=== PATIENT | female | born 1960 | race Caucasian/White ===

== ENCOUNTER → 2021-01-04 09:53 | Outpatient (CLI) | payer BC, SELFPAY ==
--- NOTE | ~2021-01-04 | MM_ITS ---
EXAMINATION: MM scrn mabel implant BI w jacquelyn HISTORY: Screening mammogram TECHNIQUE: Craniocaudal and mediolateral oblique 3-D tomosynthesis images with implant displacement a nd synthetic 2-D images were generated. Craniocaudal and mediolateral oblique views of the breasts wi thout implant displacement were obtained using full field digital mammography. CAD analysis was submi tted and interpreted. COMPARISON: Comparison to multiple prior studies sequentially, with oldest reviewed study dated 02/22. BREAST PARENCHYMAL COMPOSITION: The breasts are extremely dense, which lowers the sensitivity of mamm ography FINDINGS: There is no evidence of suspicious mass, calcification, or architectural distortion to sugg est malignancy in either breast. There has been no suspicious interval change. IMPRESSION: 1. No mammographic evidence of malignancy. 2. Recommend routine screening mammography in one year. BI-RADS Category 1: Negative Reviewed, dictated and finalized at location A.
== END ==
PROVIDERS: Visit Provider Obstetrics & Gynecology
DX: Z12.31 Encounter for screening mammogram for malignant neoplasm of breast (principal)
CPT/HCPCS: 77063; 77067

== ENCOUNTER 2021-02-04 08:17 | Outpatient (CLI) | payer BC, SELFPAY ==
--- NOTE | ~2021-02-04 | DEXA_ITS ---
Bone Density Report Name: Kristina Baker Age: 60 Sex: Female Ethnicity: White Date of : 1960 Indication: postmenopausal; height loss; hysterectomy; Referring Provider: JO HAGEN Study: Bone densitometry was performed. Exam Date: February 04, 2021 Accession number: [id number] Bone Density: Region BMD T-score Z-score Classification AP Spine (L1-L4) 0.720 -3.0 -1.6 Osteoporosis Femoral Neck (Left) 0.650 -1.8 -0.6 Osteopenia Total Hip (Left) 0.840 -0.8 0.0 Normal Total Hip Bilateral Avg 0.863 -0.7 0.2 Normal Femoral Neck (Right) 0.676 -1.6 -0.3 Osteopenia Total Hip (Right) 0.886 -0.5 0.4 Normal World Health Organization criteria for BMD impression classify patients as: Normal (T-score at or above -1.0), Osteopenia (T-score between -1.0 and -2.5), or Osteoporosis (T-score at or below -2.5). 10-year Fracture Risk: FRAX not reported because: Some T-score for Spine Total or Hip Total or Femoral Neck at or below -2.5 Clinical Information Provided by Patient: Has used the following medications: Vitamin D, Calcium Has the following medical conditions: Hysterectomy Patient maximum height was 67 Menopause Age: 50 No regular weight bearing exercise Does not regularly consume dairy products Onset of menses at age 15 Number of children 1 Impression: The patient has osteoporosis, based on the Total Spine T-score. Discussion: INCREASED RISK OF FRACTURE. BONE DENSITY IS UNDESIRABLY LOW AT ONE OR MORE SKELETAL SITES, CONSISTENT WITH POSTMENOPAUSAL OSTEOPOROSIS. This patient's lowest T-score meets the World Health Organization's (WHO) criteria for osteoporosis at one or more sites (T-score -2.5 or below). In untreated patients, the risk of osteoporotic fracture increases approximately two-fold for each 1.0 SD decrease in T-score. Low bone density is not the only risk factor for fracture; also consider factors such as patient's age, frailty or poor health, risk of falling, risk of injury, previous osteoporotic fracture, family history of osteoporosis, cigarette smoking, low body weight, etc. Not everyone with low bone mineral density has osteoporosis; osteomalacia and other metabolic bone disorders should also be considered. Patients who have osteoporosis should be evaluated for specific diseases and conditions (secondary causes) that may cause or contribute to bone loss. The [employer] Clinical Endocrinologists (AACE) and National Osteoporosis Foundation (NOF) recommend pharmacologic intervention for all postmenopausal women whose T-score is in this range. The patient should follow a healthful lifestyle (good nutrition with adequate calcium and vitamin D, and appropriate weight-bearing exercise). Follow-Up: Consider a repeat BMD and Vertebral Fracture Assessment (VFA) exam in 2 years or sooner if medicall
== END 2021-02-04 08:18 | disposition home or self-care (01) ==
LOC: ANHIMG 08:19
PROVIDERS: Visit Provider Obstetrics & Gynecology
DX: Z78.0 Asymptomatic menopausal state (principal); M81.0 Age-related osteoporosis without current pathological fracture; M85.852 Other specified disorders of bone density and structure, left thigh; M85.851 Other specified disorders of bone density and structure, right thigh
CPT/HCPCS: 77080

== ENCOUNTER → 2021-04-24 00:20 | Outpatient (CLI) | payer BC, SELFPAY ==
[2021-04-24 19:57] LABS: SARS-CoV-2 RNA PCR Negative
== END ==
PROVIDERS: PCP Family Medicine; Visit Provider Physician Assistant
DX: R68.83 Chills (without fever) (principal); R53.83 Other fatigue; Z20.822 Contact with and (suspected) exposure to COVID-19
CPT/HCPCS: C9803; U0003; U0005

== ENCOUNTER 2021-04-28 15:17 | Inpatient (IN) | payer BC, MEDICAID, SELFPAY ==
[2021-04-28] VITALS (15 sets, daily range): BP systolic 70–90; BP diastolic 34–66; PULSE 97–125; RESP 17–26; TEMP 36.8–38.4; O2SAT 92–100; BMI 20.9
--- NOTE | ~2021-04-28 | CT_ITS ---
EXAMINATION: CTA chest PE abdomen pel DATE: 04/28/2021 17:29 INDICATION: Chest pain. TECHNIQUE: Computed tomography angiography (CTA) of the chest was performed with 100 mL Omnipaque-350 intravenous contrast timed to evaluate the pulmonary arteries. Coronal maximum intensity projection 3D-reconstructions were created by the technologist. Computed tomography (CT) of the abdomen and pelv is was performed with intravenous contrast. Automated exposure control and iterative reconstruction t echnique were employed. The dose-length product was 379.74 mGy-cm. COMPARISON: Chest single view 04/28/2021 FINDINGS: CTA chest: There are small pleural effusions. There is mild dependent atelectasis bilaterally. There is a diffuse interstitial pattern in the lungs. There are groundglass opacities in the perihilar mick ons bilaterally. The heart size is normal. No pericardial effusion. There is no pulmonary embolus. Th ere are bilateral breast implants. There is mild thoracic spondylosis. CT abdomen and pelvis: There is a 5 mm cyst in the liver. The spleen, pancreas, adrenal glands, and r ight kidney are normal. There is a 5 mm cyst in left kidney. There is diverticulosis of the colon wit hout evidence of diverticulitis. The appendix is normal. There are no pathologically enlarged lymph n odes. There is no free intraperitoneal fluid. There is mild lumbar spondylosis. IMPRESSION: 1. No pulmonary embolus. 2. Diffuse lung disease, likely moderate pulmonary edema. 3. Small pleural effusions. Reviewed, dictated and finalized at location A. SPORTATION ANALYST
--- NOTE | ~2021-04-28 | XR_ITS ---
EXAMINATION: XR chest 1V portable DATE: 04/28/2021 16:16 INDICATION: Fever. Weakness. TECHNIQUE: A single frontal view of the chest was obtained. COMPARISON: None. FINDINGS: The lungs are hyperexpanded, consistent with emphysema. There are mild airspace opacities i n left midlung zone. No pleural effusion or pneumothorax. The heart size is normal. IMPRESSION: 1. Mild airspace opacities in left midlung zone, consistent with pneumonia versus atelectasis/scarrin g. 2. Emphysema. Reviewed, dictated and finalized at location A. AND SKIN FLESHING MACHINE OPERATOR IMPRESSION: 1. Mild airspace opacities in left midlung zone, consistent with pneumonia vers us atelectasis/scarring. 2. Emphysema.
--- NOTE | ~2021-04-28 | XR_ITS ---
EXAMINATION: XR hip LT 1V DATE: 04/30/2021 09:36 INDICATION: Left hip pain TECHNIQUE: Anteroposterior view of the left hip was obtained. COMPARISON: None. FINDINGS: Alignment is normal. No fracture or suspected avascular necrosis. Left hip joint space is normal. Mil d bilateral sacroiliac osteoarthritis. Do catheter tip in the bladder. Soft tissues are unremarkab le. IMPRESSION: 1. Normal left hip joint with no acute osseous abnormality. Reviewed, dictated and finalized at location A. RMATICS SPEC
--- NOTE | ~2021-04-28 | CT_ITS ---
EXAMINATION: CT brain wo con DATE: 04/28/2021 20:30 INDICATION: Confusion. Altered mental status. TECHNIQUE: Computed tomography (CT) of the head was performed without intravenous contrast. The mA wa s adjusted according to patient size. Iterative reconstruction technique was employed. The dose-lengt h product was 605.33 mGy-cm. COMPARISON: None FINDINGS: There is no intracranial hemorrhage, acute infarction, or abnormal intracranial mass lesion . There is low attenuation in the left frontal lobe white matter, which is within normal limits for t he patient's age. The ventricles are normal in size. There is mild mucosal thickening in the paranasa l sinuses. The mastoid air cells are normal. The orbits are normal. IMPRESSION: 1. Normal aging brain. Reviewed, dictated and finalized at location A. N BLOCKER IMPRESSION: 1. Normal aging brain.
--- NOTE | ~2021-04-28 | XR_ITS ---
EXAMINATION: XR chest port-a-cath/central DATE: 04/28/2021 19:47 INDICATION: Central line placement. TECHNIQUE: A single frontal view of the chest was obtained on 2 radiographs. COMPARISON: Chest single view at 4:04 PM, chest CT 04/28/21 FINDINGS: There is a diffuse interstitial pattern in the lungs. There are airspace opacities in the p erihilar regions. No pleural effusion or pneumothorax. The heart size is normal. A right internal jug ular central venous catheter is seen with tip in the superior vena cava. Breast implants are noted. IMPRESSION: 1. Worsened diffuse lung disease, likely moderate pulmonary edema. Reviewed, dictated and finalized at location A. CONTROL SPECIALIST
--- NOTE | ~2021-04-28 | XR_ITS ---
XR chest 1V portable 04/30/2021 09:35 Indication: Shortness of breath Procedure: AP portable chest Comparison: 04/29/2021 Findings: Cardiomegaly. Diffuse bilateral airspace disease, right greater than left. Right IJ central line tip in the SVC. No pneumothorax. Small pleural effusions. Impression: 1: Progression of extensive bilateral airspace disease, compatible with pneumonia. 2: Small pleural effusions. Reviewed, dictated and finalized at location A. AL ADVERTISER Impression: 1: Progression of extensive bilateral airspace disease, compatible with pneumon ia. 2: Small pleural effusions.
--- NOTE | ~2021-04-28 | US_ITS ---
EXAMINATION: US venous doppler [facility] DATE: 05/04/2021 12:35 INDICATION: Lower limb swelling TECHNIQUE: Grayscale ultrasound images without and with compression and Doppler ultrasound images of the bilateral lower extremity veins were obtained. COMPARISON: None. FINDINGS: The visualized portions of right common femoral vein, profunda (deep) femoral vein, femoral vein, pop liteal vein, posterior tibial veins, peroneal veins, gastrocnemius vein and greater saphenous vein ou tflow are patent. The visualized portions of left common femoral vein, profunda femoral vein, femoral vein, popliteal v ein, posterior tibial veins, peroneal veins, gastrocnemius vein and greater saphenous vein outflow ar e patent. IMPRESSION: 1. No deep venous thrombosis in either lower limb. Reviewed, dictated and finalized at location B. OLEER STRAIGHTENER STAMPER
--- NOTE | ~2021-04-28 | XR_ITS ---
EXAMINATION: XR chest 1V portable DATE: 04/29/2021 05:55 INDICATION: Pneumonia and increased oxygen demand. TECHNIQUE: frontal view of the chest was obtained. COMPARISON: Chest radiograph dated 04/28/2021 FINDINGS: Right internal jugular central venous catheter with distal tip at the caudal superior vena cava. Rosalinda hilar predominant airspace opacities and diffuse increased interstitial pattern with numerous periphe ral Heidi B-lines. No pneumothorax or definitive pleural effusion. Cardiomegaly. Bilateral breast im plants. IMPRESSION: 1. Diffuse interstitial pattern and perihilar predominant opacities most likely congestive heart fail ure related moderate pulmonary edema although differential includes pneumonia. 2. Cardiac Megaly. Reviewed, dictated and finalized at location [facility]. [facility] IMPRESSION: 1. Diffuse interstitial pattern and perihilar predominant opacities most likely congestive heart failure related moderate pulmonary edema although differentia l includes pneumonia. 2. Cardiac Megaly.
--- NOTE | 2021-04-28 15:54 | ECG_ITS ---
Measurements Intervals [place] Rate: 110 P: 57 VA: 136 QRS: 4 QRSD: 109 T: 43 QT: 348 QTc: 472 Interpretive Statements SINUS TACHYCARDIA BASELINE ARTIFACT- II, III, AVR, AVF, V2-V6 ABNORMAL ECG Electronically Signed On 04-28-2021 20:11:08 CEMENT FINISHING SUPERVISOR by Dk Meadows D.O.
--- NOTE | 2021-04-28 16:11 | ED.GENADULT ---
HPI - General Adult General Chief complaint: Unspecified Stated complaint: Fever,chills Time Seen by Provider: 04/28/21 15:33 Source: patient Mode of arrival: ambulatory History of Present Illness HPI narrative: This is a 61 year old female who presents for evaluation of weakness and fever. Patient has been ill since the day after thanksgiving. She states started having fever as high as 104 at that time. Her fever today was 101. She reports mild cough and congestion but she denies chest pain or shortness of breath. She has nausea but denies vomiting. She has been having diarrhea intermittently since Monday. She reports she only has diarrhea after drinking ensure. Otherwise she has no appetite and eating and drinking very little. She reports feeling forgetful since she has been ill. Related Data Home Medications Medication Instructions Recorded Confirmed calcium 166.75 mg-vit D3 166.75 1 tablet PO DAILY 11/12/19 03/31/21 unit-vit C-vit K2-minerals capsule multivitamin,[id number] 1 tablet PO DAILY 11/12/19 03/31/21 turmeric root extract 500 mg 500 mg PO DAILY 11/12/19 03/31/21 capsule lysine 500 mg tablet 500 mg PO DAILY 12/17/20 03/31/21 Allergies Allergy/AdvReac Type Severity Reaction Status Date / Time No Known Allergies Allergy Verified 03/31/21 10:18 Review of Systems Review of Systems: All systems reviewed & are unremarkable except as noted in HPI and below Constitutional: Constitutional: Reports chills, Reports fever(s) and Reports malaise ENT: Denies neck pain and Denies sore throat Respiratory: Respiratory: Reports cough and Denies pain on inspiration Gastrointestinal: Gastrointestinal: Reports abdominal pain, Reports diarrhea and Reports nausea Endocrine: Endocrine: Denies polyuria PMFSH Past Medical History Medical History History of vaginal delivery x1 HSV (herpes simplex virus) infection Surgical History Surgical History H/O tubal ligation H/O: hysterectomy History of bilateral tubal ligation History of breast augmentation 1990 History of endometrial ablation History of hysteroscopy Family History Family History Grandparent Family history of glaucoma Family history of cardiovascular disease Carcinoma of colon Mother Family history of cardiovascular disease Acute myocardial infarction Family history of chronic obstructive pulmonary disease Family history of congestive heart failure Sibling Carcinoma of colon Father Family history of Alzheimer's disease Social History Social History (Reviewed 03/31/21 @ 10:26 by Marilou Ahmadi [facility]) Smoking end date: 05/29/91 Alcohol intake: never Substance use: unknown Exam Const: General: cooperative, alert, awake, ill appearing and well groomed Limitations: no limitations HENMT: Head: normocephalic and atraumatic Ears: TM's normal bilaterally Face and sinus: face symmetric Mouth: Yes Normal oral and palatal mucosa present, Yes tongue normal, Yes Normal salivary glands and ducts present, Yes moist mucous membranes and Yes other (dry lips) Throat: tonsils normal and uvula midline Eyes: Pupils: Equal, round and reactive pupils present EOM: EOMs intact bilaterally Resp: Effort & Inspection: normal respiratory effort, able to speak in complete sentences, Actively coughing, no respiratory distress and no stridor Auscultation: clear to auscultation bilaterally Cardio: Jugular venous distension: no JVD Rate: tachycardic Rhythm: regular rhythm Heart sounds: S1 normal heart sound present GI: GI Palp: Yes Soft to palpation, Yes Tenderness to palpation present (GI) (Diffuse) and No Guarding due to palpation present (GI) Back/Spine/Pelvis: Back: no CVA tenderness Skin: General skin exam: normal color and no rashes or lesions no
[2021-04-28 16:17] LABS: Hematocrit 29.4 % (37.0-47.0); Immature Platelet Fraction Pct 12.6 % (0.9-11.2); Mean Corpuscular HGB Conc 37.4 g/dl (32-36); Mean Corpuscular Hemoglobin 32.1 pg (26-34); Mean Corpuscular Volume 85.7 fl (80-100); Mean Platelet Volume 12.4 fl (7.4-10.4); Platelet Count Result 46 k/mm3 (150-375); Red Blood Count 3.43 M/mm3 (4.2-5.4); Red Cell Distribution Width 13.5 % (11.5-14.5); White Blood Count 15.6 K/mm3 (4.5-10.0)
[2021-04-28] MEDS: SODIUM CHLORIDE 0.9% IV 1,600 ML/1,000 ML BAG 999 ML IV CONT ×2 (16:24→21:47)
[2021-04-28 16:26] LABS: Partial Thromboplastin Time 26.4 SECONDS (22.3-36.8); Prothrombin Time 13.4 Seconds (11.1-14.7)
[2021-04-28 16:28] LABS: Lactic Acid Reflex 1.5 mmol/L (0.7-2.1)
[2021-04-28 16:36] LABS: Alanine Aminotransferase 29 U/L (4-35); Albumin Level 3.3 g/dL (3.5-5.1); Alkaline Phosphatase 123 U/L (38-126); Anion Gap 10 mmol/L (8-16); Aspartate Amino Transferase 36 U/L (14-36); Bilirubin,Total 1.5 mg/dL (0.2-1.3); Blood Urea Nitrogen 40 mg/dL (7-17); Calcium 8.4 mg/dL (8.4-10.2); Carbon Dioxide 21 mmol/L (22-30); Chloride 89 mmol/L (98-107); Estimated CRCL calculation 41 ml/min; Estimated Glomerular Filt Rate 51; Glucose 124 mg/dL (65-110); Lipase 50 U/L (23-300); Potassium 3.3 mmol/L (3.4-5.0); Sodium 120 mmol/L (137-145)
[2021-04-28 16:38] LABS: Band Neutrophils Percent 12 % (0-6); Lymphocytes Absolute Manual 0.46 K/mm3 (1.1-4.5); Lymphocytes Percent Manual 3 % (18-44); Metamyelocytes Percent 1 %; Monocytes Absolute Manual 1.24 K/mm3 (0.1-0.90); Monocytes Percent Manual 8 % (3-9); Neutrophils Absolute Manual 13.72 K/mm3 (1.7-7.2); Neutrophils Percent Manual 76 % (46-73); Ovalocytes 1+ (NORMAL); Platelet Estimate Decreased (Adequate); Total Cells Counted 100
[2021-04-28 16:43] LABS: CRP > 27.0 mg/dL (<1.0); Troponin I 0.225 ng/mL (0.000-0.034)
[2021-04-28 18:09] LABS: Add Urine Microscopic? YES; Amorphous Sediment Urine Few; Appearance Urine Cloudy (Clear); Bilirubin Urine Negative (Negative); Blood Urine 1+ (Negative); Color Urine Amber (Yellow); Glucose Urine UA Negative (Negative); Ketones Urine Negative (Negative); Leukocyte Esterase Ur Negative LEU/UL (Negative); Mucus Urine Rare /lpf; Nitrate Urine Negative (Negative); Protein Urine 2+ mg/dL (Negative); RBC Urine 21-50 /hpf (0-2); Specific Grav Ur 1.025 (1.001-1.035); Squamous Epithelial Cell Urine Few /hpf (Few); Urobilinogen Urine Negative mg/dL (<2.0)
[2021-04-28 18:30] LABS: NT Pro B Type Natriuretic Pept 16600 pg/mL (5-100)
--- NOTE | 2021-04-28 18:55 | PC.NURSE ---
This RN attempted to obtain consent for central line, at this time patient is requesting to speak to ER , Dr. Marshall aware.
--- NOTE | 2021-04-28 19:35 | PC.NURSE ---
XY called at this time.
--- NOTE | 2021-04-28 19:40 | PC.NURSE ---
Right IJ triple lumen placed by AVELINO Marshall at bedside.
--- NOTE | 2021-04-28 20:19 | PC.NURSE ---
Pt to CT scan at this time.
--- NOTE | 2021-04-28 20:20 | PC.NURSE ---
Called pharmacy in regards to issues scanning levophed, pharmacy verifies dose is correct and Rx number is different due to changes on their end (due to ICU admission). Must override to administer med per pharmacy, med is appropriate to administer.
--- NOTE | 2021-04-28 20:26 | PC.NURSE ---
Verified with lab that COVID swab is not pending, not available to run in lab. Will swab pt for COVID.
[2021-04-28] MEDS: NOREPINEPHRINE 8 MG/D5W 250 ML 8 MG/250 ML BAG 9.38 MG IV CONT (20:35)
--- NOTE | 2021-04-28 20:38 | PC.NURSE ---
Levophed verified with BUSHRA Morin.
[2021-04-28] MEDS: CENTRAL LINE FLUSH 10 ML IV PUSH (21:49)
--- NOTE | 2021-04-28 22:06 | PM.CNNEP ---
Assessment and Plan Assessment and plan (1) Hyponatremia: Code(s): E87.1 - Hypo-osmolality and hyponatremia Status: Acute Assessment and Plan: Patient has hyponatremia. The sodium level is 120. In September she had a sodium of 140. She has never been told she had low sodium in the past or has been told that she should restrict her fluid. So I think this is new. I suspect that her sodium has been gradually falling over the last 5 days because she has not been eating and she has been drinking. She might also be dehydrated leading to a decrease in ability to excrete free water. There other causes of hyponatremia which include: Hormonal issues: Her TSH is normal. We will check cortisol levels. Adrenal insufficiency could give her hypotension plus hyponatremia. Will check a cortisol level tonight and give her a single dose of Solu-Cortef to see if that improves her blood pressure dramatically. Medications: The patient is not on any medications that would do this. Cancer: No history of cancer. However the patient is quite thin. Pulmonary issues: There is no history of this, and her chest x-ray does not show any processes that would suggest a cause of hyponatremia. MONONITROTOLUENE OPERATOR issue: There is no history of this Pre renal issues: This could be dehydration or could be cardiorenal syndrome. Multiple myeloma can cause pseudo hyponatremia and cardiac disease. This patient's volume status is a bit confusing. She has a history suggesting that she should be dehydrated. However she has pulmonary edema on chest x-ray and CT scan. And another issue was that her heart size is normal. Perhaps she has valvular issues or perhaps the pulmonary infiltrates are infectious. At this point she is in shock so she is getting meds for this. Will get a cortisol level and give her a single dose of hydrocortisone to see if the blood pressure gets much better. I want to give her chronic hydrocortisone because of her fevers unless the blood pressure gets markedly better with this. Will get an echocardiogram. Will get urine sodium, serum and urine osmolality, and cortisol level and SPEP. Is not clear how the pain in her superior buttock muscle fits in. Perhaps this is some muscle strain. The patient's mental status looks okay so I do not think we need 3% saline at this point. Will repeat a sodium level now. (2) Shock: Code(s): R57.9 - Shock, unspecified Status: Acute Assessment and Plan: The patient is on Levophed. Cultures have been done and she is getting antibiotics. (3) Benign essential hypertension: Code(s): I10 - Essential (primary) hypertension Status: Acute (4) Osteoporosis: Code(s): M81.0 - Age-related osteoporosis without current pathological fracture Status: Acute Assessment and Plan: She is on Boniva (5) High serum low density lipoprotein (LDL) cholesterol: Code(s): R79.89 - Other specified abnormal findings of blood chemistry Status: Acute Assessment and Plan: She is on atorvastatin will check a CK (6) Pulmonary edema: Code(s): J81.1 - Chronic pulmonary edema Status: Acute Assessment and Plan: The patient has pulmonary edema. Her heart size is normal on chest x-ray. Will get an echocardiogram. History of Present Illness Reason for Consult Consult date: 04/28/21 Chief Complaint Chief complaint: Shock,Leukocytosis,PUI COVID,Lung Disease History of Present Illness Narrative: Kristina is a very pleasant 61-year-old lady who has osteoporosis, herpes simplex, hyperlipidemia, and hypertension. The patient says that she was well until last Monday when she developed fevers chills and weakness. This gradually worsened over the last few days. Her fevers were as high as 104 over the last 5 days. She had mild cough and congestion but not very much. She denies shortness of breath. She has no pain with urination bloody foamy cloudy or sme
--- NOTE | 2021-04-28 22:10 | ADMGEN ---
This patient, Kristina Baker, was admitted to Intensive Care Unit-6. Patient/family oriented to hospital policies and general routines including ID bracelet, bed and alarms, visiting hours, pain management, procedures, bathroom and other care routines, personal items, smoking policy, room service/diet, and visiting hours. Information on how to activate the Rapid Response Team has been discussed. Patient/Family are encouraged to report perceived risks to care and to ask questions if they do not understand what they are told or what they should do.
[2021-04-28 22:21] LABS: Troponin I 0.211 ng/mL (0.000-0.034)
[2021-04-28 22:35] LABS: Creatine Kinase 31 U/L (30-135)
[2021-04-28 22:37] LABS: Anion Gap 10 mmol/L (8-16); Blood Urea Nitrogen 39 mg/dL (7-17); Calcium 7.7 mg/dL (8.4-10.2); Carbon Dioxide 18 mmol/L (22-30); Chloride 94 mmol/L (98-107); Estimated CRCL calculation 44 ml/min; Estimated Glomerular Filt Rate 51; Glucose 129 mg/dL (65-110); Potassium 3.4 mmol/L (3.4-5.0); Sodium 122 mmol/L (137-145)
--- NOTE | 2021-04-28 22:55 | PM.IMHP ---
H&P: HPI History of Present Illness Date/Time: 04/28/21 22:55 Chief Complaint: Septic shock Narrative: This is a 61 year old female who presents to the ED with fever and generalized weakness. She states that she has been feeling ill since day after Thanksgiving. She started having fever as high as 104? at the time. She denies any other symptoms and states the fever continued to decline over the next few days however she continued to feel weak and awful. She denies any nausea vomiting or abdominal pain. She denies any shortness of breath or chest pain and even cough. She had of episode of diarrhea 1 day when she drank some Ensure that her sister gave. She otherwise have no appetite and has been having poor p.o. intake. She was noted to be hypotensive upon arrival to the ER along with fever diagnosed with septic shock. Chest x-ray showed pulmonary edema CT abdomen chest and pelvis showed diffuse lung disease likely moderate pulmonary edema along with small pleural effusions. Due to hypotension and pulmonary edema she has been started on vasopressor and is admitted to the ICU for further management. She reports he has been having this left-sided low back pain that has been ongoing for past few days and rates it as severe pain does not radiate down her legs worsens with movement. She denies any trauma to the area. In the labs she was also noted to have hyponatremia at 1:20 a.m. along with hypokalemia 3.3. CT head showed no acute findings. She has been started on ceftriaxone and azithromycin. She also has leukocytosis with 50,000 mild anemia at 11 thrombocytopenia 46 with bandemia lactic acid is normal CK is normal and troponin is elevated had 0.2-5. BNP is elevated at 16,600. UA is noted to have 10-15 WBC along with 21-50 RBC Review of Systems Review of Systems: - CONSTITUTIONAL: Denies weight loss, reports fever and chills. - HEENT: Denies changes in vision and hearing - RESPIRATORY: Denies SOB and cough. - CV: Denies palpitations and CP. - GI: Denies abdominal pain, nausea, vomiting and diarrhea. - : Denies dysuria and urinary frequency. - MSK: Denies myalgia and joint pain. Reports pain in the left low back - SKIN: Denies rash and pruritus. - NEUROLOGICAL: Denies headache and syncope. - PSYCHIATRIC: Denies recent changes in mood. Denies anxiety and depression. All systems reviewed & are unremarkable except as noted in HPI and below Constitutional: Constitutional: Reports fatigue and Reports weakness Neurologic: Reports weakness Endocrine: Endocrine: Reports fatigue [facility] Past Medical History Medical History (Updated 04/28/21 @ 23:09 by Parish Bar MD) History of vaginal delivery x1 HSV (herpes simplex virus) infection Hyponatremia Pulmonary edema Surgical History Surgical History H/O tubal ligation H/O: hysterectomy History of bilateral tubal ligation History of breast augmentation 1990 History of endometrial ablation History of hysteroscopy Family History Family History Grandparent Family history of glaucoma Family history of cardiovascular disease Carcinoma of colon Mother Family history of cardiovascular disease Acute myocardial infarction Family history of chronic obstructive pulmonary disease Family history of congestive heart failure Sibling Carcinoma of colon Father Family history of Alzheimer's disease Social History Social History Smoking status: Never smoker Smoking end date: 05/29/91 Alcohol intake: current Drinks per week: 1 Substance use: never Spiritual care concerns: No Meds Home Medications and Allergies Home Medications Medication Instructions Recorded Confirmed Type calcium 166.75 mg-vit D3 166.75 1 tablet PO DAILY 11/12/19 04/28/21 History unit-vit C-vi
[2021-04-28] MEDS: SODIUM CHLORIDE 0.9% IV 500 ML IV CONT (23:30)
[2021-04-28] MEDS: HYDROCORTISONE SODIUM SUCCINATE 100 MG/2 ML VIAL IV PUSH (23:40)
[2021-04-29] VITALS (25 sets, daily range): BP systolic 83–117; BP diastolic 61–96; PULSE 93–117; RESP 21–32; TEMP 36.9–37.7; O2SAT 89–96
--- NOTE | 2021-04-29 | ECHO_ITS ---
Patient Info Name: Kristina Baker Age: 61 years : 1960 Gender: Female Ht: 65 in Wt: 125 lbs BSA: 1.61 m2 HR: 88 bpm BP: 102 / 81 mmHg Heart Rhythm: Sinus Rhythm Technical Quality: Fair Exam Date: 04/29/2021 12:13 PM Exam Location: [facility] Patient Status: Inpatient Admit Date: 04/28/2021 Staff Ordering Physician: Cristopher Rondon MD Crm Developer: Milli Lyons CT Attending Provider: Antonia Falcon MD Exam Type: CA echo doppler color flow Study Info Indications I50.20 - Unspecified systolic (congestive) heart failure Complete two-dimensional, color flow and Doppler transthoracic echocardiogram is performed. Summary 1. Complete two-dimensional, color flow and Doppler transthoracic echocardiogram is performed. 2. Left ventricular systolic function is normal, estimated at 60-65%. 3. The left ventricular diastolic function is normal. 4. Left atrial chamber dimension is mildly enlarged. 5. There is mild aortic valve sclerosis. 6. There is mild prolapse of the anterior mitral leaflet. Thickening of the base of the posterior leaflet. There is mild to moderate mitral valve regurgitation. 7. Mobile structure attached to the mitral valve concerning for vegetation. 8. There is mild tricuspid valve regurgitation. 9. No pulmonary hypertension, estimated pulmonary arterial systolic pressure is 33 mmHg. 10. Right ventricular chamber dimension is mildly enlarged. 11. Right ventricular systolic function is normal. Left Ventricle Left ventricular chamber dimension is normal. Left ventricular systolic function is normal, estimated at 60-65%. There is no increased left ventricular wall thickness. Left ventricular septal wall motion is normal. The left ventricular diastolic function is normal. Right Ventricle Right ventricular chamber dimension is mildly enlarged. Right ventricular systolic function is normal. Left Atria Left atrial chamber dimension is mildly enlarged. Right Atria Right atrial chamber dimension is normal. Atrial Septum Intact interatrial septum visualized by color flow imaging. Aortic Valve The aortic valve is trileaflet. There is mild aortic valve sclerosis. There is no aortic valve stenosis. There is no aortic valve regurgitation. Pulmonic Valve The pulmonic valve is normal. There is no pulmonic valve stenosis. There is no pulmonic regurgitation. Mitral Valve The mitral valve has normal leaflets. There is no mitral valve stenosis. There is mild prolapse of the anterior mitral leaflet. Thickening of the base of the posterior leaflet. There is mild to moderate mitral valve regurgitation. Mobile structure attached to the mitral valve concerning for vegetation. Tricuspid Valve The tricuspid valve leaflets are normal. There is no significant tricuspid valve stenosis. There is mild tricuspid valve regurgitation. No pulmonary hypertension, estimated pulmonary arterial systolic pressure is 33 mmHg. Pericardium/Pleural The pericardium appears normal. There is trivial pericardial effusion. Inferior Vena Cava Dilated inferior vena cava with <50% collapse upon inspiration consistent with normal right atrial pressure, 15 mmHg. Aorta The aortic root size at the sinus of Valsalva is normal. The prox ascending aorta size is normal. Left Ventricular Outflow Tract Name Value Normal
[2021-04-29 00:46] LABS: Creatinine Urine 193.5 mg/dL; Total Protein Urine Random 74 mg/dL; Ur Ttl Prot Creatinine Ratio 0.38 mg/mg (0-0.20)
[2021-04-29 00:57] LABS: Sodium Urine Random < 5 meq/L
[2021-04-29] MEDS: CENTRAL LINE FLUSH 10 ML IV PUSH ×4 (04:40→21:15)
[2021-04-29] MEDS: NOREPINEPHRINE 8 MG/D5W 250 ML 8 MG/250 ML BAG 37.5 MG IV CONT ×2 (04:40→11:11)
[2021-04-29 06:21] LABS: Hemoglobin 10.5 g/dL (12.0-15.0); Mean Corpuscular HGB Conc 36.2 g/dl (32-36); Mean Corpuscular Hemoglobin 31.1 pg (26-34); Mean Corpuscular Volume 85.8 fl (80-100); Mean Platelet Volume 13.6 fl (7.4-10.4); Platelet Count Result 60 k/mm3 (150-375); Red Blood Count 3.38 M/mm3 (4.2-5.4); Red Cell Distribution Width 14.1 % (11.5-14.5); White Blood Count 34.6 K/mm3 (4.5-10.0)
[2021-04-29 06:41] LABS: Alanine Aminotransferase 28 U/L (4-35); Albumin Level 3.1 g/dL (3.5-5.1); Alkaline Phosphatase 110 U/L (38-126); Anion Gap 13 mmol/L (8-16); Aspartate Amino Transferase 36 U/L (14-36); Bilirubin,Total 1.2 mg/dL (0.2-1.3); Blood Urea Nitrogen 28 mg/dL (7-17); Calcium 7.6 mg/dL (8.4-10.2); Carbon Dioxide 17 mmol/L (22-30); Chloride 95 mmol/L (98-107); Estimated CRCL calculation 53 ml/min; Estimated Glomerular Filt Rate > 60; Glucose 214 mg/dL (65-110); Potassium 3.4 mmol/L (3.4-5.0); Sodium 125 mmol/L (137-145)
[2021-04-29 07:29] LABS: Band Neutrophils Percent 13 % (0-6); Monocytes Absolute Manual 1.38 K/mm3 (0.1-0.90); Monocytes Percent Manual 4 % (3-9); Neutrophils Absolute Manual 33.21 K/mm3 (1.7-7.2); Neutrophils Percent Manual 83 % (46-73); Platelet Estimate Decreased (Adequate); Total Cells Counted 100
[2021-04-29] MEDS: CALCIUM/VITAMIN D 250 MG TABLET 1 TABLET PO (10:23)
[2021-04-29] MEDS: ATORVASTATIN 20 MG TABLET PO (10:23)
[2021-04-29] MEDS: CALCIUM GLUC 2,000 MG/NS 100ML 2,000 MG/100 ML BAG 100 MG IVPB (10:23)
[2021-04-29] MEDS: POTASSIUM CHLORIDE 20 MEQ TABLET 40 MEQ PO (11:16)
[2021-04-29] MEDS: SODIUM BICARBONATE TAB 650 MG TABLET PO ×2 (11:16→17:58)
--- NOTE | 2021-04-29 11:34 | PM.CNCAR ---
Assessment and Plan Additional Plan -Septic shock -elevated brain atretic peptide. This is 61-year-old patient presents the hospital with fever, chills and was found to be hypotensive and febrile. Imaging of the thorax suggestive of diffuse pulmonary infiltrate that could represent pulmonary edema or maybe pneumonia. She is being ruled out for COVID. Brain atretic peptide is elevated. Normal creatinine. Currently receiving Levophed 17 mics requiring 10 L oxygen. -recommend echocardiogram to assess mitral valve given history of mitral valve prolapse and rule out severe mitral regurgitation and cardiomyopathy. -continue broad-spectrum antibiotics. -await results of COVID. -gentle hydration. Sodium improving with gentle hydration. This could be related to dehydration. However will be giving gentle hydration until we make sure that the LV function looks okay. -continue hemodynamic support using Levophed. History of Present Illness History of Present Illness Consult date/time: Date of service 04/29/21 11:34 Requesting physician: Sue Marshall MD Consult reason: Other (Elevated troponin) Reason For Visit: Shock,Leukocytosis,PUI COVID,Lung Disease Narrative: This is 61-year-old female with past medical history of hyperlipidemia, hypertension who presents the hospital with fever, chills, 1 episode of diarrhea that started around . Reported some back pain as well. Denied chest pain. She stated that she was drinking lots of water. Denied lower limb edema. She felt very weak. Her blood pressures on presentation with systolic 70s to 80s, she had a temperature 38.5? centigrade. Elevated heart rate in the low 100 sinus tachycardia. She is currently on 17 of Levophed and 10 L nasal cannula. Brain atretic peptide 16 K White cell count 15 kg and today 35 K, platelet count 60 K, Serum sodium 122 on admission and today 125, serum creatinine 1.1 on admission and today 0.9 Troponin 0.22, 0.21 Chest x-ray reviewed and as myself shows diffuse infiltrates more on the right side. CT scan of the thorax she will doubt pulmonary embolism and consistent with possible pulmonary edema, small pleural effusions. EKG review and asthma so shows sinus tachycardia no ischemia. Review of Systems Constitutional: Constitutional: Reports chills, Reports fatigue, Reports lethargy and Reports weakness Comments: Fever Eyes: Eyes: Denies blurry vision ENT: Denies nasal discharge Cardiovascular: Cardiovascular: Denies chest pain and Reports lightheadedness Respiratory: Respiratory: Reports dyspnea Gastrointestinal: Gastrointestinal: Denies nausea and Denies vomiting Genitourinary: Genitourinary: Denies dysuria and Denies flank pain Musculoskeletal: Musculoskeletal: Denies joint swelling Integumentary/Breasts: Skin/Breast: Denies rash Neurologic: Denies headache(s) and Denies numbness Psychiatric: Psychiatric: Denies anxiety Endocrine: Endocrine: Denies excessive sweating and Reports fatigue Hematologic/Lymphatic: Hematologic/Lymphatic: Denies easy bruising PMFSH Past Medical History Medical History (Updated 04/28/21 @ 23:09 by Parish Bar MD) History of vaginal delivery x1 HSV (herpes simplex virus) infection Hyponatremia Pulmonary edema Surgical History Surgical History H/O tubal ligation H/O: hysterectomy History of bilateral tubal ligation History of breast augmentation 1990 History of endometrial ablation History of hysteroscopy Family History Family History Grandparent Family history of glaucoma Family history of cardiovascular disease Carcinoma of colon Mother Family history of cardiovascular disease Acute myocardial infarction Family history of chronic obstructive pulmonary disease Family history of congestive heart failure Sibling Carcinoma of colon Father Family histor
--- NOTE | 2021-04-29 11:45 | WPDCNINT ---
Assessment and Plan Assessment and plan (1) Septic shock: Code(s): A41.9 - Sepsis, unspecified organism; R65.21 - Severe sepsis with septic shock Status: Acute Assessment and Plan: Likely patient has pneumonia, UA was negative, COVID PCR is pending Cautious IV fluids due to elevated BNP and findings suggestive of pulmonary edema on CT although patient's history is not consistent with pulmonary edema has no lower extremity swelling Echo is pending Continue Levophed and vasopressin Her cortisol level was high (2) Pneumonia: Code(s): J18.9 - Pneumonia, unspecified organism Status: Acute Assessment and Plan: Blood and sputum culture Urine Legionella and pneumococcal antigen Continue empiric cefepime and azithromycin (3) Pulmonary edema: Code(s): J81.1 - Chronic pulmonary edema Status: Acute Assessment and Plan: Patient presented with a picture consistent with septic shock and appear dry although her CT showed pulmonary edema and BNP was elevated Patient has no history suggestive of congestive heart failure or pulmonary edema and no lower extremity edema Could have pulmonary edema secondary to mitral valve prolapse into MR and echo is pending Will cautiously hydrate patient as patient is still on high dose of Levophed (4) Hyponatremia: Code(s): E87.1 - Hypo-osmolality and hyponatremia Status: Acute Assessment and Plan: Likely secondary to dehydration and hypovolemia Patient seen by Nephrology Continue IV fluid Sodium is improved Monitor (5) MVP (mitral valve prolapse): Code(s): I34.1 - Nonrheumatic mitral (valve) prolapse Status: Acute Assessment and Plan: Echocardiogram is ordered and pending (6) Suspected COVID-19 virus infection: Code(s): Z20.822 - Contact with and (suspected) exposure to COVID-19 Status: Acute Assessment and Plan: COVID-19 suspected. Patient is not vaccinated against COVID SARS-CoV-2 PCR sent and results pending Patient is in Airborne, Droplet and Contact Isolation Additional Plan DVT prophylaxis -start Lovenox Nutrition -regular diet Code Status - Full Code Total Critical Care Time - 36 minutes Due to a high probability of clinically significant, life threatening deterioration, the patient required my highest level of preparedness to intervene emergently and I personally spent this critical care time directly and personally managing the patient. This critical care time included obtaining a history; examining the patient; pulse oximetry; ordering and review of studies; arranging urgent treatment with development of a management plan; evaluation of patient's response to treatment; frequent reassessment; and discussions with other providers. It was exclusive of separately billable procedures and treating other patients and teaching time. Please see Assessment and Plan section and the rest of the note for further information on patient assessment and treatment Real Estate Salesperson Consult Note Consult date: 04/29/21 HPI: Kristina Baker is a 61 year old female with past medical history of mitral valve prolapse who presented to ER yesterday with chief complaint of chills rigors, fever and generalized weakness. She states that she has been feeling ill since day after Thanksgiving. She went to a friend's house for Thanksgiving dinner. She is not vaccinated against COVID. She states the next day she started feeling chills and weak. She checked her fever which was high as 104? at the time. She states she was unable to keep anything down and her appetite was poor. She did try to drink as much water as possible. She is not vaccinated against COVID. She denied any nausea vomiting cough shortness of breath sore throat dysuria hematuria abdominal pain. She states she drank 1 can of Ensure and had 1 loose bowel movement after that. No blood in her stool In ED she was diagnosed with sepsis and was found to be hy
[2021-04-29] MEDS: SODIUM CHLORIDE 0.9% IV 1,000 ML 100 ML IV CONT ×2 (11:54→23:44)
--- NOTE | 2021-04-29 12:49 | PM.PNNEP ---
Progress Note: A&P Assessment and Plan (1) Hyponatremia: Code(s): E87.1 - Hypo-osmolality and hyponatremia Status: Acute Assessment and Plan: Patient has hyponatremia. Urine electrolytes pre renal. Urine specific gravity is 1.025. TSH was okay. Cortisol was 37 before the hydrocortisone was given. S PE is pending Chest x-ray and CT shows CHF Head CT is normal no history of cancer etiology of the hyponatremia is most likely extra water drinking the presence of pre renal azotemia. Why the patient is pre renal is unclear because she has congestive heart failure with a very high BNP. An echocardiogram has been ordered. on IV fluids will repeat sodium soon (2) Shock: Code(s): R57.9 - Shock, unspecified Status: Acute Assessment and Plan: The patient is on Levophed. Cultures have been done and she is getting antibiotics. so far cultures are negative (3) Benign essential hypertension: Code(s): I10 - Essential (primary) hypertension Status: Acute Assessment and Plan: meds on hold. (4) Osteoporosis: Code(s): M81.0 - Age-related osteoporosis without current pathological fracture Status: Acute Assessment and Plan: She is on Boniva (5) High serum low density lipoprotein (LDL) cholesterol: Code(s): R79.89 - Other specified abnormal findings of blood chemistry Status: Acute Assessment and Plan: She is on atorvastatin CK is normal (6) Pulmonary edema: Code(s): J81.1 - Chronic pulmonary edema Status: Acute Assessment and Plan: The patient has pulmonary edema. Her heart size is normal on chest x-ray. Will get an echocardiogram. Subjective Date/time seen: 04/29/21 12:49 Interval history: Kristina is looking a little better today. She is alert and oriented. No more fevers overnight. Minimal cough. Still very tired / fatigued. Review of Systems Cardiovascular: Cardiovascular: Reports no additional cardiovascular complaints Respiratory: Respiratory: Reports no additional respiratory complaints Gastrointestinal: Gastrointestinal: Reports no additional gastrointestinal complaints Genitourinary: Genitourinary: Reports no additional female genitourinary complaints Exam Narrative: WDWN in NAD skin no rash head ncat lungs clear cor reg no rub abd BS+ nontender and soft ext no edema. Objective Data Vital Signs Vital Signs: Vital Signs - 24 hr 04/28/21 15:20 04/28/21 15:28 04/28/21 15:43 Temperature 38.4 C H 37.8 C H 38.4 C H Pulse Rate 97 117 H 110 H Respiratory Rate 17 21 H 20 Blood Pressure 79/58 L 82/40 L 79/58 L Pulse Oximetry 94 98 95 04/28/21 16:10 04/28/21 16:20 04/28/21 17:00 Temperature 37.3 C Pulse Rate 113 H 110 H 102 H Respiratory Rate 20 20 Blood Pressure 72/50 L 70/47 L Pulse Oximetry 95 96 04/28/21 18:00 04/28/21 18:30 04/28/21 19:00 Temperature 36.8 C Pulse Rate 101 H 98 100 Respiratory Rate 22 H 18 23 H Blood Pressure 78/54 L 70/52 L 73/54 L Pulse Oximetry 94 97 93 04/28/21 19:30 04/28/21 20:35 04/28/21 20:48 Temperature Pulse Rate 98 98 101 H Respiratory Rate 26 H 22 H Blood Pressure 74/54 L 78/34 L 83/65 L Pulse Oximetry 100 98 04/28/21 21:30 04/28/21 22:00 04/28/21 23:00 Temperature 37.7 C H Pulse Rate 116 H 121 H 125 H Respiratory Rate 24 H 26 H 26 H Blood Pressure 89/66 L 84/61 L 82/60 L Pulse Oximetry 92 94 94 04/29/21 00:00 04/29/21 00:45 04/29/21 02:00 Temperature Pulse Rate 115 H 115 H 106 H Respiratory Rate 27 H 27 H 22 H Blood Pressure 88/61 L 92/65 L 94/69 L Pulse Oximetry 90 94 93 04/29/21 04:00 04/29/21 04:40 04/29/21 06:00 Temperature 37.2 C 37.1 C Pulse Rate 102 H 103 H 99 Respiratory Rate 21 H 22 H Blood Pressure 111/86 111/85 111/83 Pulse Oximetry 92 94 04/29/21 08:00 04/29/21 10:00 04/29/21 11:11 Temperature 36.9 C 37.1 C
[2021-04-29] MEDS: CALCIUM CARBONATE (TUMS) 500 MG (200 MG ELEMENTAL) PO (13:18)
[2021-04-29] MEDS: MORPHINE SULFATE (*CRX) 2 MG/ML INJ IV PUSH (16:24)
[2021-04-29 16:40] LABS: Sodium 127 mmol/L (137-145)
--- NOTE | 2021-04-29 17:27 | PM.IMPN ---
Progress Note: A&P Assessment and Plan (1) Septic shock: Code(s): A41.9 - Sepsis, unspecified organism; R65.21 - Severe sepsis with septic shock Status: Acute Assessment and Plan: Patient presents emergency room and found to be hypotensive with blood pressure of 70/47. She was treated with IV fluids and central line was placed. She was started on pressors. Blood pressure more stable. She remains on IV fluids. Able to wean Levophed. Suspect etiology is related to pneumonia. Consider COVID pneumonia and PCR is pending. Echo showing possible vegetation. Appreciate network contract manager input. (2) Pneumonia: Code(s): J18.9 - Pneumonia, unspecified organism Status: Acute Assessment and Plan: CTA of the chest showed diffuse interstitial pattern of the lung with ground-glass opacities. No pulmonary emboli. Given the clinical picture, it is unlikely this is pulmonary edema. More likely this is COVID or atypical pneumonia. Blood cultures collected on no growth to date. Sputum culture pending. Urine Legionella and pneumococcal antigen ordered. Per Pertussis seems less likely. Continue empiric vancomycin, cefepime and azithromycin. Follow up on culture results. (3) Pulmonary edema: Code(s): J81.1 - Chronic pulmonary edema Status: Acute Assessment and Plan: Patient presented with a picture consistent with septic shock and appears dehydrated. CT scan of the chest showing possible pulmonary edema with suspect this is related to infectious etiology and not pulmonary edema. As above. (4) Hyponatremia: Code(s): E87.1 - Hypo-osmolality and hyponatremia Status: Acute Assessment and Plan: Sodium 120 on admission. Cassius low at <5. With IV fluids, Na improving. Likely secondary to dehydration and hypovolemia. Patient seen by Nephrology and appreciate their input. Continue IV fluids. Continue to monitor (5) Suspected COVID-19 virus infection: Code(s): Z20.822 - Contact with and (suspected) exposure to COVID-19 Status: Acute Assessment and Plan: COVID-19 suspected. Patient is not vaccinated against COVID. SARS-CoV-2 PCR sent and results pending. 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 She has a mobile structure attached to the mitral valve concerning for vegetation. Blood cultures NGTD. She is on broad-spectrum IV antibiotics. Consider HECTOR if this would change duration of antibiotic course. (7) Thrombocytopenia: Code(s): D69.6 - Thrombocytopenia, unspecified Status: Acute Assessment and Plan: Patient has a normal baseline platelet count. Platelet count was low at 46K on admission. Most likely consumptive from septic shock. Repeat platelet count has improved. Continue to monitor. (8) Anemia: Code(s): D64.9 - Anemia, unspecified Status: Acute Assessment and Plan: Patient with normal baseline hemoglobin. Hemoglobin low on admission 11 trended downward most likely related IV fluids. Continue monitor. Check iron and B12 levels (9) Hyperglycemia: Code(s): R73.9 - Hyperglycemia, unspecified Status: Acute Assessment and Plan: Glucose to 214 now. Possibly stress response. Will check A1c. Place on sliding-scale protocol (10) Elevated troponin: Code(s): R77.8 - Other specified abnormalities of plasma proteins Status: Acute Assessment and Plan: Troponin elevated admission to 0.225 but trending down since. EKG showing no overt ST-T changes. Echo showing no wall motion abnormalities. Repeat EKG in the morning. probably related to the sepsis. (11) Metabolic acidosis: Code(s): E87.2 - Acid
[2021-04-29 17:37] LABS: SARS-CoV-2 RNA PCR Negative
[2021-04-29 19:01] LABS: Lactic Acid Reflex 1.6 mmol/L (0.7-2.1)
[2021-04-29 19:31] LABS: Hemoglobin A1C 5.3 % (<5.7)
[2021-04-29] MEDS: NOREPINEPHRINE 8 MG/D5W 250 ML 8 MG/250 ML BAG 26.25 MG IV CONT (21:13)
[2021-04-29 21:55] LABS: Glucose Point of Care 159 mg/dl (65-105)
[2021-04-30] VITALS (23 sets, daily range): BP systolic 90–121; BP diastolic 51–96; PULSE 94–109; RESP 23–39; TEMP 36.5–37.7; O2SAT 90–97
[2021-04-30 06:54] LABS: Hematocrit 27.6 % (37.0-47.0); Hemoglobin 10.1 g/dL (12.0-15.0); Mean Corpuscular HGB Conc 36.6 g/dl (32-36); Mean Corpuscular Volume 84.7 fl (80-100); Mean Platelet Volume 12.6 fl (7.4-10.4); Platelet Count Result 94 k/mm3 (150-375); Red Blood Count 3.26 M/mm3 (4.2-5.4); Red Cell Distribution Width 14.2 % (11.5-14.5); White Blood Count 21.2 K/mm3 (4.5-10.0)
[2021-04-30] MEDS: CENTRAL LINE FLUSH 10 ML IV PUSH ×4 (07:00→23:50)
--- NOTE | 2021-04-30 07:00 | ECG_ITS ---
Measurements Intervals [place] Rate: 100 P: 50 SC: 162 QRS: 77 QRSD: 106 T: 32 QT: 373 QTc: 483 Interpretive Statements SINUS TACHYCARDIA INCOMPLETE RIGHT BUNDLE BRANCH BLOCK BASELINE ARTIFACT- AVL, V4 BORDERLINE ECG Electronically Signed On 04-30-2021 9:16:55 BEAM DOFFER by Dk Meadows D.O.
[2021-04-30 08:16] LABS: Alanine Aminotransferase 35 U/L (4-35); Albumin Level 2.7 g/dL (3.5-5.1); Alkaline Phosphatase 78 U/L (38-126); Anion Gap 9 mmol/L (8-16); Aspartate Amino Transferase 45 U/L (14-36); Bilirubin,Total 1.1 mg/dL (0.2-1.3); Blood Urea Nitrogen 18 mg/dL (7-17); CRP 17.3 mg/dL (<1.0); Calcium 7.4 mg/dL (8.4-10.2); Carbon Dioxide 20 mmol/L (22-30); Chloride 97 mmol/L (98-107); Estimated CRCL calculation 77 ml/min; Estimated Glomerular Filt Rate > 60; Folic Acid 16.8 ng/mL (2.76->20); Glucose 136 mg/dL (65-110); Lactate Dehydrogenase 565 U/L (313-618); Magnesium 2.2 mg/dL (1.6-2.3); Phosphorus 2.4 mg/dL (2.5-4.5); Potassium 3.2 mmol/L (3.4-5.0); Sodium 126 mmol/L (137-145); Vitamin B12 > 1000.0 pg/mL (239-931)
[2021-04-30 08:40] LABS: Iron 38 ug/dL (37-170)
[2021-04-30 08:49] LABS: Percent Iron Saturation 19 % (20-50)
[2021-04-30] MEDS: FUROSEMIDE INJ 40 MG/4 ML VIAL IV PUSH (09:49)
[2021-04-30] MEDS: NOREPINEPHRINE 8 MG/D5W 250 ML 8 MG/250 ML BAG 13.13 MG IV CONT (09:49)
[2021-04-30] MEDS: SODIUM BICARBONATE TAB 650 MG TABLET PO ×3 (09:56→17:27)
[2021-04-30] MEDS: ATORVASTATIN 20 MG TABLET PO (09:56)
[2021-04-30] MEDS: CALCIUM/VITAMIN D 250 MG TABLET 1 TABLET PO (09:56)
[2021-04-30] MEDS: POTASSIUM PHOS,M-BASIC-D-BASIC 20 MMOL in SODIUM CHLORIDE 0.9% IV 250 ML 64.17 MMOL IVPB (09:57)
[2021-04-30] MEDS: CALCIUM GLUC 2,000 MG/NS 100ML 2,000 MG/100 ML BAG 100 MG IVPB (10:06)
[2021-04-30 10:18] LABS: Glucose Point of Care 136 mg/dl (65-105)
[2021-04-30 11:14] LABS: Free T4 Free Thyroxine Reflex 1.43 ng/dL (0.78-2.19)
--- NOTE | 2021-04-30 12:05 | PM.PNCARD ---
Progress Note: A&P Additional Plan Continue antibiotics and supportive care as well as diuresis today. The patient clearly needs to undergo transesophageal echocardiogram to clarify the anatomy and to guide treatment decisions. She certainly could have SBE of the mitral valve which has chronic prolapse chronic MR although negative blood cultures do argue against this. Tommy Knight MD [facility] Subjective Date/time seen: 04/30/21 12:05 Interval history: Follow-up visit in this 61-year-old lady with: Admission with fever picture septic shock so far blood cultures are negative. Patient has background of chronic mitral valve prolapse of both anterior and posterior leaflets with moderate MR. Echocardiogram done yesterday appears to show concerns regarding a potential mitral valve vegetation. My personal review of the study would lead me also to be concerned about the possibility of flail chordal elements. Mitral valve regurgitation however is only moderate and has been moderate in the past. Patient appears to be more comfortable with some diuresis today. Still has some conversational dyspnea. Discussion with the patient about the concerns regarding her mitral valve and the need for further evaluation with transesophageal echo at some point to clarify this pathology. With antibiotics and hemodynamic support she is improved from yesterday. Exam Const: General: no acute distress HENMT: General nose exam: no epistaxis Eyes: Sclera: abnormal sclerae Neck: Neck: supple Resp: Other: Symmetric lung expansion Cardio: Rate: regular rate and tachycardic GI: Inspection: non-distended : Speculum Exam - Cervix: nontender Bimanual exam- vagina & uterus: No Cervical tenderness present Skin: General skin exam: no rashes or lesions noted Neuro: Speech: normal speech Other: Moving all extremities Psych: Affect: normal affect Objective Data Vital Signs Vital Signs: Vital Signs - 24 hr 04/29/21 13:08 04/29/21 14:00 04/29/21 14:36 Temperature 37.3 C Pulse Rate 102 H 99 99 Respiratory Rate 25 H Blood Pressure 102/81 104/77 104/77 Pulse Oximetry 95 04/29/21 15:18 04/29/21 16:00 04/29/21 18:00 Temperature 37.4 C 37.7 C H Pulse Rate 102 H 98 99 Respiratory Rate 22 H 21 H 21 H Blood Pressure 96/69 L 83/73 L Pulse Oximetry 95 95 96 04/29/21 18:21 04/29/21 20:00 04/29/21 21:13 Temperature 37.7 C H Pulse Rate 99 103 H Respiratory Rate 32 H Blood Pressure 96/76 L 91/78 L 88/69 L Pulse Oximetry 95 04/29/21 22:00 04/30/21 00:00 04/30/21 02:00 Temperature 37.5 C 37.1 C 37.1 C Pulse Rate 93 97 96 Respiratory Rate 24 H 25 H 27 H Blood Pressure 94/76 L 95/72 L 100/51 L Pulse Oximetry 94 95 93 04/30/21 04:00 04/30/21 06:00 04/30/21 08:00 Temperature 37.1 C 36.9 C 36.5 C Pulse Rate 94 103 H 103 H Respiratory Rate 23 H 26 H 28 H Blood Pressure 103/85 112/76 104/87 Pulse Oximetry 93 93 91 04/30/21 08:11 04/30/21 09:49 04/30/21 10:00 Temperature 36.6 C Pulse Rate 107 H 107 H 109 H Respiratory Rate 26 H Blood Pressure 120/91 H 120/91 H 121/86 Pulse Oximetry 90 04/30/21 10:11 04/30/21 11:10 Temperature Pulse Rate 102 H 105 H Respiratory Rate Blood Pressure 121/86 108/82 Pulse Oximetry Intake/Output Intake/Output: Intake & Output 04/27/21 04/28/21 04/29/21 04/30/21 23:59 23:59 23:59 23:59 Intake Total 1999 3890 1989 Output Total 0 1250 Balance 1999 1840 740 Meds/Results Medications: Active Medications Generic Name Dose Route Start Last Admin Trade Name Angel PRN Reason Stop Dose Admin Atorvastatin Calcium 20 mg 04/29/21 09:00 04/30/21 09:56 Atorvastatin 20 Mg Tablet PO 20 mg DAILY KENDY Administration Calcium Carbonate 1 tablet 04/29/21 09:00 04/30/21 09:56 Calcium/Vitamin D 250 Mg Tablet [facility] Administration Calcium Carbonate 200 mg 04/29/21 12:59 04/29/21 13:18 Calcium Carbonate (Tums) 500 Mg (200
--- NOTE | 2021-04-30 12:19 | PM.PNNEP ---
Progress Note: A&P Assessment and Plan (1) Hyponatremia: Code(s): E87.1 - Hypo-osmolality and hyponatremia Status: Acute Assessment and Plan: Patient has hyponatremia. Urine electrolytes pre renal. Urine specific gravity is 1.025. TSH was okay. Cortisol was 37 before the hydrocortisone was given. SPE is pending Chest x-ray and CT shows CHF Head CT is normal no history of cancer etiology of the hyponatremia is most likely extra water drinking the presence of pre renal azotemia. echocardiogram shows mitral regurg plus a possible vegetation on the valve. HECTOR is planned to better evaluate this. Mitral regurg explains the volume overload plus the pre renal azotemia. The pre renal azotemia is causing the hyponatremia. Because she is more short of breath I will add Lasix 3 times a day. This will help diurese her but also will help bring the sodium level up by reducing urine osmolality. I am not sure where her left buttock pain fits into this hole clinical scenario. It seems more like muscular pain when palpated. (2) Shock: Code(s): R57.9 - Shock, unspecified Status: Acute Assessment and Plan: The patient is on Levophed. Cultures have been done and she is getting antibiotics. so far cultures are negative (3) Benign essential hypertension: Code(s): I10 - Essential (primary) hypertension Status: Acute Assessment and Plan: meds on hold. (4) Osteoporosis: Code(s): M81.0 - Age-related osteoporosis without current pathological fracture Status: Acute Assessment and Plan: She is on Boniva (5) High serum low density lipoprotein (LDL) cholesterol: Code(s): R79.89 - Other specified abnormal findings of blood chemistry Status: Acute Assessment and Plan: She is on atorvastatin CK is normal (6) Pulmonary edema: Code(s): J81.1 - Chronic pulmonary edema Status: Acute Assessment and Plan: The patient has pulmonary edema. Her heart size is normal on chest x-ray. Will get an echocardiogram. Subjective Date/time seen: 04/30/21 12:19 Interval history: The patient's son is in the room. Kristina is looking a little short of breath today She is alert and oriented. No more fevers overnight. Minimal cough. Still very tired / fatigued. still has pain in the left buttock Exam Narrative: WDWN in NAD skin no rash head ncat lungs few crackles. cor reg no rub 2/6 holosystolic murmur abd BS+ nontender and soft ext no edema. Objective Data Vital Signs Vital Signs: Vital Signs - 24 hr 04/29/21 13:08 04/29/21 14:00 04/29/21 14:36 Temperature 37.3 C Pulse Rate 102 H 99 99 Respiratory Rate 25 H Blood Pressure 102/81 104/77 104/77 Pulse Oximetry 95 04/29/21 15:18 04/29/21 16:00 04/29/21 18:00 Temperature 37.4 C 37.7 C H Pulse Rate 102 H 98 99 Respiratory Rate 22 H 21 H 21 H Blood Pressure 96/69 L 83/73 L Pulse Oximetry 95 95 96 04/29/21 18:21 04/29/21 20:00 04/29/21 21:13 Temperature 37.7 C H Pulse Rate 99 103 H Respiratory Rate 32 H Blood Pressure 96/76 L 91/78 L 88/69 L Pulse Oximetry 95 04/29/21 22:00 04/30/21 00:00 04/30/21 02:00 Temperature 37.5 C 37.1 C 37.1 C Pulse Rate 93 97 96 Respiratory Rate 24 H 25 H 27 H Blood Pressure 94/76 L 95/72 L 100/51 L Pulse Oximetry 94 95 93 04/30/21 04:00 04/30/21 06:00 04/30/21 08:00 Temperature 37.1 C 36.9 C 36.5 C Pulse Rate 94 103 H 103 H Respiratory Rate 23 H 26 H 28 H Blood Pressure 103/85 112/76 104/87 Pulse Oximetry 93 93 91 04/30/21 08:11 04/30/21 09:49 04/30/21 10:00 Temperature 36.6 C Pulse Rate 107 H 107 H 109 H Respiratory Rate 26 H Blood Pressure 120/91 H 120/91 H 121/86 Pulse Oximetry 90 04/30/21 10:11 04/30/21 11:10 Temperature Pulse Rate 102 H 105 H Respiratory Rate Blood Pressure 121/86 108/82 Pulse Oximetry I
[2021-04-30 13:20] LABS: Total Triiodothyronine (T3) 0.56 NG/ML (0.97-1.69)
[2021-04-30 13:28] LABS: Glucose Point of Care 121 mg/dl (65-105)
--- NOTE | 2021-04-30 13:49 | WPDINTPN ---
Progress Note: A&P Assessment and Plan (1) Septic shock: Code(s): A41.9 - Sepsis, unspecified organism; R65.21 - Severe sepsis with septic shock Status: Acute Assessment and Plan: Likely patient has pneumonia, UA was negative, COVID PCR i was negative Patient was getting Cautious IV fluids due to elevated BNP and findings suggestive of pulmonary edema on CT her breathing appears to be worse hence will hold further IV fluids Lasix given Echo reviewed Continue Levophed off vasopressin Her cortisol level was high (2) Pneumonia: Code(s): J18.9 - Pneumonia, unspecified organism Status: Acute Assessment and Plan: Blood and sputum culture Urine Legionella and pneumococcal antigen Continue empiric cefepime and azithromycin (3) Pulmonary edema: Code(s): J81.1 - Chronic pulmonary edema Status: Acute Assessment and Plan: Patient presented with a picture consistent with septic shock and appear dry although her CT showed pulmonary edema and BNP was elevated Patient Had no lower extremity edema and appeared dry overall but she has pulmonary edema secondary to mitral valve prolapse and MR She appeared more hypoxic this more chest x-ray confirmed increased pulmonary edema IV fluids were discontinued Patient was given Lasix IV I will give another dose later today (4) Hyponatremia: Code(s): E87.1 - Hypo-osmolality and hyponatremia Status: Acute Assessment and Plan: Likely secondary to dehydration and hypovolemia Patient seen by Nephrology Sodium is improved Monitor (5) MVP (mitral valve prolapse): Code(s): I34.1 - Nonrheumatic mitral (valve) prolapse Status: Acute Assessment and Plan: Echocardiogram done and shows Summary 1. Complete two-dimensional, color flow and Doppler transthoracic echocardiogram is performed. 2. Left ventricular systolic function is normal, estimated at 60-65%. 3. The left ventricular diastolic function is normal. 4. Left atrial chamber dimension is mildly enlarged. 5. There is mild aortic valve sclerosis. 6. There is mild prolapse of the anterior mitral leaflet. Thickening of the base of the posterior leaflet. There is mild to moderate mitral valve regurgitation. 7. Mobile structure attached to the mitral valve concerning for vegetation. 8. There is mild tricuspid valve regurgitation. 9. No pulmonary hypertension, estimated pulmonary arterial systolic pressure is 33 mmHg. 10. Right ventricular chamber dimension is mildly enlarged. 11. Right ventricular systolic function is normal. Case discussed with Dr. Knight from cardiology. He plans to eventually do HECTOR patient's hypoxia still improved to further evaluate her mitral valve. Depending on the HECTOR patient may need to be referred for mitral valve surgery (6) Suspected COVID-19 virus infection: Code(s): Z20.822 - Contact with and (suspected) exposure to COVID-19 Status: Acute Assessment and Plan: SARS-CoV-2 PCR negative and isolation discontinued (7) Endocarditis: Code(s): I38 - Endocarditis, valve unspecified Status: Acute Assessment and Plan: Echo suggest vegetation on mitral valve which could be a degenerated mitral valve as patient has mitral valve prolapse and MR She denies any IV drug use Discuss with Cardiology regarding getting HECTOR. Flooring Sales Manager wants to wait for patient's hypoxia improved until attempting HECTOR Her blood cultures are negative as of now I have added vancomycin empirically do we have further details Additional Plan DVT prophylaxis -start Lovenox Nutrition -regular diet Code Status - Full Code Case discussed with Cardiology and Nephrology Total Critical Care Time - 32 minutes Due to a high probability of clinically significant, life threatening deterioration, the patient required my highest level of preparedness to intervene emergently and I personally spent this critical care time directly
[2021-04-30] MEDS: FUROSEMIDE 20 MG TABLET PO ×2 (13:51→23:50)
[2021-04-30] MEDS: KCL 40 MEQ/WATER 100 ML 100 ML 25 ML IVPB (14:00)
--- NOTE | 2021-04-30 15:40 | PM.IMPN ---
Progress Note: A&P Assessment and Plan (1) Septic shock: Code(s): A41.9 - Sepsis, unspecified organism; R65.21 - Severe sepsis with septic shock Status: Acute Assessment and Plan: Patient presents emergency room and found to be hypotensive with blood pressure of 70/47. She was treated with IV fluids and central line was placed. She was started on pressors. Blood pressure more stable. She remains on IV fluids. Able to wean Levophed. Suspect etiology is related to pneumonia. COVID PCR is negative. BCx NGTD. WBC trending down; CRP better. Echo showing possible vegetation. Continue IV abx. Wean pressors as toelrated. Appreciate gamma facilities operator input. (2) Pneumonia: Code(s): J18.9 - Pneumonia, unspecified organism Status: Acute Assessment and Plan: CTA of the chest showed diffuse interstitial pattern of the lung with ground-glass opacities. Patient having fevers. No pulmonary emboli. COVID negative. Blood cultures NGTD. Sputum culture ordered. Urine Legionella and pneumococcal antigen ordered. Continue empiric vancomycin, cefepime and azithromycin. Follow up on culture results. (3) Pulmonary edema: Code(s): J81.1 - Chronic pulmonary edema Status: Acute Assessment and Plan: Patient presented with a picture consistent with septic shock and appears dehydrated. CT scan of the chest showing possible pulmonary edema. BNP 95198. Echo with EF 60-65% with normal diastolic dysfunction. Lasix orally started but feel CXR findings more consistent with PNA and not pulmonary edema. As above. (4) Hyponatremia: Code(s): E87.1 - Hypo-osmolality and hyponatremia Status: Acute Assessment and Plan: Sodium 120 on admission. Cassius low at <5. With IV fluids, Na improved. Likely secondary to dehydration and hypovolemia. Patient seen by Nephrology. IV fluids stopped and Lasix started. Continue NaCl tablets. 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 She has a mobile structure attached to the mitral valve concerning for vegetation but consider chordea. Blood cultures NGTD. Continue broad-spectrum IV antibiotics. Consider HECTOR to further define this finding once more stable (6) Thrombocytopenia: Code(s): D69.6 - Thrombocytopenia, unspecified Status: Acute Assessment and Plan: Patient has a normal baseline platelet count. Platelet count was low at 46K on admission. Most likely consumptive from septic shock. Repeat platelet count has improved. Continue to monitor. (7) Anemia: Code(s): D64.9 - Anemia, unspecified Status: Acute Assessment and Plan: Patient with normal baseline hemoglobin. Hemoglobin low on admission at 11 and trended downward most likely related IV fluids. Continue monitor. (8) Hyperglycemia: Code(s): R73.9 - Hyperglycemia, unspecified Status: Acute Assessment and Plan: Glucose elevated felt related to stress response. A1c 5.5. Continue sliding-scale protocol (9) Elevated troponin: Code(s): R77.8 - Other specified abnormalities of plasma proteins Status: Acute Assessment and Plan: Troponin elevated admission to 0.225 but trending down since. EKG showing no overt ST-T changes. Echo showing no wall motion abnormalities. Repeat EKG showing no change. Suspect nonischemic myocardial injury from the septic shock (10) Metabolic acidosis: Code(s): E87.2 - Acidosis Status: Acute Assessment and Plan: Serum bicarb dropped to 17 related to above. Urine ketones are negative. Lactic acid normal. Oral Bicarb was started. Serum bicarb better. Continue to follow (11) DVT prophylaxis: Code(s): Z29.9 - Encounter for prophylactic measures
[2021-04-30 16:50] LABS: Sodium 127 mmol/L (137-145)
[2021-04-30 17:02] LABS: Anion Gap 9 mmol/L (8-16); Blood Urea Nitrogen 16 mg/dL (7-17); Calcium 7.6 mg/dL (8.4-10.2); Carbon Dioxide 23 mmol/L (22-30); Chloride 95 mmol/L (98-107); Estimated CRCL calculation 67 ml/min; Estimated Glomerular Filt Rate > 60; Glucose 114 mg/dL (65-110); Sodium 127 mmol/L (137-145)
[2021-04-30] MEDS: SODIUM CHLORIDE 1 GM TABLET PO (17:27)
[2021-04-30] MEDS: ALTEPLASE 2 MG VIAL (CATHFLO) IV PUSH (17:32)
[2021-04-30 20:33] LABS: Glucose Point of Care 152 mg/dl (65-105)
[2021-05-01] VITALS (14 sets, daily range): BP systolic 85–112; BP diastolic 59–77; PULSE 98–123; RESP 18–34; TEMP 36.3–37.4; O2SAT 90–97
[2021-05-01] MEDS: CENTRAL LINE FLUSH 10 ML IV PUSH ×4 (05:45→20:42)
[2021-05-01] MEDS: FUROSEMIDE 20 MG TABLET PO ×3 (05:45→20:42)
--- NOTE | 2021-05-01 08:05 | PM.IMPN ---
Progress Note: A&P Additional Plan (1) Septic shock: Code(s): A41.9 - Sepsis, unspecified organism; R65.21 - Severe sepsis with septic shock Status: Acute Assessment and Plan: Currently being treated for pneumonia. Lasix given yesterday and is being continued. Echo reviewed. Her cortisol level was high (2) Pneumonia: Code(s): J18.9 - Pneumonia, unspecified organism Status: Acute Assessment and Plan: Blood and sputum culture Urine Legionella and pneumococcal antigen are pending Continue empiric cefepime and azithromycin (3) Pulmonary edema: Code(s): J81.1 - Chronic pulmonary edema Status: Acute Assessment and Plan: Patient presented with a picture consistent with septic shock and appear dry although her CT showed pulmonary edema and BNP was elevated Patient Had no lower extremity edema and appeared dry overall but she has pulmonary edema secondary to mitral valve prolapse and MR 112/2 She appeared more hypoxic this more chest x-ray confirmed increased pulmonary edema. IV fluids were discontinued. Patient was given Lasix IV Today her breathing is better with decrease in oxygen requirement to 3 years Continue low-dose Lasix managed Nephrology (4) Hyponatremia: Code(s): E87.1 - Hypo-osmolality and hyponatremia Status: Acute Assessment and Plan: Likely secondary to dehydration and hypovolemia Patient seen by Nephrology Sodium improved but again dropped to 121 this morning Will defer management to Nephrology (5) MVP (mitral valve prolapse): Code(s): I34.1 - Nonrheumatic mitral (valve) prolapse Status: Acute Assessment and Plan: Echocardiogram done and shows Summary 1. Complete two-dimensional, color flow and Doppler transthoracic echocardiogram is performed. 2. Left ventricular systolic function is normal, estimated at 60-65%. 3. The left ventricular diastolic function is normal. 4. Left atrial chamber dimension is mildly enlarged. 5. There is mild aortic valve sclerosis. 6. There is mild prolapse of the anterior mitral leaflet. Thickening of the base of the posterior leaflet. There is mild to moderate mitral valve regurgitation. 7. Mobile structure attached to the mitral valve concerning for vegetation. 8. There is mild tricuspid valve regurgitation. 9. No pulmonary hypertension, estimated pulmonary arterial systolic pressure is 33 mmHg. 10. Right ventricular chamber dimension is mildly enlarged. 11. Right ventricular systolic function is normal. Case discussed with Dr. Knight from cardiology. Plan to eventually do HECTOR patient's hypoxia still improved to further evaluate her mitral valve. Depending on the HECTOR patient may need to be referred for mitral valve surgery (6) Suspected COVID-19 virus infection: Code(s): Z20.822 - Contact with and (suspected) exposure to COVID-19 Status: Acute Assessment and Plan: SARS-CoV-2 PCR negative and isolation discontinued (7) Endocarditis: Code(s): I38 - Endocarditis, valve unspecified Status: Acute Assessment and Plan: Echo suggest vegetation on mitral valve which could be a degenerated mitral valve as patient has mitral valve prolapse and MR She denies any IV drug use Discuss with Cardiology regarding getting HECTOR. Habitat Conservation Planner wants to wait for patient's hypoxia improved until attempting HECTOR Her blood cultures are negative as of now Continue vancomycin and cefepime (8) Hip pain: Code(s): M25.559 - Pain in unspecified hip Status: Acute Assessment and Plan: Her CT of pelvis was negative on presentation, hip x-ray done yesterday was negative, no tenderness or abnormality seen on brief exam. Detailed exam not possible due to hypoxia Likely secondary to arthritis Additional Plan DVT prophylaxis - Lovenox Nutrition -regular diet Code Status - Full Code PT OT, up in chair, DC Do incentive spirometry Subjective Date/time seen:
[2021-05-01] MEDS: SODIUM CHLORIDE 1 GM TABLET PO ×2 (08:42→18:19)
[2021-05-01] MEDS: ATORVASTATIN 20 MG TABLET PO (08:42)
[2021-05-01] MEDS: CALCIUM/VITAMIN D 250 MG TABLET 1 TABLET PO (08:42)
[2021-05-01 08:46] LABS: Hemoglobin 10.5 g/dL (12.0-15.0); Immature Platelet Fraction Pct 9.4 % (0.9-11.2); Mean Corpuscular HGB Conc 36.2 g/dl (32-36); Mean Corpuscular Hemoglobin 31.4 pg (26-34); Mean Corpuscular Volume 86.8 fl (80-100); Mean Platelet Volume 11.5 fl (7.4-10.4); Platelet Count Result 113 k/mm3 (150-375); Red Blood Count 3.34 M/mm3 (4.2-5.4); Red Cell Distribution Width 13.9 % (11.5-14.5); White Blood Count 20.3 K/mm3 (4.5-10.0)
[2021-05-01 08:56] LABS: Alanine Aminotransferase 41 U/L (4-35); Albumin Level 2.7 g/dL (3.5-5.1); Alkaline Phosphatase 78 U/L (38-126); Anion Gap 6 mmol/L (8-16); Aspartate Amino Transferase 50 U/L (14-36); Bilirubin,Total 1.6 mg/dL (0.2-1.3); Blood Urea Nitrogen 13 mg/dL (7-17); Calcium 7.3 mg/dL (8.4-10.2); Carbon Dioxide 27 mmol/L (22-30); Chloride 88 mmol/L (98-107); Estimated CRCL calculation 77 ml/min; Estimated Glomerular Filt Rate > 60; Glucose 114 mg/dL (65-110); Magnesium 1.9 mg/dL (1.6-2.3); Potassium 3.3 mmol/L (3.4-5.0); Sodium 121 mmol/L (137-145)
--- NOTE | 2021-05-01 08:59 | PM.PNCARD ---
Progress Note: A&P Assessment and Plan (1) Mitral valve vegetation: Code(s): I33.0 - Acute and subacute infective endocarditis Status: Acute Assessment and Plan: Siva advised for more detailed evaluation. Explained procedure, risks and benefits to the patient. All questions answered to her satisfaction. Patient states she has a very severe gag reflex. Plan for SIVA with Anesthesiology Monday morning. NPO after midnight Monday evening. Patient agrees. Continue to follow cultures. Continue IV antibiotics. Cultures negative to date. Further recommendations to follow. (2) MVP (mitral valve prolapse): Code(s): I34.1 - Nonrheumatic mitral (valve) prolapse Status: Acute Assessment and Plan: Prolapse of the anterior leaflet with thickening of the base of the posterior leaflet [id number] mitral regurgitation and mobile structure attached to the mitral valve concerning for vegetation. As above. (3) Septic shock: Code(s): A41.9 - Sepsis, unspecified organism; R65.21 - Severe sepsis with septic shock Status: Acute Assessment and Plan: Resolved, pressors at this time. Continue IV antibiotics. Plan for transesophageal echocardiogram for further evaluation and integration into duration of IV antibiotics and plan of care. Explained that this must be performed prior to discharge and not as a return as an outpatient as this will significantly impact management strategy. Patient understands. White blood cell count improving. Repeat cultures if febrile. (4) Pulmonary edema: Code(s): J81.1 - Chronic pulmonary edema Status: Acute Assessment and Plan: Clinically improving with IV Lasix. Monitor volume status, BP closely. Monitor renal function electrolytes. She remains significantly hyponatremic. Continue to monitor closely. (5) Pneumonia: Code(s): J18.9 - Pneumonia, unspecified organism Status: Acute Assessment and Plan: Per primary service. Remains on IV antibiotics. Clinically improving overall. Subjective Date/time seen: Date of Service: 05/01/21 08:59 Interval history: Follow-up visit in this 61-year-old lady with: Admission with fever picture septic shock so far blood cultures are negative. Patient has background of chronic mitral valve prolapse of both anterior and posterior leaflets with moderate MR. Echocardiogram done yesterday appears to show concerns regarding a potential mitral valve vegetation. My personal review of the study would lead me also to be concerned about the possibility of flail chordal elements. Mitral valve regurgitation however is only moderate and has been moderate in the past. Patient appears to be more comfortable with some diuresis today. Still has some conversational dyspnea. Discussion with the patient about the concerns regarding her mitral valve and the need for further evaluation with transesophageal echo at some point to clarify this pathology. With antibiotics and hemodynamic support she is improved from yesterday. 05/01/21 patient feeling better overall. Denies shortness of breath or chest pain at this time. No new issues overnight. Off Levophed since yesterday afternoon. Maintaining sinus rhythm/sinus tachycardia on telemetry. Respiratory status improving with IV Lasix with very good urine output. Review of Systems Constitutional: Constitutional: Reports chills, Denies excessive sweating, Reports fatigue, Denies headache(s), Reports lethargy and Reports weakness Eyes: Eyes: Denies blurry vision ENT: Denies headache(s) and Denies nasal discharge Cardiovascular: Cardiovascular: Denies chest pain, Reports lightheadedness and Reports dyspnea Respiratory: Respiratory: Reports dyspnea Gastrointestinal: Gastrointestinal: Denies nausea and Denies vomiting Genitourinary: Genitourinary: Denies dysuria and Denies flank pain Musculoskeletal: Musculoskeletal: Denies joint swelling and Denies num
--- NOTE | 2021-05-01 09:50 | WPDINTPN ---
Progress Note: A&P Assessment and Plan (1) Septic shock: Code(s): A41.9 - Sepsis, unspecified organism; R65.21 - Severe sepsis with septic shock Status: Acute Assessment and Plan: Likely patient has pneumonia, UA was negative, COVID PCR i was negative Patient was getting Cautious IV fluids due to elevated BNP and findings suggestive of pulmonary edema on CT her breathing appears to be worse hence will hold further IV fluids Lasix given yesterday and is being continued Echo reviewed Off of vasopressors now Her cortisol level was high (2) Pneumonia: Code(s): J18.9 - Pneumonia, unspecified organism Status: Acute Assessment and Plan: Blood and sputum culture Urine Legionella and pneumococcal antigen are pending Continue empiric cefepime and azithromycin (3) Pulmonary edema: Code(s): J81.1 - Chronic pulmonary edema Status: Acute Assessment and Plan: Patient presented with a picture consistent with septic shock and appear dry although her CT showed pulmonary edema and BNP was elevated Patient Had no lower extremity edema and appeared dry overall but she has pulmonary edema secondary to mitral valve prolapse and MR 112/2 She appeared more hypoxic this more chest x-ray confirmed increased pulmonary edema. IV fluids were discontinued. Patient was given Lasix IV Today her breathing is better with decrease in oxygen requirement to 3 years Continue low-dose Lasix ordered by Nephrology (4) Hyponatremia: Code(s): E87.1 - Hypo-osmolality and hyponatremia Status: Acute Assessment and Plan: Likely secondary to dehydration and hypovolemia Patient seen by Nephrology Sodium improved but again dropped to 121 this morning Will defer management to Nephrology (5) MVP (mitral valve prolapse): Code(s): I34.1 - Nonrheumatic mitral (valve) prolapse Status: Acute Assessment and Plan: Echocardiogram done and shows Summary 1. Complete two-dimensional, color flow and Doppler transthoracic echocardiogram is performed. 2. Left ventricular systolic function is normal, estimated at 60-65%. 3. The left ventricular diastolic function is normal. 4. Left atrial chamber dimension is mildly enlarged. 5. There is mild aortic valve sclerosis. 6. There is mild prolapse of the anterior mitral leaflet. Thickening of the base of the posterior leaflet. There is mild to moderate mitral valve regurgitation. 7. Mobile structure attached to the mitral valve concerning for vegetation. 8. There is mild tricuspid valve regurgitation. 9. No pulmonary hypertension, estimated pulmonary arterial systolic pressure is 33 mmHg. 10. Right ventricular chamber dimension is mildly enlarged. 11. Right ventricular systolic function is normal. Case discussed with Dr. Knight from cardiology. Plan to eventually do HECTOR patient's hypoxia still improved to further evaluate her mitral valve. Depending on the HECTOR patient may need to be referred for mitral valve surgery (6) Suspected COVID-19 virus infection: Code(s): Z20.822 - Contact with and (suspected) exposure to COVID-19 Status: Acute Assessment and Plan: SARS-CoV-2 PCR negative and isolation discontinued (7) Endocarditis: Code(s): I38 - Endocarditis, valve unspecified Status: Acute Assessment and Plan: Echo suggest vegetation on mitral valve which could be a degenerated mitral valve as patient has mitral valve prolapse and MR She denies any IV drug use Discuss with Cardiology regarding getting HECTOR. Mill Attendant wants to wait for patient's hypoxia improved until attempting HECTOR Her blood cultures are negative as of now Continue vancomycin and cefepime (8) Hip pain: Code(s): M25.559 - Pain in unspecified hip Status: Acute Assessment and Plan: Her CT of pelvis was negative on presentation, hip x-ray done yesterday was negative, no tenderness or abnormality seen on brief exam.
[2021-05-01 10:30] LABS: Glucose Point of Care 124 mg/dl (65-105)
--- NOTE | 2021-05-01 11:28 | PC.NURSE ---
This patient, Kristina Baker, was transferred to [ [id number]] on 05/01/21 at 1125. Personal belongings sent with patient. Report given to [ Sheryl]. Appropriate documentation sent with patient.
--- NOTE | 2021-05-01 11:35 | PC.NURSE ---
Pt transferred from ICU to [address] [place] [address] via wheelchair
[2021-05-01 12:03] LABS: Glucose Point of Care 113 mg/dl (65-105)
--- NOTE | 2021-05-01 12:11 | P.PNNP_ITS ---
Progress Note: A&P Assessment and Plan (1) Hyponatremia: Code(s): E87.1 - Hypo-osmolality and hyponatremia Status: Acute Assessment and Plan: * had been stable/improving until AM labs noted * evaluation to date: * urine electrolytes pre renal * urine specific gravity is 1.025 * TSH was okay; cortisol was 37 before the hydrocortisone was given * SPEP/UPEP pending * recent CXR and CT with evidence of CHF/fluid * head CT negative * no history of malignancy * suspect due to increased free water intake in the context of prerenal azotemia * her mitral regurgitation likely is responsible for volume overload + prerenal azotemia * good response to IV lasix with regard to UOP * given drop in sodium this AM, will add fluid restriction * follow trend of repeat sodiums (2) Shock: Code(s): R57.9 - Shock, unspecified Status: Acute Assessment and Plan: * resolved * off Levophed at this time * cultures negative * presumably due to pneumonia (3) Pulmonary edema: Code(s): J81.1 - Chronic pulmonary edema Status: Acute Assessment and Plan: * improving with IV diureics * Echo results noted * follow respiratory status (4) Mitral valve vegetation: Code(s): I33.0 - Acute and subacute infective endocarditis Status: Acute Assessment and Plan: * as noted by Echo * Cardiology following * planning HECTOR next week for further evaluation * blood culture negative at this time (5) Pneumonia: Code(s): J18.9 - Pneumonia, unspecified organism Status: Acute Assessment and Plan: * on antibiotics * follow respiratory status * so far cultures negative (6) Benign essential hypertension: Code(s): I10 - Essential (primary) hypertension Status: Acute Assessment and Plan: * better hemodyanmics at this time * follow trend for now Will continue to follow. Subjective Date/time seen: 05/01/21 12:11 Chart reviewed; just transferred out of ICU earlier today; off levophed and remains hemodynamically stable; reasonably urine output with IV lasix but noted sodium dropped by AM labs (reason?); breathing/respiratory status stable if not better at this time; no issues/events overnight or earlier this AM. Exam Narrative: General: WD/WN female in NAD Heart: normal S1 and S2; no rub but systolic murmur present Lungs: bibasilar crackles noted Abdomen: soft, nontender, nondistended, positive bowel sounds Extremities: no cyanosis or clubbing; no edema Skin: warm and dry Objective Data Vital Signs Vital Signs: Vital Signs Temp Pulse Resp BP Pulse Ox 05/01/21 10:00 106 H 05/01/21 09:53 96 05/01/21 08:00 36.8 C 112 H 32 H 110/77 96 05/01/21 06:00 37.2 C 102 H 26 H 108/72 97 05/01/21 04:00 37.4 C 98 34 H 96/74 L 93 05/01/21 03:51 96 05/01/21 02:00 105 H 27 H 112/72 94 05/01/21 00:00 104 H 04/30/21 23:58 96 04/30/21 23:49 37.7 C H 105 H 23 H 105/74 96 04/30/21 22:00 101 H 34 H 104/70 96 04/30/21 20:00 37.7 C H 104 H 39 H 98/70 L 94 04/30/21 18:00 37.3 C 104 H 33 H 90/65 L 97 04/30/21 17:36 98 97/62 L 04/30/21 16:00 37.5 C 100 24 H 92/66 L 95 04/30/21 14:52 96 99/68 L 04/30/21 14:08 103
--- NOTE | 2021-05-01 12:11 | PM.PNNEP ---
Progress Note: A&P Assessment and Plan (1) Hyponatremia: Code(s): E87.1 - Hypo-osmolality and hyponatremia Status: Acute Assessment and Plan: had been stable/improving until AM labs noted evaluation to date: urine electrolytes pre renal urine specific gravity is 1.025 TSH was okay; cortisol was 37 before the hydrocortisone was given SPEP/UPEP pending recent CXR and CT with evidence of CHF/fluid head CT negative no history of malignancy suspect due to increased free water intake in the context of prerenal azotemia her mitral regurgitation likely is responsible for volume overload + prerenal azotemia good response to IV lasix with regard to UOP given drop in sodium this AM, will add fluid restriction follow trend of repeat sodiums (2) Shock: Code(s): R57.9 - Shock, unspecified Status: Acute Assessment and Plan: resolved off Levophed at this time cultures negative presumably due to pneumonia (3) Pulmonary edema: Code(s): J81.1 - Chronic pulmonary edema Status: Acute Assessment and Plan: improving with IV diureics Echo results noted follow respiratory status (4) Mitral valve vegetation: Code(s): I33.0 - Acute and subacute infective endocarditis Status: Acute Assessment and Plan: as noted by Echo Cardiology following planning HECTOR next week for further evaluation blood culture negative at this time (5) Pneumonia: Code(s): J18.9 - Pneumonia, unspecified organism Status: Acute Assessment and Plan: on antibiotics follow respiratory status so far cultures negative (6) Benign essential hypertension: Code(s): I10 - Essential (primary) hypertension Status: Acute Assessment and Plan: better hemodyanmics at this time follow trend for now Will continue to follow. Subjective Date/time seen: 05/01/21 12:11 Chart reviewed; just transferred out of ICU earlier today; off levophed and remains hemodynamically stable; reasonably urine output with IV lasix but noted sodium dropped by AM labs (reason?); breathing/respiratory status stable if not better at this time; no issues/events overnight or earlier this AM. Exam Narrative: General: WD/WN female in NAD Heart: normal S1 and S2; no rub but systolic murmur present Lungs: bibasilar crackles noted Abdomen: soft, nontender, nondistended, positive bowel sounds Extremities: no cyanosis or clubbing; no edema Skin: warm and dry Objective Data Vital Signs Vital Signs: Vital Signs Temp Pulse Resp BP Pulse Ox 05/01/21 10:00 106 H 05/01/21 09:53 96 05/01/21 08:00 36.8 C 112 H 32 H 110/77 96 05/01/21 06:00 37.2 C 102 H 26 H 108/72 97 05/01/21 04:00 37.4 C 98 34 H 96/74 L 93 05/01/21 03:51 96 05/01/21 02:00 105 H 27 H 112/72 94 05/01/21 00:00 104 H 04/30/21 23:58 96 04/30/21 23:49 37.7 C H 105 H 23 H 105/74 96 04/30/21 22:00 101 H 34 H 104/70 96 04/30/21 20:00 37.7 C H 104 H 39 H 98/70 L 94 04/30/21 18:00 37.3 C 104 H 33 H 90/65 L 97 04/30/21 17:36 98 97/62 L 04/30/21 16:00 37.5 C 100 24 H 92/66 L 95 04/30/21 14:52 96 99/68 L 04/30/21 14:08 103 H 107/96 H 04/30/21 14:00 37.3 C 103 H 25 H 107/96 H 96 04/30/21 13:50 101 H 111/84 04/30/21 13:15 103 H 110/81 Intake/Output Intake/Output: Intake & Output 04/28/21 04/29/21 04/30/21 05/01/21 23:59 23:59 23:59 23:59 Intake Total 1999 3890 2980 50 Output Total 2049 4750 625 Balance 1999 4824 -1194 -063 Meds/Results Medications: Active Medications Generic Name Dose Route Start Last Admin Trade Name Freq PRN Reason Stop Dose Admin Hydrocodone Bitart/Acetaminophen 1 tab 05/01/21 08:55 Hydrocodone/Acetaminophen (*Crx) 5-325 Mg Tablet PO Q4H PRN Pain Rated 4-6 Alteplase, Recombinant 2 mg 04/30/21 14:45 04/30/21 17:32
[2021-05-01 12:21] LABS: Sodium 125 mmol/L (137-145)
[2021-05-01] MEDS: SODIUM BICARBONATE TAB 650 MG TABLET PO (12:48)
[2021-05-01 17:36] LABS: Glucose Point of Care 123 mg/dl (65-105)
[2021-05-01 18:27] LABS: Sodium 124 mmol/L (137-145)
[2021-05-02] VITALS (8 sets, daily range): BP systolic 96–106; BP diastolic 59–71; PULSE 102–118; RESP 14–20; TEMP 36.6–36.8; O2SAT 90–92
[2021-05-02 05:47] LABS: Glucose Point of Care 154 mg/dl (65-105)
[2021-05-02 06:04] LABS: Hematocrit 26.1 % (37.0-47.0); Hemoglobin 9.8 g/dL (12.0-15.0); Immature Platelet Fraction Pct 9.8 % (0.9-11.2); Mean Corpuscular HGB Conc 37.5 g/dl (32-36); Mean Corpuscular Hemoglobin 32.1 pg (26-34); Mean Corpuscular Volume 85.6 fl (80-100); Mean Platelet Volume 11.6 fl (7.4-10.4); Platelet Count Result 108 k/mm3 (150-375); Red Blood Count 3.05 M/mm3 (4.2-5.4); Red Cell Distribution Width 13.4 % (11.5-14.5); White Blood Count 20.7 K/mm3 (4.5-10.0)
[2021-05-02 06:07] LABS: Alanine Aminotransferase 42 U/L (4-35); Albumin Level 2.6 g/dL (3.5-5.1); Alkaline Phosphatase 77 U/L (38-126); Anion Gap 9 mmol/L (8-16); Aspartate Amino Transferase 57 U/L (14-36); Bilirubin,Total 2.1 mg/dL (0.2-1.3); Blood Urea Nitrogen 12 mg/dL (7-17); Calcium 7.2 mg/dL (8.4-10.2); Carbon Dioxide 28 mmol/L (22-30); Chloride 85 mmol/L (98-107); Estimated CRCL calculation 77 ml/min; Estimated Glomerular Filt Rate > 60; Glucose 119 mg/dL (65-110); Potassium 2.8 mmol/L (3.4-5.0); Sodium 122 mmol/L (137-145)
[2021-05-02] MEDS: FUROSEMIDE 20 MG TABLET PO ×2 (06:41→14:03)
[2021-05-02] MEDS: CENTRAL LINE FLUSH 10 ML IV PUSH ×4 (06:42→23:17)
[2021-05-02] MEDS: POTASSIUM CHLORIDE 20 MEQ TABLET 40 MEQ PO (07:02)
[2021-05-02 08:31] LABS: Glucose Point of Care 114 mg/dl (65-105)
[2021-05-02] MEDS: SODIUM CHLORIDE 1 GM TABLET PO ×2 (08:37→17:29)
[2021-05-02] MEDS: ATORVASTATIN 20 MG TABLET PO (08:38)
[2021-05-02] MEDS: CALCIUM/VITAMIN D 250 MG TABLET 1 TABLET PO (08:38)
--- NOTE | 2021-05-02 10:11 | PC.NURSE ---
Patient's son stated that he does not want HECTOR to be performed until discussing with Cardiology. [employer] cutter cardiology exchange made aware and exchange noted will inform Dr Evans.
[2021-05-02 11:16] LABS: Anion Gap 6 mmol/L (8-16); Blood Urea Nitrogen 12 mg/dL (7-17); Calcium 7.2 mg/dL (8.4-10.2); Carbon Dioxide 29 mmol/L (22-30); Chloride 85 mmol/L (98-107); Estimated CRCL calculation 91 ml/min; Estimated Glomerular Filt Rate > 60; Glucose 148 mg/dL (65-110); Potassium 3.1 mmol/L (3.4-5.0); Sodium 120 mmol/L (137-145)
--- NOTE | 2021-05-02 12:08 | P.PNNP_ITS ---
Progress Note: A&P Assessment and Plan (1) Hyponatremia: Code(s): E87.1 - Hypo-osmolality and hyponatremia Status: Acute Assessment and Plan: * had been stable/improving up until the last 24 hours * evaluation to date: * urine electrolytes pre renal * urine specific gravity is 1.025 * TSH was okay; cortisol was 37 before the hydrocortisone was given * SPEP/UPEP pending * recent CXR and CT with evidence of CHF/fluid * head CT negative * no history of malignancy * suspect due to increased free water intake in the context of prerenal azotemia * her mitral regurgitation likely is responsible for volume overload + prerenal azotemia * good response to IV lasix with regard to UOP * given drop in sodium, added fluid restriction yesterday -- will increase this today * repeat sodium later today and if low again, will proceed with 3% saline * will ask pharmacy to change all IV meds/IVPB/IV antibiotics to normal saline carrier fluid * follow trend of repeat sodiums (2) Shock: Code(s): R57.9 - Shock, unspecified Status: Acute Assessment and Plan: * resolved * off Levophed at this time * cultures negative * presumably due to pneumonia (3) Pulmonary edema: Code(s): J81.1 - Chronic pulmonary edema Status: Acute Assessment and Plan: * improving with IV diureics * Echo results noted * follow respiratory status (4) Mitral valve vegetation: Code(s): I33.0 - Acute and subacute infective endocarditis Status: Acute Assessment and Plan: * as noted by Echo * Cardiology following * planning HECTOR next week for further evaluation * blood culture negative at this time (5) Pneumonia: Code(s): J18.9 - Pneumonia, unspecified organism Status: Acute Assessment and Plan: * on antibiotics * follow respiratory status * so far cultures negative (6) Benign essential hypertension: Code(s): I10 - Essential (primary) hypertension Status: Acute Assessment and Plan: * better hemodyanmics at this time * follow trend for now Will continue to follow. Subjective Date/time seen: 05/02/21 12:08 Despite previous improvement in sodium levels, sodium starting to decline again; major complaint is that of weakness; remains hemodynamically stable although BP running on the soft side; no other acute issues/events overnight or earlier this morning. Exam Narrative: General: WD/WN female in NAD Heart: normal S1 and S2; no rub but systolic murmur present Lungs: bibasilar crackles noted Abdomen: soft, nontender, nondistended, positive bowel sounds Extremities: no cyanosis or clubbing; no edema Skin: warm and intact Objective Data Vital Signs Vital Signs: Vital Signs Temp Pulse Resp BP Pulse Ox 05/02/21 12:00 118 H 05/02/21 08:00 110 H 05/02/21 05:48 36.6 C 110 H 18 96/59 L 91 05/02/21 04:00 102 H 05/01/21 22:29 123 H 05/01/21 22:00 36.9 C 114 H 18 85/68 L 90 05/01/21 17:08 36.3 C L 112 H 18 94/60 L 94 05/01/21 16:00 107 H Intake/Output Intake/Output: Intake & Output 04/29/21 04/30/21 05/01/21 05/02/21 23:59 23:59 23:59 23:59 Intake Total 3890 2980 1000 640 Output Total 2050 1460 925 Balance 1840 -
--- NOTE | 2021-05-02 12:08 | PM.PNNEP ---
Progress Note: A&P Assessment and Plan (1) Hyponatremia: Code(s): E87.1 - Hypo-osmolality and hyponatremia Status: Acute Assessment and Plan: had been stable/improving up until the last 24 hours evaluation to date: urine electrolytes pre renal urine specific gravity is 1.025 TSH was okay; cortisol was 37 before the hydrocortisone was given SPEP/UPEP pending recent CXR and CT with evidence of CHF/fluid head CT negative no history of malignancy suspect due to increased free water intake in the context of prerenal azotemia her mitral regurgitation likely is responsible for volume overload + prerenal azotemia good response to IV lasix with regard to UOP given drop in sodium, added fluid restriction yesterday -- will increase this today repeat sodium later today and if low again, will proceed with 3% saline will ask pharmacy to change all IV meds/IVPB/IV antibiotics to normal saline carrier fluid follow trend of repeat sodiums (2) Shock: Code(s): R57.9 - Shock, unspecified Status: Acute Assessment and Plan: resolved off Levophed at this time cultures negative presumably due to pneumonia (3) Pulmonary edema: Code(s): J81.1 - Chronic pulmonary edema Status: Acute Assessment and Plan: improving with IV diureics Echo results noted follow respiratory status (4) Mitral valve vegetation: Code(s): I33.0 - Acute and subacute infective endocarditis Status: Acute Assessment and Plan: as noted by Echo Cardiology following planning HECTOR next week for further evaluation blood culture negative at this time (5) Pneumonia: Code(s): J18.9 - Pneumonia, unspecified organism Status: Acute Assessment and Plan: on antibiotics follow respiratory status so far cultures negative (6) Benign essential hypertension: Code(s): I10 - Essential (primary) hypertension Status: Acute Assessment and Plan: better hemodyanmics at this time follow trend for now Will continue to follow. Subjective Date/time seen: 05/02/21 12:08 Despite previous improvement in sodium levels, sodium starting to decline again; major complaint is that of weakness; remains hemodynamically stable although BP running on the soft side; no other acute issues/events overnight or earlier this morning. Exam Narrative: General: WD/WN female in NAD Heart: normal S1 and S2; no rub but systolic murmur present Lungs: bibasilar crackles noted Abdomen: soft, nontender, nondistended, positive bowel sounds Extremities: no cyanosis or clubbing; no edema Skin: warm and intact Objective Data Vital Signs Vital Signs: Vital Signs Temp Pulse Resp BP Pulse Ox 05/02/21 12:00 118 H 05/02/21 08:00 110 H 05/02/21 05:48 36.6 C 110 H 18 96/59 L 91 05/02/21 04:00 102 H 05/01/21 22:29 123 H 05/01/21 22:00 36.9 C 114 H 18 85/68 L 90 05/01/21 17:08 36.3 C L 112 H 18 94/60 L 94 05/01/21 16:00 107 H Intake/Output Intake/Output: Intake & Output 04/29/21 04/30/21 05/01/21 05/02/21 23:59 23:59 23:59 23:59 Intake Total 3890 2980 1000 640 Output Total 2050 4750 925 Balance 1840 -1770 75 640 Meds/Results Medications: Active Medications Generic Name Dose Route Start Last Admin Trade Name Freq PRN Reason Stop Dose Admin Hydrocodone Bitart/Acetaminophen 1 tab 05/01/21 08:55 Hydrocodone/Acetaminophen (*Crx) 5-325 Mg Tablet PO Q4H PRN Pain Rated 4-6 Alteplase, Recombinant 2 mg 04/30/21 14:45 04/30/21 17:32 Alteplase 2 Mg Vial (Cathflo) IV PUSH 2 mg ONCE PRN Administration Line Occlusion Atorvastatin Calcium 20 mg 04/29/21 09:00 05/02/21 08:38 Atorvastatin 20 Mg Tablet PO 20 mg DAILY KENDY Administration Calcium Carbonate 1 tablet 04/29/21 09:00 05/02/21 08:38 Calcium/Vitamin D 250 Mg Tablet PO 1 tablet [facility] Administ
[2021-05-02 12:17] LABS: Glucose Point of Care 119 mg/dl (65-105)
--- NOTE | 2021-05-02 12:20 | P.PNIM_ITS ---
Progress Note: A&P Assessment and Plan (1) Septic shock: Code(s): A41.9 - Sepsis, unspecified organism; R65.21 - Severe sepsis with septic shock Status: Acute Assessment and Plan: Currently being treated for pneumonia. Lasix given yesterday and is being continued. Echo reviewed. Her cortisol level was high (2) Pneumonia: Code(s): J18.9 - Pneumonia, unspecified organism Status: Acute Assessment and Plan: Blood and sputum culture Urine Legionella and pneumococcal antigen are pending Continue empiric cefepime and azithromycin (3) Pulmonary edema: Code(s): J81.1 - Chronic pulmonary edema Status: Acute Assessment and Plan: Patient presented with a picture consistent with septic shock and appear dry alt jagdeep her CT showed pulmonary edema and BNP was elevated Patient Had no lower extremity edema and appeared dry overall but she has pulmonary edema secondary to mitral valve prolapse and MR 112/2 She appeared more hypoxic this more chest x-ray confirmed increased pulmonary edema. IV fluids were discontinued. Patient was given Lasix IV Today her breathing is better with decrease in oxygen requirement to 3 years Continue low-dose Lasix managed Nephrology (4) Hyponatremia: Code(s): E87.1 - Hypo-osmolality and hyponatremia Status: Acute Assessment and Plan: Likely secondary to dehydration and hypovolemia Patient seen by Nephrology Sodium improved but again dropped to 121 this morning Will defer management to Nephrology (5) MVP (mitral valve prolapse): Code(s): I34.1 - Nonrheumatic mitral (valve) prolapse Status: Acute Assessment and Plan: Echocardiogram done and shows Summary 1. Complete two-dimensional, color flow and Doppler transthoracic echocardiogram is performed. 2. Left ventricular systolic function is normal, estimated at 60-65%. 3. The left ventricular diastolic function is normal. 4. Left atrial chamber dimension is mildly enlarged. 5. There is mild aortic valve sclerosis. 6. There is mild prolapse of the anterior mitral leaflet. Thickening of the base of the posterior leaflet. There is mild to moderate mitral valve regurgitation. 7. Mobile structure attached to the mitral valve concerning for vegetation. 8. There is mild tricuspid valve regurgitation. 9. No pulmonary hypertension, estimated pulmonary arterial systolic pressure is 33 mmHg. 10. Right ventricular chamber dimension is mildly enlarged. 11. Right ventricular systolic function is normal. Case discussed with Dr. Knight from cardiology. Plan to eventually do HECTOR patient's hypoxia still improved to further evaluate her mitral valve. Depending on the HECTOR patient may need to be referred for mitral valve surgery (6) Suspected COVID-19 virus infection: Code(s): Z20.822 - Contact with and (suspected) exposure to COVID-19 Status: Acute Assessment and Plan: SARS-CoV-2 PCR negative and isolation discontinued (7) Endocarditis: Code(s): I38 - Endocarditis, valve unspecified Status: Acute Assessment and Plan: Echo suggest vegetation on mitral valve which could be a degenerated mitral valve as patient has mitral valve prolapse and MR She denies any IV drug use Discuss with Cardiology regarding getting HECTOR. [employer] wants to wait for patient's hypoxia improved until attempting HECTOR Her blood cultures are negative as of now Continue vancomycin and cefepime (8) Hip pain: Code(s): M25.559 - Pain in unspecified hip Status: Acute Assessment and Plan: Her CT of
[2021-05-02] MEDS: POTASSIUM CHLORIDE 20 MEQ TABLET PO (12:56)
[2021-05-02 15:01] LABS: Sodium 119 mmol/L (137-145)
--- NOTE | 2021-05-02 15:11 | PM.PNCARD ---
Progress Note: A&P Assessment and Plan (1) Mitral valve vegetation: Code(s): I33.0 - Acute and subacute infective endocarditis Status: Acute Assessment and Plan: HECTOR advised for more detailed evaluation of MV which will help to dictate therapy, ABx duration and follow up. Explained procedure, risks and benefits to the patient. All questions answered to her satisfaction. Patient states she has a very severe gag reflex. Plan for HECTOR with Anesthesiology on Monday if patient clinically stable. See below. Will keep NPO after midnight Monday evening just in case, however, given electrolyte abnormalities, relative hypotension suspect we may need to postpone. Depending on plans further clarification with patient and family in a.m... Patient agrees. Continue to follow cultures. Continue IV antibiotics. Cultures negative to date. Further recommendations to follow. (2) Hypokalemia: Code(s): E87.6 - Hypokalemia Status: Acute Assessment and Plan: Remains persistently low despite supplementation. Continue to replete goal around 4.0. Given hypotension I would back off on Lasix at this time. (3) Hyponatremia: Code(s): E87.1 - Hypo-osmolality and hyponatremia Status: Acute Assessment and Plan: More significant drop this morning down to 119. Recheck in a.m., however, suspect willing to postpone HECTOR given this in light of hypotension and hypokalemia. Electrolyte abnormalities and blood pressure likely to complicate plans for HECTOR. (4) MVP (mitral valve prolapse): Code(s): I34.1 - Nonrheumatic mitral (valve) prolapse Status: Acute Assessment and Plan: Prolapse of the anterior leaflet with thickening of the base of the posterior leaflet [id number] mitral regurgitation and mobile structure attached to the mitral valve concerning for vegetation. As above. (5) Septic shock: Code(s): A41.9 - Sepsis, unspecified organism; R65.21 - Severe sepsis with septic shock Status: Acute Assessment and Plan: Resolved, of pressors at this time although patient remains relatively hypotensive. Hold Lasix this evening. Continue IV antibiotics. Plan for transesophageal echocardiogram for further evaluation and integration into duration of IV antibiotics and plan of care. Explained that this must be performed prior to discharge and not as a return as an outpatient as this will significantly impact management strategy. Patient understands. White blood cell count steady but remains significantly elevated. Repeat cultures if febrile. (6) Pulmonary edema: Code(s): J81.1 - Chronic pulmonary edema Status: Acute Assessment and Plan: Clinically improving with Lasix. Hypotensive, hyponatremic and hypokalemic. Continue to monitor closely. (7) Pneumonia: Code(s): J18.9 - Pneumonia, unspecified organism Status: Acute Assessment and Plan: Per primary service. Remains on IV antibiotics. Clinically improving overall. Subjective Date/time seen: Date of service: 05/02/21 15:11 Interval history: Follow-up visit in this 61-year-old lady with: Admission with fever picture septic shock so far blood cultures are negative. Patient has background of chronic mitral valve prolapse of both anterior and posterior leaflets with moderate MR. Echocardiogram done yesterday appears to show concerns regarding a potential mitral valve vegetation. My personal review of the study would lead me also to be concerned about the possibility of flail chordal elements. Mitral valve regurgitation however is only moderate and has been moderate in the past. Patient appears to be more comfortable with some diuresis today. Still has some conversational dyspnea. Discussion with the patient about the concerns regarding her mitral valve and the need for further evaluation with transesophageal echo at some point to clarify this pathology. With antibiotics and hemodynamic
[2021-05-02] MEDS: SODIUM CHLORIDE 3% 500 ML 50 ML IV CONT (16:10)
[2021-05-02 17:09] LABS: Albumin 2.4 g/dL (3.8-4.8); Alpha 1 Globulin 0.7 g/dL (0.2-0.3); Beta 1 Globulin 0.3 g/dL (0.4-0.6); Gamma Globulin 0.6 g/dL (0.8-1.7); Protein, Total 5.4 g/dL (6.1-8.1)
[2021-05-02 17:10] LABS: Glucose Point of Care 111 mg/dl (65-105)
[2021-05-02] MEDS: AZITHROMYCIN IV 500 MG in SODIUM CHLORIDE 0.9% IV 250 ML 250 MG IVPB (18:17)
--- NOTE | 2021-05-02 18:25 | PC.NURSE ---
This nurse was told by a doctor of pharmacy that azithromycin was not compatible with sodium chloride. I hung a bag of azithromycin in D5.The D5 was the original medication that I was supposed to hang. Pharmacy call at [phone] and told this nurse that the azithromycin was in fact compatible with the normal saline and sent me up a bag. I already hung the bag of d5. Put the extra dose in the refrigerator to have for tomorrow.
[2021-05-02 21:53] LABS: Sodium 121 mmol/L (137-145)
[2021-05-02 22:44] LABS: Glucose Point of Care 121 mg/dl (65-105)
[2021-05-03] VITALS (9 sets, daily range): BP systolic 92–106; BP diastolic 64–68; PULSE 95–112; RESP 18; TEMP 36.2–36.6; O2SAT 90–98
[2021-05-03] MEDS: CEFEPIME 2 GM in SODIUM CHLORIDE 0.9% IV 50 ML IVPB (00:16)
[2021-05-03 01:27] LABS: Vancomycin Trough 7.6 ug/mL (10.0-20.0)
[2021-05-03 06:17] LABS: Hematocrit 25.5 % (37.0-47.0); Hemoglobin 9.3 g/dL (12.0-15.0); Immature Platelet Fraction Pct 5.4 % (0.9-11.2); Mean Corpuscular HGB Conc 36.5 g/dl (32-36); Mean Corpuscular Hemoglobin 31.1 pg (26-34); Mean Corpuscular Volume 85.3 fl (80-100); Mean Platelet Volume 10.7 fl (7.4-10.4); Platelet Count Result 131 k/mm3 (150-375); Red Blood Count 2.99 M/mm3 (4.2-5.4); Red Cell Distribution Width 13.6 % (11.5-14.5); White Blood Count 16.9 K/mm3 (4.5-10.0)
[2021-05-03] MEDS: CENTRAL LINE FLUSH 10 ML IV PUSH ×4 (06:24→23:27)
[2021-05-03 06:28] LABS: Alanine Aminotransferase 43 U/L (4-35); Albumin Level 2.7 g/dL (3.5-5.1); Alkaline Phosphatase 64 U/L (38-126); Anion Gap 4 mmol/L (8-16); Aspartate Amino Transferase 54 U/L (14-36); Bilirubin,Total 1.6 mg/dL (0.2-1.3); Blood Urea Nitrogen 8 mg/dL (7-17); Calcium 7.3 mg/dL (8.4-10.2); Carbon Dioxide 29 mmol/L (22-30); Chloride 92 mmol/L (98-107); Estimated CRCL calculation 77 ml/min; Estimated Glomerular Filt Rate > 60; Glucose 109 mg/dL (65-110); Magnesium 2.2 mg/dL (1.6-2.3); Potassium 3.2 mmol/L (3.4-5.0); Sodium 125 mmol/L (137-145)
[2021-05-03 07:58] LABS: Glucose Point of Care 110 mg/dl (65-105)
[2021-05-03] MEDS: POTASSIUM CHLORIDE 20 MEQ TABLET 40 MEQ PO (09:23)
--- NOTE | 2021-05-03 09:37 | PM.IMPN ---
Progress Note: A&P Assessment and Plan (1) Septic shock: Code(s): A41.9 - Sepsis, unspecified organism; R65.21 - Severe sepsis with septic shock Status: Acute Assessment and Plan: Patient presents emergency room and found to be hypotensive with blood pressure of 70/47. She was treated with IV fluids and central line was placed. She was started on pressors. Blood pressure more stable and able to wean of pressors. Suspect etiology is related to pneumonia and possibly bacteremia. COVID PCR is negative. BCx as mentioned below. WBC trending down. Echo showing possible vegetation. Continue IV abx. (2) Pneumonia: Code(s): J18.9 - Pneumonia, unspecified organism Status: Acute Assessment and Plan: CTA of the chest showed diffuse interstitial pattern of the lung with ground-glass opacities. Patient having fevers. No pulmonary emboli. COVID negative. Sputum culture ordered. Urine Legionella and pneumococcal antigen ordered. BCx growing gram variable bacilli and gram positive bacilli. Possible Corynebacterium; consider Listeria. Continue empiric vancomycin, cefepime and azithromycin. Follow up on culture results. (3) Pulmonary edema: Code(s): J81.1 - Chronic pulmonary edema Status: Acute Assessment and Plan: Patient presented with a picture consistent with septic shock and appears dehydrated. CT scan of the chest showing possible pulmonary edema. BNP 88359. Echo with EF 60-65% with normal diastolic dysfunction. Lasix orally started but currently on hold. As above. (4) Hyponatremia: Code(s): E87.1 - Hypo-osmolality and hyponatremia Status: Acute Assessment and Plan: Sodium 120 on admission. Cassius low at <5. With IV fluids, Likely secondary to dehydration and hypovolemia. Patient seen by Nephrology. Na improved but then worsened yesterday to 119. Na better at 125 (which is only 3mmol/L higher over 24hrs). Currently on NaCl tablets but oral Lasix on hold. Continue to monitor. 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 She has a mobile structure attached to the mitral valve concerning for vegetation but consider chordea. Blood cultures as above. Continue broad-spectrum IV antibiotics. Plan for HECTOR today? (6) Thrombocytopenia: Code(s): D69.6 - Thrombocytopenia, unspecified Status: Acute Assessment and Plan: Patient has a normal baseline platelet count. Platelet count was low at 46K on admission. Most likely consumptive from septic shock. Repeat platelet count has improved to 131K today. Continue to monitor. (7) Anemia: Code(s): D64.9 - Anemia, unspecified Status: Acute Assessment and Plan: Patient with normal baseline hemoglobin. Hemoglobin low on admission at 11 and trended downward to 9.3 today. No evidence of acute blood loss. Iron normal but TIBC very low at 197 possibly related to the sepsis. UA showing 2+ proteinuria felt related to the sepsis but could be chronic. Continue to monitor. (8) Hyperglycemia: Code(s): R73.9 - Hyperglycemia, unspecified Status: Acute Assessment and Plan: Glucose elevated felt related to stress response. A1c 5.5. Okay to stop sliding-scale protocol (9) Elevated troponin: Code(s): R77.8 - Other specified abnormalities of plasma proteins Status: Acute Assessment and Plan: Troponin elevated on admission to 0.225 but trending down since. EKG showing no overt ST-T changes. Echo showing no wall motion abnormalities. Repeat EKG showing no change. Suspect nonischemic myocardial injury from the septic shock (10) Metabolic acidosis: Code(s): E87.2 - Acidosis Status: Acute Assessment and Plan: Serum bicar
--- NOTE | 2021-05-03 10:17 | P.PNNP_ITS ---
Progress Note: A&P Assessment and Plan (1) Hyponatremia: Code(s): E87.1 - Hypo-osmolality and hyponatremia Status: Acute Assessment and Plan: * hyponatremia due to low blood pressure and pre renal azotemia. * evaluation to date: * urine electrolytes pre renal * urine specific gravity is 1.025 * TSH was okay; cortisol was 37 before the hydrocortisone was given * SPEP/UPEP pending * recent CXR and CT with evidence of CHF/fluid * head CT negative * no history of malignancy * suspect due to increased free water intake in the context of prerenal azotemia * her mitral regurgitation likely is responsible for volume overload + prerenal azotemia * Her blood pressure dropped yesterday so the diuretics were held. * Currently on fluid restriction of a 1000cc per day and salt tablets 1 g twice a day. Will restart furosemide once blood pressure seems to be relatively stable. (2) Shock: Code(s): R57.9 - Shock, unspecified Status: Acute Assessment and Plan: * resolved (3) Pulmonary edema: Code(s): J81.1 - Chronic pulmonary edema Status: Acute Assessment and Plan: * improving with IV diureics * Echo results noted * follow respiratory status (4) Mitral valve vegetation: Code(s): I33.0 - Acute and subacute infective endocarditis Status: Acute Assessment and Plan: * as noted by Echo * Cardiology following * planning HECTOR next week for further evaluation * blood culture negative at this time (5) Pneumonia: Code(s): J18.9 - Pneumonia, unspecified organism Status: Acute Assessment and Plan: * on antibiotics * follow respiratory status * so far cultures negative (6) Benign essential hypertension: Code(s): I10 - Essential (primary) hypertension Status: Acute Assessment and Plan: * better hemodyanmics at this time * follow trend for now * On no antihypertensive Subjective Date/time seen: 05/03/21 10:17 Interval history: Kristina is feeling better. No longer short of breath some back pain from lying in bed so long. Exam Narrative: General: WD/WN female in NAD Heart: normal S1 and S2; no rub but systolic murmur present Lungs: bibasilar crackles noted Abdomen: soft, nontender, nondistended, positive bowel sounds Extremities: no cyanosis or clubbing; no edema Skin: No rash Objective Data Vital Signs Vital Signs: Vital Signs - 24 hr 05/02/21 12:00 05/02/21 14:00 05/02/21 16:00 Temperature 36.6 C 36.8 C Pulse Rate 118 H 110 H 108 H Respiratory Rate 16 20 Blood Pressure 99/67 L 106/64 Pulse Oximetry 92 90 05/02/21 20:00 05/02/21 22:00 05/03/21 00:00 Temperature 36.7 C Pulse Rate 111 H 107 H 112 H Respiratory Rate 14 Blood Pressure 103/71 Pulse Oximetry 92 05/03/21 04:00 05/03/21 06:00 05/03/21 08:00 Temperature 36.2 C L 36.3 C L Pulse Rate 103 H 110 H 106 H Respiratory Rate 18 18 Blood Pressure 106/68 92/68 L Pulse Oximetry 90 92 Intake/Output Intake/Output: Intake & Output 04/30/21 05/01/21 05/02/21 05/03/21 23:59 23:59 23:59 23:59 Intake Total 2980 1000 1295 140 Output Total 7900 925 1
--- NOTE | 2021-05-03 10:17 | PM.PNNEP ---
Progress Note: A&P Assessment and Plan (1) Hyponatremia: Code(s): E87.1 - Hypo-osmolality and hyponatremia Status: Acute Assessment and Plan: hyponatremia due to low blood pressure and pre renal azotemia. evaluation to date: urine electrolytes pre renal urine specific gravity is 1.025 TSH was okay; cortisol was 37 before the hydrocortisone was given SPEP/UPEP pending recent CXR and CT with evidence of CHF/fluid head CT negative no history of malignancy suspect due to increased free water intake in the context of prerenal azotemia her mitral regurgitation likely is responsible for volume overload + prerenal azotemia Her blood pressure dropped yesterday so the diuretics were held. Currently on fluid restriction of a 1000cc per day and salt tablets 1 g twice a day. Will restart furosemide once blood pressure seems to be relatively stable. (2) Shock: Code(s): R57.9 - Shock, unspecified Status: Acute Assessment and Plan: resolved (3) Pulmonary edema: Code(s): J81.1 - Chronic pulmonary edema Status: Acute Assessment and Plan: improving with IV diureics Echo results noted follow respiratory status (4) Mitral valve vegetation: Code(s): I33.0 - Acute and subacute infective endocarditis Status: Acute Assessment and Plan: as noted by Echo Cardiology following planning HECTOR next week for further evaluation blood culture negative at this time (5) Pneumonia: Code(s): J18.9 - Pneumonia, unspecified organism Status: Acute Assessment and Plan: on antibiotics follow respiratory status so far cultures negative (6) Benign essential hypertension: Code(s): I10 - Essential (primary) hypertension Status: Acute Assessment and Plan: better hemodyanmics at this time follow trend for now On no antihypertensive Subjective Date/time seen: 05/03/21 10:17 Interval history: Kristina is feeling better. No longer short of breath some back pain from lying in bed so long. Exam Narrative: General: WD/WN female in NAD Heart: normal S1 and S2; no rub but systolic murmur present Lungs: bibasilar crackles noted Abdomen: soft, nontender, nondistended, positive bowel sounds Extremities: no cyanosis or clubbing; no edema Skin: No rash Objective Data Vital Signs Vital Signs: Vital Signs - 24 hr 05/02/21 12:00 05/02/21 14:00 05/02/21 16:00 Temperature 36.6 C 36.8 C Pulse Rate 118 H 110 H 108 H Respiratory Rate 16 20 Blood Pressure 99/67 L 106/64 Pulse Oximetry 92 90 05/02/21 20:00 05/02/21 22:00 05/03/21 00:00 Temperature 36.7 C Pulse Rate 111 H 107 H 112 H Respiratory Rate 14 Blood Pressure 103/71 Pulse Oximetry 92 05/03/21 04:00 05/03/21 06:00 05/03/21 08:00 Temperature 36.2 C L 36.3 C L Pulse Rate 103 H 110 H 106 H Respiratory Rate 18 18 Blood Pressure 106/68 92/68 L Pulse Oximetry 90 92 Intake/Output Intake/Output: Intake & Output 04/30/21 05/01/21 05/02/21 05/03/21 23:59 23:59 23:59 23:59 Intake Total 2980 1000 1295 140 Output Total 4750 925 1300 Balance -1770 75 1295 -1160 Meds/Results Medications: Active Medications Generic Name Dose Route Start Last Admin Trade Name Freq PRN Reason Stop Dose Admin Hydrocodone Bitart/Acetaminophen 1 tab 05/01/21 08:55 Hydrocodone/Acetaminophen (*Crx) 5-325 Mg Tablet PO Q4H PRN Pain Rated 4-6 Alteplase, Recombinant 2 mg 04/30/21 14:45 04/30/21 17:32 Alteplase 2 Mg Vial (Cathflo) IV PUSH 2 mg ONCE PRN Administration Line Occlusion Atorvastatin Calcium 20 mg 04/29/21 09:00 05/03/21 07:45 Atorvastatin 20 Mg Tablet PO Not Given DAILY KENDY Calcium Carbonate 1 tablet 04/29/21 09:00 05/03/21 07:45 Calcium/Vitamin D 250 Mg Tablet PO Not Given QAM KENDY Calcium Carbonate 200 mg 04/29/21 12:59 04/29/21 13:18 Calcium Carbo
[2021-05-03 11:55] LABS: Sodium 127 mmol/L (137-145)
[2021-05-03] MEDS: AZITHROMYCIN IV 500 MG in SODIUM CHLORIDE 0.9% IV 250 ML 250 MG IVPB (16:59)
[2021-05-03] MEDS: SODIUM CHLORIDE 1 GM TABLET PO (16:59)
[2021-05-03 17:41] LABS: Sodium 131 mmol/L (137-145)
[2021-05-03 18:09] LABS: Pneumococcal Antigen Urine Not Detected (Not Detected)
[2021-05-03 19:54] LABS: Legionella pneumophila Ag Ur Not Detected (Not Detected)
[2021-05-04] VITALS (11 sets, daily range): BP systolic 87–105; BP diastolic 62–74; PULSE 102–117; RESP 18; TEMP 36.6–37.4; O2SAT 90–98
[2021-05-04] MEDS: CENTRAL LINE FLUSH 10 ML IV PUSH (06:07)
[2021-05-04 07:42] LABS: Hematocrit 25.7 % (37.0-47.0); Hemoglobin 8.7 g/dL (12.0-15.0); Mean Corpuscular HGB Conc 33.9 g/dl (32-36); Mean Corpuscular Hemoglobin 31.1 pg (26-34); Mean Corpuscular Volume 91.8 fl (80-100); Mean Platelet Volume 10.8 fl (7.4-10.4); Platelet Count Result 161 k/mm3 (150-375); Red Cell Distribution Width 14.8 % (11.5-14.5); White Blood Count 14.5 K/mm3 (4.5-10.0)
[2021-05-04 08:00] LABS: Alanine Aminotransferase 40 U/L (4-35); Albumin Level 2.6 g/dL (3.5-5.1); Alkaline Phosphatase 65 U/L (38-126); Anion Gap 5 mmol/L (8-16); Aspartate Amino Transferase 49 U/L (14-36); Bilirubin,Total 1.2 mg/dL (0.2-1.3); Blood Urea Nitrogen 8 mg/dL (7-17); Calcium 7.5 mg/dL (8.4-10.2); Carbon Dioxide 28 mmol/L (22-30); Chloride 98 mmol/L (98-107); Estimated CRCL calculation 91 ml/min; Estimated Glomerular Filt Rate > 60; Glucose 104 mg/dL (65-110); Magnesium 2.2 mg/dL (1.6-2.3); Phosphorus 2.7 mg/dL (2.5-4.5); Potassium 3.4 mmol/L (3.4-5.0); Sodium 131 mmol/L (137-145)
--- NOTE | 2021-05-04 08:35 | PM.PNCARD ---
Progress Note: A&P Assessment and Plan (1) Mitral valve vegetation: Code(s): I33.0 - Acute and subacute infective endocarditis Status: Acute Assessment and Plan: HECTOR advised for more detailed evaluation of MV which will help to dictate therapy, ABx duration and follow up. However, HECTOR to be postponed due to hypotension, hyponatremia. Discussed plan with patient that HECTOR to be postponed and rationale. Will need HECTOR at some point to better evaluate mitral valve pathology, need for surgical intervention. etc. Continue to follow cultures. Unlikely to be SBE with negative blood cultures, cultures are negative to date. Continue IV antibiotics. (2) Hypokalemia: Code(s): E87.6 - Hypokalemia Status: Acute Assessment and Plan: Remains persistently low despite supplementation. Continue to replete goal around 4.0. Given hypotension I would back off on Lasix at this time. (3) Hyponatremia: Code(s): E87.1 - Hypo-osmolality and hyponatremia Status: Acute Assessment and Plan: Improving. 127 today. (4) MVP (mitral valve prolapse): Code(s): I34.1 - Nonrheumatic mitral (valve) prolapse Status: Acute Assessment and Plan: Prolapse of the anterior leaflet with thickening of the base of the posterior leaflet [id number] mitral regurgitation and mobile structure attached to the mitral valve concerning for vegetation. As above. (5) Septic shock: Code(s): A41.9 - Sepsis, unspecified organism; R65.21 - Severe sepsis with septic shock Status: Acute Assessment and Plan: Resolved, of pressors at this time although patient remains relatively hypotensive. She remains afebrile. WBC count remains elevated but downtrending. Continue IV antibiotics. (6) Pulmonary edema: Code(s): J81.1 - Chronic pulmonary edema Status: Acute Assessment and Plan: Clinically improving with Lasix. Electrolyte abnormalities improving. Continue to monitor closely. (7) Pneumonia: Code(s): J18.9 - Pneumonia, unspecified organism Status: Acute Assessment and Plan: Per primary service. Remains on IV antibiotics. Clinically improving overall. Subjective Date/time seen: 05/03/21 16:45 Review of Systems Constitutional: Constitutional: Reports chills, Denies excessive sweating, Reports fatigue, Denies headache(s), Reports lethargy and Reports weakness Eyes: Eyes: Denies blurry vision ENT: Denies headache(s) and Denies nasal discharge Cardiovascular: Cardiovascular: Denies chest pain, Reports lightheadedness and Reports dyspnea Respiratory: Respiratory: Reports dyspnea Gastrointestinal: Gastrointestinal: Denies nausea and Denies vomiting Genitourinary: Genitourinary: Denies dysuria and Denies flank pain Musculoskeletal: Musculoskeletal: Denies joint swelling and Denies numbness Integumentary/Breasts: Skin/Breast: Denies rash Neurologic: Denies headache(s), Denies numbness and Reports weakness Psychiatric: Psychiatric: Denies anxiety Endocrine: Endocrine: Denies excessive sweating and Reports fatigue Hematologic/Lymphatic: Hematologic/Lymphatic: Denies easy bruising Exam Const: General: no acute distress Other: Alert and oriented, sitting up in the chair. Pleasant and cooperative HENMT: Head: normocephalic and atraumatic General nose exam: Normal external nose present (Nasal cannula noted) and no epistaxis Eyes: Sclera: abnormal sclerae Neck: Neck: supple Resp: Other: Symmetric lung expansion, faint basilar rales, respirations unlabored Cardio: Rate: regular rate and tachycardic Heart sounds: Murmur heart sound present systolic holo, IV/, at the apex and at the left sternal border GI: Inspection: non-distended : Speculum Exam - Cervix: nontender Bimanual exam- vagina & uterus: No Cervical tenderness present Skin: General skin exam: no rashes or lesions noted Neuro: Speech: normal speech Other:
[2021-05-04] MEDS: ATORVASTATIN 20 MG TABLET PO (09:11)
[2021-05-04] MEDS: SODIUM CHLORIDE 1 GM TABLET PO ×2 (09:11→17:07)
[2021-05-04] MEDS: CALCIUM/VITAMIN D 250 MG TABLET 1 TABLET PO (09:11)
--- NOTE | 2021-05-04 10:16 | P.PNNP_ITS ---
Progress Note: A&P Assessment and Plan (1) Hyponatremia: Code(s): E87.1 - Hypo-osmolality and hyponatremia Status: Acute Assessment and Plan: * hyponatremia due to low blood pressure and pre renal azotemia. * evaluation to date: * urine electrolytes pre renal * urine specific gravity is 1.025 * TSH was okay; cortisol was 37 before the hydrocortisone was given * SPEP/UPEP pending * recent CXR and CT with evidence of CHF/fluid * head CT negative * no history of malignancy * suspect due to increased free water intake in the context of prerenal azotemia * her mitral regurgitation likely is responsible for volume overload + prerenal azotemia * Sodium level looks stable. It is running in the low 130s. Continue current medication for this (2) Shock: Code(s): R57.9 - Shock, unspecified Status: Acute Assessment and Plan: * resolved (3) Pulmonary edema: Code(s): J81.1 - Chronic pulmonary edema Status: Acute Assessment and Plan: * improving with IV diureics * Echo results noted * follow respiratory status (4) Mitral valve vegetation: Code(s): I33.0 - Acute and subacute infective endocarditis Status: Acute Assessment and Plan: * as noted by Echo * Cardiology following * planning HECTOR next week for further evaluation * blood culture negative at this time (5) Pneumonia: Code(s): J18.9 - Pneumonia, unspecified organism Status: Acute Assessment and Plan: * on antibiotics * follow respiratory status * so far cultures negative (6) Benign essential hypertension: Code(s): I10 - Essential (primary) hypertension Status: Acute Assessment and Plan: * better hemodyanmics at this time * follow trend for now * On no antihypertensive Subjective Date/time seen: 05/04/21 10:16 Interval history: Kristina is feeling better. Sitting up in a chair and feels good doing this. Some cough. No swelling or shortness of breath Exam Narrative: General: WD/WN female in NAD Heart: normal S1 and S2; no rub but systolic murmur present Lungs: Fairly clear Abdomen: soft, nontender, nondistended, positive bowel sounds Extremities: no cyanosis or clubbing; no edema Skin: No rash or subQ nodules Objective Data Vital Signs Vital Signs: Vital Signs - 24 hr 05/03/21 12:00 05/03/21 15:55 05/03/21 16:00 Temperature 36.3 C L 36.3 C L Pulse Rate 108 H 103 H 107 H Respiratory Rate 18 18 Blood Pressure 96/66 L 100/66 Pulse Oximetry 93 98 05/03/21 20:00 05/03/21 23:52 05/04/21 00:00 Temperature 36.6 C 36.5 C Pulse Rate 108 H 107 H 108 H Respiratory Rate 18 18 Blood Pressure 98/64 L 98/67 L Pulse Oximetry 92 94 05/04/21 04:00 05/04/21 08:00 Temperature 36.7 C 36.6 C Pulse Rate 110 H 108 H Respiratory Rate 18 18 Blood Pressure 105/66 104/62 Pulse Oximetry 90 91 Intake/Output Intake/Output: Intake & Output 05/01/21 05/02/21 05/03/21 05/04/21 23:59 23:59 23:59 23:59 Intake Total 1000 1545 1550 920 Output Total 925 1300 900 Balance 75 1545 250 20 Meds/Results Medications: Active M
--- NOTE | 2021-05-04 10:16 | PM.PNNEP ---
Progress Note: A&P Assessment and Plan (1) Hyponatremia: Code(s): E87.1 - Hypo-osmolality and hyponatremia Status: Acute Assessment and Plan: hyponatremia due to low blood pressure and pre renal azotemia. evaluation to date: urine electrolytes pre renal urine specific gravity is 1.025 TSH was okay; cortisol was 37 before the hydrocortisone was given SPEP/UPEP pending recent CXR and CT with evidence of CHF/fluid head CT negative no history of malignancy suspect due to increased free water intake in the context of prerenal azotemia her mitral regurgitation likely is responsible for volume overload + prerenal azotemia Sodium level looks stable. It is running in the low 130s. Continue current medication for this (2) Shock: Code(s): R57.9 - Shock, unspecified Status: Acute Assessment and Plan: resolved (3) Pulmonary edema: Code(s): J81.1 - Chronic pulmonary edema Status: Acute Assessment and Plan: improving with IV diureics Echo results noted follow respiratory status (4) Mitral valve vegetation: Code(s): I33.0 - Acute and subacute infective endocarditis Status: Acute Assessment and Plan: as noted by Echo Cardiology following planning HECTRO next week for further evaluation blood culture negative at this time (5) Pneumonia: Code(s): J18.9 - Pneumonia, unspecified organism Status: Acute Assessment and Plan: on antibiotics follow respiratory status so far cultures negative (6) Benign essential hypertension: Code(s): I10 - Essential (primary) hypertension Status: Acute Assessment and Plan: better hemodyanmics at this time follow trend for now On no antihypertensive Subjective Date/time seen: 05/04/21 10:16 Interval history: Kristina is feeling better. Sitting up in a chair and feels good doing this. Some cough. No swelling or shortness of breath Exam Narrative: General: WD/WN female in NAD Heart: normal S1 and S2; no rub but systolic murmur present Lungs: Fairly clear Abdomen: soft, nontender, nondistended, positive bowel sounds Extremities: no cyanosis or clubbing; no edema Skin: No rash or subQ nodules Objective Data Vital Signs Vital Signs: Vital Signs - 24 hr 05/03/21 12:00 05/03/21 15:55 05/03/21 16:00 Temperature 36.3 C L 36.3 C L Pulse Rate 108 H 103 H 107 H Respiratory Rate 18 18 Blood Pressure 96/66 L 100/66 Pulse Oximetry 93 98 05/03/21 20:00 05/03/21 23:52 05/04/21 00:00 Temperature 36.6 C 36.5 C Pulse Rate 108 H 107 H 108 H Respiratory Rate 18 18 Blood Pressure 98/64 L 98/67 L Pulse Oximetry 92 94 05/04/21 04:00 05/04/21 08:00 Temperature 36.7 C 36.6 C Pulse Rate 110 H 108 H Respiratory Rate 18 18 Blood Pressure 105/66 104/62 Pulse Oximetry 90 91 Intake/Output Intake/Output: Intake & Output 05/01/21 05/02/21 05/03/21 05/04/21 23:59 23:59 23:59 23:59 Intake Total 1000 1545 1550 920 Output Total 925 1300 900 Balance 75 1545 250 20 Meds/Results Medications: Active Medications Generic Name Dose Route Start Last Admin Trade Name Freq PRN Reason Stop Dose Admin Hydrocodone Bitart/Acetaminophen 1 tab 05/01/21 08:55 Hydrocodone/Acetaminophen (*Crx) 5-325 Mg Tablet PO Q4H PRN Pain Rated 4-6 Alteplase, Recombinant 2 mg 04/30/21 14:45 04/30/21 17:32 Alteplase 2 Mg Vial (Cathflo) IV PUSH 2 mg ONCE PRN Administration Line Occlusion Atorvastatin Calcium 20 mg 04/29/21 09:00 05/04/21 09:11 Atorvastatin 20 Mg Tablet PO 20 mg DAILY KENDY Administration Calcium Carbonate 1 tablet 04/29/21 09:00 05/04/21 09:11 Calcium/Vitamin D 250 Mg Tablet PO 1 tablet QAM KENDY Administration Calcium Carbonate 200 mg 04/29/21 12:59 04/29/21 13:18 Calcium Carbonate (Tums) 500 Mg (200 Mg Elemental) PO 200 mg Q6H PRN Administration Indigestio
--- NOTE | 2021-05-04 10:43 | PM.IMPN ---
Progress Note: A&P Assessment and Plan (1) Septic shock: Code(s): A41.9 - Sepsis, unspecified organism; R65.21 - Severe sepsis with septic shock Status: Acute Assessment and Plan: Patient presents emergency room and found to be hypotensive with blood pressure of 70/47. She was treated with IV fluids and central line was placed. She was started on pressors. Blood pressure more stable and able to wean of pressors. COVID PCR is negative. Suspect etiology is related to pneumonia and bacteremia. BCx as mentioned below. WBC trending down. Echo showing possible vegetation. Continue IV abx. (2) Pneumonia: Code(s): J18.9 - Pneumonia, unspecified organism Status: Acute Assessment and Plan: CTA of the chest showed diffuse interstitial pattern of the lung with ground-glass opacities. Patient having fevers. No pulmonary emboli. COVID negative. Urine Legionella and pneumococcal antigen negative. BCx growing H.parainfluenza. Consider endocarditis. Currenlty on vancomycin (04/29), cefepime (04/29) and azithromycin (04/28). Will consult ID. Repeat BCx. Discussed with ID. Plan to start Rocephin 2gm Q24 monotherapy. (3) Pulmonary edema: Code(s): J81.1 - Chronic pulmonary edema Status: Acute Assessment and Plan: Patient presented with a picture consistent with septic shock and appears dehydrated. CT scan of the chest showing possible pulmonary edema. BNP 56186. Echo with EF 60-65% with normal diastolic dysfunction. Now with LE edema. Will check dopplers to exclude DVT. Resume Lasix LE Doppler negative for DVT (4) Hyponatremia: Code(s): E87.1 - Hypo-osmolality and hyponatremia Status: Acute Assessment and Plan: Sodium 120 on admission. Cassius low at <5. Likely secondary to dehydration and hypovolemia. Patient seen by Nephrology. Na improved but then worsened to 119 on 05/02. Na better at 131. Currently on NaCl tablets. Continue to monitor. Appreciate Nephrology input. 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 She has a mobile structure attached to the mitral valve concerning for vegetation but consider chordea. Blood cultures As above. Continue broad-spectrum IV antibiotics. Consider HECTOR. (6) Thrombocytopenia: Code(s): D69.6 - Thrombocytopenia, unspecified Status: Acute Assessment and Plan: Patient has a normal baseline platelet count. Platelet count was low at 46K on admission. Most likely consumptive from septic shock. Repeat platelet count has normalized. Continue to monitor. (7) Anemia: Code(s): D64.9 - Anemia, unspecified Status: Acute Assessment and Plan: Patient with normal baseline hemoglobin. Hemoglobin low on admission at 11 and trended downward to 8.7 today. No evidence of acute blood loss. Iron normal but TIBC very low at 197 possibly related to the sepsis. UA showing 2+ proteinuria felt related to the sepsis but could be chronic. Continue to monitor. (8) Hyperglycemia: Code(s): R73.9 - Hyperglycemia, unspecified Status: Acute Assessment and Plan: Glucose elevated felt related to stress response. A1c 5.5. Was monitored on sliding-scale protocol but since has stopped (9) Elevated troponin: Code(s): R77.8 - Other specified abnormalities of plasma proteins Status: Acute Assessment and Plan: Troponin elevated on admission to 0.225 but trending down since. EKG showing no overt ST-T changes. Echo showing no wall motion abnormalities. Repeat EKG showing no change. Suspect nonischemic myocardial injury from the septic shock (10) Metabolic acidosis: Code(s): E87.2 - Acidosis Status: Acute Assessment and Plan: Serum bicarb dropped to 17 rel
--- NOTE | 2021-05-04 13:03 | PC.NURSE ---
On 05/04/21, the student, [ Aaron Viera], provided care and completed [facility] documentation on this patient. I have reviewed the student's documentation and agree with the findings.
[2021-05-04] MEDS: cefTRIAXone 2 GM in SODIUM CHLORIDE 0.9% IV 100 ML 200 ML IVPB (13:06)
[2021-05-04] MEDS: ENOXAPARIN 40 MG/0.4 ML SYRINGE SUB-Q (13:06)
[2021-05-04] MEDS: POTASSIUM CHLORIDE 20 MEQ TABLET 40 MEQ PO (13:13)
[2021-05-04] MEDS: NEOMYCIN/POLYMYXIN/BACITRACIN OINTMENT PACKET 1 PACKET (13:17)
[2021-05-04] MEDS: FUROSEMIDE 20 MG TABLET PO ×2 (14:41→21:01)
--- NOTE | 2021-05-04 15:10 | PM.PNCARD ---
Progress Note: A&P Assessment and Plan (1) Mitral valve vegetation: Code(s): I33.0 - Acute and subacute infective endocarditis Status: Acute Assessment and Plan: Since cultures are positive, will perform a HECTOR tomorrow. I talked about the risks, benefits and alternatives. She is willing to proceed. Risks discussed included esophageal rupture perforation, . Agree with ID consultation (2) Hypokalemia: Code(s): E87.6 - Hypokalemia Status: Acute Assessment and Plan: KCL 40 mg p.o. x1 (3) Hyponatremia: Code(s): E87.1 - Hypo-osmolality and hyponatremia Status: Acute Assessment and Plan: Continues to improve (4) MVP (mitral valve prolapse): Code(s): I34.1 - Nonrheumatic mitral (valve) prolapse Status: Acute Assessment and Plan: Prolapse of the anterior leaflet with thickening of the base of the posterior leaflet [id number] mitral regurgitation and mobile structure attached to the mitral valve concerning for vegetation. As above. (5) Septic shock: Code(s): A41.9 - Sepsis, unspecified organism; R65.21 - Severe sepsis with septic shock Status: Acute Assessment and Plan: Resolved, of pressors at this time although patient remains relatively hypotensive. She remains afebrile. WBC count remains elevated but downtrending. Continue IV antibiotics. (6) Pulmonary edema: Code(s): J81.1 - Chronic pulmonary edema Status: Acute Assessment and Plan: Clinically improving with Lasix. Electrolyte abnormalities improving. Continue to monitor closely. (7) Pneumonia: Code(s): J18.9 - Pneumonia, unspecified organism Status: Acute Assessment and Plan: Per primary service. Remains on IV antibiotics. Clinically improving overall. Subjective Date/time seen: 05/04/21 15:10 Interval history: Follow-up visit in this 61-year-old lady with: Admission with fever picture septic shock so far blood cultures are negative. Patient has background of chronic mitral valve prolapse of both anterior and posterior leaflets with moderate MR. Echocardiogram done yesterday appears to show concerns regarding a potential mitral valve vegetation. My personal review of the study would lead me also to be concerned about the possibility of flail chordal elements. Mitral valve regurgitation however is only moderate and has been moderate in the past. Patient appears to be more comfortable with some diuresis today. Still has some conversational dyspnea. Discussion with the patient about the concerns regarding her mitral valve and the need for further evaluation with transesophageal echo at some point to clarify this pathology. With antibiotics and hemodynamic support she is improved from yesterday. 05/01/21 patient feeling better overall. Denies shortness of breath or chest pain at this time. No new issues overnight. Off Levophed since yesterday afternoon. Maintaining sinus rhythm/sinus tachycardia on telemetry. Respiratory status improving with IV Lasix with very good urine output. Date of service 05/02/2021: Patient feeling weak at times states her voice is weaker if she speaks. Occasional cough. Blood pressure marginal throughout the day generally in the 90s lowest mid 80s systolic overnight. Sodium level dropped more significantly this morning 119. Potassium low once again this morning 3.1, supplemented. No chest pain. Denies significant shortness of breath. No palpitations. Date of service 05/04/2021: Feels okay. No chest pain. Overall feels much better. Cultures did grow out Haemophilus parainfluenza Review of Systems Constitutional: Constitutional: Reports chills, Denies excessive sweating, Reports fatigue, Denies headache(s), Reports lethargy and Reports weakness Eyes: Eyes: Denies blurry vision ENT: Denies headache(s) and Denies nasal discharge Cardiovascular: Cardiovascular: Denies chest pain, Report
[2021-05-05] VITALS (13 sets, daily range): BP systolic 87–100; BP diastolic 58–72; PULSE 99–115; RESP 14–18; TEMP 36.3–36.9; O2SAT 91–100
[2021-05-05] MEDS: FUROSEMIDE 20 MG TABLET PO ×2 (05:08→20:54)
[2021-05-05 06:56] LABS: Basophils Absolute Auto 0.1 K/mm3 (0.0-0.1); Basophils Percent Auto 0.4 % (0.2-1.2); Eosinophils Absolute Auto 0.1 K/mm3 (0-0.3); Eosinophils Percent Auto 0.6 % (0-4.4); Hematocrit 28.3 % (37.0-47.0); Hemoglobin 9.6 g/dL (12.0-15.0); Immature Granulocyte Absolute 0.21 K/mm3 (0.00-0.031); Immature Granulocyte Percent A 1.3 % (0-0.5); Lymphocytes Absolute Auto 0.85 K/mm3 (0.9-3.2); Lymphocytes Percent Auto 5.3 % (18.3-44.2); Mean Corpuscular HGB Conc 33.9 g/dl (32-36); Mean Corpuscular Hemoglobin 30.8 pg (26-34); Mean Corpuscular Volume 90.7 fl (80-100); Monocytes Absolute Auto 1.2 K/mm3 (0.1-0.6); Monocytes Percent Auto 7.6 % (2.6-8.5); Neutrophils Absolute Auto 13.5 K/mm3 (1.3-6.7); Neutrophils Percent Auto 84.8 % (45.5-73.1); Platelet Count Result 229 k/mm3 (150-375); Red Blood Count 3.12 M/mm3 (4.2-5.4); Red Cell Distribution Width 15.1 % (11.5-14.5); White Blood Count 15.9 K/mm3 (4.5-10.0)
[2021-05-05 07:07] LABS: Albumin Level 3.2 g/dL (3.5-5.1); Anion Gap 7 mmol/L (8-16); Blood Urea Nitrogen 8 mg/dL (7-17); Calcium 8.4 mg/dL (8.4-10.2); Carbon Dioxide 30 mmol/L (22-30); Chloride 94 mmol/L (98-107); Estimated CRCL calculation 77 ml/min; Estimated Glomerular Filt Rate > 60; Glucose 113 mg/dL (65-110); Phosphorus 3.4 mg/dL (2.5-4.5); Sodium 131 mmol/L (137-145)
--- NOTE | 2021-05-05 11:41 | P.PNNP_ITS ---
Progress Note: A&P Assessment and Plan (1) Hyponatremia: Code(s): E87.1 - Hypo-osmolality and hyponatremia Status: Acute Assessment and Plan: * hyponatremia due to low blood pressure and pre renal azotemia. * evaluation to date: * urine electrolytes pre renal * urine specific gravity is 1.025 * TSH was okay; cortisol was 37 before the hydrocortisone was given * SPEP/UPEP pending * recent CXR and CT with evidence of CHF/fluid * head CT negative * no history of malignancy * suspect due to increased free water intake in the context of prerenal azotemia * her mitral regurgitation likely is responsible for volume overload + prerenal azotemia * Sodium level looks stable. no new changes. (2) Shock: Code(s): R57.9 - Shock, unspecified Status: Acute Assessment and Plan: * resolved (3) Pulmonary edema: Code(s): J81.1 - Chronic pulmonary edema Status: Acute Assessment and Plan: * improving with IV diureics * Echo results noted * follow respiratory status (4) Mitral valve vegetation: Code(s): I33.0 - Acute and subacute infective endocarditis Status: Acute Assessment and Plan: * as noted by Echo * Cardiology following * planning HECTOR next week for further evaluation * blood culture negative at this time (5) Pneumonia: Code(s): J18.9 - Pneumonia, unspecified organism Status: Acute Assessment and Plan: * on antibiotics * follow respiratory status * so far cultures negative (6) Benign essential hypertension: Code(s): I10 - Essential (primary) hypertension Status: Acute Assessment and Plan: * better hemodyanmics at this time * follow trend for now * On no antihypertensive Subjective Date/time seen: 05/05/21 11:41 Interval history: Kristina is feeling better. Sitting up in a chair and feels good doing this. Some cough. No swelling or shortness of breath Exam Narrative: General: WD/WN female in NAD Heart: normal S1 and S2; no rub but systolic murmur present Lungs: clear Abdomen: soft, nontender, nondistended, positive bowel sounds Extremities: no cyanosis or clubbing; no edema Skin: No rash Objective Data Vital Signs Vital Signs: Vital Signs - 24 hr 05/04/21 11:56 05/04/21 13:00 05/04/21 15:36 Temperature 36.6 C Pulse Rate 105 H 113 H Respiratory Rate 18 Blood Pressure 87/64 L 101/74 Pulse Oximetry 95 05/04/21 16:00 05/04/21 17:00 05/04/21 20:00 Temperature 37.4 C 37.1 C Pulse Rate 106 H 104 H 106 H Respiratory Rate 18 18 Blood Pressure 102/69 103/67 Pulse Oximetry 98 97 05/04/21 23:47 05/05/21 04:00 05/05/21 08:00 Temperature 36.6 C 36.3 C L Pulse Rate 104 H 104 H Respiratory Rate 16 18 Blood Pressure 98/62 L 93/62 L Pulse Oximetry 96 91 97 05/05/21 09:40 Temperature Pulse Rate 100 Respiratory Rate Blood Pressure Pulse Oximetry Intake/Output Intake/Output: Intake & Output 05/02/21 05/03/21 05/04/21 05/05/21 23:59 23:59 23:59 23:59 Intake Total 1545 1550 1380 240 Output Total 1300 900 60
--- NOTE | 2021-05-05 11:41 | PM.PNNEP ---
Progress Note: A&P Assessment and Plan (1) Hyponatremia: Code(s): E87.1 - Hypo-osmolality and hyponatremia Status: Acute Assessment and Plan: hyponatremia due to low blood pressure and pre renal azotemia. evaluation to date: urine electrolytes pre renal urine specific gravity is 1.025 TSH was okay; cortisol was 37 before the hydrocortisone was given SPEP/UPEP pending recent CXR and CT with evidence of CHF/fluid head CT negative no history of malignancy suspect due to increased free water intake in the context of prerenal azotemia her mitral regurgitation likely is responsible for volume overload + prerenal azotemia Sodium level looks stable. no new changes. (2) Shock: Code(s): R57.9 - Shock, unspecified Status: Acute Assessment and Plan: resolved (3) Pulmonary edema: Code(s): J81.1 - Chronic pulmonary edema Status: Acute Assessment and Plan: improving with IV diureics Echo results noted follow respiratory status (4) Mitral valve vegetation: Code(s): I33.0 - Acute and subacute infective endocarditis Status: Acute Assessment and Plan: as noted by Echo Cardiology following planning HECTOR next week for further evaluation blood culture negative at this time (5) Pneumonia: Code(s): J18.9 - Pneumonia, unspecified organism Status: Acute Assessment and Plan: on antibiotics follow respiratory status so far cultures negative (6) Benign essential hypertension: Code(s): I10 - Essential (primary) hypertension Status: Acute Assessment and Plan: better hemodyanmics at this time follow trend for now On no antihypertensive Subjective Date/time seen: 05/05/21 11:41 Interval history: Kristina is feeling better. Sitting up in a chair and feels good doing this. Some cough. No swelling or shortness of breath Exam Narrative: General: WD/WN female in NAD Heart: normal S1 and S2; no rub but systolic murmur present Lungs: clear Abdomen: soft, nontender, nondistended, positive bowel sounds Extremities: no cyanosis or clubbing; no edema Skin: No rash Objective Data Vital Signs Vital Signs: Vital Signs - 24 hr 05/04/21 11:56 05/04/21 13:00 05/04/21 15:36 Temperature 36.6 C Pulse Rate 105 H 113 H Respiratory Rate 18 Blood Pressure 87/64 L 101/74 Pulse Oximetry 95 05/04/21 16:00 05/04/21 17:00 05/04/21 20:00 Temperature 37.4 C 37.1 C Pulse Rate 106 H 104 H 106 H Respiratory Rate 18 18 Blood Pressure 102/69 103/67 Pulse Oximetry 98 97 05/04/21 23:47 05/05/21 04:00 05/05/21 08:00 Temperature 36.6 C 36.3 C L Pulse Rate 104 H 104 H Respiratory Rate 16 18 Blood Pressure 98/62 L 93/62 L Pulse Oximetry 96 91 97 05/05/21 09:40 Temperature Pulse Rate 100 Respiratory Rate Blood Pressure Pulse Oximetry Intake/Output Intake/Output: Intake & Output 05/02/21 05/03/21 05/04/21 05/05/21 23:59 23:59 23:59 23:59 Intake Total 1545 1550 1380 240 Output Total 1300 900 600 Balance 1545 250 480 -360 Meds/Results Medications: Active Medications Generic Name Dose Route Start Last Admin Trade Name Freq PRN Reason Stop Dose Admin Hydrocodone Bitart/Acetaminophen 1 tab 05/01/21 08:55 Hydrocodone/Acetaminophen (*Crx) 5-325 Mg Tablet PO Q4H PRN Pain Rated 4-6 Alteplase, Recombinant 2 mg 04/30/21 14:45 04/30/21 17:32 Alteplase 2 Mg Vial (Cathflo) IV PUSH 2 mg ONCE PRN Administration Line Occlusion Atorvastatin Calcium 20 mg 04/29/21 09:00 05/04/21 09:11 Atorvastatin 20 Mg Tablet PO 20 mg DAILY KENDY Administration Calcium Carbonate 1 tablet 04/29/21 09:00 05/04/21 09:11 Calcium/Vitamin D 250 Mg Tablet PO 1 tablet QAM KENDY Administration Calcium Carbonate 200 mg 04/29/21 12:59 04/29/21 13:18 Calcium Carbonate (Tums) 500 Mg (200 Mg Elemental) PO 200 mg Q
--- NOTE | 2021-05-05 11:48 | WPDINFPN2 ---
Progress Note: A&P Assessment and Plan (1) Septic shock: Code(s): A41.9 - Sepsis, unspecified organism; R65.21 - Severe sepsis with septic shock Status: Acute Assessment and Plan: 1. H parainfluenzae bacteremia with infection, respiratory source primarily 2. MVP, with possible vegetation 3. Immunocompetent by clinical evaluation REC HECTOR set up. Ig's and lymphocyte panel. Ctx same, and if HECTOR also suggests vegetation, would give Ctx for 28 day course total. Subjective Date/time seen: 05/05/21 11:48 Objective Data Vital Signs Vital Signs: Vital Signs - 24 hr 05/04/21 11:56 05/04/21 13:00 05/04/21 15:36 Temperature 36.6 C Pulse Rate 105 H 113 H Respiratory Rate 18 Blood Pressure 87/64 L 101/74 Pulse Oximetry 95 05/04/21 16:00 05/04/21 17:00 05/04/21 20:00 Temperature 37.4 C 37.1 C Pulse Rate 106 H 104 H 106 H Respiratory Rate 18 18 Blood Pressure 102/69 103/67 Pulse Oximetry 98 97 05/04/21 23:47 05/05/21 04:00 05/05/21 08:00 Temperature 36.6 C 36.3 C L Pulse Rate 104 H 104 H Respiratory Rate 16 18 Blood Pressure 98/62 L 93/62 L Pulse Oximetry 96 91 97 05/05/21 09:40 Temperature Pulse Rate 100 Respiratory Rate Blood Pressure Pulse Oximetry Intake/Output Intake/Output: Intake & Output 05/02/21 05/03/21 05/04/21 05/05/21 23:59 23:59 23:59 23:59 Intake Total 1545 1550 1380 240 Output Total 1300 900 600 Balance 1545 250 480 -360 Meds/Results Medications: Active Medications Generic Name Dose Route Start Last Admin Trade Name Freq PRN Reason Stop Dose Admin Hydrocodone Bitart/Acetaminophen 1 tab 05/01/21 08:55 Hydrocodone/Acetaminophen (*Crx) 5-325 Mg Tablet PO Q4H PRN Pain Rated 4-6 Alteplase, Recombinant 2 mg 04/30/21 14:45 04/30/21 17:32 Alteplase 2 Mg Vial (Cathflo) IV PUSH 2 mg ONCE PRN Administration Line Occlusion Atorvastatin Calcium 20 mg 04/29/21 09:00 05/04/21 09:11 Atorvastatin 20 Mg Tablet PO 20 mg DAILY KENDY Administration Calcium Carbonate 1 tablet 04/29/21 09:00 05/04/21 09:11 Calcium/Vitamin D 250 Mg Tablet PO 1 tablet QAM KENDY Administration Calcium Carbonate 200 mg 04/29/21 12:59 04/29/21 13:18 Calcium Carbonate (Tums) 500 Mg (200 Mg Elemental) PO 200 mg Q6H PRN Administration Indigestion Dextrose 12.5 gm 04/29/21 18:07 Dextrose 50% 25 Gm/50 Ml Syringe IV PUSH PRN PRN Hypoglycemia Protocol Enoxaparin Sodium 40 mg 05/05/21 09:00 Enoxaparin 40 Mg/0.4 Ml Syringe SUB-Q DAILY KENDY Furosemide 20 mg 04/30/21 14:00 05/05/21 05:08 Furosemide 20 Mg Tablet PO 20 mg Q8HR KENDY Administration Glucagon 1 mg 04/29/21 18:07 Glucagon For Inj 1 Mg Vial IM PRN PRN Hypoglycemia Protocol Glucose 15 gm 04/29/21 18:07 Glucose Oral Gel 15 Gm Of Glucse In 37.5 Gm Tube PO PRN PRN Hypoglycemia Protocol Dextrose 1,000 mls @ 100 mls/hr 04/29/21 18:07 Dextrose 5% 1,000 Ml IVPB PRN PRN Hypoglycemia Protocol Acetaminophen 1,000 mg in 100 mls @ 400 mls/hr 04/29/21 19:19 05/01/21 02:40 Ofirmev 1,000 Mg Ivpb IVPB 400 mls/hr Q6H PRN Administration Pain Rated 4-6 Ceftriaxone Sodium 2 gm/ 100 mls @ 200 mls/hr 05/04/21 12:00 05/04/21 13:36 Sodium Chloride IVPB Infused NOON [facility] Infusion Lysine 500 Mg Tablet 1 each 04/29/21 09:00 XX 05/29/21 08:59 DAILY [facility] Turmeric Root 1 each 04/29/21 09:00 Extract 500 Mg XX 05/29/21 08:59 Capsule DAILY [facility] Sodium Chloride 1 gm 04/30/21 17:00 05/04/21 17:07 Sodium Chloride 1 Gm Tablet PO 1 gm BID KENDY Administration Radiology Results: ITS Impressions Chest/Abdomen/Pelvis CTA 04/28/21 17:35 IMPRESSION: 1. No pulmonary embolus. 2. Diffuse lung disease, likely moderate pulmonary edema. 3. Small pleural effusions. Head CT 04/28/21 20:34 IMPRESSION: 1. Normal aging brain.
[2021-05-05] MEDS: cefTRIAXone 2 GM in SODIUM CHLORIDE 0.9% IV 100 ML 200 ML IVPB (12:37)
--- NOTE | 2021-05-05 13:03 | PC.NURSE ---
To cardiac catheterization laboratory technician for HECTOR.
--- NOTE | 2021-05-05 13:21 | WPDMODSED ---
Moderate Sedation Note-Pt Data Patient Data Diagnosis: Endocarditis Present Complaint: bacteremia, endocarditis Procedure to be performed/Plan: multiplanar transesophageal echocardiographically with color-flow, pulse-wave Doppler Anesthesia assistance for moderate sedation Allergies Allergy/AdvReac Type Severity Reaction Status Date / Time No Known Allergies Allergy Verified 03/31/21 10:18 Home Medications Medication Instructions Recorded Confirmed Type calcium 166.75 mg-vit D3 166.75 1 tablet PO DAILY 11/12/19 05/01/21 History unit-vit C-vit K2-minerals capsule turmeric root extract 500 mg 500 mg PO DAILY 11/12/19 05/01/21 History capsule metoprolol tartrate 25 mg tablet 25 mg PO DAILY #90 tablet 06/24/20 05/01/21 Rx lysine 500 mg tablet 500 mg PO DAILY 12/17/20 05/01/21 History acyclovir 400 mg tablet 400 mg PO DAILY #30 tablet 03/31/21 05/01/21 Rx atorvastatin 20 mg tablet 20 mg PO DAILY #90 tablet 03/31/21 05/01/21 Rx Current Medications: Active Medications Hydrocodone Bitart/Acetaminophen (Hydrocodone/Acetaminophen (*Crx) 5-325 Mg Tablet) 1 tab PO Q4H PRN PRN Reason: Pain Rated 4-6 Alteplase, Recombinant (Alteplase 2 Mg Vial (Cathflo)) 2 mg IV PUSH ONCE PRN PRN Reason: Line Occlusion Last Admin: 04/30/21 17:32 Dose: 2 mg Documented by: Atorvastatin Calcium (Atorvastatin 20 Mg Tablet) 20 mg PO DAILY [facility] Last Admin: 05/04/21 09:11 Dose: 20 mg Documented by: Calcium Carbonate (Calcium/Vitamin D 250 Mg Tablet) 1 tablet PO QAM [facility] Last Admin: 05/04/21 09:11 Dose: 1 tablet Documented by: Calcium Carbonate (Calcium Carbonate (Tums) 500 Mg (200 Mg Elemental)) 200 mg PO Q6H PRN PRN Reason: Indigestion Last Admin: 04/29/21 13:18 Dose: 200 mg Documented by: Dextrose (Dextrose 50% 25 Gm/50 Ml Syringe) 12.5 gm IV PUSH PRN PRN; Protocol PRN Reason: Hypoglycemia Enoxaparin Sodium (Enoxaparin 40 Mg/0.4 Ml Syringe) 40 mg SUB-Q DAILY [facility] Furosemide (Furosemide 20 Mg Tablet) 20 mg PO Q8HR [facility] Last Admin: 05/05/21 05:08 Dose: 20 mg Documented by: Glucagon (Glucagon For Inj 1 Mg Vial) 1 mg IM PRN PRN; Protocol PRN Reason: Hypoglycemia Glucose (Glucose Oral Gel 15 Gm Of Glucse In 37.5 Gm Tube) 15 gm PO PRN PRN; Protocol PRN Reason: Hypoglycemia Dextrose (Dextrose 5% 1,000 Ml) 1,000 mls @ 100 mls/hr IVPB PRN PRN; Protocol PRN Reason: Hypoglycemia Acetaminophen (Ofirmev 1,000 Mg Ivpb) 1,000 mg in 100 mls @ 400 mls/hr IVPB Q6H PRN PRN Reason: Pain Rated 4-6 Last Admin: 05/01/21 02:40 Dose: 400 mls/hr Documented by: Ceftriaxone Sodium 2 gm/ (Sodium Chloride) 100 mls @ 200 mls/hr IVPB NOON [facility] Last Admin: 05/05/21 12:37 Dose: 200 mls/hr Documented by: Lysine 500 Mg Tablet 1 each XX DAILY [facility] Stop: 05/29/21 08:59 Turmeric Root Extract 500 Mg Capsule 1 each XX DAILY [facility] Stop: 05/29/21 08:59 Sodium Chloride (Sodium Chloride 1 Gm Tablet) 1 gm PO BID [facility] Last Admin: 05/04/21 17:07 Dose: 1 gm Documented by: Sedation/Anesthesia: No previous sedation/anesthesia problems (including family history). [facility] [place] Past Medical History Medical History History of vaginal delivery x1 HSV (herpes simplex virus) infection Surgical History Surgical History H/O tubal ligation H/O: hysterectomy History of bilateral tubal ligation History of breast augmentation 1990 History of endometrial ablation History of hysteroscopy Family History Family History Grandparent Family history of glaucoma Family history of cardiovascular disease Carcinoma of colon Mother Family history of cardiovascular disease Acute myocardial infarction Family history of chronic obstructive pulmonary disease Family history of congestive heart failure Sibling Carcinoma of colon Father Family history of Alzheimer's disease Social H
--- NOTE | 2021-05-05 13:22 | WPDANESEPPF ---
Anes - Initial Pre Proc Eval Procedure: Operation Date: 05/05/21 13:00 Proposed Procedures p Trans Esophageal Echo - Luis Lorenzo MD Date/Time: 05/05/21 13:22 Surgeon: Antonia Falcon MD Pre Op Diagnosis: Shock,Leukocytosis,PUI COVID,Lung Disease Patient Data Age: 61 Gender: F Height: 1.65 m Weight: 62.4 kg Last Vital Signs Temp 36.3 C L 05/05/21 08:00 Pulse 103 H 05/05/21 13:15 Resp 18 05/05/21 13:15 BP 100/70 05/05/21 13:15 Pulse Ox 98 05/05/21 13:15 Allergies Allergy/AdvReac Type Severity Reaction Status Date / Time No Known Allergies Allergy Verified 03/31/21 10:18 Home Medications Medication Instructions Recorded Confirmed Type calcium 166.75 mg-vit D3 166.75 1 tablet PO DAILY 11/12/19 05/01/21 History unit-vit C-vit K2-minerals capsule turmeric root extract 500 mg 500 mg PO DAILY 11/12/19 05/01/21 History capsule metoprolol tartrate 25 mg tablet 25 mg PO DAILY #90 tablet 06/24/20 05/01/21 Rx lysine 500 mg tablet 500 mg PO DAILY 12/17/20 05/01/21 History acyclovir 400 mg tablet 400 mg PO DAILY #30 tablet 03/31/21 05/01/21 Rx atorvastatin 20 mg tablet 20 mg PO DAILY #90 tablet 03/31/21 05/01/21 Rx Laboratory Tests 05/05/21 05/05/21 06:27 06:27 WBC 15.9 K/mm3 H K/mm3 (4.5-10.0) RBC 3.12 M/mm3 L M/mm3 (4.2-5.4) Hgb 9.6 g/dL L g/dL (12.0-15.0) Hct 28.3 % L % (37.0-47.0) MCV 90.7 fl fl (80-100) MCH 30.8 pg pg (26-34) MCHC 33.9 g/dl g/dl (32-36) RDW 15.1 % H % (11.5-14.5) Plt Count 229 k/mm3 k/mm3 (150-375) MPV 10.0 fl fl (7.4-10.4) Immature Gran % (Auto) 1.3 % H % (0-0.5) Neut % (Auto) 84.8 % H % (45.5-73.1) Lymph % (Auto) 5.3 % L % (18.3-44.2) [place] % (Auto) 7.6 % % (2.6-8.5) Eos % (Auto) 0.6 % % (0-4.4) Baso % (Auto) 0.4 % % (0.2-1.2) Lymph # (Auto) 0.85 K/mm3 L K/mm3 (0.9-3.2) [place] # (Auto) 1.2 K/mm3 H K/mm3 (0.1-0.6) Eos # (Auto) 0.1 K/mm3 K/mm3 (0-0.3) Baso # (Auto) 0.1 K/mm3 K/mm3 (0.0-0.1) Abs Immat Gran (auto) 0.21 K/mm3 H K/mm3 (0.00-0.031) Absolute Neuts (auto) 13.5 K/mm3 H K/mm3 (1.3-6.7) Absolute Nucleated RBC 0.0 K/mm3 K/mm3 (0.0-0.012) Nucleated RBC % 0.0 % % (0.0-0.2) Sodium 131 mmol/L L mmol/L (137-145) Potassium 4.0 mmol/L mmol/L (3.4-5.0) Chloride 94 mmol/L L mmol/L (98-107) Carbon Dioxide 30 mmol/L mmol/L (22-30) Anion Gap 7 mmol/L L mmol/L (8-16) BUN 8 mg/dL mg/dL (7-17) Creatinine 0.60 mg/dL L mg/dL (0.7-1.0) Estim Creat Clear Calc 77 ml/min ml/min Estimated GFR > 60 (59 - ) Glucose 113 mg/dL H mg/dL (65-110) Calcium 8.4 mg/dL mg/dL (8.4-10.2) Phosphorus 3.4 mg/dL mg/dL (2.5-4.5) Albumin 3.2 g/dL L g/dL (3.5-5.1) Patient hx anesthesia problems: none Family hx anesthesia problems: none Results Review: All pre-operative results and documents have been reviewed as part of the pre-operative evaluation. [facility] Past Medical History Medical History History of vaginal delivery x1 HSV (herpes simplex virus) infection Surgical History Surgical History H/O tubal ligation H/O: hysterectomy History of bilateral tubal ligation History of breast augmentation 1990 History of endometrial ablation History of hysteroscopy Family History Family History Grandparent Family history of glaucoma Family history of cardiovascular disease Carcinoma of colon Mother Family history of cardiovascular disease Acute myocardial infarction Family history of chronic obstructive pulmonary disease Family history of congestive heart failure Sibling Carcinoma of
--- NOTE | 2021-05-05 13:43 | PCOTNOTE ---
Attempted OT treatment, patient is currently off the unit for a test. Will follow and attempt at later time.
--- NOTE | 2021-05-05 13:52 | P.PCNTEE_ITS ---
[facility] TransEsophageal Echocardiogram Date of procedure: 05/05/21 Procedure Type: 1. Multiplanar transesophageal echocardiography with color-flow pulse-wave Doppler 2. Agitated saline study 3. sedation performed via anesthesia in the GI lab. Please see separate report for details Diagnosis: Haemophilus septicemia, mitral regurgitation, mitral valve mass /endocarditis Indications: as above Image Quality: good Findings: after discussing risks, benefits alternatives of the procedure patient agreeable via verbal and written informed consent. Risks previously discussed included esophageal rupture perforation, adverse reaction to anesthesia, bleeding, pain, infection, and need for surgery, Sore throat,. After consent was signed and time-out taken, procedure was initiated. Again sedation performed using propofol by the skilled assistance of Anesthesia. Blood loss: None Complications: None Patient did have some mild hypotension periprocedurally 500 cc of normal saline was given Findings: Normal left ventricular size and function with ejection fraction of 55-60%. Normal right ventricular size and function. Normal right atrial size. mild left atrial enlargement. Left atrial appendage is normal pulse-wave velocities up to 100 centimeters/second. The aortic root is normal. Mild arthrosclerotic disease seen in the descending aorta. The atrial septum is intact without color flow or agitated saline evidence of shunting. No pericardial effusion. The aortic valve is trileaflet with no significant aortic insufficiency. The tricuspid valve is normal without significant tricuspid regurgitation. The pulmonic valve is also normal with mild pulmonic insuffic iency. The mitral valve is abnormal. There is severe highly eccentric mitral regurgitation with what appears to be a partially flail posterior leaflet with a torn cord as well as a small vegetation associated measures 0.5 x 0.4 cm. Conclusions: 1. EF 55-60% 2. Mild left atrial enlargement 3. Intact atrial septum with negative agitated saline study 4. Severe highly eccentric mitral regurgitation associated with posterior mitral leaflet prolapse, a partially flail posterior leaflet with a torn cord as well as a small vegetation measures 0.5 x 0.4 cm. Patient will need long-term IV antibiotics and mitral valve replacement. It would possibly be of benefit to perform a 3D HECTOR. Will discuss with patient about possible transfer as an inpatient due to a higher level facility
--- NOTE | 2021-05-05 15:05 | PM.IMPN ---
Progress Note: A&P Assessment and Plan (1) Septic shock: Code(s): A41.9 - Sepsis, unspecified organism; R65.21 - Severe sepsis with septic shock Status: Acute Assessment and Plan: Patient presents emergency room and found to be hypotensive with blood pressure of 70/47. She was treated with IV fluids and central line was placed. She was started on pressors. Blood pressure became more stable and able to wean off pressors. COVID PCR was negative. Suspect etiology is related to pneumonia, bacteremia and endocarditis. BCx as mentioned below. WBC higher today for unclear reasons. Continue IV abx. (2) Pneumonia: Code(s): J18.9 - Pneumonia, unspecified organism Status: Acute Assessment and Plan: CTA of the chest showed diffuse interstitial pattern of the lung with ground-glass opacities. Patient having fevers. No pulmonary emboli. COVID negative. Urine Legionella and pneumococcal antigen negative. BCx 04/28 growing H.parainfluenza. [place] to have endocarditis present on admission. Was on vancomycin (04/29), cefepime (04/29) and azithromycin (04/28). Changed to Rocephin 2gm IV Q24h on 05/04. BCx 05/04 NGTD. Appreciate ID input. (3) Pulmonary edema: Code(s): J81.1 - Chronic pulmonary edema Status: Acute Assessment and Plan: Patient presented with a picture consistent with septic shock and appears dehydrated. CT scan of the chest showing possible pulmonary edema. BNP 26566. Echo with EF 60-65% with normal diastolic dysfunction. She developed LE edema. LE Doppler negative for DVT. She was resumed on the Lasix with improvement. Follow (4) Endocarditis: Code(s): I38 - Endocarditis, valve unspecified Status: Acute Assessment and Plan: Echocardiogram shows mild prolapse of the anterior mitral leaflet with [id number] mitral regurgitation. She has a mobile structure attached to the mitral valve concerning for vegetation but consider chordea. Blood cultures As above. HECTOR performed today showing severe highly eccentric mitral regurgitation with what appears to be a partially flail posterior leaflet with a torn cord as well as a small vegetation associated measures 0.5 x 0.4 cm. Transfer to a tertiary facility is being considered. (5) Mitral valve vegetation: Code(s): I33.0 - Acute and subacute infective endocarditis Status: Acute Assessment and Plan: As above (6) Hyponatremia: Code(s): E87.1 - Hypo-osmolality and hyponatremia Status: Acute Assessment and Plan: Sodium 120 on admission. Cassius low at <5. Likely secondary to dehydration and hypovolemia. Patient seen by Nephrology. Na improved but then worsened to 119 on 05/02. Na better at 131. Currently on NaCl tablets. Continue to monitor. Appreciate Nephrology input. (7) Anemia: Code(s): D64.9 - Anemia, unspecified Status: Acute Assessment and Plan: Patient with normal baseline hemoglobin. Hemoglobin low on admission at 11 and trended downward to 8.7 possibly related to fluid overload. No evidence of acute blood loss. Iron normal but TIBC very low at 197 possibly related to the sepsis. UA showing 2+ proteinuria felt related to the sepsis but could be chronic. With Lasix, edema is better and Hgb 9.6 today. Continue to monitor. (8) Elevated troponin: Code(s): R77.8 - Other specified abnormalities of plasma proteins Status: Acute Assessment and Plan: Troponin elevated on admission to 0.225 but trending down since. EKG showing no overt ST-T changes. Echo showing no wall motion abnormalities. Repeat EKG showing no change. Suspect nonischemic myocardial injury from the septic shock. (9) Metabolic acidosis: Code(s): E87.2 - Acidosis Status: Acute Assessment and Plan: Serum bicarb dropped to 17 related to above. Urine ketones were negative. Lactic acid was normal. Oral Bicarb was started with improvement. Acidosis improved a
[2021-05-05] MEDS: ENOXAPARIN 40 MG/0.4 ML SYRINGE SUB-Q (15:28)
[2021-05-05] MEDS: SODIUM CHLORIDE 1 GM TABLET PO (17:00)
[2021-05-06] VITALS (10 sets, daily range): BP systolic 86–100; BP diastolic 46–63; PULSE 99–114; RESP 16–20; TEMP 36.2–37.4; O2SAT 93–98
[2021-05-06] MEDS: FUROSEMIDE 20 MG TABLET PO ×2 (05:06→17:32)
[2021-05-06 07:01] LABS: Basophils Absolute Auto 0.1 K/mm3 (0.0-0.1); Basophils Percent Auto 0.5 % (0.2-1.2); Eosinophils Absolute Auto 0.1 K/mm3 (0-0.3); Eosinophils Percent Auto 0.4 % (0-4.4); Hematocrit 27.5 % (37.0-47.0); Hemoglobin 9.3 g/dL (12.0-15.0); Immature Granulocyte Percent A 0.7 % (0-0.5); Lymphocytes Absolute Auto 0.88 K/mm3 (0.9-3.2); Lymphocytes Percent Auto 5.9 % (18.3-44.2); Mean Corpuscular HGB Conc 33.8 g/dl (32-36); Mean Corpuscular Volume 91.7 fl (80-100); Mean Platelet Volume 10.3 fl (7.4-10.4); Monocytes Percent Auto 6.8 % (2.6-8.5); Neutrophils Absolute Auto 12.8 K/mm3 (1.3-6.7); Neutrophils Percent Auto 85.7 % (45.5-73.1); Platelet Count Result 235 k/mm3 (150-375); Red Cell Distribution Width 14.6 % (11.5-14.5)
[2021-05-06 07:19] LABS: Anion Gap 9 mmol/L (8-16); Blood Urea Nitrogen 9 mg/dL (7-17); Calcium 8.2 mg/dL (8.4-10.2); Carbon Dioxide 26 mmol/L (22-30); Chloride 93 mmol/L (98-107); Estimated CRCL calculation 67 ml/min; Estimated Glomerular Filt Rate > 60; Glucose 108 mg/dL (65-110); Potassium 3.8 mmol/L (3.4-5.0); Sodium 128 mmol/L (137-145)
--- NOTE | 2021-05-06 07:31 | P.PNNP_ITS ---
Progress Note: A&P Assessment and Plan (1) Hyponatremia: Code(s): E87.1 - Hypo-osmolality and hyponatremia Status: Acute Assessment and Plan: * hyponatremia due to low blood pressure and pre renal azotemia. * evaluation to date: * urine electrolytes pre renal * urine specific gravity is 1.025 * TSH was okay; cortisol was 37 before the hydrocortisone was given * SPEP/UPEP pending * recent CXR and CT with evidence of CHF/fluid * head CT negative * no history of malignancy * suspect due to increased free water intake in the context of prerenal azotemia * her mitral regurgitation likely is responsible for volume overload + prerenal azotemia * Sodium level still 131. * Will leave things the same for now. (2) Shock: Code(s): R57.9 - Shock, unspecified Status: Acute Assessment and Plan: * resolved (3) Pulmonary edema: Code(s): J81.1 - Chronic pulmonary edema Status: Acute Assessment and Plan: * improving with IV diureics * Echo results noted * follow respiratory status (4) Mitral valve vegetation: Code(s): I33.0 - Acute and subacute infective endocarditis Status: Acute Assessment and Plan: * as noted by Echo * Cardiology following * Siva shows the vegetation. Cardiology considering transfer (5) Pneumonia: Code(s): J18.9 - Pneumonia, unspecified organism Status: Acute Assessment and Plan: * on antibiotics * follow respiratory status * so far cultures negative (6) Benign essential hypertension: Code(s): I10 - Essential (primary) hypertension Status: Acute Assessment and Plan: * better hemodyanmics at this time * follow trend for now * On no antihypertensive Subjective Date/time seen: 05/06/21 07:31 Interval history: Kristina is feeling better. Feels better was then sitting up. When lying flat, she is a little more short of breath but not bad and does not need oxygen. Occasional cough. Exam Narrative: General: WD/WN female in NAD Heart: normal S1 and S2; no rub but systolic murmur present Lungs: clear to auscultation Abdomen: soft, nontender, nondistended, positive bowel sounds Extremities: no cyanosis or clubbing; no edema Skin: No rash or subQ nodules Objective Data Vital Signs Vital Signs: Vital Signs - 24 hr 05/05/21 08:00 05/05/21 09:40 05/05/21 12:00 Temperature 36.3 C L 36.5 C Pulse Rate 104 H 100 110 H Respiratory Rate 18 18 Blood Pressure 93/62 L 92/65 L Pulse Oximetry 97 96 05/05/21 13:00 05/05/21 13:15 05/05/21 14:02 Temperature Pulse Rate 99 103 H 99 Respiratory Rate 18 14 Blood Pressure 100/70 87/58 L Pulse Oximetry 98 100 05/05/21 14:15 05/05/21 14:30 05/05/21 16:00 Temperature 36.8 C Pulse Rate 101 H 103 H 108 H Respiratory Rate 14 14 18 Blood Pressure 95/68 L 98/67 L 100/72 Pulse Oximetry 96 96 98 05/05/21 17:00 05/05/21 19:52 05/05/21 21:00 Temperature 36.9 C Pulse Rate 113 H 109 H 115 H Respiratory Rate 18 Blood Pressure 98/62 L Pulse Oximetry 93 05/06/21 00:13 05/06/21 01:00 05/06/21 04:45 Temperature 36.
--- NOTE | 2021-05-06 07:31 | PM.PNNEP ---
Progress Note: A&P Assessment and Plan (1) Hyponatremia: Code(s): E87.1 - Hypo-osmolality and hyponatremia Status: Acute Assessment and Plan: hyponatremia due to low blood pressure and pre renal azotemia. evaluation to date: urine electrolytes pre renal urine specific gravity is 1.025 TSH was okay; cortisol was 37 before the hydrocortisone was given SPEP/UPEP pending recent CXR and CT with evidence of CHF/fluid head CT negative no history of malignancy suspect due to increased free water intake in the context of prerenal azotemia her mitral regurgitation likely is responsible for volume overload + prerenal azotemia Sodium level still 131. Will leave things the same for now. (2) Shock: Code(s): R57.9 - Shock, unspecified Status: Acute Assessment and Plan: resolved (3) Pulmonary edema: Code(s): J81.1 - Chronic pulmonary edema Status: Acute Assessment and Plan: improving with IV diureics Echo results noted follow respiratory status (4) Mitral valve vegetation: Code(s): I33.0 - Acute and subacute infective endocarditis Status: Acute Assessment and Plan: as noted by Echo Cardiology following Siva shows the vegetation. Cardiology considering transfer (5) Pneumonia: Code(s): J18.9 - Pneumonia, unspecified organism Status: Acute Assessment and Plan: on antibiotics follow respiratory status so far cultures negative (6) Benign essential hypertension: Code(s): I10 - Essential (primary) hypertension Status: Acute Assessment and Plan: better hemodyanmics at this time follow trend for now On no antihypertensive Subjective Date/time seen: 05/06/21 07:31 Interval history: Kristina is feeling better. Feels better was then sitting up. When lying flat, she is a little more short of breath but not bad and does not need oxygen. Occasional cough. Exam Narrative: General: WD/WN female in NAD Heart: normal S1 and S2; no rub but systolic murmur present Lungs: clear to auscultation Abdomen: soft, nontender, nondistended, positive bowel sounds Extremities: no cyanosis or clubbing; no edema Skin: No rash or subQ nodules Objective Data Vital Signs Vital Signs: Vital Signs - 24 hr 05/05/21 08:00 05/05/21 09:40 05/05/21 12:00 Temperature 36.3 C L 36.5 C Pulse Rate 104 H 100 110 H Respiratory Rate 18 18 Blood Pressure 93/62 L 92/65 L Pulse Oximetry 97 96 05/05/21 13:00 05/05/21 13:15 05/05/21 14:02 Temperature Pulse Rate 99 103 H 99 Respiratory Rate 18 14 Blood Pressure 100/70 87/58 L Pulse Oximetry 98 100 05/05/21 14:15 05/05/21 14:30 05/05/21 16:00 Temperature 36.8 C Pulse Rate 101 H 103 H 108 H Respiratory Rate 14 14 18 Blood Pressure 95/68 L 98/67 L 100/72 Pulse Oximetry 96 96 98 05/05/21 17:00 05/05/21 19:52 05/05/21 21:00 Temperature 36.9 C Pulse Rate 113 H 109 H 115 H Respiratory Rate 18 Blood Pressure 98/62 L Pulse Oximetry 93 05/06/21 00:13 05/06/21 01:00 05/06/21 04:45 Temperature 36.6 C 36.5 C Pulse Rate 99 103 H 100 Respiratory Rate 16 18 Blood Pressure 92/46 L 100/62 Pulse Oximetry 95 94 05/06/21 05:00 Temperature Pulse Rate 100 Respiratory Rate Blood Pressure Pulse Oximetry Intake/Output Intake/Output: Intake & Output 05/03/21 05/04/21 05/05/21 05/06/21 23:59 23:59 23:59 23:59 Intake Total 1550 1380 640 290 Output Total 5422 763 3097 700 Balance 250 480 660 -410 Meds/Results Medications: Active Medications Generic Name Dose Route Start Last Admin Trade Name Freq PRN Reason Stop Dose Admin Hydrocodone Bitart/Acetaminophen 1 tab 05/01/21 08:55 Hydrocodone/Acetaminophen (*Crx) 5-325 Mg Tablet PO Q4H PRN Pain Rated 4-6 Alteplase, Recombinant 2 mg 04/30/21 14:45 04/30/21 17:32 Alteplase 2 Mg Vial (Cathflo) IV PUSH 2 mg ONCE PRN
[2021-05-06] MEDS: ENOXAPARIN 40 MG/0.4 ML SYRINGE SUB-Q (09:06)
[2021-05-06] MEDS: SODIUM CHLORIDE 1 GM TABLET PO ×2 (09:07→17:31)
[2021-05-06] MEDS: ATORVASTATIN 20 MG TABLET PO (09:07)
[2021-05-06] MEDS: CALCIUM/VITAMIN D 250 MG TABLET 1 TABLET PO (09:07)
--- NOTE | 2021-05-06 10:30 | PM.IMPN ---
Progress Note: A&P Assessment and Plan (1) Endocarditis: Code(s): I38 - Endocarditis, valve unspecified Status: Acute Assessment and Plan: Echocardiogram shows mild prolapse of the anterior mitral leaflet with [id number] mitral regurgitation. She has a mobile structure attached to the mitral valve concerning for vegetation but consider ruptured chordea. Blood cultures as above. HECTOR performed 05/05 showing severe highly eccentric mitral regurgitation with what appears to be a partially flail posterior leaflet with a torn cord as well as a small associated vegetation measuring 0.5 x 0.4 cm. Discuss with Cardiology. Plan to transfer to a tertiary facility. (2) Septic shock: Code(s): A41.9 - Sepsis, unspecified organism; R65.21 - Severe sepsis with septic shock Status: Acute Assessment and Plan: Patient presents emergency room and found to be hypotensive with blood pressure of 70/47. She was treated with IV fluids and central line was placed. She was started on pressors. Blood pressure became more stable and able to wean off pressors. COVID PCR was negative. Suspect etiology is related to pneumonia, bacteremia and endocarditis. BCx as mentioned below. WBC stable related to the bacteremia. Continue IV abx. (3) Pneumonia: Code(s): J18.9 - Pneumonia, unspecified organism Status: Acute Assessment and Plan: CTA of the chest showed diffuse interstitial pattern of the lung with ground-glass opacities. Patient having fevers. No pulmonary emboli. COVID negative. Urine Legionella and pneumococcal antigen negative. BCx 04/28 growing H.parainfluenza. [place] to have endocarditis present on admission. Was on vancomycin (04/29), cefepime (04/29) and azithromycin (04/28). Changed to Rocephin 2gm IV Q24h on 05/04. BCx 05/04 NGTD. Appreciate ID input. (4) Pulmonary edema: Code(s): J81.1 - Chronic pulmonary edema Status: Acute Assessment and Plan: Patient presented with a picture consistent with septic shock and appears dehydrated. CT chest 04/28 showing possible pulmonary edema. BNP 33516. Echo with EF 60-65% with normal diastolic dysfunction. She developed LE edema. LE Doppler negative for DVT 05/04. She was resumed on the Lasix with improvement. Follow (5) Mitral valve vegetation: Code(s): I33.0 - Acute and subacute infective endocarditis Status: Acute Assessment and Plan: As above (6) Hyponatremia: Code(s): E87.1 - Hypo-osmolality and hyponatremia Status: Acute Assessment and Plan: Sodium 120 on admission. Cassius low at <5. Likely secondary to dehydration and hypovolemia. Patient seen by Nephrology. Na improved initially but then worsened to 119 and treatment adjusted. Na better at 128-131. Currently on NaCl tablets. Continue to monitor. Appreciate Nephrology input. (7) Anemia: Code(s): D64.9 - Anemia, unspecified Status: Acute Assessment and Plan: Patient with normal baseline hemoglobin. Hemoglobin low on admission at 11 and trended downward to 8.7 possibly related to fluid overload. No evidence of acute blood loss. Iron normal but TIBC very low at 197 possibly related to the sepsis. UA showing 2+ proteinuria felt related to the sepsis but could be chronic. With Lasix, edema is better and Hgb climbed to the 9 range. Continue to monitor. (8) Elevated troponin: Code(s): R77.8 - Other specified abnormalities of plasma proteins Status: Acute Assessment and Plan: Troponin elevated on admission to 0.225 but trending down since. EKG showing no overt ST-T changes. Echo showing no wall motion abnormalities. Repeat EKG showing no change. Suspect nonischemic myocardial injury from the septic shock and endocarditis. (9) Metabolic acidosis: Code(s): E87.2 - Acidosis Status: Acute Assessment and Plan: Serum bicarb dropped to 17 related to above. Urine ketones were negative. Lactic
--- NOTE | 2021-05-06 11:13 | PM.PNCARD ---
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 Siva noted partially flail posterior leaflet. Evidence of endocarditis also seen. Severe mitral regurgitation. Will transfer to [facility] for further workup and evaluation including Cardiothoracic surgery, cardiac catheterization. (2) Hypokalemia: Code(s): E87.6 - Hypokalemia Status: Acute Assessment and Plan: Will give an additional 40 mEq of p.o. potassium chloride x1. Continue diuretics. (3) Hyponatremia: Code(s): E87.1 - Hypo-osmolality and hyponatremia Status: Acute Assessment and Plan: Continues to improve (4) MVP (mitral valve prolapse): Code(s): I34.1 - Nonrheumatic mitral (valve) prolapse Status: Acute Assessment and Plan: Prolapse of the anterior leaflet with thickening of the base of the posterior leaflet [id number] mitral regurgitation and mobile structure attached to the mitral valve concerning for vegetation. As above. (5) Septic shock: Code(s): A41.9 - Sepsis, unspecified organism; R65.21 - Severe sepsis with septic shock Status: Acute Assessment and Plan: Resolved, of pressors at this time although patient remains relatively hypotensive. She remains afebrile. WBC count remains elevated but downtrending. Continue IV antibiotics. (6) Pulmonary edema: Code(s): J81.1 - Chronic pulmonary edema Status: Acute Assessment and Plan: Clinically improving with Lasix. Electrolyte abnormalities improving. Continue to monitor closely. (7) Pneumonia: Code(s): J18.9 - Pneumonia, unspecified organism Status: Acute Assessment and Plan: Per primary service. Remains on IV antibiotics. Clinically improving overall. Subjective Date/time seen: 05/06/21 11:13 Interval history: Follow-up visit in this 61-year-old lady with: Admission with fever picture septic shock so far blood cultures are negative. Patient has background of chronic mitral valve prolapse of both anterior and posterior leaflets with moderate MR. Echocardiogram done yesterday appears to show concerns regarding a potential mitral valve vegetation. My personal review of the study would lead me also to be concerned about the possibility of flail chordal elements. Mitral valve regurgitation however is only moderate and has been moderate in the past. Patient appears to be more comfortable with some diuresis today. Still has some conversational dyspnea. Discussion with the patient about the concerns regarding her mitral valve and the need for further evaluation with transesophageal echo at some point to clarify this pathology. With antibiotics and hemodynamic support she is improved from yesterday. 05/01/21 patient feeling better overall. Denies shortness of breath or chest pain at this time. No new issues overnight. Off Levophed since yesterday afternoon. Maintaining sinus rhythm/sinus tachycardia on telemetry. Respiratory status improving with IV Lasix with very good urine output. Date of service 05/02/2021: Patient feeling weak at times states her voice is weaker if she speaks. Occasional cough. Blood pressure marginal throughout the day generally in the 90s lowest mid 80s systolic overnight. Sodium level dropped more significantly this morning 119. Potassium low once again this morning 3.1, supplemented. No chest pain. Denies significant shortness of breath. No palpitations. Date of service 05/04/2021: Feels okay. No chest pain. Overall feels much better. Cultures did grow out Haemophilus parainfluenza Date of service 05/06/2021: She was to shower but otherwise denies any chest pain, shortness of breath at rest. Results of SIVA should be reviewed. I personally performed yesterday. Con
[2021-05-06] MEDS: POTASSIUM CHLORIDE 20 MEQ TABLET 40 MEQ PO (11:52)
[2021-05-06] MEDS: cefTRIAXone 2 GM in SODIUM CHLORIDE 0.9% IV 100 ML 200 ML IVPB (11:52)
[2021-05-07] VITALS: BP 92/64; PULSE 110; RESP 16; TEMP 37.2; O2SAT 94
[2021-05-07 04:00] VITALS: BP 93/63; PULSE 114; RESP 18; TEMP 37.7; O2SAT 99
[2021-05-07 06:39] VITALS: TEMP 37.7
[2021-05-07] MEDS: ACETAMINOPHEN 500 MG TABLET 1000 MG PO (06:39)
[2021-05-07 07:26] LABS: Basophils Absolute Auto 0.1 K/mm3 (0.0-0.1); Basophils Percent Auto 0.4 % (0.2-1.2); Eosinophils Percent Auto 0.3 % (0-4.4); Hematocrit 25.9 % (37.0-47.0); Hemoglobin 8.8 g/dL (12.0-15.0); Immature Granulocyte Percent A 0.7 % (0-0.5); Lymphocytes Absolute Auto 0.76 K/mm3 (0.9-3.2); Lymphocytes Percent Auto 5.7 % (18.3-44.2); Mean Corpuscular Hemoglobin 31.2 pg (26-34); Mean Corpuscular Volume 91.8 fl (80-100); Mean Platelet Volume 9.9 fl (7.4-10.4); Monocytes Absolute Auto 1.2 K/mm3 (0.1-0.6); Monocytes Percent Auto 8.6 % (2.6-8.5); Neutrophils Absolute Auto 11.3 K/mm3 (1.3-6.7); Neutrophils Percent Auto 84.3 % (45.5-73.1); Platelet Count Result 256 k/mm3 (150-375); Red Blood Count 2.82 M/mm3 (4.2-5.4); Red Cell Distribution Width 14.3 % (11.5-14.5); White Blood Count 13.4 K/mm3 (4.5-10.0)
[2021-05-07 07:43] LABS: Anion Gap 7 mmol/L (8-16); Blood Urea Nitrogen 9 mg/dL (7-17); Calcium 8.4 mg/dL (8.4-10.2); Carbon Dioxide 27 mmol/L (22-30); Chloride 93 mmol/L (98-107); Estimated CRCL calculation 77 ml/min; Estimated Glomerular Filt Rate > 60; Glucose 108 mg/dL (65-110); Magnesium 2.2 mg/dL (1.6-2.3); Phosphorus 3.7 mg/dL (2.5-4.5); Potassium 4.1 mmol/L (3.4-5.0); Sodium 127 mmol/L (137-145)
[2021-05-07 08:00] VITALS: BP 97/67; PULSE 110; RESP 16; TEMP 36.8; O2SAT 97
[2021-05-07] MEDS: SODIUM CHLORIDE 1 GM TABLET PO ×2 (08:13→17:29)
[2021-05-07] MEDS: CALCIUM/VITAMIN D 250 MG TABLET 1 TABLET PO (08:13)
[2021-05-07] MEDS: FUROSEMIDE 20 MG TABLET PO (08:13)
[2021-05-07] MEDS: ENOXAPARIN 40 MG/0.4 ML SYRINGE SUB-Q (08:13)
[2021-05-07] MEDS: ATORVASTATIN 20 MG TABLET PO (08:13)
--- NOTE | 2021-05-07 09:43 | PM.PNCARD ---
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 Siva noted partially flail posterior leaflet. Evidence of endocarditis also seen. Severe mitral regurgitation. Will transfer to [facility] for further workup and evaluation including Cardiothoracic surgery, cardiac catheterization. (2) Hypokalemia: Code(s): E87.6 - Hypokalemia Status: Acute Assessment and Plan: Potassium 4.1 today. (3) Hyponatremia: Code(s): E87.1 - Hypo-osmolality and hyponatremia Status: Acute Assessment and Plan: Stable, 127 today. (4) MVP (mitral valve prolapse): Code(s): I34.1 - Nonrheumatic mitral (valve) prolapse Status: Acute Assessment and Plan: Prolapse of the anterior leaflet with thickening of the base of the posterior leaflet [id number] mitral regurgitation and mobile structure attached to the mitral valve concerning for vegetation. As above. (5) Septic shock: Code(s): A41.9 - Sepsis, unspecified organism; R65.21 - Severe sepsis with septic shock Status: Acute Assessment and Plan: Resolved, off pressors at this time although patient remains relatively hypotensive. She developed a low grade fever this morning. WBC count remains elevated but downtrending. Continue IV antibiotics. (6) Pulmonary edema: Code(s): J81.1 - Chronic pulmonary edema Status: Acute Assessment and Plan: Clinically improving with Lasix. Electrolyte abnormalities improving. Continue to monitor closely. (7) Pneumonia: Code(s): J18.9 - Pneumonia, unspecified organism Status: Acute Assessment and Plan: Per primary service. Remains on IV antibiotics. Clinically improving overall. Subjective Date/time seen: 05/07/21 09:43 Interval history: Follow-up visit in this 61-year-old lady with: Admission with fever picture septic shock so far blood cultures are negative. Patient has background of chronic mitral valve prolapse of both anterior and posterior leaflets with moderate MR. Echocardiogram done yesterday appears to show concerns regarding a potential mitral valve vegetation. My personal review of the study would lead me also to be concerned about the possibility of flail chordal elements. Mitral valve regurgitation however is only moderate and has been moderate in the past. Patient appears to be more comfortable with some diuresis today. Still has some conversational dyspnea. Discussion with the patient about the concerns regarding her mitral valve and the need for further evaluation with transesophageal echo at some point to clarify this pathology. With antibiotics and hemodynamic support she is improved from yesterday. 05/01/21 patient feeling better overall. Denies shortness of breath or chest pain at this time. No new issues overnight. Off Levophed since yesterday afternoon. Maintaining sinus rhythm/sinus tachycardia on telemetry. Respiratory status improving with IV Lasix with very good urine output. Date of service 05/02/2021: Patient feeling weak at times states her voice is weaker if she speaks. Occasional cough. Blood pressure marginal throughout the day generally in the 90s lowest mid 80s systolic overnight. Sodium level dropped more significantly this morning 119. Potassium low once again this morning 3.1, supplemented. No chest pain. Denies significant shortness of breath. No palpitations. Date of service 05/04/2021: Feels okay. No chest pain. Overall feels much better. Cultures did grow out Haemophilus parainfluenza Date of service 05/06/2021: She was to shower but otherwise denies any chest pain, shortness of breath at rest. Results of SIVA should be reviewed. I personally performed yesterday. Concern for endocarditis of the mitral valv
--- NOTE | 2021-05-07 10:09 | PM.IMPN ---
Progress Note: A&P Assessment and Plan (1) Septic shock: Code(s): A41.9 - Sepsis, unspecified organism; R65.21 - Severe sepsis with septic shock Status: Acute Assessment and Plan: Patient presents emergency room and found to be hypotensive with blood pressure of 70/47. She was treated with IV fluids and central line was placed. She was started on pressors. Blood pressure became more stable and able to wean off pressors. COVID PCR was negative. Suspect etiology is related to pneumonia, bacteremia and endocarditis. BCx as mentioned below. WBC better today. Continue IV abx. (2) Pneumonia: Code(s): J18.9 - Pneumonia, unspecified organism Status: Acute Assessment and Plan: CTA of the chest showed diffuse interstitial pattern of the lung with ground-glass opacities. Patient having fevers. No pulmonary emboli. COVID negative. Urine Legionella and pneumococcal antigen negative. BCx 04/28 growing H.parainfluenza. [place] to have endocarditis present on admission. Was on vancomycin (04/29), cefepime (04/29) and azithromycin (04/28). Changed to Rocephin 2gm IV Q24h on 05/04. BCx 05/04 NGTD. Appreciate ID input. (3) Pulmonary edema: Code(s): J81.1 - Chronic pulmonary edema Status: Acute Assessment and Plan: Patient presented with a picture consistent with septic shock and appears dehydrated. CT scan of the chest showing possible pulmonary edema. BNP 78290. Echo with EF 60-65% with normal diastolic dysfunction and mild-mod MR with possible vegetation. She developed LE edema. LE Doppler negative for DVT. She was resumed on the Lasix with improvement. Edema better and BP soft so will hold Lasix. Follow (4) Endocarditis: Code(s): I38 - Endocarditis, valve unspecified Status: Acute Assessment and Plan: Echocardiogram shows mild prolapse of the anterior mitral leaflet with [id number] mitral regurgitation. She has a mobile structure attached to the mitral valve concerning for vegetation but consider chordea. Blood cultures as above. HECTOR performed 05/05 showing severe highly eccentric mitral regurgitation with what appears to be a partially flail posterior leaflet with a torn cord as well as a small vegetation associated measures 0.5 x 0.4 cm. Transfer to a tertiary facility is being arranged (5) Mitral valve vegetation: Code(s): I33.0 - Acute and subacute infective endocarditis Status: Acute Assessment and Plan: As above (6) Hyponatremia: Code(s): E87.1 - Hypo-osmolality and hyponatremia Status: Acute Assessment and Plan: Sodium 120 on admission. Cassius low at <5. Likely secondary to dehydration and hypovolemia. Patient seen by Nephrology. Na improved initially but then worsened to 119 and treatment adjusted. Na better at 127-131. Currently on NaCl tablets. Hold Lasix. Continue to monitor. Appreciate Nephrology input. (7) Anemia: Code(s): D64.9 - Anemia, unspecified Status: Acute Assessment and Plan: Patient with normal baseline hemoglobin. Hemoglobin low on admission at 11 and trended downward to 8.7 possibly related to fluid overload. No evidence of acute blood loss. Iron normal but TIBC very low at 197. UA showing 2+ proteinuria felt related to the sepsis but could be chronic. With Lasix, edema is better and Hgb stable in the 8-9 range. Continue to monitor. (8) Elevated troponin: Code(s): R77.8 - Other specified abnormalities of plasma proteins Status: Acute Assessment and Plan: Troponin elevated on admission to 0.225 but trending down since. EKG showing no overt ST-T changes. Echo showing no wall motion abnormalities. Repeat EKG showing no change. Suspect nonischemic myocardial injury from the septic shock and endocarditis. (9) Metabolic acidosis: Code(s): E87.2 - Acidosis Status: Acute Assessment and Plan: Serum bicarb dropped to 17 related to above. Urine ketones
[2021-05-07 11:32] VITALS: BMI 22.7
[2021-05-07] MEDS: cefTRIAXone 2 GM in SODIUM CHLORIDE 0.9% IV 100 ML 200 ML IVPB (11:41)
--- NOTE | 2021-05-07 12:32 | P.PNNP_ITS ---
Progress Note: A&P Assessment and Plan (1) Hyponatremia: Code(s): E87.1 - Hypo-osmolality and hyponatremia Status: Acute Assessment and Plan: * hyponatremia due to low blood pressure and pre renal azotemia. * evaluation to date: * urine electrolytes pre renal * urine specific gravity is 1.025 * TSH was okay; cortisol was 37 before the hydrocortisone was given * SPEP/UPEP pending * recent CXR and CT with evidence of CHF/fluid * head CT negative * no history of malignancy * suspect due to increased free water intake in the context of prerenal azotemia * her mitral regurgitation likely is responsible for volume overload + prerenal azotemia * Sodium level is 127.. Her glucose is okay. * she is on fluid restriction, salt tablets, and furosemide 20 b.i.d.. Will increase the salt tablets * Will leave things the same for now. (2) Shock: Code(s): R57.9 - Shock, unspecified Status: Acute Assessment and Plan: * resolved (3) Pulmonary edema: Code(s): J81.1 - Chronic pulmonary edema Status: Acute Assessment and Plan: * improved with IV diureics * Echo results noted * follow respiratory status (4) Mitral valve vegetation: Code(s): I33.0 - Acute and subacute infective endocarditis Status: Acute Assessment and Plan: * as noted by Echo * Cardiology following * Siva shows the vegetation. on antibiotic * Cardiology considering transfer (5) Pneumonia: Code(s): J18.9 - Pneumonia, unspecified organism Status: Acute Assessment and Plan: * on antibiotics * follow respiratory status * so far cultures negative (6) Benign essential hypertension: Code(s): I10 - Essential (primary) hypertension Status: Acute Assessment and Plan: * better hemodyanmics at this time * follow trend for now * On no antihypertensive Subjective Date/time seen: 05/07/21 12:32 Interval history: Kristina is feeling better. she says that she coughs when she talks a lot. Exam Narrative: General: WD/WN female in NAD Heart: normal S1 and S2; no rub but systolic murmur present Lungs: clear Abdomen: soft, nontender, nondistended, positive bowel sounds Extremities: no cyanosis or clubbing; no edema Skin: No rash Objective Data Vital Signs Vital Signs: Vital Signs - 24 hr 05/06/21 14:20 05/06/21 16:00 05/06/21 17:33 Temperature 36.8 C Pulse Rate 110 H Respiratory Rate 20 Blood Pressure 86/55 L 92/62 L 92/63 L Pulse Oximetry 97 05/06/21 20:00 05/07/21 00:00 05/07/21 04:00 Temperature 37.4 C 37.2 C 37.7 C H Pulse Rate 114 H 110 H 114 H Respiratory Rate 16 16 18 Blood Pressure 86/58 L 92/64 L 93/63 L Pulse Oximetry 93 94 99 05/07/21 06:39 Temperature 37.7 C H Pulse Rate Respiratory Rate Blood Pressure Pulse Oximetry Intake/Output Intake/Output: Intake & Output 05/04/21 05/05/21 05/06/21 05/07/21 23:59 23:59 23:59 23:59 Intake Total 1106 703 4118 120 Output Total 900 1300 1800 1620 Balance 480 -660 -[phone] -1500 Meds/Results Medications: Active Medications
--- NOTE | 2021-05-07 12:32 | PM.PNNEP ---
Progress Note: A&P Assessment and Plan (1) Hyponatremia: Code(s): E87.1 - Hypo-osmolality and hyponatremia Status: Acute Assessment and Plan: hyponatremia due to low blood pressure and pre renal azotemia. evaluation to date: urine electrolytes pre renal urine specific gravity is 1.025 TSH was okay; cortisol was 37 before the hydrocortisone was given SPEP/UPEP pending recent CXR and CT with evidence of CHF/fluid head CT negative no history of malignancy suspect due to increased free water intake in the context of prerenal azotemia her mitral regurgitation likely is responsible for volume overload + prerenal azotemia Sodium level is 127.. Her glucose is okay. she is on fluid restriction, salt tablets, and furosemide 20 b.i.d.. Will increase the salt tablets Will leave things the same for now. (2) Shock: Code(s): R57.9 - Shock, unspecified Status: Acute Assessment and Plan: resolved (3) Pulmonary edema: Code(s): J81.1 - Chronic pulmonary edema Status: Acute Assessment and Plan: improved with IV diureics Echo results noted follow respiratory status (4) Mitral valve vegetation: Code(s): I33.0 - Acute and subacute infective endocarditis Status: Acute Assessment and Plan: as noted by Echo Cardiology following Siva shows the vegetation. on antibiotic Cardiology considering transfer (5) Pneumonia: Code(s): J18.9 - Pneumonia, unspecified organism Status: Acute Assessment and Plan: on antibiotics follow respiratory status so far cultures negative (6) Benign essential hypertension: Code(s): I10 - Essential (primary) hypertension Status: Acute Assessment and Plan: better hemodyanmics at this time follow trend for now On no antihypertensive Subjective Date/time seen: 05/07/21 12:32 Interval history: Kristina is feeling better. she says that she coughs when she talks a lot. Exam Narrative: General: WD/WN female in NAD Heart: normal S1 and S2; no rub but systolic murmur present Lungs: clear Abdomen: soft, nontender, nondistended, positive bowel sounds Extremities: no cyanosis or clubbing; no edema Skin: No rash Objective Data Vital Signs Vital Signs: Vital Signs - 24 hr 05/06/21 14:20 05/06/21 16:00 05/06/21 17:33 Temperature 36.8 C Pulse Rate 110 H Respiratory Rate 20 Blood Pressure 86/55 L 92/62 L 92/63 L Pulse Oximetry 97 05/06/21 20:00 05/07/21 00:00 05/07/21 04:00 Temperature 37.4 C 37.2 C 37.7 C H Pulse Rate 114 H 110 H 114 H Respiratory Rate 16 16 18 Blood Pressure 86/58 L 92/64 L 93/63 L Pulse Oximetry 93 94 99 05/07/21 06:39 Temperature 37.7 C H Pulse Rate Respiratory Rate Blood Pressure Pulse Oximetry Intake/Output Intake/Output: Intake & Output 05/04/21 05/05/21 05/06/21 05/07/21 23:59 23:59 23:59 23:59 Intake Total 8996 326 2306 120 Output Total 900 1300 1800 1620 Balance 515 -[phone] -[phone] Meds/Results Medications: Active Medications Generic Name Dose Route Start Last Admin Trade Name Freq PRN Reason Stop Dose Admin Hydrocodone Bitart/Acetaminophen 1 tab 05/01/21 08:55 Hydrocodone/Acetaminophen (*Crx) 5-325 Mg Tablet PO Q4H PRN Pain Rated 4-6 Alteplase, Recombinant 2 mg 04/30/21 14:45 04/30/21 17:32 Alteplase 2 Mg Vial (Cathflo) IV PUSH 2 mg ONCE PRN Administration Line Occlusion Atorvastatin Calcium 20 mg 04/29/21 09:00 05/07/21 08:13 Atorvastatin 20 Mg Tablet PO 20 mg DAILY KENDY Administration Calcium Carbonate 1 tablet 04/29/21 09:00 05/07/21 08:13 Calcium/Vitamin D 250 Mg Tablet PO 1 tablet QAM KENDY Administration Calcium Carbonate 200 mg 04/29/21 12:59 04/29/21 13:18 Calcium Carbonate (Tums) 500 Mg (200 Mg Elemental) PO 200 mg Q6H PRN Administration Indigestion Dextrose 12.5 gm 04/29/21
[2021-05-07 22:00] VITALS: BP 95/57; PULSE 120; RESP 18; TEMP 37.8; O2SAT 98
[2021-05-08 05:31] VITALS: BP 100/61; PULSE 107; RESP 18; TEMP 37.8; O2SAT 97
[2021-05-08 05:40] VITALS: TEMP 37.8
[2021-05-08 06:10] VITALS: TEMP 37.1
[2021-05-08 06:56] LABS: Hematocrit 24.3 % (37.0-47.0); Hemoglobin 8.3 g/dL (12.0-15.0); Mean Corpuscular HGB Conc 34.2 g/dl (32-36); Mean Corpuscular Hemoglobin 31.6 pg (26-34); Mean Corpuscular Volume 92.4 fl (80-100); Mean Platelet Volume 10.1 fl (7.4-10.4); Platelet Count Result 258 k/mm3 (150-375); Red Blood Count 2.63 M/mm3 (4.2-5.4); Red Cell Distribution Width 14.1 % (11.5-14.5); White Blood Count 13.4 K/mm3 (4.5-10.0)
[2021-05-08 07:10] LABS: Anion Gap 6 mmol/L (8-16); Blood Urea Nitrogen 12 mg/dL (7-17); Calcium 8.1 mg/dL (8.4-10.2); Carbon Dioxide 27 mmol/L (22-30); Chloride 93 mmol/L (98-107); Estimated CRCL calculation 75 ml/min; Estimated Glomerular Filt Rate > 60; Glucose 102 mg/dL (65-110); Potassium 4.1 mmol/L (3.4-5.0); Sodium 126 mmol/L (137-145)
[2021-05-08] MEDS: SODIUM CHLORIDE 1 GM TABLET PO (08:23)
[2021-05-08] MEDS: CALCIUM/VITAMIN D 250 MG TABLET 1 TABLET PO (08:23)
[2021-05-08] MEDS: ENOXAPARIN 40 MG/0.4 ML SYRINGE SUB-Q (08:23)
[2021-05-08] MEDS: ATORVASTATIN 20 MG TABLET PO (08:23)
[2021-05-08 09:55] LABS: Creatinine Urine 90.4 mg/dL; Urea Random Urine 488 MG/DL
--- NOTE | 2021-05-08 11:38 | P.PNNP_ITS ---
Progress Note: A&P Assessment and Plan (1) Hyponatremia: Code(s): E87.1 - Hypo-osmolality and hyponatremia Status: Acute Assessment and Plan: * hyponatremia due to low blood pressure and pre renal azotemia. * evaluation to date: * urine electrolytes pre renal * urine specific gravity is 1.025 * TSH was okay; cortisol was 37 before the hydrocortisone was given * SPEP/UPEP pending * recent CXR and CT with evidence of CHF/fluid * head CT negative * no history of malignancy * suspect due to increased free water intake in the context of prerenal azotemia * her mitral regurgitation likely is responsible for volume overload + prerenal azotemia * Sodium level is 126 * she is on fluid restriction, salt tablets, and furosemide 20 b.i.d.. Will increase the salt tablets to 2g b.i.d. I asked the nurse to give her another g this morning (2) Shock: Code(s): R57.9 - Shock, unspecified Status: Acute Assessment and Plan: * resolved (3) Pulmonary edema: Code(s): J81.1 - Chronic pulmonary edema Status: Acute Assessment and Plan: * improved with IV diureics * Echo results noted * follow respiratory status (4) Mitral valve vegetation: Code(s): I33.0 - Acute and subacute infective endocarditis Status: Acute Assessment and Plan: * as noted by Echo * Cardiology following * Siva shows the vegetation. on antibiotics * Cardiology to transfer to [facility] for definitive procedure (5) Pneumonia: Code(s): J18.9 - Pneumonia, unspecified organism Status: Acute Assessment and Plan: * on antibiotics * follow respiratory status * so far cultures negative (6) Benign essential hypertension: Code(s): I10 - Essential (primary) hypertension Status: Acute Assessment and Plan: * better hemodyanmics at this time * follow trend for now * On no antihypertensive Subjective Date/time seen: 05/08/21 11:38 Interval history: Kristina is feeling better. Breathing okay. On no oxygen. Exam Narrative: General: WD/WN female in NAD Heart: normal S1 and S2; no rub but systolic murmur present Lungs: clear to auscultation Abdomen: soft, nontender, nondistended, positive bowel sounds Extremities: no cyanosis or clubbing; no edema Skin: No rash or subcu nodules Objective Data Vital Signs Vital Signs: Vital Signs - 24 hr 05/07/21 22:00 05/08/21 05:31 05/08/21 05:40 Temperature 37.8 C H 37.8 C H 37.8 C H Pulse Rate 120 H 107 H Respiratory Rate 18 18 Blood Pressure 95/57 L 100/61 Pulse Oximetry 98 97 05/08/21 06:10 Temperature 37.1 C Pulse Rate Respiratory Rate Blood Pressure Pulse Oximetry Intake/Output Intake/Output: Intake & Output 05/05/21 05/06/21 05/07/21 05/08/21 23:59 23:59 23:59 23:59 Intake Total 640 1262 700 480 Output Total 1300 1800 2120 [facility] [phone] Meds/Results Medications: Active Medications Generic Name Dose Route Start Last Admin Trade Name Freq PRN Reason Stop Dose Admin Hydrocodone Bitart/Acetaminophen 1 tab 05/01/21 08:55 Hydrocodone/Acetaminophen (*Crx) 5-325 Mg Ta
--- NOTE | 2021-05-08 11:38 | PM.PNNEP ---
Progress Note: A&P Assessment and Plan (1) Hyponatremia: Code(s): E87.1 - Hypo-osmolality and hyponatremia Status: Acute Assessment and Plan: hyponatremia due to low blood pressure and pre renal azotemia. evaluation to date: urine electrolytes pre renal urine specific gravity is 1.025 TSH was okay; cortisol was 37 before the hydrocortisone was given SPEP/UPEP pending recent CXR and CT with evidence of CHF/fluid head CT negative no history of malignancy suspect due to increased free water intake in the context of prerenal azotemia her mitral regurgitation likely is responsible for volume overload + prerenal azotemia Sodium level is 126 she is on fluid restriction, salt tablets, and furosemide 20 b.i.d.. Will increase the salt tablets to 2g b.i.d. I asked the nurse to give her another g this morning (2) Shock: Code(s): R57.9 - Shock, unspecified Status: Acute Assessment and Plan: resolved (3) Pulmonary edema: Code(s): J81.1 - Chronic pulmonary edema Status: Acute Assessment and Plan: improved with IV diureics Echo results noted follow respiratory status (4) Mitral valve vegetation: Code(s): I33.0 - Acute and subacute infective endocarditis Status: Acute Assessment and Plan: as noted by Echo Cardiology following Siva shows the vegetation. on antibiotics Cardiology to transfer to [facility] for definitive procedure (5) Pneumonia: Code(s): J18.9 - Pneumonia, unspecified organism Status: Acute Assessment and Plan: on antibiotics follow respiratory status so far cultures negative (6) Benign essential hypertension: Code(s): I10 - Essential (primary) hypertension Status: Acute Assessment and Plan: better hemodyanmics at this time follow trend for now On no antihypertensive Subjective Date/time seen: 05/08/21 11:38 Interval history: Kristina is feeling better. Breathing okay. On no oxygen. Exam Narrative: General: WD/WN female in NAD Heart: normal S1 and S2; no rub but systolic murmur present Lungs: clear to auscultation Abdomen: soft, nontender, nondistended, positive bowel sounds Extremities: no cyanosis or clubbing; no edema Skin: No rash or subcu nodules Objective Data Vital Signs Vital Signs: Vital Signs - 24 hr 05/07/21 22:00 05/08/21 05:31 05/08/21 05:40 Temperature 37.8 C H 37.8 C H 37.8 C H Pulse Rate 120 H 107 H Respiratory Rate 18 18 Blood Pressure 95/57 L 100/61 Pulse Oximetry 98 97 05/08/21 06:10 Temperature 37.1 C Pulse Rate Respiratory Rate Blood Pressure Pulse Oximetry Intake/Output Intake/Output: Intake & Output 05/05/21 05/06/21 05/07/21 05/08/21 23:59 23:59 23:59 23:59 Intake Total 640 1262 700 480 Output Total 1300 1800 2120 [facility] [phone] Meds/Results Medications: Active Medications Generic Name Dose Route Start Last Admin Trade Name Freq PRN Reason Stop Dose Admin Hydrocodone Bitart/Acetaminophen 1 tab 05/01/21 08:55 Hydrocodone/Acetaminophen (*Crx) 5-325 Mg Tablet PO Q4H PRN Pain Rated 4-6 Alteplase, Recombinant 2 mg 04/30/21 14:45 04/30/21 17:32 Alteplase 2 Mg Vial (Cathflo) IV PUSH 2 mg ONCE PRN Administration Line Occlusion Atorvastatin Calcium 20 mg 04/29/21 09:00 05/08/21 08:23 Atorvastatin 20 Mg Tablet PO 20 mg DAILY KENDY Administration Calcium Carbonate 1 tablet 04/29/21 09:00 05/08/21 08:23 Calcium/Vitamin D 250 Mg Tablet PO 1 tablet QAM KENDY Administration Calcium Carbonate 200 mg 04/29/21 12:59 04/29/21 13:18 Calcium Carbonate (Tums) 500 Mg (200 Mg Elemental) PO 200 mg Q6H PRN Administration Indigestion Dextrose 12.5 gm 04/29/21 18:07 Dextrose 50% 25 Gm/50 Ml Syringe IV PUSH PRN PRN Hypoglycemia Protocol Enoxaparin Sodium 40 mg 05/05
[2021-05-08] MEDS: cefTRIAXone 2 GM in SODIUM CHLORIDE 0.9% IV 100 ML 200 ML IVPB (12:19)
[2021-05-08] MEDS: SODIUM CHLORIDE 1 GM TABLET 2 GM PO (13:39)
[2021-05-08 15:16] VITALS: BP 92/56; PULSE 109; RESP 16; TEMP 38.1; O2SAT 99
--- NOTE | 2021-05-08 15:52 | PM.PNCARD ---
Progress Note: A&P Additional Plan 61-year-old lady with: Significant mitral valve regurgitation resulting from partially flail posterior leaflet. Patient has ruptured chordae noted on echocardiography. Also questionable evidence of infective vegetation as well. She is receiving antibiotics is clinically stable and still awaiting for at [facility] where she can be transferred for cardiothoracic surgery consultation. Tommy Knight MD [facility] Subjective Date/time seen: Date of service: 05/08/21 15:52 Interval history: Follow-up visit in this 61-year-old lady with: Admission with fever picture septic shock so far blood cultures are negative. Patient has background of chronic mitral valve prolapse of both anterior and posterior leaflets with moderate MR. Echocardiogram done yesterday appears to show concerns regarding a potential mitral valve vegetation. My personal review of the study would lead me also to be concerned about the possibility of flail chordal elements. Mitral valve regurgitation however is only moderate and has been moderate in the past. Patient appears to be more comfortable with some diuresis today. Still has some conversational dyspnea. Discussion with the patient about the concerns regarding her mitral valve and the need for further evaluation with transesophageal echo at some point to clarify this pathology. With antibiotics and hemodynamic support she is improved from yesterday. 05/01/21 patient feeling better overall. Denies shortness of breath or chest pain at this time. No new issues overnight. Off Levophed since yesterday afternoon. Maintaining sinus rhythm/sinus tachycardia on telemetry. Respiratory status improving with IV Lasix with very good urine output. Date of service 05/02/2021: Patient feeling weak at times states her voice is weaker if she speaks. Occasional cough. Blood pressure marginal throughout the day generally in the 90s lowest mid 80s systolic overnight. Sodium level dropped more significantly this morning 119. Potassium low once again this morning 3.1, supplemented. No chest pain. Denies significant shortness of breath. No palpitations. Date of service 05/04/2021: Feels okay. No chest pain. Overall feels much better. Cultures did grow out Haemophilus parainfluenza Date of service 05/06/2021: She was to shower but otherwise denies any chest pain, shortness of breath at rest. Results of HECTOR should be reviewed. I personally performed yesterday. Concern for endocarditis of the mitral valve as well as partially flail posterior leaflet. Severe mitral regurgitation which is highly eccentric. Date of service 05/07/2021: She is feeling okay today. Does not have any complaints. She has been up out of bed several times today and has not had any lightheadedness, dizziness. She denies any chest pain, difficulty breathing, she does feel an occasional palpitation. Date of service 05/08/2021: Patient stable feels well resting comfortably with visiting with her does not offer any cardiovascular complaints at this time. Still waiting for bed at [facility] Exam Const: General: comfortable and no acute distress Other: Pleasant white female relaxing watching a television program with her no distress HENMT: Mouth: Yes moist mucous membranes Eyes: Sclera: sclerae normal Pupils: Equal, round and reactive pupils present Neck: Neck: supple and no JVD Resp: Effort & Inspection: normal respiratory effort Auscultation: clear to auscultation bilaterally Cardio: Rate: regular rate and tachycardic Rhythm: regular rhythm Other: Grade 2 holosystolic MR murmur audible best at the left lateral chest wall GI: GI Palp: Yes Soft to palpation Auscultation: normal bowel sounds Skin: General skin exam: normal color Neuro: Cognition (Neuro): normal cognition Extrem: General: normal to inspection Objective Data Vital Signs Vital Signs: Vital Signs - 24 hr
--- NOTE | 2021-05-08 16:38 | PM.IMPN ---
Progress Note: A&P Assessment and Plan (1) Septic shock: Code(s): A41.9 - Sepsis, unspecified organism; R65.21 - Severe sepsis with septic shock Status: Acute Assessment and Plan: Patient presents emergency room and found to be hypotensive with blood pressure of 70/47. She was treated with IV fluids and central line was placed. She was started on pressors. Blood pressure became more stable and able to wean off pressors. COVID PCR was negative. Suspect etiology is related to pneumonia, bacteremia and endocarditis. BCx as mentioned below. WBC better today. Continue IV ceftriaxone. (2) Pneumonia: Code(s): J18.9 - Pneumonia, unspecified organism Status: Acute Assessment and Plan: CTA of the chest showed diffuse interstitial pattern of the lung with ground-glass opacities. Patient having fevers. No pulmonary emboli. COVID negative. Urine Legionella and pneumococcal antigen negative. BCx 04/28 growing H.parainfluenza. [place] to have endocarditis present on admission. Was on vancomycin (04/29), cefepime (04/29) and azithromycin (04/28). Changed to Rocephin 2gm IV Q24h on 05/04. BCx 05/04 NGTD. (3) Pulmonary edema: Code(s): J81.1 - Chronic pulmonary edema Status: Acute Assessment and Plan: Patient presented with a picture consistent with septic shock and appears dehydrated. CT scan of the chest showing possible pulmonary edema. BNP 72607. Echo with EF 60-65% with normal diastolic dysfunction and mild-mod MR with possible vegetation. She developed LE edema. LE Doppler negative for DVT. She was resumed on the Lasix with improvement. Edema better and BP soft so will hold Lasix. Follow (4) Endocarditis: Code(s): I38 - Endocarditis, valve unspecified Status: Acute Assessment and Plan: Echocardiogram shows mild prolapse of the anterior mitral leaflet with [id number] mitral regurgitation. She has a mobile structure attached to the mitral valve concerning for vegetation but consider chordea. Blood cultures as above. HECTOR performed 05/05 showing severe highly eccentric mitral regurgitation with what appears to be a partially flail posterior leaflet with a torn cord as well as a small vegetation associated measures 0.5 x 0.4 cm. Transfer to a tertiary facility is being arranged (5) Mitral valve vegetation: Code(s): I33.0 - Acute and subacute infective endocarditis Status: Acute Assessment and Plan: As above (6) Hyponatremia: Code(s): E87.1 - Hypo-osmolality and hyponatremia Status: Acute Assessment and Plan: Sodium 120 on admission. Cassius low at <5. Likely secondary to dehydration and hypovolemia. Patient seen by Nephrology. Na improved initially but then worsened to 119 and treatment adjusted. 05/08 Na 126, FEU 9.6%, c/w prerenal, furosemide on hold, f/u lab (7) Anemia: Code(s): D64.9 - Anemia, unspecified Status: Acute Assessment and Plan: Patient with normal baseline hemoglobin. Hemoglobin low on admission at 11 and trended downward to 8.7 possibly related to fluid overload. No evidence of acute blood loss. Iron normal but TIBC very low at 197. UA showing 2+ proteinuria felt related to the sepsis but could be chronic. With Lasix, edema is better and Hgb stable in the 8-9 range. Continue to monitor. (8) Elevated troponin: Code(s): R77.8 - Other specified abnormalities of plasma proteins Status: Acute Assessment and Plan: Troponin elevated on admission to 0.225 but trending down since. EKG showing no overt ST-T changes. Echo showing no wall motion abnormalities. Repeat EKG showing no change. Suspect nonischemic myocardial injury from the septic shock and endocarditis. (9) Metabolic acidosis: Code(s): E87.2 - Acidosis Status: Acute Assessment and Plan: Serum bicarb dropped to 17 related to above. Urine ketones were negative. Lactic acid was normal. Oral Bicarb was start
[2021-05-08 21:40] LABS: Immunoglobulin A 193 mg/dL (47-310); Immunoglobulin G 1155 mg/dL (600-1640); Immunoglobulin M 164 mg/dL (50-300)
[2021-05-08 21:57] VITALS: BP 93/56; PULSE 115; RESP 18; TEMP 38.3; O2SAT 95
[2021-05-09 01:08] VITALS: TEMP 38.1
[2021-05-09 05:35] VITALS: BP 96/59; PULSE 89; RESP 18; TEMP 36.7; O2SAT 99
[2021-05-09 06:16] LABS: Hematocrit 25.6 % (37.0-47.0); Hemoglobin 8.4 g/dL (12.0-15.0); Mean Corpuscular HGB Conc 32.8 g/dl (32-36); Mean Corpuscular Hemoglobin 30.7 pg (26-34); Mean Corpuscular Volume 93.4 fl (80-100); Mean Platelet Volume 9.7 fl (7.4-10.4); Platelet Count Result 278 k/mm3 (150-375); Red Blood Count 2.74 M/mm3 (4.2-5.4); Red Cell Distribution Width 14.2 % (11.5-14.5); White Blood Count 11.6 K/mm3 (4.5-10.0)
[2021-05-09 06:26] LABS: Albumin Level 2.9 g/dL (3.5-5.1); Anion Gap 8 mmol/L (8-16); Blood Urea Nitrogen 13 mg/dL (7-17); Calcium 8.1 mg/dL (8.4-10.2); Carbon Dioxide 29 mmol/L (22-30); Chloride 98 mmol/L (98-107); Estimated CRCL calculation 65 ml/min; Estimated Glomerular Filt Rate > 60; Glucose 111 mg/dL (65-110); Potassium 3.7 mmol/L (3.4-5.0); Sodium 135 mmol/L (137-145)
[2021-05-09 07:08] LABS: Creatinine, Random Urine 33 mg/dL (20-275); Total Protein/Creatinine Ratio 758 mg/g creat (21-161)
[2021-05-09] MEDS: ENOXAPARIN 40 MG/0.4 ML SYRINGE SUB-Q (08:51)
[2021-05-09] MEDS: ATORVASTATIN 20 MG TABLET PO (09:10)
[2021-05-09] MEDS: CALCIUM/VITAMIN D 250 MG TABLET 1 TABLET PO (09:10)
--- NOTE | 2021-05-09 09:37 | P.PNNP_ITS ---
Progress Note: A&P Assessment and Plan (1) Hyponatremia: Code(s): E87.1 - Hypo-osmolality and hyponatremia Status: Acute Assessment and Plan: * hyponatremia due to low blood pressure and pre renal azotemia. * evaluation to date: * urine electrolytes pre renal * urine specific gravity is 1.025 * TSH was okay; cortisol was 37 before the hydrocortisone was given * SPEP/UPEP pending * recent CXR and CT with evidence of CHF/fluid * head CT negative * no history of malignancy * suspect due to increased free water intake in the context of prerenal azotemia * her mitral regurgitation likely is responsible for volume overload + prerenal azotemia * Sodium level jumped 135, so presently. Will repeat this to be sure really jump that much. * she is on fluid restriction, salt tablets, and furosemide 20 b.i.d.. 2 days ago the sodium was 127. So the dropped from 127-126 and then the 135 would all be within 48 hours so on a think we need to be aggressive about bring her sodium level back down. I am going to repeat her sodium see where we are now. we can adjust the approach depending on what the repeat sodium is. (2) Shock: Code(s): R57.9 - Shock, unspecified Status: Acute Assessment and Plan: * resolved (3) Pulmonary edema: Code(s): J81.1 - Chronic pulmonary edema Status: Acute Assessment and Plan: * improved with IV diureics * Echo results noted * follow respiratory status (4) Mitral valve vegetation: Code(s): I33.0 - Acute and subacute infective endocarditis Status: Acute Assessment and Plan: * as noted by Echo * Cardiology following * Siva shows the vegetation. on antibiotics * Cardiology to transfer to [facility] for definitive procedure (5) Pneumonia: Code(s): J18.9 - Pneumonia, unspecified organism Status: Acute Assessment and Plan: * on antibiotics * follow respiratory status * so far cultures negative (6) Benign essential hypertension: Code(s): I10 - Essential (primary) hypertension Status: Acute Assessment and Plan: * better hemodyanmics at this time * follow trend for now * On no antihypertensive medications Subjective Date/time seen: 05/09/21 09:37 Interval history: Kristina is feeling better. still coughs occasionally. Breathing okay. On no oxygen. Exam Narrative: General: WD/WN female in NAD Heart: normal S1 and S2; no rub or gallop but systolic murmur present Lungs: clear to auscultation Abdomen: soft, nontender, nondistended, positive bowel sounds Extremities: no cyanosis or clubbing; no edema Skin: No rash Objective Data Vital Signs Vital Signs: Vital Signs - 24 hr 05/08/21 15:16 05/08/21 21:57 05/09/21 01:08 Temperature 38.1 C H 38.3 C H 38.1 C H Pulse Rate 109 H 115 H Respiratory Rate 16 18 Blood Pressure 92/56 L 93/56 L Pulse Oximetry 99 95 05/09/21 05:35 Temperature 36.7 C Pulse Rate 89 Respiratory Rate 18 Blood Pressure 96/59 L Pulse Oximetry 99 Intake/Output Intake/Output: Intake & Output 05/06/21 05/07/21 05/08/21 05/09/21 23:59 23:59 23:59 23:59 Intake Total 6773 235 0877 Output Total 1800 2120 300 200 Balance -538 -
--- NOTE | 2021-05-09 09:37 | PM.PNNEP ---
Progress Note: A&P Assessment and Plan (1) Hyponatremia: Code(s): E87.1 - Hypo-osmolality and hyponatremia Status: Acute Assessment and Plan: hyponatremia due to low blood pressure and pre renal azotemia. evaluation to date: urine electrolytes pre renal urine specific gravity is 1.025 TSH was okay; cortisol was 37 before the hydrocortisone was given SPEP/UPEP pending recent CXR and CT with evidence of CHF/fluid head CT negative no history of malignancy suspect due to increased free water intake in the context of prerenal azotemia her mitral regurgitation likely is responsible for volume overload + prerenal azotemia Sodium level jumped 135, so presently. Will repeat this to be sure really jump that much. she is on fluid restriction, salt tablets, and furosemide 20 b.i.d.. 2 days ago the sodium was 127. So the dropped from 127-126 and then the 135 would all be within 48 hours so on a think we need to be aggressive about bring her sodium level back down. I am going to repeat her sodium see where we are now. we can adjust the approach depending on what the repeat sodium is. (2) Shock: Code(s): R57.9 - Shock, unspecified Status: Acute Assessment and Plan: resolved (3) Pulmonary edema: Code(s): J81.1 - Chronic pulmonary edema Status: Acute Assessment and Plan: improved with IV diureics Echo results noted follow respiratory status (4) Mitral valve vegetation: Code(s): I33.0 - Acute and subacute infective endocarditis Status: Acute Assessment and Plan: as noted by Echo Cardiology following Siva shows the vegetation. on antibiotics Cardiology to transfer to [facility] for definitive procedure (5) Pneumonia: Code(s): J18.9 - Pneumonia, unspecified organism Status: Acute Assessment and Plan: on antibiotics follow respiratory status so far cultures negative (6) Benign essential hypertension: Code(s): I10 - Essential (primary) hypertension Status: Acute Assessment and Plan: better hemodyanmics at this time follow trend for now On no antihypertensive medications Subjective Date/time seen: 05/09/21 09:37 Interval history: Kristina is feeling better. still coughs occasionally. Breathing okay. On no oxygen. Exam Narrative: General: WD/WN female in NAD Heart: normal S1 and S2; no rub or gallop but systolic murmur present Lungs: clear to auscultation Abdomen: soft, nontender, nondistended, positive bowel sounds Extremities: no cyanosis or clubbing; no edema Skin: No rash Objective Data Vital Signs Vital Signs: Vital Signs - 24 hr 05/08/21 15:16 05/08/21 21:57 05/09/21 01:08 Temperature 38.1 C H 38.3 C H 38.1 C H Pulse Rate 109 H 115 H Respiratory Rate 16 18 Blood Pressure 92/56 L 93/56 L Pulse Oximetry 99 95 05/09/21 05:35 Temperature 36.7 C Pulse Rate 89 Respiratory Rate 18 Blood Pressure 96/59 L Pulse Oximetry 99 Intake/Output Intake/Output: Intake & Output 05/06/21 05/07/21 05/08/21 05/09/21 23:59 23:59 23:59 23:59 Intake Total 8729 950 1720 Output Total 1800 2120 300 200 Balance -538 -1420 980 -200 Meds/Results Medications: Active Medications Generic Name Dose Route Start Last Admin Trade Name Freq PRN Reason Stop Dose Admin Hydrocodone Bitart/Acetaminophen 1 tab 05/01/21 08:55 Hydrocodone/Acetaminophen (*Crx) 5-325 Mg Tablet PO Q4H PRN Pain Rated 4-6 Alteplase, Recombinant 2 mg 04/30/21 14:45 04/30/21 17:32 Alteplase 2 Mg Vial (Cathflo) IV PUSH 2 mg ONCE PRN Administration Line Occlusion Atorvastatin Calcium 20 mg 04/29/21 09:00 05/08/21 08:23 Atorvastatin 20 Mg Tablet PO 20 mg DAILY KENDY Administration Calcium Carbonate 1 tablet 04/29/21 09:00 05/08/21 08:23 Calcium/Vitamin D 250 Mg Tablet PO 1 tablet QAM KENDY Administration Calcium
--- NOTE | 2021-05-09 10:04 | PM.TDS ---
Transfer Discharge Sum: Prov Provider Date of admission: 04/28/21 18:46 Primary care physician: Chris Hilliard MD Admitting clinician: Antonia Falcon MD Consults: 04/28/21 Consult to Physician Routine Comment: Consulting Provider: Kiran Parry Reason for consultation: hyponatremia Has provider been notified: Yes Consult to Physician Routine Comment: Consulting Provider: Cristopher Rondon Reason for consultation: septic shock Has provider been notified: Yes Consult to Physician Routine Comment: Consulting Provider: Alyssa Ellis Reason for consultation: elevated troponin Has provider been notified: Yes 04/30/21 Consult to Physician Routine (Cancelled) Comment: Consulting Provider: callisthenics instructor/MD group to consult: Cardiology Reason for consultation: MVP, MR, Vegetation on ECHO, CHF Has provider been notified: No 05/04/21 11:21 Consult to Physician Routine Comment: Consulting Provider: Sundeep Hui callisthenics instructor/MD group to consult: ID Reason for consultation: bacteremia Has provider been notified: Yes Receiving physician/facility: [facility] DS: Admitting Diagnosis Discharge Date May 09, 2021 Admitting Diagnosis Sepsis of undetermined etiology DS: Discharge Diagnosis Discharge Diagnosis (1) Septic shock: Code(s): A41.9 - Sepsis, unspecified organism; R65.21 - Severe sepsis with septic shock Status: Acute Assessment and Plan: Patient presents emergency room and found to be hypotensive with blood pressure of 70/47. She was treated with IV fluids and central line was placed. She was started on pressors. Blood pressure became more stable and able to wean off pressors. COVID PCR was negative. Suspect etiology is related to pneumonia, bacteremia and endocarditis. BCx as mentioned below. Continue IV ceftriaxone. (2) Pneumonia: Code(s): J18.9 - Pneumonia, unspecified organism Status: Acute Assessment and Plan: CTA of the chest showed diffuse interstitial pattern of the lung with ground-glass opacities. Patient having fevers. No pulmonary emboli. COVID negative. Urine Legionella and pneumococcal antigen negative. BCx 04/28 growing H.parainfluenza. [place] to have endocarditis present on admission. Was on vancomycin (04/29), cefepime (04/29) and azithromycin (04/28). Changed to Rocephin 2gm IV Q24h on 05/04. BCx 05/04 NGTD. (3) Pulmonary edema: Code(s): J81.1 - Chronic pulmonary edema Status: Acute Assessment and Plan: Patient presented with a picture consistent with septic shock and appears dehydrated. CT scan of the chest showing possible pulmonary edema. BNP 73585. Echo with EF 60-65% with normal diastolic dysfunction and mild-mod MR with possible vegetation. She developed LE edema. LE Doppler negative for DVT. She was resumed on the Lasix with improvement. Edema better and BP soft so will hold Lasix. Follow (4) Endocarditis: Code(s): I38 - Endocarditis, valve unspecified Status: Acute Assessment and Plan: Echocardiogram shows mild prolapse of the anterior mitral leaflet with [id number]-rlnoqotc mitral regurgitation. She has a mobile structure attached to the mitral valve concerning for vegetation but consider chordea. Blood cultures as above. HECTOR performed 05/05 showing severe highly eccentric mitral regurgitation with what appears to be a partially flail posterior leaflet with a torn cord as well as a small vegetation associated measures 0.5 x 0.4 cm. Transfer to a tertiary facility (5) Mitral valve vegetation: Code(s): I33.0 - Acute and subacute infective endocarditis Status: Acute Assessment and Plan: As above (6) Hyponatremia: Code(s): E87.1 - Hypo-osmolality and hyponatremia Status: Acute Assessment and Plan: Sodium 120 on admission. Cassius low at <5. Likely secondary to dehydration and hypovolemia. Patient seen by Nephrology. Na improved init
[2021-05-09 10:17] LABS: Sodium 132 mmol/L (137-145)
--- NOTE | 2021-05-10 06:27 | CONS_ITS ---
DATE OF CONSULTATION: 05/05/2021 REASON FOR CONSULTATION: Bacteremia. HISTORY OF PRESENT ILLNESS: A 61-year-old female who has no chronic conditions other than symptomatic mitral valve prolapse for which she was on a beta-john. Other than breast augmentation, she has no prosthetic implants of any kind. She was in her usual state of health until 5 days before admission when she developed a temperature up to 40.0. She knows of no other symptoms, but does have decreased short-term memory of the next several days. Her sister then encouraged emergency room visit on April 28 and the patient was admitted. She has been on ceftriaxone, now day #8. Consultation requested. While here, the patient has not required any surgical intervention. Her chills have resolved. There has been no nausea or vomiting. She does have a dry cough, which is unusual for her. No sputum production. No chest pain. No palpitations. The patient initially was admitted to the intensive care unit, but is now on the floor. She had a right IJ triple-lumen catheter which had been removed. The patient was hypotensive initially, now resolved. She denies previous bloodstream infection, recent antibiotic use or recent immunosuppressants of any kind. ALLERGIES: NONE KNOWN. PRESENT MEDICATIONS: List reviewed. No immunosuppressants. HABITS: No tobacco. Social drinker. FAMILY HISTORY: Cancer, Alzheimer's, cardiovascular disease, COPD, heart failure. No immunocompromising illnesses that she is aware of. PAST MEDICAL HISTORY: In addition to the above, hysterectomy for persistent bleeding, previous BTL, previous endometrial ablation, also HSV infection for which she is on acyclovir 400 mg once daily. SOCIAL HISTORY: She does not work outside the home currently. She has no exposure to respiratory irritants. She lives with her sister and [id number] locally. No family at the bedside currently. REVIEW OF SYSTEMS: Left hip pain, worse with lying on that side, not chronic. Decreased short-term memory of her illness. 14-point review otherwise negative. PHYSICAL EXAMINATION: GENERAL: This is a middle-aged female who appears younger than her actual age, in no acute distress. VITAL SIGNS: Her temperature on arrival was 38.4 and T-max in the last 72 hours is 36.3, 104, 18, 97% on room air, 93/62. SKIN: No rashes. Warm and dry. No suspicious skin lesions or ulcerations. NODES: She has no axillary or cervical adenopathy. EENT: The conjunctivae are normal. Pupils equal, round. The extraocular movements are normal. She has no conjunctival injection. No petechiae. Oropharynx, oral mucosa normal. Teeth in excellent repair. NECK: No masses, thyromegaly, or meningismus. LUNGS: Clear to auscultation and percussion other than diminished breath sounds in the right lung base. She has no egophony, no fremitus changes. CHEST: Equal expansion. Normal AP diameter. CARDIAC: Tachycardic, regular. No murmur, gallop, or rub. Pulses are 2+ and equal. ABDOMEN: Soft, nontender. No masses. No organomegaly. EXTREMITIES: 1+ pedal edema which is pitting. No splinter hemorrhages, clubbing, or cyanosis. NEUROLOGIC: Awake, alert, oriented, appropriate, and normal muscle tone, motor strength. LABORATORY DATA: Blood cultures 2/2 sets, Haemophilus parainfluenzae. Urine culture final no growth. Blood cultures repeated yesterday and no growth after short incubation. White blood cell count 15.9, was 15.6 on admission, brendan to a high of 34.6 following day. White blood cell count of 10/08/2020 was 6.1, hemoglobin 9.6, platelets are 229. Her differential shows a mild left shift. Chemistries with mild hyponatremia. BUN and creatinine normal. Glucose 113. Hemoglobin A1c 5.3%. Transaminases twice normal.
[2021-05-11 22:54] LABS: Absolute CD4 Count 599 cells/uL (490-1740); Lymphocytes, Absolute 815 cells/uL (850-3900); Percent CD4 Cells 74 % (30-61)
== END 2021-05-09 12:20 | disposition short-term general hospital (02) | DRG 871 ==
LOC: ANHED 15:55 → ANHICU 20:57 → ANH3MEDSUR 05-02 11:06 → ANHICU 05-10 14:58
PROVIDERS: Internal Medicine; Internal Medicine Cardiovascular Disease; Internal Medicine Infectious Disease; Internal Medicine Nephrology; Admitting Provider Internal Medicine; Emergency Provider General Practice; PCP Family Medicine; Visit Provider Internal Medicine
PROC: B24BZZ4 Ultrasonography of Heart with Aorta, Transesophageal (ICD-10-PCS; CPT 93312; principal; 2021-05-05 13:00)
DX: A41.3 Sepsis due to Hemophilus influenzae (principal); R65.21 Severe sepsis with septic shock; J18.9 Pneumonia, unspecified organism; I33.0 Acute and subacute infective endocarditis; J96.01 Acute respiratory failure with hypoxia; J81.0 Acute pulmonary edema; E87.1 Hypo-osmolality and hyponatremia; E87.2 Acidosis; I5A Non-ischemic myocardial injury (non-traumatic); Z20.822 Contact with and (suspected) exposure to COVID-19; I34.1 Nonrheumatic mitral (valve) prolapse; D69.59 Other secondary thrombocytopenia; R73.9 Hyperglycemia, unspecified; D64.9 Anemia, unspecified; I10 Essential (primary) hypertension; M81.0 Age-related osteoporosis without current pathological fracture; E78.5 Hyperlipidemia, unspecified; M16.12 Unilateral primary osteoarthritis, left hip; B00.9 Herpesviral infection, unspecified; E87.6 Hypokalemia; E86.0 Dehydration; Z90.710 Acquired absence of both cervix and uterus
CPT/HCPCS: 36415; 36556; 70450; 71045; 71275; 73501; 74177; 80048; 80053; 80069; 80202; 81001; 82533; 82550; 82570; 82607; 82728; 82746; 82784; 82948; 83036; 83540; 83550; 83605; 83615; 83690; 83735; 83880; 84100; 84155; 84156; 84165; 84166; 84295; 84300; 84439; 84443; 84480; 84484; 84540; 85025; 85027; 85055; 85610; 85730; 86140; 86361; 87040; 87077; 87086; 87449; 87804; 87899; 93005; 93306; 93312; 93320; 93325; 93970; 96365; 96366; 97110; 97116; 97161; 97165; 97530; 97535; 99285; A9270; C1751; C9803; J0131; J0456; J0610; J0692; J0696; J1650; J1720; J1940; J2270; J2370; J2704; J2997; J3370; J3480; J7030; J7040; J7050; J7131; Q9967; U0003; U0005

== ENCOUNTER 2021-09-08 07:18 | Outpatient (CLI) | payer BC, MEDICAID, SELFPAY ==
[2021-09-08 07:47] LABS: Alanine Aminotransferase 58 U/L (4-35); Albumin Level 4.5 g/dL (3.5-5.1); Alkaline Phosphatase 65 U/L (38-126); Anion Gap 5 mmol/L (8-16); Aspartate Amino Transferase 55 U/L (14-36); Bilirubin,Total 0.8 mg/dL (0.2-1.3); Blood Urea Nitrogen 13 mg/dL (7-17); Carbon Dioxide 32 mmol/L (22-30); Chloride 102 mmol/L (98-107); Estimated Glomerular Filt Rate > 60; Glucose 77 mg/dL (65-110); Potassium 3.8 mmol/L (3.4-5.0); Sodium 139 mmol/L (137-145)
[2021-09-08 08:26] LABS: Basophils Absolute Auto 0.1 K/mm3 (0.0-0.1); Basophils Percent Auto 1.6 % (0.2-1.2); Eosinophils Absolute Auto 0.2 K/mm3 (0-0.3); Eosinophils Percent Auto 3.3 % (0-4.4); Hematocrit 41.6 % (37.0-47.0); Hemoglobin 13.3 g/dL (12.0-15.0); Immature Granulocyte Absolute 0.02 K/mm3 (0.00-0.031); Immature Granulocyte Percent A 0.3 % (0-0.5); Lymphocytes Absolute Auto 1.49 K/mm3 (0.9-3.2); Lymphocytes Percent Auto 23.5 % (18.3-44.2); Mean Corpuscular Hemoglobin 28.7 pg (26-34); Mean Corpuscular Volume 89.7 fl (80-100); Mean Platelet Volume 9.6 fl (7.4-10.4); Monocytes Absolute Auto 0.8 K/mm3 (0.1-0.6); Monocytes Percent Auto 13.1 % (2.6-8.5); Neutrophils Absolute Auto 3.7 K/mm3 (1.3-6.7); Neutrophils Percent Auto 58.2 % (45.5-73.1); Platelet Count Result 339 k/mm3 (150-375); Red Blood Count 4.64 M/mm3 (4.2-5.4); Red Cell Distribution Width 14.2 % (11.5-14.5); White Blood Count 6.3 K/mm3 (4.5-10.0)
== END 2021-09-08 07:19 | disposition home or self-care (01) ==
PROVIDERS: PCP Family Medicine; Visit Provider Family Medicine
DX: D64.9 Anemia, unspecified (principal)
CPT/HCPCS: 36415; 80053; 85025; 85610

== ENCOUNTER 2021-09-10 09:25 | Outpatient (CLI) | payer BC, MEDICAID, SELFPAY ==
[2021-09-10 11:06] LABS: Hepatitis B Surface Antigen Negative (Negative)
[2021-09-10 11:11] LABS: HAV RESULT Negative (Negative)
[2021-09-10 11:24] LABS: Hepatitis C Virus Antibody Negative (Negative)
[2021-09-14 21:04] LABS: Hepatitis B Core Ab Total Nonreactive (Nonreactive)
[2021-09-15 12:24] LABS: Actin Antibody (IgG) <20 U (<20)
[2021-09-15 12:53] LABS: LKM 1 Antibody <=20.0 U (<=20.0)
== END 2021-09-10 09:26 | disposition home or self-care (01) ==
PROVIDERS: PCP Family Medicine; Visit Provider Family Medicine
DX: R74.01 Elevation of levels of liver transaminase levels (principal)
CPT/HCPCS: 36415; 83516; 86038; 86376; 86704; 86709; 86803; 87340

== ENCOUNTER → 2021-09-11 07:27 | Outpatient (CLI) | payer BC, MEDICAID, SELFPAY ==
--- NOTE | ~2021-09-11 | XR_ITS ---
EXAM: XR lumbar spine min 4V HISTORY: Chronic midlow back pain without sciatica COMPARISON: None available FINDINGS: Partially visualized cardiac valve replacement. 5 nonrib-bearing lumbar-type vertebral bod ies. Intact pedicles. No pars defect. No lytic or blastic lesions. SI joints are grossly normal. Decr eased mineralization. 3 mm anterolisthesis of L3 on L4. Mild disc space narrowing at L3-4 through L5- S1. Mild lumbar facet hypertrophy. IMPRESSION: Grade 1 anterolisthesis of L3 on L4. Mild degenerative disc disease and facet arthropathy in the lowe r lumbar spine. Osteopenia. Reviewed, dictated and finalized at location K. IMPRESSION: Grade 1 anterolisthesis of L3 on L4. Mild degenerative disc disease and facet a rthropathy in the lower lumbar spine. Osteopenia.
== END ==
PROVIDERS: PCP Family Medicine; Visit Provider Internal Medicine Cardiovascular Disease
DX: M51.36 Other intervertebral disc degeneration, lumbar region (principal); M85.88 Other specified disorders of bone density and structure, other site
CPT/HCPCS: 72110

== ENCOUNTER 2021-10-27 07:40 | Outpatient (RCR) | payer BC, MEDICAID, SELFPAY ==
[2021-08-05 08:14] LABS: INR 3.2; Prothrombin Time 31.6 Seconds (11.1-14.7)
[2021-08-12 09:25] LABS: INR 4.6; Prothrombin Time 42.2 Seconds (11.1-14.7)
[2021-08-18 08:36] LABS: INR 2.6; Prothrombin Time 26.8 Seconds (11.1-14.7)
[2021-08-25 08:51] LABS: INR 2.1; Prothrombin Time 22.9 Seconds (11.1-14.7)
[2021-09-08 08:10] LABS: INR 1.8; Prothrombin Time 20.1 Seconds (11.1-14.7)
[2021-09-16 08:45] LABS: INR 1.9; Prothrombin Time 21.4 Seconds (11.1-14.7)
[2021-09-29 08:23] LABS: Prothrombin Time 22.2 Seconds (11.1-14.7)
[2021-10-27 08:23] LABS: INR 1.9; Prothrombin Time 20.9 Seconds (11.1-14.7)
== END 2021-11-03 23:59 | disposition home or self-care (01) ==
LOC: ANHLAB 07:40
PROVIDERS: PCP Family Medicine; Visit Provider Internal Medicine Cardiovascular Disease
DX: Z51.81 Encounter for therapeutic drug level monitoring (principal); Z95.2 Presence of prosthetic heart valve; Z79.01 Long term (current) use of anticoagulants
CPT/HCPCS: 36415; 85610

== ENCOUNTER 2021-12-22 07:33 | Outpatient (CLI) | payer BC, MEDICAID, SELFPAY ==
[2021-12-22 08:05] LABS: Aspartate Amino Transferase 50 U/L (14-36); Cholesterol 156 mg/dL (0-200); HDL Direct 42 mg/dL; Triglycerides 91 mg/dL (<150)
[2021-12-22 08:16] LABS: LDL Cholesterol Direct 73 mg/dL
== END 2021-12-22 07:34 | disposition home or self-care (01) ==
LOC: ANHLAB 07:35
PROVIDERS: PCP Physician Assistant; Visit Provider Physician Assistant
DX: E78.5 Hyperlipidemia, unspecified (principal)
CPT/HCPCS: 36415; 80061; 84450

== ENCOUNTER → 2021-12-31 07:45 | Outpatient (CLI) | payer BC, MEDICAID, SELFPAY ==
--- NOTE | ~2021-12-31 | US_ITS ---
US abdomen complete EXAMINATION: US Abdomen Complete INDICATION: Abnormal liver enzymes PROCEDURE: Realtime High Resolution abdomen ultrasound. COMPARISON: No prior studies for comparison FINDINGS: Gallbladder within normal limits. No gallstones, pericholecystic fluid, gallbladder wall t hickening or biliary dilatation. Common bile duct measures 3 mm. Liver echotexture within normal limits without focal mass. Pancreas within normal limits. Pancreati c tail is obscured by bowel gas. Spleen is unremarkeable. Renal echotexture is within normal limits bilaterally without hydronephrosis, contour deforming mass or renal stone. Right kidney measures 10.5 cm. Left kidney measures 10.8 cm. Visualized aspects of the aorta and IVC are within normal limits. Portal vein is patent. No sonograph ic Viera's sign indicated by the technologist. IMPRESSION: 1: Normal abdominal ultrasound. Reviewed, dictated and finalized at location A.
== END ==
PROVIDERS: PCP Physician Assistant; Visit Provider Physician Assistant
DX: R74.8 Abnormal levels of other serum enzymes (principal)
CPT/HCPCS: 76700

== ENCOUNTER → 2022-01-07 01:35 | Outpatient (CLI) | payer BC, MEDICAID, SELFPAY ==
[2022-01-07 11:17] LABS: SARS-CoV-2 RNA PCR Positive
== END ==
PROVIDERS: PCP Physician Assistant; Visit Provider Physician Assistant
DX: U07.1 COVID-19 (principal); R50.9 Fever, unspecified
CPT/HCPCS: C9803; U0003; U0005

== ENCOUNTER 2022-02-08 07:45 | Outpatient (RCR) | payer BC, MEDICAID, SELFPAY ==
[2021-12-14 10:36] LABS: INR 3.8; Prothrombin Time 36.5 Seconds (11.1-14.7)
[2021-12-28 08:01] LABS: INR 3.2; Prothrombin Time 31.9 Seconds (11.1-14.7)
[2022-01-12 08:28] LABS: Prothrombin Time 47.8 Seconds (11.1-14.7)
[2022-01-12 09:24] LABS: INR 5.4
[2022-01-17 08:14] LABS: Prothrombin Time 57.5 Seconds (11.1-14.7)
[2022-01-17 08:23] LABS: INR 6.8
[2022-01-21 08:30] LABS: Prothrombin Time 45.5 Seconds (11.1-14.7)
[2022-01-21 08:42] LABS: INR 5.1
[2022-01-24 08:07] LABS: INR 2.6; Prothrombin Time 26.6 Seconds (11.1-14.7)
[2022-01-28 09:26] LABS: Prothrombin Time 30.5 Seconds (11.1-14.7)
[2022-02-01 08:36] LABS: INR 3.1; Prothrombin Time 30.6 Seconds (11.1-14.7)
[2022-02-08 08:10] LABS: INR 2.7; Prothrombin Time 27.7 Seconds (11.1-14.7)
== END 2022-02-22 23:59 | disposition home or self-care (01) ==
LOC: ANHLAB 07:45
PROVIDERS: PCP Family Medicine; Visit Provider Internal Medicine Cardiovascular Disease
DX: Z51.81 Encounter for therapeutic drug level monitoring (principal); Z95.2 Presence of prosthetic heart valve; Z79.01 Long term (current) use of anticoagulants
CPT/HCPCS: 36415; 85610

== ENCOUNTER → 2022-04-02 08:01 | Outpatient (CLI) | payer BC, MEDICAID, SELFPAY ==
--- NOTE | ~2022-04-02 | MM_ITS ---
EXAMINATION: MM scrn mabel implant BI w jacquelyn HISTORY: Screening mammogram TECHNIQUE: Craniocaudal and mediolateral oblique 3-D tomosynthesis images with implant displacement a nd synthetic 2-D images were generated. Craniocaudal and mediolateral oblique views of the breasts wi thout implant displacement were obtained using full field digital mammography. CAD analysis was submi tted and interpreted. COMPARISON: 01/04/2021, 10/10/2018, 08/16/2017 bilateral implant screening mammogram examinations BREAST PARENCHYMAL COMPOSITION: The breasts are heterogeneously dense, which may obscure small masses . FINDINGS: There is no evidence of suspicious mass, calcification, or architectural distortion to sugg est malignancy in either breast. There has been no suspicious interval change. IMPRESSION: 1. No mammographic evidence of malignancy. 2. Recommend routine screening mammography in one year. BI-RADS Category 1: Negative Reviewed, dictated and finalized at location A. ASSEMBLER FOR PULLER OVER
== END ==
PROVIDERS: PCP Obstetrics & Gynecology; Visit Provider Physician Assistant
DX: Z12.31 Encounter for screening mammogram for malignant neoplasm of breast (principal)
CPT/HCPCS: 77063; 77067

== ENCOUNTER 2022-05-04 07:33 | Outpatient (RCR) | payer BC, MEDICAID, SELFPAY ==
[2022-03-04 08:40] LABS: INR 2.2; Prothrombin Time 23.5 Seconds (11.1-14.7)
[2022-03-18 09:01] LABS: INR 1.8; Prothrombin Time 20.4 Seconds (11.1-14.7)
[2022-04-06 08:12] LABS: INR 1.9; Prothrombin Time 20.9 Seconds (11.1-14.7)
[2022-04-20 07:59] LABS: INR 1.9; Prothrombin Time 21.1 Seconds (11.1-14.7)
[2022-05-04 09:07] LABS: INR 2.1; Prothrombin Time 22.9 Seconds (11.1-14.7)
== END 2022-06-02 23:59 | disposition home or self-care (01) ==
LOC: ANHLAB 07:33
PROVIDERS: PCP Physician Assistant; Visit Provider Internal Medicine Cardiovascular Disease
DX: Z51.81 Encounter for therapeutic drug level monitoring (principal); Z95.2 Presence of prosthetic heart valve; Z79.01 Long term (current) use of anticoagulants
CPT/HCPCS: 36415; 85610

== ENCOUNTER 2022-09-01 07:44 | Outpatient (RCR) | payer MEDICAID, OTHER, SELFPAY ==
[2022-06-06 08:35] LABS: INR 2.3; Prothrombin Time 24.6 Seconds (11.1-14.7)
[2022-07-04 07:53] LABS: INR 2.6
[2022-08-02 07:59] LABS: Prothrombin Time 22.2 Seconds (11.1-14.7)
[2022-08-08 08:16] LABS: Prothrombin Time 29.9 Seconds (11.1-14.7)
[2022-09-01 08:32] LABS: INR 2.7; Prothrombin Time 28.2 Seconds (11.1-14.7)
== END 2022-09-04 23:59 | disposition home or self-care (01) ==
LOC: ANHLAB 07:44
PROVIDERS: PCP Family Medicine; Visit Provider Internal Medicine Cardiovascular Disease
DX: Z51.81 Encounter for therapeutic drug level monitoring (principal); Z95.2 Presence of prosthetic heart valve; Z79.01 Long term (current) use of anticoagulants
CPT/HCPCS: 36415; 85610

== ENCOUNTER 2022-12-27 07:52 | Outpatient (RCR) | payer OTHER, SELFPAY ==
[2022-09-28 09:07] LABS: INR 3.1; Prothrombin Time 34.6 Seconds (11.1-14.7)
[2022-10-26 09:07] LABS: INR 2.9; Prothrombin Time 32.6 Seconds (11.1-14.7)
[2022-11-23 09:53] LABS: INR 2.6; Prothrombin Time 29.6 Seconds (11.1-14.7)
[2022-12-21 08:28] LABS: INR 3.4; Prothrombin Time 37.7 Seconds (11.1-14.7)
[2022-12-27 09:06] LABS: Prothrombin Time 33.5 Seconds (11.1-14.7)
== END 2022-12-27 23:59 | disposition home or self-care (01) ==
LOC: ANHLAB 07:52
PROVIDERS: PCP Family Medicine; Visit Provider Internal Medicine Cardiovascular Disease
DX: I48.91 Unspecified atrial fibrillation (principal); Z95.2 Presence of prosthetic heart valve; Z79.01 Long term (current) use of anticoagulants
CPT/HCPCS: 36415; 85610

== ENCOUNTER 2023-04-12 08:19 | Outpatient (RCR) | payer OTHER, SELFPAY ==
[2023-01-18 09:02] LABS: INR 2.5; Prothrombin Time 29.4 Seconds (11.1-14.7)
[2023-02-16 09:17] LABS: INR 2.9; Prothrombin Time 32.4 Seconds (11.1-14.7)
[2023-03-15 08:49] LABS: INR 2.8; Prothrombin Time 32.3 Seconds (11.1-14.7)
[2023-04-12 09:06] LABS: Prothrombin Time 33.8 Seconds (11.1-14.7)
== END 2023-04-18 23:59 | disposition home or self-care (01) ==
LOC: ANHLAB 08:19
PROVIDERS: PCP Family Medicine; Visit Provider Internal Medicine Cardiovascular Disease
DX: Z51.81 Encounter for therapeutic drug level monitoring (principal); I48.91 Unspecified atrial fibrillation; Z95.2 Presence of prosthetic heart valve; Z79.01 Long term (current) use of anticoagulants
CPT/HCPCS: 36415; 85610

== ENCOUNTER 2023-07-31 07:42 | Outpatient (RCR) | payer OTHER, SELFPAY ==
[2023-05-10 08:31] LABS: INR 2.9; Prothrombin Time 32.7 Seconds (11.1-14.7)
[2023-06-09 08:38] LABS: INR 2.7; Prothrombin Time 31.1 Seconds (11.1-14.7)
[2023-06-21 08:23] LABS: INR 2.2; Prothrombin Time 26.3 Seconds (11.1-14.7)
[2023-07-07 08:00] LABS: INR 3.4; Prothrombin Time 37.6 Seconds (11.1-14.7)
[2023-07-17 08:42] LABS: INR 2.7; Prothrombin Time 30.4 Seconds (11.1-14.7)
[2023-07-31 08:21] LABS: INR 2.2; Prothrombin Time 26.2 Seconds (11.1-14.7)
== END 2023-08-08 23:59 | disposition home or self-care (01) ==
LOC: ANHLAB 07:42
PROVIDERS: PCP Family Medicine; Visit Provider Internal Medicine Cardiovascular Disease
DX: Z51.81 Encounter for therapeutic drug level monitoring (principal); I48.91 Unspecified atrial fibrillation; Z95.2 Presence of prosthetic heart valve; Z79.01 Long term (current) use of anticoagulants
CPT/HCPCS: 36415; 85610

== ENCOUNTER 2023-08-24 08:12 | Outpatient (RCR) | payer OTHER, SELFPAY ==
[2023-08-24 10:08] LABS: INR 3.9; Prothrombin Time 41.7 Seconds (11.1-14.7)
== END 2023-09-06 07:36 | disposition home or self-care (01) ==
LOC: ANHLAB 08:12
PROVIDERS: PCP Family Medicine; Visit Provider Internal Medicine Cardiovascular Disease
DX: Z51.81 Encounter for therapeutic drug level monitoring (principal); I48.91 Unspecified atrial fibrillation; Z95.2 Presence of prosthetic heart valve; Z79.01 Long term (current) use of anticoagulants
CPT/HCPCS: 36415; 85610

== ENCOUNTER 2023-09-22 07:56 | Outpatient (CLI) | payer OTHER, SELFPAY ==
--- NOTE | ~2023-09-22 | MM_ITS ---
EXAMINATION: MM scrn mabel implant BI w jacquelyn HISTORY: Screening mammogram TECHNIQUE: Craniocaudal and mediolateral oblique 3-D tomosynthesis images with implant displacement a nd synthetic 2-D images were generated. Craniocaudal and mediolateral oblique views of the breasts wi thout implant displacement were obtained using full field digital mammography. CAD analysis was submi tted and interpreted. COMPARISON: 04/02/2022, 01/04/2021 bilateral implants screening mammogram examinations BREAST PARENCHYMAL COMPOSITION: The breasts are heterogeneously dense, which may obscure small masses . FINDINGS: Status post bilateral augmentation mammoplasty. There is no evidence of suspicious mass, ca lcification, or architectural distortion to suggest malignancy in either breast. There has been no schultz spicious interval change. IMPRESSION: 1. No mammographic evidence of malignancy. 2. Recommend routine screening mammography in one year. BI-RADS Category 1: Negative Reviewed, dictated and finalized at location A.
== END 2023-09-22 07:57 | disposition home or self-care (01) ==
LOC: ANHIMG 07:59
PROVIDERS: PCP Family Medicine; Visit Provider Obstetrics & Gynecology
DX: Z12.31 Encounter for screening mammogram for malignant neoplasm of breast (principal)
CPT/HCPCS: 77063; 77067

== ENCOUNTER 2023-10-16 10:13 | Outpatient (CLI) | payer OTHER, SELFPAY ==
--- NOTE | ~2023-10-16 | DEXA_ITS ---
Bone Density Report Name: MARQUIS GARCIAS Age: 63 Sex: Female Ethnicity: White Date of : 1960 Indication: postmenopausal; screening for osteoporosis; hysterectomy; Referring Provider: PRAKASH GUTHRIE Study: Bone densitometry was performed. Exam Date: October 16, 2023 Accession number: [id number] Bone Density: Region BMD T-score Z-score Classification AP Spine(L1-L4) 0.736 -2.8 -1.3 Osteoporosis Femoral Neck (Left) 0.657 -1.7 -0.4 Osteopenia Total Hip (Left) 0.837 -0.9 0.2 Normal Femoral Neck (Right) 0.674 -1.6 -0.2 Osteopenia Total Hip (Right) 0.856 -0.7 0.3 Normal Total Hip Mean 0.847 -0.8 0.3 Normal World Health Organization criteria for BMD impression classify patients as: Normal (T-score at or above -1.0), Osteopenia (T-score between -1.0 and -2.5), or Osteoporosis (T-score at or below -2.5). 10-year Fracture Risk: FRAX not reported because: Some T-score for Spine Total or Hip Total or Femoral Neck at or below -2.5 Clinical Information Provided by Patient: Has the following medical conditions: Hysterectomy Patient maximum height was 65.5 Menopause Age: 50 Onset of menses at age 15 Number of children 1 Impression: The patient has osteoporosis, based on the Total Spine T-score. Discussion: INCREASED RISK OF FRACTURE. BONE DENSITY IS UNDESIRABLY LOW AT ONE OR MORE SKELETAL SITES, CONSISTENT WITH POSTMENOPAUSAL OSTEOPOROSIS. This patient's lowest T-score meets the World Health Organization's (WHO) criteria for osteoporosis at one or more sites (T-score -2.5 or below). In untreated patients, the risk of osteoporotic fracture increases approximately two-fold for each 1.0 SD decrease in T-score. Low bone density is not the only risk factor for fracture; also consider factors such as patient's age, frailty or poor health, risk of falling, risk of injury, previous osteoporotic fracture, family history of osteoporosis, cigarette smoking, low body weight, etc. Not everyone with low bone mineral density has osteoporosis; osteomalacia and other metabolic bone disorders should also be considered. Patients who have osteoporosis should be evaluated for specific diseases and conditions (secondary causes) that may cause or contribute to bone loss. The [place] Association of Clinical Endocrinologists (AACE) and National Osteoporosis Foundation (NOF) recommend pharmacologic intervention for all postmenopausal women whose T-score is in this range. The patient should follow a healthful lifestyle (good nutrition with adequate calcium and vitamin D, and appropriate weight-bearing exercise). Follow-Up: Consider a repeat BMD and Vertebral Fracture Assessment (VFA) exam in 2 years or sooner if medically necessary, to reassess this patient's status. Reported by: REGINA on 10/16/2023 10:39:00 AM.
== END 2023-10-16 10:14 | disposition home or self-care (01) ==
LOC: ANHIMG 10:14
PROVIDERS: PCP Family Medicine; Visit Provider Family Medicine
DX: M81.0 Age-related osteoporosis without current pathological fracture (principal); N95.1 Menopausal and female climacteric states; Z13.820 Encounter for screening for osteoporosis
CPT/HCPCS: 77080

== ENCOUNTER 2023-12-01 07:24 | Outpatient (RCR) | payer OTHER, SELFPAY ==
[2023-09-06 09:08] LABS: INR 2.1; Prothrombin Time 25.4 Seconds (11.1-14.7)
[2023-09-13 08:29] LABS: INR 3.5; Prothrombin Time 38.1 Seconds (11.1-14.7)
[2023-09-25 10:22] LABS: INR 3.2; Prothrombin Time 35.7 Seconds (11.1-14.7)
[2023-12-01 08:28] LABS: Prothrombin Time 23.3 Seconds (11.1-14.7)
== END 2023-12-05 23:59 | disposition home or self-care (01) ==
LOC: ANHLAB 07:24
PROVIDERS: PCP Family Medicine; Visit Provider Internal Medicine Cardiovascular Disease
DX: Z51.81 Encounter for therapeutic drug level monitoring (principal); Z95.2 Presence of prosthetic heart valve; Z79.01 Long term (current) use of anticoagulants
CPT/HCPCS: 36415; 85610

== ENCOUNTER 2024-01-01 08:05 | Outpatient (RCR) | payer OTHER, SELFPAY ==
[2024-01-01 08:57] LABS: INR 2.6; Prothrombin Time 28.2 Seconds (11.1-14.7)
== END 2024-03-31 23:59 | disposition home or self-care (01) ==
LOC: ANHLAB 08:05
PROVIDERS: PCP Family Medicine; Visit Provider Internal Medicine Cardiovascular Disease
DX: Z51.81 Encounter for therapeutic drug level monitoring (principal); Z95.2 Presence of prosthetic heart valve; Z79.01 Long term (current) use of anticoagulants
CPT/HCPCS: 36415; 85610

== ENCOUNTER 2024-03-19 08:50 | Outpatient (CLI) | payer OTHER, SELFPAY ==
--- NOTE | ~2024-03-19 | DEXA_ITS ---
Bone Density Report Name: MARQUIS GARCIAS Age: 64 Sex: Female Ethnicity: White Date of : 1960 Indication: postmenopausal; screening for osteoporosis; hysterectomy; Referring Provider: PRAKASH GUTHRIE Study: Bone densitometry was performed. Exam Date: March 19, 2024 Accession number: [id number] Bone Density: Region BMD T-score Z-score Classification AP Spine(L1-L4) 0.757 -2.6 -1.1 Osteoporosis Femoral Neck (Left) 0.689 -1.4 -0.1 Osteopenia Total Hip (Left) 1.023 0.7 1.7 Normal Femoral Neck (Right) 0.698 -1.4 0.0 Osteopenia Total Hip (Right) 1.005 0.5 1.6 Normal Total Hip Mean 1.014 0.6 1.7 Normal World Health Organization criteria for BMD impression classify patients as: Normal (T-score at or above -1.0), Osteopenia (T-score between -1.0 and -2.5), or Osteoporosis (T-score at or below -2.5). 10-year Fracture Risk: FRAX not reported because: Some T-score for Spine Total or Hip Total or Femoral Neck at or below -2.5 Clinical Information Provided by Patient: Has the following medical conditions: Hysterectomy Patient maximum height was 65.5 Menopause Age: 50 Onset of menses at age 15 Number of children 1 Impression: The patient has osteoporosis, based on the Total Spine T-score. Discussion: INCREASED RISK OF FRACTURE. BONE DENSITY IS UNDESIRABLY LOW AT ONE OR MORE SKELETAL SITES, CONSISTENT WITH POSTMENOPAUSAL OSTEOPOROSIS. This patient's lowest T-score meets the World Health Organization's (WHO) criteria for osteoporosis at one or more sites (T-score -2.5 or below). In untreated patients, the risk of osteoporotic fracture increases approximately two-fold for each 1.0 SD decrease in T-score. Low bone density is not the only risk factor for fracture; also consider factors such as patient's age, frailty or poor health, risk of falling, risk of injury, previous osteoporotic fracture, family history of osteoporosis, cigarette smoking, low body weight, etc. Not everyone with low bone mineral density has osteoporosis; osteomalacia and other metabolic bone disorders should also be considered. Patients who have osteoporosis should be evaluated for specific diseases and conditions (secondary causes) that may cause or contribute to bone loss. The [place] Association of Clinical Endocrinologists (AACE) and National Osteoporosis Foundation (NOF) recommend pharmacologic intervention for all postmenopausal women whose T-score is in this range. The patient should follow a healthful lifestyle (good nutrition with adequate calcium and vitamin D, and appropriate weight-bearing exercise). Follow-Up: Consider a repeat BMD and Vertebral Fracture Assessment (VFA) exam in 2 years or sooner if medically necessary, to reassess this patient's status. Reported by: REGINA on 03/19/2024 9:35:00 AM.
== END 2024-03-19 08:51 | disposition home or self-care (01) ==
PROVIDERS: PCP Family Medicine; Visit Provider Family Medicine
DX: Z13.820 Encounter for screening for osteoporosis (principal); N95.1 Menopausal and female climacteric states; M81.0 Age-related osteoporosis without current pathological fracture; M85.852 Other specified disorders of bone density and structure, left thigh; M85.851 Other specified disorders of bone density and structure, right thigh
CPT/HCPCS: 77080

== ENCOUNTER 2024-03-20 09:14 | Outpatient (CLI) | payer OTHER, SELFPAY ==
--- NOTE | ~2024-03-20 | XR_ITS ---
CHEST RADIOGRAPH, PA AND LATERAL CLINICAL HISTORY: R05.9 - Cough, unspecified . COMPARISON: 04/30/2021 TECHNIQUE: PA and lateral views of the chest. FINDINGS Sternal wires and mediastinal clips are identified, the wires are midline and intact. 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 Pacemaker wires (likely perioperative) are identified. The remainder of the cardiomediastinal silhouette is otherwise unremarkable. The lungs are clear. Bilateral breast implants are present, partially obscuring the underlying pulmonary parenchyma. Visualized osseous structures and remaining soft tissues are unremarkable. IMPRESSION: No focal infiltrate or effusion. Reviewed, dictated and finalized at location A.
== END 2024-03-20 09:15 | disposition home or self-care (01) ==
PROVIDERS: PCP Family Medicine; Visit Provider Nurse Practitioner Family
DX: R05.9 Cough, unspecified (principal)
CPT/HCPCS: 71046

== ENCOUNTER 2024-04-12 12:19 | Outpatient (CLI) | payer OTHER, SELFPAY ==
--- NOTE | ~2024-04-12 | US_ITS ---
Ultrasound the right axilla CLINICAL HISTORY: Palpable lump FINDINGS: In the right axilla, at the area of palpable concern, there is a 5.7 x 2.8 x 3.6 cm roughly ovoid heterogeneous mass with mixed solid and cystic components. Appearance suggests a pathologic, p ossibly partially necrotic lymph node versus other soft tissue mass. Neoplastic/metastatic lesions schultz spected until proven otherwise. IMPRESSION: 5.7 x 2.8 x 3.6 cm heterogeneous, roughly ovoid soft tissue mass in the right axilla, as above. This is suspicious for pathologic lymph node until proven otherwise. Tissue sampling recommended to establ lisa histologic diagnosis. Reviewed, dictated and finalized at location M. TRUCKER IMPRESSION: 5.7 x 2.8 x 3.6 cm heterogeneous, roughly ovoid soft tissue mass in the right a xilla, as above. This is suspicious for pathologic lymph node until proven othe rwise. Tissue sampling recommended to establish histologic diagnosis.
== END 2024-04-12 12:20 | disposition home or self-care (01) ==
PROVIDERS: PCP Family Medicine; Visit Provider Family Medicine
DX: R22.31 Localized swelling, mass and lump, right upper limb (principal)
CPT/HCPCS: 76882

== ENCOUNTER 2024-07-24 07:30 | Outpatient (CLI) | payer OTHER, SELFPAY ==
--- NOTE | ~2024-07-24 | US_ITS ---
EXAMINATION: US axilla RT DATE: 07/24/2024 08:26 INDICATION: Localized swelling, mass and lump, right axilla. TECHNIQUE: Multiple grayscale and Doppler ultrasound images of the right axilla were obtained. COMPARISON: Ultrasound 04/12/2024 FINDINGS: There is no abnormal mass or lymphadenopathy in the right axilla. IMPRESSION: 1. No abnormal mass or lymphadenopathy in the right axilla. The previously seen mass is no longer pre sent and may have been a hematoma. The biopsy was canceled. Reviewed, dictated and finalized at location [] UCT ARCHITECT IMPRESSION: 1. No abnormal mass or lymphadenopathy in the right axilla. The previously seen mass is no longer present and may have been a hematoma. The biopsy was cancele d.
--- OUTSIDE RECORDS SUMMARY | 2024-07-24 07:34 | XMS_ITS | Encounter Summary ---
Author Organization [facility] Address [address] [place] [address] Care Team Providers Care Sales Program Manager Name Role Phone Chris Hilliard MD Primary Care Provider [phone] Encounter Details Date Type Department Care Team (Late st Contact Info) Description 03/31/2021 Prep for Procedure [facility] Day [facility] [place], [place] [id number] Claudio Rocha MD [address] [id number] Social History Tobacco Use Types Packs/Day Years Used Date Smoking Tobacco: Never Assessed Comments Unknown Sex and Gender Information Value Date Recorded Sex Assigned at Not on file Legal Sex Female 11:02 AM CDT Gender Identity Not on file Sexual Orientation Not on file documented as of this encounter Plan of Treatment Not on file documented as of this encounter Results * CORONAVIRUS (COVID 19) (04/05/2021 9:21 AM CHEMICAL LAB SUPERVISOR) SPEC DESCRIPTION NASAL 04/05/20 9:21 AM CHEMICAL LAB SUPERVISOR [facility] CORONAVIRUS SARS COV 2 PCR (RESP) NEGATIVE NEGATIVE 04/05/2021 7:57 PM [facility] Comment: THE SARS-CoV-2 TEST HAS BEEN AUTHORIZED BY THE FDA UNDER AN EUA FOR USE BY AUTHORIZED LABORATORIES. PERFORMED BY NUCLEIC ACID AMPLIFICATION PCR FIRST TEST UNKNOWN 04/05/2021 9:21 AM [facility] EMPLOYED IN HEALTHCARE UNKNOWN 04/05/2021 9:21 AM CHEMICAL LAB SUPERVISOR [facility] SYMPTOMATIC DEFINED BY CDC UNKNOWN 04/05/2021 9:21 AM CHEMICAL LAB SUPERVISOR [facility] HOSPITALIZATION STATUS NO 04/05/2021 9:21 AM CHEMICAL LAB SUPERVISOR [facility] PATIENT IN ICU NO 04/05/2021 9:21 AM CHEMICAL LAB SUPERVISOR [facility] RESIDENT OF [facility] UNKNOWN 04/05/2021 9:21 AM CHEMICAL LAB SUPERVISOR [facility] NASAL STRUCTURE / Unknown 04/05/2021 9:21 AM CHEMICAL LAB SUPERVISOR Claudio Rocha MD MICROBIOLOGY - GENERAL ELSA MEDINA Final Result [facility] [address] [place] [address], [facility] [address] [place] [address], documented in this encounter Visit Diagnoses Diagnosis Family history of colon cancer- Primary Family history of malignant neoplasm of gastrointestinal tract documented in this encounter Additional Health Concerns Infection Onset Date Last Indicated Resolved Time COVID-19 Rule Out 04/05/2021 04/05/2021 04/05/2021 7:57 PM CHEMICAL LAB SUPERVISOR documented as of this encounter Care Teams Sales Program Manager Relationship Specialty Start Date End Date Chris Hilliard MD [address] [place] [address] PCP - General FAMILY PRACTICE 04/08/21 documented as of this encounter
--- OUTSIDE RECORDS SUMMARY | 2024-07-24 07:34 | XMS_ITS | Encounter Summary ---
Author Organization [facility] Healthcare Address [address] [place] [address] Care Team Providers Care Tube Trailer Filler Name Role Phone Caleb Craft MD Unavailable [phone] Luis Lorenzo MD Unavailable Apolinar Jason MD Unavailable [phone] Tommy Rebolledo MD Primary Care Provider [phone] Encounter Details Date Type Department Care Team (Late st Contact Info) Description 09/13/2023 Orders Only [facility] Health Information Management [address] [place] [id number] Scanning, Provider Social History Tobacco Use Types Packs/Day Years Used Date Smoking Tobacco: Never Smokeless Tobacco: Never Social Connection and Isolat ion Panel [NHANES] Answer Date Recorded In a typical week, how many times do you talk on the phone with family, friends, or neighbors? More than three times a week 05/13/2021 How often do you get togethe r with friends or relatives? More than three times a week 05/13/2021 How often do you attend chur ch or holiness services? Never 05/13/2021 Do you belong to any clubs o r organizations such as holiness groups, unions, fraternal or athletic groups, or school groups? No 05/13/2021 Attends Club or Organization Meetings Not on elvis e 05/13/2021 Are you , , di vorced, , never , or living with a partner? 05/13/2021 Overall Financial Resource Strain (CARDIA) Answe r Date Recorded How hard is it for you to pa y for the very basics like food, housing, medical care, and heating? Somewhat hard 05/13/2021 Hunger Vital Sign Answer Date Recorded Within the past 12 months, y ou worried that your food would run out before you got the money to buy more. Never true 08/14/19 24 Within the past 12 months, t he food you bought just didn't last and you didn't have money to get more. Never true 08/14/2023 PRAPARE - Transportation Answer Date Re corded In the past 12 months, has l ack of transportation kept you from medical appointments or from getting medications? No 04/28 In the past 12 months, has l ack of transportation kept you from meetings, work, or from getting things needed for daily living? No 05/13/2021 Housing Stability Vital Sign Answer Aramis e Recorded In the last 12 months, was t here a time when you were not able to pay the mortgage or rent on time? No 05/13/2021 In the last 12 months, how many places have you lived? 1 05/13/2021 In the last 12 months, was t here a time when you did not have a steady place to sleep or slept in a retirement (including now)? No 05/13/2021 Comments Unknown Sex and Gender Information Value Date Recorded Sex Assigned at Not on file Legal Sex Female 3:09 AM PROJECT SYSTEMS ENGINEER Gender Identity Not on file Sexual Orientation Not on file documented as of this encounter Plan of Treatment Not on file documented as of this encounter Procedures Procedure Name Priority Date/Time Associated Diagnosis Comments SCAN - LABS 09/13/2023 documented in this encounter Results * SCAN - LABS (09/13/2023) us Provider Scanning Final Result documented in this encounter Visit Diagnoses Not on filedocumented in this encounter Care Teams Tube Trailer Filler Relationship Specialty Start Date End Date Tommy Rebolledo MD [address] [place] [address] [address] [place] [address] PCP - General Family Medicine 12/28/22 [place] [address] [place] [address] Surgeon Cardiothoracic Surgery 05/20/21 Luis Lorenzo MD [address] [facility] [address] [place] [address] Consulting Physician Cardiology 05/20/21 [place] [address] [place], [place] [id number] Consulting Physician Internal Medicine 05/20/21 documented as of this encounter
--- OUTSIDE RECORDS SUMMARY | 2024-07-24 07:34 | XMS_ITS | Encounter Summary ---
Author Organization [facility] Healthcare Address [address] [place] [address] Care Team Providers Care Instruments Sales Representative Name Role Phone Caleb Craft MD Unavailable [phone] Luis Lorenzo MD Unavailable Apolinar Jason MD Unavailable [phone] Tommy Rebolledo MD Primary Care Provider [phone] Encounter Details Date Type Department Care Team (Late st Contact Info) Description 07/31/2023 Orders Only [facility] Health Information Management [address] [place] [address] Scanning, Provider Social History Tobacco Use [...] often do you attend chur ch or protestant services? Never 05/13/2021 Do you belong to any clubs o r organizations such as zoroastrian groups, unions, fraternal or athletic groups, or [...] the money to buy more. Never true 04/10/20 23 Within the past 12 months, t he food you bought just didn't last and you didn't have money to get more. Never true 04/10/2023 PRAPARE - Transportation Answer Date Re corded [...] place to sleep or slept in a correction (including now)? No 05/13/2021 Comments Unknown Sex and Gender Information Value Date Recorded Sex Assigned at Not on file Legal Sex Female 3:09 AM CARD SETTER Gender Identity Not on file Sexual Orientation Not on file documented as of this encounter Plan of Treatment Not on file documented as of this encounter Procedures Procedure Name Priority Date/Time Associated Diagnosis Comments SCAN - LABS 07/31/2023 documented in this encounter Results * SCAN - LABS (07/31/2023) us Provider Scanning Final Result documented in this encounter Visit Diagnoses Not on filedocumented in this encounter Care Teams Instruments Sales Representative Relationship Specialty Start Date End Date Tommy Rebolledo MD [address] [place] [address] [address] [place] [address] PCP - General Family Medicine 12/28/22 [place] [address] [address] [place] [address] Surgeon Cardiothoracic Surgery 05/20/21 Luis Lorenzo MD [address] [facility] [address] [place] [address] Consulting Physician Cardiology 05/20/21 [place] [address] [place], [place] [id number] Consulting Physician Internal Medicine 05/20/21 documented as of this encounter
--- OUTSIDE RECORDS SUMMARY | 2024-07-24 07:34 | XMS_ITS | Clinical Summary ---
Author Organization [facility] Address [address] [place] [address] Care Team Providers Care Juvenile Court Judge Name Role Phone Chris Hilliard MD Primary Care Provider [phone] Allergies No known active allergies Medications metoprolol succinate ER 100 MG 24 hr tablet Take 100 mg by mouth daily. Active Multiple Vitamin (MULTIVITAMIN ADULT OR) Active atorvastatin 20 MG tablet Take 20 mg by mouth daily. 03/31/2021 Active valACYclovir 1 g tablet Take 1,000 mg by mouth 2 (two) times daily. Active Social History Tobacco Use Types Packs/Day Years Used Date Smoking Tobacco: Former Cigarettes Q uit: 1977 Smokeless Tobacco: Never Comments No Sex and Gender Information Value Date Recorded Sex Assigned at Not on file Legal Sex Female 11:02 AM CDT Gender Identity Not on file Sexual Orientation Not on file Last Filed Vital Signs Vital Sign Reading Time Taken Comments Blood Pressure 111/88 04/08/2021 8:36 AM ORDNANCE EQUIPMENT WORKER Pulse 112 04/08/2021 8:36 AM ORDNANCE EQUIPMENT WORKER Temperature 36.8 C (98.2 F) 04/08/2021 8:36 AM ORDNANCE EQUIPMENT WORKER Respiratory Rate 12 04/08/2021 8:36 AM ORDNANCE EQUIPMENT WORKER Oxygen Saturation 97% 04/08/2021 8:36 AM ORDNANCE EQUIPMENT WORKER Inhaled Oxygen Concentration - - Weight 49.9 kg (110 lb) 04/02/2021 1:17 PM CDT Height 165.1 cm (5' 5 ) 04/02/2021 1:17 PM CDT Body Mass Index 18.3 04/02/2021 1:17 PM CDT Plan of Treatment Health Maintenance Due Date Last Done Comments Annual Physical 1965 Hepatitis C 1980 DTaP, Tdap and Td Vaccines ( 1 - Tdap) 1981 Mammogram Screening 2002 Zoster Vaccines (1 of 2) 2012 COVID-19 Vaccine (1 - 2023-2 5 season) 2024 Influenza Adult (#1) 2024 Colorectal Cancer Screening Colonoscopy (10 Years) 04/08/2031 04/08/2021 RSV Immunization or 60+ Years (1 - 1-dose 75+ series) 2037 Meningococcal B Vaccine Aged Out No l onger eligible based on patient's age to complete this topic Meningococcal Vaccine Aged Out No dean luz eligible based on patient's age to complete this topic Pneumococcal Vaccine: Pediat rics (0 to 5 Years) and At-Risk Patients (6 to 64 Years) Aged Out No longer eligi ble based on patient's age to complete this topic RSV Immunizations Under 20 Months Aged Out No longer eligible based on patient's age to complete this topic Procedures Procedure Name Priority Date/Time Associated Diagnosis Comments COLONOSCOPY Routine 04/08/2021 8:33 AM ORDNANCE EQUIPMENT WORKER from Last 3 Months or Most Recently Relevant to [place] [address] [facility] Care Teams Juvenile Court Judge Relationship Specialty Start Date End Date Chris Hilliard MD [address] [place] [address] PCP - General FAMILY PRACTICE 04/08/21
--- OUTSIDE RECORDS SUMMARY | 2024-07-24 07:34 | XMS_ITS | Encounter Summary ---
Author Organization [facility] Healthcare Address [address] [place] [address] Care Team Providers Care Firearms Specialist Name Role Phone Caleb Craft MD Unavailable [phone] Luis Lorenzo MD Unavailable [phone] Apolinar Jason MD Unavailable [phone] Tommy Rebolledo MD Primary Care Provider [phone] Encounter Details Date Type Department Care Team (Late st Contact Info) Description 09/25/2023 Orders Only [facility] Information Management [address] [place] [address] Scanning, Provider Social History Tobacco [...] often do you attend chur ch or muslim services? Never 05/13/2021 Do you belong to any clubs o r organizations such as hinduism groups, unions, fraternal or athletic groups, or [...] place to sleep or slept in a intermediate (including now)? No 05/13/2021 Comments Unknown Sex and Gender Information Value Date Recorded Sex Assigned at Not on file Legal Sex Female 3:09 AM SPANISH MOSS PICKER Gender Identity Not on file Sexual Orientation Not on file documented as of this encounter Plan of Treatment Not on file documented as of this encounter Procedures Procedure Name Priority Date/Time Associated Diagnosis Comments SCAN - LABS 09/25/2023 documented in this encounter Results * SCAN - LABS (09/25/2023) us Provider Scanning Final Result documented in this encounter Visit Diagnoses Not on filedocumented in this encounter Care Teams Firearms Specialist Relationship Specialty Start Date End Date Tommy Rebolledo MD [address] [place] [address] [address] [place] [address] PCP - General Family Medicine 12/28/22 [place] [address] [address] [place] [address] Surgeon Cardiothoracic Surgery 05/20/21 Luis Lorenzo MD [address] [facility] [address] [place] [address] Consulting Physician Cardiology 05/20/21 [place] [address] [place], [place] [id number] Consulting Physician Internal Medicine 05/20/21 documented as of this encounter
--- OUTSIDE RECORDS SUMMARY | 2024-07-24 07:34 | XMS_ITS | Clinical Summary ---
Author Organization [facility] [address] Address [address] [place] [address] Care Team Providers Care Contact Lens Flashing Puncher Name Role Phone Caleb Craft MD Unavailable [phone] Luis Lorenzo MD Unavailable Apolinar Jason MD Unavailable [phone] Tommy Rebolledo MD Primary Care Provider [phone] Allergies No known active allergies Medications acyclovir (ZOVIRAX) 400 mg tablet 07/05/2021 Active atorvastatin (LIPITOR) 20 mg tablet Take 1 tablet (20 mg total) by mouth daily 03/31/2021 Active aspirin 81 mg enteric coated tablet TAKE 1 TABLET BY MOUTH DAILY 30 tablet 1 09/17/2021 Active metoprolol XL (TOPROL-XL) 50 mg extended release tablet Take 2 tablets (100 mg total) by mouth daily 06/13/2022 Active sertraline (ZOLOFT) 50 mg tablet Take 1 tablet (50 mg total) by mouth daily Active warfarin (COUMADIN) 2 mg tablet TAKE 1 TABLET BY MOUTH DAILY OR DIRECTED 30 tablet 05/02/2024 Active memantine (NAMENDA) 10 mg tablet TAKE 1 TABLET BY MOUTH TWICE DAILY 60 tablet 5 06/18/2024 Active Active Problems Problem Noted Date Diagnosed Date Other thrombophilia 07/22/2024 Lipid screening 01/08/2024 Alzheimer's disease 08/14/2023 Memory loss 07/04/2022 History of endocarditis 09/09/2021 Systolic dysfunction 09/09/2021 Chronic anticoagulation 09/09/2021 Atrial fibrillation (CMS/HCC) 07/06/2021 Severe malnutrition 05/19/2021 S/P MVR (mitral valve replacement) 05/17/2021 Shortness of breath 05/09/2021 Mitral valve insufficiency 05/09/2021 Hyponatremia 05/09/2021 Cough 05/09/2021 Pyrexia of unknown origin following delivery 04/2021 Chronic anemia Resolved Problems Problem Noted Date Diagnosed Date Resolved Date Chronic midline low back ferdinand n without sciatica 09/09/2021 09/09/2021 Acute endocarditis 05/09/2021 Pre-operative cardiovascular examination, high risk surgery 05/06/2021 09/09/2021 Overview (05/10/2021): Added automatically from request for surgery [id number] Encounters Date Type Department Care Team Description 07/22/2024 10:45 AM PHYSICIANS ASSISTANT Office Visit [facility] Medical Group Cardiology [address] [place] [address] Paige Solorzano MD S/P MVR (mitral valve replacement) (Primary Dx); Other thrombophilia (HCC); Paroxysmal atrial fibrillation (CMS/HCC) (HCC) from Last 3 Months Surgical History Surgery Date Site/Laterality Comments HYSTERECTOMY Medical History Medical History Date Comments Mitral valve disorder Family History Medical History Relation Name Comments No Known Problems Father No Known Problems Mother Relation Name Status Comments Father Mother Social History Tobacco Use Types Packs/Day Years Used Date Smoking Tobacco: Former Cigarettes Q uit: 1984 Smokeless Tobacco: Never Social Connection and Isolat ion Panel [NHANES] Answer Date Recorded In a typical week, how many times do you talk on the phone with family, friends, or neighbors? More than three times a week 05/13/2021 How often do you get togethe r with friends or relatives? More than three times a week 05/13/2021 How often do you attend chur [employer]) or spiritism services? Never 05/13/2021 Do you belong to any clubs o r organizations such as anglican groups, unions, fraternal or athletic groups, or [...] the money to buy more. Never true 12/12/19 24 Within the past 12 months, t he food you bought just didn't last and you didn't have money to get more. Never true 12/12/2023 PRAPARE - Transportation Answer Date Re corded [...] place to sleep or slept in a [place] health care facility (including now)? No 05/13/2021 Comments Unknown Sex and Gender Information Value Date Recorded Sex Assigned at Not on file Legal Sex Female 3:09 AM PHYSICIANS ASSISTANT Gender Identity Not on file Sexual Orientation Not on file Obstetrics History Last Filed Vital Signs Vital Sign Reading Time Taken Comments Blood Pressure 92/56 07/22/2024 10:58 AM PHYSICIANS ASSISTANT Pulse 56 07/22/2024 10:58 AM PHYSICIANS ASSISTANT Temperature 36.9 C (98.5 F) 12/12/2023 10:23 AM CDT Respiratory Rate 12 12/12/2023 10:23 AM CDT Oxygen Saturation 97% 07/22/2024 10:58 AM PHYSICIANS ASSISTANT Inhaled Oxygen Concentration - - Weight 59.4 kg (131 lb) 07/22/2024 10:58 AM PHYSICIANS ASSISTANT Height 165.1 cm (5' 5 ) 07/22/2024 10:58 AM PHYSICIANS ASSISTANT Body Mass Index 21.8 07/22/2024 10:58 AM PHYSICIANS ASSISTANT Plan of Treatment Health Maintenance Due Date Last Done Comments Breast Cancer Screening-Mammogram 1962 Colon Cancer Screening-Colonoscopy 1962 Depression Screening 1962 DTaP/Tdap/Td Vaccine (1 - Tdap) 1973 Hepatitis B Screening 1980 Regular Well Visit/Exam 18-64 1980 Zoster Vaccine (1 of 2) 2012 Influenza Vaccine (#1) 2024 Hepatitis C Screening Completed 05/13/2021 Pneumococcal vaccine <65 Aged Out No longer eligible based on patient's age to complete this topic Medical Devices Implanted Type Area Top Bottom Attaching Machine Operator Device Identifier Shelf Expiration Date Model / Serial / Lot Temporary Pacer Lead Lead Chest Description:Noted in LDAs fo 2020 On-X Intrnl [facility]-25-33 25-33mm 17.4mm Mechanical Conform-X Sewing Ring Hassan Valve - [id number] - [id number] Implanted:Qty: 1 on 05/14/2021 by Caleb Craft MD at [facility] N/A: Mitral Valve On-X Intrnl 04/13/2027 [facility]-25-33 / [id number] / Procedures Procedure Name Priority Date/Time Associated Diagnosis Comments POCT LIPID PANEL Routine 07/22/2024 10:5 2 AM PHYSICIANS ASSISTANT S/P MVR (mitral valve replacement) Other thrombophilia (HCC) HEPATITIS PANEL, ACUTE Routine 05/13/2021 8:38 AM PHYSICIANS ASSISTANT from Last 3 Months or Most Recently Relevant to Health Maintenance Results * POCT lipid panel (07/22/2024 10:52 AM PHYSICIANS ASSISTANT) Triglycerides, POC 80 mg/dL LDL Cholesterol POC 131 mg/dL Chol/HDL Ratio, POC 36 Non-HDL Cholesterol, POC 147 mg/dL Cholesterol Total, POC 183 mg/dL Capillary blood 07/22/2024 1 0:52 AM PHYSICIANS ASSISTANT us Paige Solorzano MD POINT OF CARE TEST O RDERABLES Final Result * Hepatitis panel, acute (05/13/2021 8:38 AM PHYSICIANS ASSISTANT) Hep A IgM Nonreactive Nonreactive [facility] Comment: Interpretive Data: If Hep A IgM Ab is reported as Equivocal, a new sample should be drawn in two weeks for testing. Current interpretive data was last revised on 19. Hep B core IgM Nonreactive Nonreactive [facility] Comment: Interpretive Data If HepB Core IgM Ab is reported as Equivocal, a new sample should be drawn in two weeks for testing. Current interpretive data was last revised on 19. Hep C Ab Nonreactive Nonreactive [facility] Comment: Interpretive Data Nonreactive: Antibodies to HCV not detected. Does NOT exclude the possibility of recent exposure to HCV. Equivocal: Equivocal for HCV antibodies. Supplemental molecular testing will be automatically performed to determine infection status in accordance with current CDC screening recommendations. Reactive: Positive for HCV antibodies. This may represent current or past HCV infection. Supplemental molecular testing will be automatically performed to determine current infection status in accordance with current CDC screening recommendations. Interpretive data was last revised on 2019. HepBsAg Nonreactive Nonreactive [facility] Blood 05/13/2021 8:38 AM PHYSICIANS ASSISTANT 05/13/2021 10:10 AM PHYSICIANS ASSISTANT Freya Zayas MD LAB MICROBIOLOGY - GENERAL ORDERABLES Final Result [facility] [id number] [place] [address] from Last 3 Months or Most Recently Relevant to Health Maintenance [place] [address] [facility] [place] [address] [facility] Advance Directives For more information, please contact: [phone] * Full Code (Latest Code Status on File) Date Activated Date Inactivated Comments 05/09/2021 3:32 PM 05/20/2021 7:48 PM Care Teams Contact Lens Flashing Puncher Relationship Specialty Start Date End Date Tommy Rebolledo MD [address] [facility] [address] [place] [address] PCP - General Family Medicine 12/28/22 [place] [address] [facility] [address] [place] [address] Surgeon Cardiothoracic Surgery 05/20/21 Luis Lorenzo MD [address] [facility] C [facility] [address] [place] [address] Consulting Physician Cardiology 05/20/21 [place] [address] [place] [address] Consulting Physician Internal Medicine 05/20/21
--- OUTSIDE RECORDS SUMMARY | 2024-07-24 07:34 | XMS_ITS | Encounter Summary ---
Author Organization [facility] Healthcare Address [address] [place] [address] Care Team Providers Care Fisher Trawl Net Name Role Phone Caleb Craft MD Unavailable [phone] Luis Lorenzo MD Unavailable Apolinar Jason MD Unavailable [phone] Tommy Rebolledo MD Primary Care Provider [phone] Encounter Details Date Type Department Care Team (Late st Contact Info) Description 12/01/2023 Orders Only [facility] Health Information Management [address] [place] [address] Scanning, Provider Social History Tobacco [...] often do you attend chur ch or gnosticist services? Never 05/13/2021 Do you belong to any clubs o r organizations such as evangelical groups, unions, fraternal or athletic groups, or [...] place to sleep or slept in a nursing home (including now)? No 05/13/2021 Comments Unknown Sex and Gender Information Value Date Recorded Sex Assigned at Not on file Legal Sex Female 3:09 AM INCOME TAX ADVISOR Gender Identity Not on file Sexual Orientation Not on file documented as of this encounter Plan of Treatment Not on file documented as of this encounter Procedures Procedure Name Priority Date/Time Associated Diagnosis Comments SCAN - LABS 12/01/2023 documented in this encounter Results * SCAN - LABS (12/01/2023) us Provider Scanning Final Result documented in this encounter Visit Diagnoses Not on filedocumented in this encounter Care Teams Fisher Trawl Net Relationship Specialty Start Date End Date Tommy Rebolledo MD [address] [place] [address] [address] [place] [address] PCP - General Family Medicine 12/28/22 [place] [address] [address] [place] [address] Surgeon Cardiothoracic Surgery 05/20/21 Luis Lorenzo MD [address] [facility] [address] [place] [address] Consulting Physician Cardiology 05/20/21 [place] [address] [place], [place] [id number] Consulting Physician Internal Medicine 05/20/21 documented as of this encounter
--- OUTSIDE RECORDS SUMMARY | 2024-07-24 07:34 | XMS_ITS | CONTINUITY OF CARE DOCUMENT ---
Author Name aristidesraya wen Address Unknown Organization [facility] Address [address] [place] [address] [address] [place] [address] Phone [phone] Care Team Providers Care Butt Presser Name Role Phone wen carver Unavailable Unavailable RESULTS Date Observation Value Provider Reference Range Interpretat ion Location prothrombin time (patient) 15.4 s [facility] 9.1-12.0 High international normalized ratio (INR) 1.4 [facility] 0.9-1.2 High prothrombin time (patient) 26.7 s [facility] 9.1-12.0 High international normalized ratio (INR) 2.5 [facility] 0.9-1.2 High prothrombin time (patient) 44.5 s [facility] 9.1-12.0 High international normalized ratio (INR) 4.3 [facility] 0.9-1.2 High INSURANCE PROVIDERS Payer name Policy type / Coverage type [place] red democrat ID [employer] OPEN ACCESS Other [id number]
--- OUTSIDE RECORDS SUMMARY | 2024-07-24 07:34 | XMS_ITS | Encounter Summary ---
Author Organization [facility] Healthcare Address [address] [place] [address] Care Team Providers Care Museum Curator Name Role Phone Caleb Craft MD Unavailable [phone] Luis Lorenzo MD Unavailable Apolinar Jason MD Unavailable [phone] Tommy Rebolledo MD Primary Care Provider [phone] Encounter Details Date Type Department Care Team (Late st Contact Info) Description 09/06/2023 Orders Only [facility] Health Information Management [address] [place] [address] Scanning, Provider Social History Tobacco [...] often do you attend chur ch or rastafarian services? Never 05/13/2021 Do you belong to any clubs o r organizations such as christianity groups, unions, fraternal or athletic groups, or [...] place to sleep or slept in a prison (including now)? No 05/13/2021 Comments Unknown Sex and Gender Information Value Date Recorded Sex Assigned at Not on file Legal Sex Female 3:09 AM REINSURANCE ACCOUNTANT Gender Identity Not on file Sexual Orientation Not on file documented as of this encounter Plan of Treatment Not on file documented as of this encounter Procedures Procedure Name Priority Date/Time Associated Diagnosis Comments SCAN - LABS 09/06/2023 documented in this encounter Results * SCAN - LABS (09/06/2023) us Provider Scanning Final Result documented in this encounter Visit Diagnoses Not on filedocumented in this encounter Care Teams Museum Curator Relationship Specialty Start Date End Date Tommy Rebolledo MD [address] [place] [address] [address] [place] [address] PCP - General Family Medicine 12/28/22 [place] [address] [address] [place] [address] Surgeon Cardiothoracic Surgery 05/20/21 Luis Lorenzo MD [address] [facility] [address] [place] [address] Consulting Physician Cardiology 05/20/21 [place] [address] [place], [place] [id number] Consulting Physician Internal Medicine 05/20/21 documented as of this encounter
--- OUTSIDE RECORDS SUMMARY | 2024-07-24 07:35 | XMS_ITS | Referral Summary ---
Author Organization [facility] [address] [facility] [address] [place] [address] Care Team Providers Care Linter Saw Sharpener Name Role Phone Caleb Craft MD Unavailable [phone] Luis Lorenzo MD Unavailable Apolinar Jason MD Unavailable [phone] Tommy Rebolledo MD Primary Care Provider [phone] Encounters Date Type Department Care Team Description 07/22/2024 10:45 AM FORESTRY HUNTER Office Visit [facility] Medical Group Cardiology [address] [facility] [address] [place] [address] Paige Solorzano MD S/P MVR (mitral valve replacement) (Primary Dx); Other thrombophilia (HCC); Paroxysmal atrial fibrillation (CMS/HCC) (HCC) from Last 3 Months Allergies No known active allergies Medications acyclovir [...] (05/10/2021): Added automatically from request for surgery [id number] Social History Tobacco Use Types Packs/Day Years [...] often do you attend chur ch or faith services? Never 05/13/2021 Do you belong to any clubs o r organizations such as scientology groups, unions, fraternal or athletic groups, or [...] place to sleep or slept in a snf (including now)? No 05/13/2021 Comments Unknown Sex and Gender Information Value Date Recorded Sex Assigned at Not on file Legal Sex Female 3:09 AM FORESTRY HUNTER Gender Identity Not on file Sexual Orientation Not on file Last Filed Vital Signs Vital Sign Reading Time Taken Comments Blood Pressure 92/56 07/22/2024 10:58 AM FORESTRY HUNTER Pulse 56 07/22/2024 10:58 AM FORESTRY HUNTER Temperature 36.9 C (98.5 F) 12/12/2023 10:23 AM CDT Respiratory Rate 12 12/12/2023 10:23 AM CDT Oxygen Saturation 97% 07/22/2024 10:58 AM FORESTRY HUNTER Inhaled Oxygen Concentration - - Weight 59.4 kg (131 lb) 07/22/2024 10:58 AM FORESTRY HUNTER Height 165.1 cm (5' 5 ) 07/22/2024 10:58 AM FORESTRY HUNTER Body Mass Index 21.8 07/22/2024 10:58 AM FORESTRY HUNTER Plan of Treatment Not on file Medical Devices Implanted Type Area Toll Bridge Operator Device Identifier Shelf Expiration Date Model / Serial / Lot Temporary Pacer Lead Lead Chest Description:Noted in LDAs 2020 On-X Intrnl [facility]-25-33 25-33mm 17.4mm Mechanical Conform-X Sewing Ring Hassan Valve - [id number] - [id number] Implanted:Qty: 1 on 05/14/2021 by Caleb Craft MD at [facility] N/A: Mitral Valve On-X Intrnl 04/13/2027 [facility]-25-33 / [id number] / Procedures Procedure Name Priority Date/Time Associated Diagnosis Comments POCT LIPID PANEL Routine 07/22/2024 10:5 2 AM FORESTRY HUNTER S/P MVR (mitral valve replacement) Other thrombophilia (HCC) HEPATITIS PANEL, ACUTE Routine 05/13/2021 8:38 AM FORESTRY HUNTER from Last 3 Months or Most Recently Relevant to Health Maintenance Results * POCT lipid panel (07/22/2024 10:52 AM FORESTRY HUNTER) Triglycerides, POC 80 mg/dL LDL Cholesterol POC 131 mg/dL Chol/HDL Ratio, POC 36 Non-HDL Cholesterol, POC 147 mg/dL Cholesterol Total, POC 183 mg/dL Capillary blood 07/22/2024 1 0:52 AM FORESTRY HUNTER Paige Solorzano MD POINT OF CARE TEST O RDERABLES Final Result * Hepatitis panel, acute (05/13/2021 8:38 AM FORESTRY HUNTER) Hep A IgM Nonreactive Nonreactive [facility] Comment: Interpretive Data: If Hep A IgM Ab is reported as Equivocal, a new sample should be drawn in two weeks for testing. Current interpretive data was last revised on 19. Hep B core IgM Nonreactive Nonreactive [facility] Comment: Interpretive Data If HepB Core IgM Ab is reported as Equivocal, a new sample should be drawn in two weeks for testing. Current interpretive data was last revised on 19. Hep C Ab Nonreactive Nonreactive [facility] Comment: Interpretive Data Nonreactive: Antibodies to HCV [...] last revised on 2019. HepBsAg Nonreactive Nonreactive [facility] Blood 05/13/2021 8:38 AM FORESTRY HUNTER 05/13/2021 10:10 AM FORESTRY HUNTER Freya Zayas MD LAB MICROBIOLOGY - GENERAL ORDERABLES Final Result [facility] [address] Department [place] [address] from Last 3 Months or Most Recently Relevant to Health Maintenance Insurance [facility] Advance Directives For more information, please contact: [phone] * Full Code (Latest Code Status on File) Date Activated Date Inactivated Comments 05/09/2021 3:32 PM 05/20/2021 7:48 PM Care Teams Linter Saw Sharpener Relationship Specialty Start Date End Date Tommy Rebolledo MD [address] [facility] [address] [place] [address] PCP - General Family Medicine 12/28/22 [place] [address] [address] [facility] [address] [place] [address] Surgeon Cardiothoracic Surgery 05/20/21 Luis Lorenzo MD [address] [facility] [address] [place] [id number] Consulting Physician Cardiology 05/20/21 [place] [address] [place] [address] Consulting Physician Internal Medicine 05/20/21
== END 2024-07-24 07:31 | disposition home or self-care (01) ==
PROVIDERS: PCP Family Medicine; Visit Provider Family Medicine
DX: R22.31 Localized swelling, mass and lump, right upper limb (principal)
CPT/HCPCS: 76882

== ENCOUNTER 2024-07-29 07:25 | Outpatient (RCR) | payer OTHER, SELFPAY ==
[2024-07-22 13:01] LABS: INR 1.6; Prothrombin Time 19.5 Seconds (11.1-14.7)
[2024-07-29 08:26] LABS: INR 2.8; Prothrombin Time 29.9 Seconds (11.1-14.7)
== END 2024-10-20 23:59 | disposition home or self-care (01) ==
LOC: ANHLAB 07:25
PROVIDERS: PCP Family Medicine; Visit Provider Internal Medicine Cardiovascular Disease
DX: Z51.81 Encounter for therapeutic drug level monitoring (principal); Z95.2 Presence of prosthetic heart valve; Z79.01 Long term (current) use of anticoagulants
CPT/HCPCS: 36415; 85610

== ENCOUNTER 2024-08-01 11:14 | Outpatient (CLI) | payer OTHER, SELFPAY ==
[2024-08-01 12:39] LABS: Basophils Absolute Auto 0.1 K/mm3 (0.0-0.1); Basophils Percent Auto 1.2 % (0.2-1.2); Eosinophils Absolute Auto 0.3 K/mm3 (0-0.3); Eosinophils Percent Auto 4.1 % (0-4.4); Hemoglobin 13.5 g/dL (12.0-15.0); Immature Granulocyte Absolute 0.02 K/mm3 (0.00-0.031); Immature Granulocyte Percent A 0.3 % (0-0.5); Lymphocytes Absolute Auto 1.71 K/mm3 (0.9-3.2); Lymphocytes Percent Auto 25.1 % (18.3-44.2); Mean Corpuscular HGB Conc 32.1 g/dl (32-36); Mean Corpuscular Hemoglobin 29.7 pg (26-34); Mean Corpuscular Volume 92.5 fl (80-100); Mean Platelet Volume 10.3 fl (7.4-10.4); Monocytes Absolute Auto 0.9 K/mm3 (0.1-0.6); Monocytes Percent Auto 12.9 % (2.6-8.5); Neutrophils Absolute Auto 3.9 K/mm3 (1.3-6.7); Neutrophils Percent Auto 56.4 % (45.5-73.1); Platelet Count Result 323 k/mm3 (150-375); Red Blood Count 4.54 M/mm3 (4.2-5.4); White Blood Count 6.8 K/mm3 (4.5-10.0)
--- OUTSIDE RECORDS SUMMARY | 2024-08-01 13:00 | XMS_ITS | Clinical Summary ---
Author Organization [facility] [address] Address [address] [place] [address] Care Team Providers Care Political Aide Name Role Phone Caleb Craft MD Unavailable [phone] Luis Lorenzo MD Unavailable Apolinar Jason MD Unavailable Tommy Rebolledo MD Primary Care Provider [phone] Allergies No known active allergies Medications acyclovir [...] dysfunction 09/09/2021 Chronic anticoagulation 09/09/2021 Atrial fibrillation 07/06/2021 Severe malnutrition 05/19/2021 S/P MVR (mitral [...] (05/10/2021): Added automatically from request for surgery [id number] Encounters Date Type Department Care Team Description 07/29/2024 Anticoagulation Visit [facility] [address] [place] [address] [address] [place], [place] [phone] Luanne Verduzco RN S/P MVR (mitral valve replacement) (Primary Dx) 07/24/2024 Telephone [facility] [address] [place] [address] [address] [place] [phone] Paige Solorzano MD 07/24/2024 Anticoagulation Visit [facility] [address] [place] [address] [address] [place] [phone] Luanne Verduzco RN S/P MVR (mitral valve replacement) (Primary Dx) 07/22/2024 10:45 AM DISPATCH SUPERVISOR Office Visit [facility] [address] [place] [address] [address] [place] [phone] Paige Solorzano MD S/P MVR (mitral valve replacement) (Primary Dx); Other thrombophilia; Paroxysmal atrial fibrillation (HCC) from Last 3 Months Surgical History [...] often do you attend chur ch or mosque services? Never 05/13/2021 Do you belong to any clubs o r organizations such as moravian groups, unions, fraternal or athletic groups, or [...] place to sleep or slept in a fci (including now)? No 05/13/2021 Comments Unknown Sex and Gender Information Value Date Recorded Sex Assigned at Not on file Legal Sex Female 3:09 AM DISPATCH SUPERVISOR Gender Identity Not on file Sexual Orientation Not on file Obstetrics History Last Filed Vital Signs Vital Sign Reading Time Taken Comments Blood Pressure 92/56 07/22/2024 10:58 AM DISPATCH SUPERVISOR Pulse 56 07/22/2024 10:58 AM DISPATCH SUPERVISOR Temperature 36.9 C (98.5 F) 12/12/2023 10:23 AM CDT Respiratory Rate 12 12/12/2023 10:23 AM CDT Oxygen Saturation 97% 07/22/2024 10:58 AM DISPATCH SUPERVISOR Inhaled Oxygen Concentration - - Weight 59.4 kg (131 lb) 07/22/2024 10:58 AM DISPATCH SUPERVISOR Height 165.1 cm (5' 5 ) 07/22/2024 10:58 AM DISPATCH SUPERVISOR Body Mass Index 21.8 07/22/2024 10:58 AM DISPATCH SUPERVISOR Plan of Treatment Health Maintenance Due Date [...] this topic Medical Devices Implanted Type Area Private Secretary Device Identifier Shelf Expiration Date Model / Serial / Lot Temporary Pacer Lead Lead Chest Description:Noted in LDAs 2020 On-X Intrnl [facility]-25-33 25-33mm 17.4mm Mechanical Conform-X Sewing Ring Hassan Valve - [id number] - [id number] Implanted:Qty: 1 on 05/14/2021 by Caleb Craft MD at [facility] N/A: Mitral Valve On-X Intrnl 04/13/2027 [facility]-25-33 / [id number] / Procedures Procedure Name Priority Date/Time Associated Diagnosis Comments PROTIME-INR Routine 07/29/2024 POCT LIPID PANEL Routine 07/22/2024 10:5 2 AM DISPATCH SUPERVISOR S/P MVR (mitral valve replacement) Other thrombophilia PROTIME-INR Routine 07/22/2024 HEPATITIS PANEL, ACUTE Routine 05/13/2021 8:38 AM DISPATCH SUPERVISOR from Last 3 Months or Most Recently Relevant to Health Maintenance Results * (ABNORMAL) Protime-INR (07/29/2024) Pathologist [facility] INR 2.80(A) 0.90 - 1.10 [facility] Blood Historical Provider LAB BLOOD ORDERABLES Cecelia l Result Performing Organization Address [facility] Co de Phone Number [facility] * POCT lipid panel (07/22/2024 10:52 AM DISPATCH SUPERVISOR) Pathologist [facility] Triglycerides, POC 80 mg/dL LDL Cholesterol POC 131 mg/dL Chol/HDL Ratio, POC 36 Non-HDL Cholesterol, POC 147 mg/dL Cholesterol Total, POC 183 mg/dL Capillary blood 07/22/2024 1 0:52 AM DISPATCH SUPERVISOR Paige Solorzano MD POINT OF CARE TEST O RDERABLES Final Result * (ABNORMAL) Protime-INR (07/22/2024) Pathologist [facility] INR 1.60(A) 0.90 - 1.10 EXTERNAL LAB Blood Historical Provider LAB BLOOD ORDERABLES Cecelia l Result EXTERNAL LAB * Hepatitis panel, acute (05/13/2021 8:38 AM DISPATCH SUPERVISOR) Pathologist [facility] Hep A IgM Nonreactive Nonreactive [facility] Comment: Interpretive Data: If Hep A IgM Ab is reported as Equivocal, a new sample should be drawn in two weeks for testing. Current interpretive data was last revised on 19. Hep B core IgM Nonreactive Nonreactive [facility] Comment: Interpretive Data If HepB Core IgM Ab is reported as Equivocal, a new sample should be drawn in two weeks for testing. Current interpretive data was last revised on 19. Hep C Ab Nonreactive Nonreactive [facility] Comment: Interpretive Data Nonreactive: Antibodies to HCV [...] last revised on 2019. HepBsAg Nonreactive Nonreactive [facility] Blood 05/13/2021 8:38 AM DISPATCH SUPERVISOR 05/13/2021 10:10 AM DISPATCH SUPERVISOR Freya Zayas MD LAB MICROBIOLOGY - GENERAL ORDERABLES Final Result [facility] [address] [address] Department [place] [address] from Last 3 Months or Most Recently Relevant to Health Maintenance [place] [place] [address] [facility] Advance Directives For more information, please contact: [phone] * Full Code (Latest Code Status on File) Date Activated Date Inactivated Comments 05/09/2021 3:32 PM 05/20/2021 7:48 PM Care Teams Political Aide Relationship Specialty Start Date End Date Tommy Rebolledo MD [facility] [address] [address] PCP - General Family Medicine 12/28/22 [place] [address] [address] [address] Surgeon Cardiothoracic Surgery 05/20/21 Luis Lorenzo MD [address] [facility] [address] [place] [address] Consulting Physician Cardiology 05/20/21 [place] [address] [place] [address] Consulting Physician Internal Medicine 05/20/21
--- OUTSIDE RECORDS SUMMARY | 2024-08-01 13:00 | XMS_ITS | Encounter Summary ---
Author Organization [facility] Healthcare Address [address] [place] [address] Care Team Providers Care Farm Manager Name Role Phone Caleb Craft MD Unavailable [phone] Luis Lorenzo MD Unavailable [phone] Apolinar Jason MD Unavailable [phone] Tommy Rebolledo MD Primary Care Provider [phone] Encounter Details Date Type Department Care Team (Late st Contact Info) Description 12/01/2023 Orders Only [facility] Health Information Management [address] [place] [address] Scanning, Provider Social History Tobacco [...] any clubs o r organizations such as confucianism groups, unions, fraternal or athletic groups, or [...] place to sleep or slept in a long term (including now)? No 05/13/2021 Comments Unknown Sex and Gender Information Value Date Recorded Sex Assigned at Not on file Legal Sex Female 3:09 AM FINANCE ANALYST Gender Identity Not on file Sexual Orientation [...] on filedocumented in this encounter Care Teams Farm Manager Relationship Specialty Start Date End Date Tommy Rebolledo MD [address] [place] [address] [address] [place] [address] PCP - General Family Medicine 12/28/22 [place] [address] [address] [place] [address] Surgeon Cardiothoracic Surgery 05/20/21 Luis Lorenzo MD [address] [facility] [address] [place] [address] Consulting Physician Cardiology 05/20/21 [place] [address] [place], [place] [id number] Consulting Physician Internal Medicine 05/20/21 documented as of this encounter
--- OUTSIDE RECORDS SUMMARY | 2024-08-01 13:00 | XMS_ITS | Encounter Summary ---
Author Organization [facility] Healthcare Address [address] [place] [address] Care Team Providers Care Ranger Aide Name Role Phone Caleb Craft MD Unavailable [phone] Luis Lorenzo MD Unavailable Apolinar Jason MD Unavailable [phone] Tommy Rebolledo MD Primary Care Provider [phone] Encounter Details Date Type Department Care Team (Late st Contact Info) Description 09/06/2023 Orders Only [facility] Health Information Management [address] [place] [address] Scanning, Provider Social History Tobacco [...] often do you attend chur ch or yazdanism services? Never 05/13/2021 Do you belong to any clubs o r organizations such as yarsani groups, unions, fraternal or athletic groups, or [...] on file Legal Sex Female 3:09 AM FURNACE FIRER Gender Identity Not on file Sexual Orientation [...] on filedocumented in this encounter Care Teams Ranger Aide Relationship Specialty Start Date End Date Tommy Rebolledo MD [address] [place] [address] [address] [place] [address] PCP - General Family Medicine 12/28/22 [place] [address] [address] [place] [address] Surgeon Cardiothoracic Surgery 05/20/21 Luis Lorenzo MD [address] [facility] [address] [place] [address] Consulting Physician Cardiology 05/20/21 [place] [address] [place], [place] [id number] Consulting Physician Internal Medicine 05/20/21 documented as of this encounter
--- OUTSIDE RECORDS SUMMARY | 2024-08-01 13:00 | XMS_ITS | Encounter Summary ---
Author Organization [facility] Address [address] [place] [address] Care Team Providers Care Life Insurance Actuary Name Role Phone Chris Hilliard MD Primary Care Provider [phone] Encounter Details Date Type Department Care Team (Late st Contact Info) Description 03/31/2021 Prep for Procedure [facility] One Day [facility] [place], [place] [address] Claudio Rocha MD [address] [id number] Social History Tobacco Use Types Packs/Day Years [...] * CORONAVIRUS (COVID 19) (04/05/2021 9:21 AM ASSET PROTECTION AGENT) SPEC DESCRIPTION NASAL 04/05/20 9:[address] [facility] CORONAVIRUS SARS COV 2 PCR (RESP) NEGATIVE NEGATIVE 04/05/2021 7:57 PM [facility] Comment: THE SARS-CoV-2 TEST HAS BEEN AUTHORIZED BY THE FDA UNDER AN EUA FOR USE BY AUTHORIZED LABORATORIES. PERFORMED BY NUCLEIC ACID AMPLIFICATION PCR FIRST TEST UNKNOWN 04/05/2021 9:21 AM [facility] EMPLOYED IN HEALTHCARE UNKNOWN 04/05/2021 9:[address]ENT [facility] SYMPTOMATIC DEFINED BY CDC UNKNOWN 04/05/2021 9:[address]OTECTION AGENT [facility] HOSPITALIZATION STATUS NO 04/05/2021 9:[address]OTECTION AGENT [facility] PATIENT IN ICU NO 04/05/2021 9:[address]OTECTION AGENT [facility] RESIDENT OF [facility] UNKNOWN 04/05/2021 9:21 [address] PROTECTION AGENT [facility] NASAL STRUCTURE / Unknown 04/05/2021 9:21 AM ASSET PROTECTION AGENT Claudio Rocha MD MICROBIOLOGY - GENERAL ELSA MEDINA Final Result [facility] [address] [place] [address], [facility] [address] [place] [address], documented in this encounter Visit Diagnoses Diagnosis Family history of colon cancer- Primary Family history of malignant neoplasm of gastrointestinal tract documented in this encounter Additional Health Concerns Infection Onset Date Last Indicated Resolved Time COVID-19 Rule Out 04/05/2021 04/05/2021 04/05/2021 7:57 PM ASSET PROTECTION AGENT documented as of this encounter Care Teams Life Insurance Actuary Relationship Specialty Start Date End Date Chris Hilliard MD [address] [place] [address] PCP - General FAMILY PRACTICE 04/08/21 documented as of this encounter
--- OUTSIDE RECORDS SUMMARY | 2024-08-01 13:00 | XMS_ITS | Encounter Summary ---
Author Organization [facility] Healthcare Address [address] [place] [address] Care Team Providers Care Paddle Dyeing Machine Operator Name Role Phone Caleb Craft MD Unavailable [phone] Luis Lorenzo MD Unavailable [phone] Apolinar Jason MD Unavailable [phone] Tommy Rebolledo MD Primary Care Provider [phone] Encounter Details Date Type Department Care Team (Late st Contact Info) Description 09/13/2023 Orders Only [facility] Health Information Management [address] [place] [address] Scanning, Provider Social History Tobacco Use [...] often do you attend chur ch or religion services? Never 05/13/2021 Do you belong to any clubs o r organizations such as jain groups, unions, fraternal or athletic groups, or [...] place to sleep or slept in a alf (including now)? No 05/13/2021 Comments Unknown Sex and Gender Information Value Date Recorded Sex Assigned at Not on file Legal Sex Female 3:09 AM ELECTRICAL EQUIPMENT TECHNICIAN Gender Identity Not on file Sexual Orientation [...] on filedocumented in this encounter Care Teams Paddle Dyeing Machine Operator Relationship Specialty Start Date End Date Tommy Rebolledo MD [address] [place] [address] [address] [place] [address] PCP - General Family Medicine 12/28/22 [place] [address] [address] [place] [address] Surgeon Cardiothoracic Surgery 05/20/21 Luis Lorenzo MD [address] [facility] [address] [place] [address] Consulting Physician Cardiology 05/20/21 [place] [address] [place], [place] [id number] Consulting Physician Internal Medicine 05/20/21 documented as of this encounter
--- OUTSIDE RECORDS SUMMARY | 2024-08-01 13:00 | XMS_ITS | Encounter Summary ---
Author Organization [facility] Healthcare Address [address] [place] [address] Care Team Providers Care Physical Therapy Assistant Name Role Phone Caleb Craft MD Unavailable [phone] Luis Lorenzo MD Unavailable Apolinar Jason MD Unavailable [phone] Tommy Rebolledo MD Primary Care Provider [phone] Encounter Details Date Type Department Care Team (Late st Contact Info) Description 09/25/2023 Orders Only [facility] Health Information Management [address] [place] [address] Scanning, Provider Social History Tobacco [...] often do you attend chur ch or samaritan services? Never 05/13/2021 Do you belong to any clubs o r organizations such as hoahaoism groups, unions, fraternal or athletic groups, or [...] place to sleep or slept in a fpc (including now)? No 05/13/2021 Comments Unknown Sex and Gender Information Value Date Recorded Sex Assigned at Not on file Legal Sex Female 3:09 AM CARPENTER HELPER Gender Identity Not on file Sexual Orientation [...] on filedocumented in this encounter Care Teams Physical Therapy Assistant Relationship Specialty Start Date End Date Tommy Rebolledo MD [address] [place] [address] [address] [place] [address] PCP - General Family Medicine 12/28/22 [place] [address] [address] [place] [address] Surgeon Cardiothoracic Surgery 05/20/21 Luis Lorenzo MD [address] [facility] [address] [place] [address] Consulting Physician Cardiology 05/20/21 [place] [address] [place], [place] [id number] Consulting Physician Internal Medicine 05/20/21 documented as of this encounter
--- OUTSIDE RECORDS SUMMARY | 2024-08-01 13:00 | XMS_ITS | CONTINUITY OF CARE DOCUMENT ---
Author Name aristidesraya wen Address Unknown Organization [facility] Address [address] [place] [address] [address] [place] [address] Phone [phone] Care Team Providers Care Optical Sales Associate Name Role Phone wen carver Unavailable Unavailable [...] Payer name Policy type / Coverage type [place] red democrat ID [employer] OPEN ACCESS Other [id number]
--- OUTSIDE RECORDS SUMMARY | 2024-08-01 13:00 | XMS_ITS | Referral Summary ---
Author Organization [place] [address] Address [address] [place] [address] Care Team Providers Care Peeled Potato Inspector Name Role Phone Caleb Craft MD Unavailable Luis Lorenzo MD Unavailable Apolinar Jason MD Unavailable Tommy Rebolledo MD Primary Care Provider [phone] Encounters Date Type Department Care Team Description 07/29/2024 Anticoagulation Visit [facility] Cardiology [address] [place] [address] [place] [phone] Luanne Verduzco RN S/P MVR (mitral valve replacement) (Primary Dx) 07/24/2024 Telephone [facility]iology [address] [place] [address] [address] [place] [address] Paige Solorzano MD 07/24/2024 Anticoagulation Visit [facility] [address] [place] [address] [address] [place] [address] Luanne Verduzco RN S/P MVR (mitral valve replacement) (Primary Dx) 07/22/2024 10:45 AM FIELD PIPELINES SUPERVISOR Office Visit [facility] Cardiology [address] [place] [address] [address] [place] [address] Paige Solorzano MD S/P MVR (mitral valve replacement) (Primary Dx); Other thrombophilia; Paroxysmal atrial fibrillation (HCC) from Last 3 Months Allergies No [...] (05/10/2021): Added automatically from request for surgery [id number] Social History Tobacco Use Types Packs/Day Years Used Date Smoking Tobacco: Former Cigarettes Q uit: 1983 Smokeless Tobacco: Never Social Connection and Isolat [...] often do you attend chur ch or druze services? Never 05/13/2021 Do you belong to any clubs o r organizations such as rastafari groups, unions, fraternal or athletic groups, or [...] place to sleep or slept in a senior care (including now)? No 05/13/2021 Comments Unknown Sex and Gender Information Value Date Recorded Sex Assigned at Not on file Legal Sex Female 3:09 AM FIELD PIPELINES SUPERVISOR Gender Identity Not on file Sexual Orientation Not on file Last Filed Vital Signs Vital Sign Reading Time Taken Comments Blood Pressure 92/56 07/22/2024 10:58 AM FIELD PIPELINES SUPERVISOR Pulse 56 07/22/2024 10:58 AM FIELD PIPELINES SUPERVISOR Temperature 36.9 C (98.5 F) 12/12/2023 10:23 AM CDT Respiratory Rate 12 12/12/2023 10:23 AM CDT Oxygen Saturation 97% 07/22/2024 10:58 AM FIELD PIPELINES SUPERVISOR Inhaled Oxygen Concentration - - Weight 59.4 kg (131 lb) 07/22/2024 10:58 AM FIELD PIPELINES SUPERVISOR Height 165.1 cm (5' 5 ) 07/22/2024 10:58 AM FIELD PIPELINES SUPERVISOR Body Mass Index 21.8 07/22/2024 10:58 AM FIELD PIPELINES SUPERVISOR Plan of Treatment Not on file Medical Devices Implanted Type Area Digital Forensic Analyst Device Identifier Shelf Expiration Date Model / Serial / Lot Temporary Pacer Lead Lead Chest Description:Noted in LDAs 2020 On-X Intrnl [facility]-25-33 25-33mm 17.4mm Mechanical Conform-X Sewing Ring Hassan Valve - [id number] - [id number] Implanted:Qty: 1 on 05/14/2021 by Caleb Craft MD at [facility] N/A: Mitral Valve On-X Intrnl 04/13/2027 [facility]-25-33 / [id number] / Procedures Procedure Name Priority Date/Time Associated Diagnosis Comments PROTIME-INR Routine 07/29/2024 POCT LIPID PANEL Routine 07/22/2024 10:5 2 AM FIELD PIPELINES SUPERVISOR S/P MVR (mitral valve replacement) Other thrombophilia PROTIME-INR Routine 07/22/2024 HEPATITIS PANEL, ACUTE Routine 05/13/2021 8:38 AM FIELD PIPELINES SUPERVISOR from Last 3 Months or Most Recently Relevant to Health Maintenance Results * (ABNORMAL) Protime-INR (07/29/2024) INR 2.80(A) 0.90 - 1.10 [facility] Blood Historical Provider MD LAB BLOOD ORDERABLES Cecelia l Result [facility] * POCT lipid panel (07/22/2024 10:52 AM FIELD PIPELINES SUPERVISOR) Pathologist [facility] Triglycerides, POC 80 mg/dL LDL Cholesterol POC 131 mg/dL Chol/HDL Ratio, POC 36 Non-HDL Cholesterol, POC 147 mg/dL Cholesterol Total, POC 183 mg/dL Capillary blood 07/22/2024 1 0:52 AM FIELD PIPELINES SUPERVISOR Paige Solorzano MD POINT OF CARE TEST O RDERABLES Final Result * (ABNORMAL) Protime-INR (07/22/2024) [facility] INR 1.60(A) 0.90 - 1.10 EXTERNAL LAB Blood [facility] Provider LAB BLOOD ORDERABLES Cecelia l Result Performing Organization Address [facility] Co de Phone Number EXTERNAL LAB * Hepatitis panel, acute (05/13/2021 8:38 AM FIELD PIPELINES SUPERVISOR) [facility] Hep A IgM Nonreactive Nonreactive [facility] Comment: Interpretive Data: If Hep A IgM Ab is reported as Equivocal, a new sample should be drawn in two weeks for testing. Current interpretive data was last revised on 19. Hep B core IgM Nonreactive Nonreactive [facility] Comment: Interpretive Data If HepB Core IgM Ab is reported as Equivocal, a new sample should be drawn in two weeks for testing. Current interpretive data was last revised on 19. Hep C Ab Nonreactive Nonreactive [facility] Comment: Interpretive Data Nonreactive: Antibodies to [...] last revised on 2019. HepBsAg Nonreactive Nonreactive [facility] Blood 05/13/2021 8:38 AM FIELD PIPELINES SUPERVISOR 05/13/2021 10:10 AM FIELD PIPELINES SUPERVISOR Freya Zayas MD LAB MICROBIOLOGY - GENERAL ORDERABLES Final Result [facility] [address] [address] [place] [address] from Last 3 Months or Most Recently Relevant to Health Maintenance [place] [address] [facility] Advance Directives For more information, please contact: [phone] * Full Code (Latest Code Status on File) Date Activated Date Inactivated Comments 05/09/2021 3:32 PM 05/20/2021 7:48 PM Care Teams Peeled Potato Inspector Relationship Specialty Start Date End Date Tommy Rebolledo MD [address] [facility] [place] [address] PCP - General Family Medicine 12/28/22 [place] [address] [address] [place] [address] Surgeon Cardiothoracic Surgery 05/20/21 Luis Lorenzo MD [address] [place] [address] Consulting Physician Cardiology 05/20/21 [place] [address] [place] [address] Consulting Physician Internal Medicine 05/20/21
--- OUTSIDE RECORDS SUMMARY | 2024-08-01 13:00 | XMS_ITS | Clinical Summary ---
Author Organization [facility] Address [address] [place] [address] Care Team Providers Care Safety Investigator Name Role Phone Chris Hilliard MD Primary Care Provider [phone] Allergies No known active allergies Medications metoprolol [...] Comments Blood Pressure 111/88 04/08/2021 8:36 AM SPACE SCIENCES DIRECTOR Pulse 112 04/08/2021 8:36 AM SPACE SCIENCES DIRECTOR Temperature 36.8 C (98.2 F) 04/08/2021 8:36 AM SPACE SCIENCES DIRECTOR Respiratory Rate 12 04/08/2021 8:36 AM SPACE SCIENCES DIRECTOR Oxygen Saturation 97% 04/08/2021 8:36 AM SPACE SCIENCES DIRECTOR Inhaled Oxygen Concentration - - Weight 49.9 [...] Diagnosis Comments COLONOSCOPY Routine 04/08/2021 8:33 AM SPACE SCIENCES DIRECTOR from Last 3 Months or Most Recently Relevant to Health [place] [address] [facility] Care Teams Safety Investigator Relationship Specialty Start Date End Date Chris Hilliard MD [address] [place] [address] PCP - General FAMILY PRACTICE 04/08/21
--- OUTSIDE RECORDS SUMMARY | 2024-08-01 13:00 | XMS_ITS | Encounter Summary ---
Author Organization [facility] Healthcare Address [address] [place] [address] Care Team Providers Care Psychiatric Aides Teacher Name Role Phone Caleb Craft MD Unavailable [phone] Luis Lorenzo MD Unavailable Apolinar Jason MD Unavailable [phone] Tommy Rebolledo MD Primary Care Provider [phone] Encounter Details Date Type Department Care Team (Late st Contact Info) Description 07/31/2023 Orders Only [facility] Health Information Management [address] [place] [address] [...] often do you attend chur ch or zoroastrianism services? Never 05/13/2021 Do you belong to [...] place to sleep or slept in a residential (including now)? No 05/13/2021 Comments Unknown Sex and Gender Information Value Date Recorded Sex Assigned at Not on file Legal Sex Female 3:[address] JUSTICE Gender Identity Not on file Sexual Orientation [...] on filedocumented in this encounter Care Teams Psychiatric Aides Teacher Relationship Specialty Start Date End Date Tommy Rebolledo MD [address] [place] [address] [address] [place] [address] PCP - General Family Medicine 12/28/22 [place] [address] [address] [place] [address] Surgeon Cardiothoracic Surgery 05/20/21 Luis Lorenzo MD [address] [facility] [address] [place] [address] Consulting Physician Cardiology 05/20/21 [place] [address] [place], [place] [id number] Consulting Physician Internal Medicine 05/20/21 documented as of this encounter
[2024-08-01 13:51] LABS: Alanine Aminotransferase 26 U/L (6-35); Albumin Level 4.4 g/dL (3.5-5.1); Alkaline Phosphatase 62 U/L (38-126); Anion Gap 6 mmol/L (4-12); Aspartate Amino Transferase 51 U/L (14-36); Bilirubin,Total 0.7 mg/dL (0.2-1.3); Blood Urea Nitrogen 10 mg/dL (7-17); Calcium 9.2 mg/dL (8.4-10.2); Carbon Dioxide 33 mmol/L (22-30); Chloride 101 mmol/L (98-107); Cholesterol 171 mg/dL (0-200); Estimated Glomerular Filt Rate > 60; Glucose 87 mg/dL (65-110); HDL Direct 41 mg/dL; Potassium 4.1 mmol/L (3.4-5.0); Sodium 140 mmol/L (137-145); Triglycerides 107 mg/dL (<150)
[2024-08-01 14:02] LABS: LDL Cholesterol Direct 95 mg/dL
[2024-08-01 14:13] LABS: Hemoglobin A1C 5.6 % (<5.7)
== END 2024-08-01 11:15 | disposition home or self-care (01) ==
LOC: ANHGOSHLAB 11:15
PROVIDERS: PCP Family Medicine; Visit Provider Family Medicine
DX: E78.5 Hyperlipidemia, unspecified (principal)
CPT/HCPCS: 36415; 80053; 80061; 83036; 84443; 85025

== ENCOUNTER 2024-11-11 01:10 | Day surgery (SDC) | payer OTHER, SELFPAY ==
[2024-10-29 12:04] VITALS: BMI 18.8
--- NOTE | 2024-10-29 12:41 | PC.NURSE ---
Interviewed pt for upcoming colonoscopy on 11/06/24. Pt very forgetful and admitted to having short term memory loss since having sepsis in 2020. Very poor historian. Pt on warfarin, prescribed by Dr. Tommy Rebolledo. Pt sees Dr. Solorzano for cardiology. Clearance fax sent to Dr. Solorzano. Pt informed to continue taking warfarin until clearance is received and to expect a call later this week from PAT nurse with instructions on when to stop it. Pt stated understanding. Pt h/o MV replacement. Antibiotics ordered for day of procedure. Pt does not have prep instructions and requested they be mailed to her. Instructions mailed.
--- NOTE | 2024-11-01 16:00 | PC.NURSE ---
Spoke with Dr. Solorzano's nurse Sofía and she is calling pt to instruct her to bridge her warfarin with lovenox for procedure. She will send a prescription to the patients pharmacy.
--- NOTE | 2024-11-04 10:59 | SUR.PREOP ---
Spoke with patient on the phone in regards to bridging the medication lovenox in place of her warfarin for her Colonoscopy. Patient stated her pharmacy had been unable to fill the prescription for her to start the lovenox in time. Patient's procedure date was changed to 11/11/2024 at 1030 so the warfarin and the lovenox could be stopped and started . New date and time verified with the patient as well as the new date of her last dose for her warfarin,11/05/24, and when to begin the lovenox (11/06/24).
--- OUTSIDE RECORDS SUMMARY | 2024-11-11 01:13 | XMS_ITS | Encounter Summary ---
Author Organization [facility] Address [address] [place] [address] Care Team Providers Care Sr Solutions Consultant Name Role Phone Chris Hilliard MD Primary Care Provider [phone] Encounter Details Date Type Department Care Team (Late st Contact Info) Description 03/31/2021 Prep for Procedure [facility] [place], [place] [address] Claudio Rocha MD [address] [id number] Social History Tobacco Use Types Packs/Day Years [...] * CORONAVIRUS (COVID 19) (04/05/2021 9:21 AM SHIPPING TRACK SUPERVISOR) SPEC DESCRIPTION NASAL 04/05/20 9:21 AM SHIPPING TRACK SUPERVISOR [facility] CORONAVIRUS SARS COV 2 PCR (RESP) NEGATIVE NEGATIVE 04/05/2021 7:57 PM [facility] Comment: THE SARS-CoV-2 TEST HAS BEEN AUTHORIZED BY THE FDA UNDER AN EUA FOR USE BY AUTHORIZED LABORATORIES. PERFORMED BY NUCLEIC ACID AMPLIFICATION PCR FIRST TEST UNKNOWN 04/05/2021 9:21 AM [facility] EMPLOYED IN HEALTHCARE UNKNOWN 04/05/2021 9:21 AM SHIPPING TRACK SUPERVISOR [facility] SYMPTOMATIC DEFINED BY CDC UNKNOWN 04/05/2021 9:21 AM SHIPPING TRACK SUPERVISOR [facility] HOSPITALIZATION STATUS NO 04/05/2021 9:21 AM SHIPPING TRACK SUPERVISOR [facility] PATIENT IN ICU NO 04/05/2021 9:21 AM SHIPPING TRACK SUPERVISOR [facility] RESIDENT OF [facility] UNKNOWN 04/05/2021 9:21 AM SHIPPING TRACK SUPERVISOR [facility] NASAL STRUCTURE / Unknown 04/05/2021 9:21 AM SHIPPING TRACK SUPERVISOR Claudio Rocha MD MICROBIOLOGY - GENERAL ELSA MEDINA Final Result [facility] [address] [place] [address], [facility] [address] [place] [address], documented in this encounter Visit Diagnoses Diagnosis Family history of colon cancer- Primary Family history of malignant neoplasm of gastrointestinal tract documented in this encounter Additional Health Concerns Infection Onset Date Last Indicated Resolved Time COVID-19 Rule Out 04/05/2021 04/05/2021 04/05/2021 7:57 PM SHIPPING TRACK SUPERVISOR documented as of this encounter Care Teams Sr Solutions Consultant Relationship Specialty Start Date End Date Chris Hilliard MD [address] [place] [address] PCP - General FAMILY PRACTICE 04/08/21 documented as of this encounter
--- OUTSIDE RECORDS SUMMARY | 2024-11-11 01:13 | XMS_ITS | Encounter Summary ---
Author Organization [facility] Healthcare Address [address] [place] [address] Care Team Providers Care Maintenance And Custodian Supervisor Name Role Phone Caleb Craft MD Unavailable [phone] Luis Lorenzo MD Unavailable Apolinar Jason MD Unavailable Tommy Rebolledo MD Primary Care Provider [phone] Encounter Details Date Type Department Care Team (Late st Contact Info) Description 12/01/2023 Orders Only [facility] Health Information Management [address] [place] [address] Scanning, Provider Social History Tobacco [...] any clubs o r organizations such as gnosticism groups, unions, fraternal or athletic groups, or [...] on file Legal Sex Female 3:09 AM LOAN ASSISTANT Gender Identity Not on file Sexual [...] on filedocumented in this encounter Care Teams Maintenance And Custodian Supervisor Relationship Specialty Start Date End Date Tommy Rebolledo MD [address] [place] [address] [address] [place] [address] PCP - General Family Medicine 12/28/22 Caleb Craft MD Surgeon Cardiothoracic Surgery 05/20/21 Luis Lorenzo MD [address], [address] [id number] Consulting Physician Cardiology 05/20/21 [place] [address] [address] [address] Consulting Physician Internal Medicine 05/20/21 documented as of this encounter
--- OUTSIDE RECORDS SUMMARY | 2024-11-11 01:13 | XMS_ITS | Clinical Summary ---
Author Organization [facility] Address [address] [place] [address] Care Team Providers Care Criminal Court Judge Name Role Phone Chris Hilliard MD Primary Care Provider [phone] Allergies No known active allergies Medications metoprolol [...] Comments Blood Pressure 111/88 04/08/2021 8:36 AM CLOTH PIECER Pulse 112 04/08/2021 8:36 AM CLOTH PIECER Temperature 36.8 C (98.2 F) 04/08/2021 8:36 AM CLOTH PIECER Respiratory Rate 12 04/08/2021 8:36 AM CLOTH PIECER Oxygen Saturation 97% 04/08/2021 8:36 AM CLOTH PIECER Inhaled Oxygen Concentration - - Weight 49.9 kg (110 lb) 04/02/2021 1:17 PM CDT Height 165.1 cm (5' 5) 04/02/2021 1:17 PM CDT Body Mass Index 18.3 04/02/2021 1:17 PM CDT Plan of Treatment Health Maintenance Due Date Last Done Comments Annual Physical 1965 Hepatitis C 1980 DTaP, Tdap and Td Vaccines ( 1 - Tdap) 1981 Mammogram Screening 2002 Pneumococcal Vaccine: 50+ Ye ars (1 of 1 - PCV) 2012 Zoster Vaccines (1 of 2) 2012 COVID-19 Vaccine (1 - 2023-2 5 season) 2024 Colorectal Cancer Screening Colonoscopy (10 Years) [...] Diagnosis Comments COLONOSCOPY Routine 04/08/2021 8:33 AM CLOTH PIECER from Last 3 Months or Most Recently Relevant to [place] [address] [facility] Care Teams Criminal Court Judge Relationship Specialty Start Date End Date Chris Hilliard MD [address] [place] [address] PCP - General FAMILY PRACTICE 04/08/21
--- OUTSIDE RECORDS SUMMARY | 2024-11-11 01:13 | XMS_ITS | CONTINUITY OF CARE DOCUMENT ---
Author Name aristidesraya wen Address Unknown Organization [facility] Address [address] [place] [address] [address] [place] [address] Phone [phone] Care Team Providers Care Hydraulic Elevator Constructor Name Role Phone wen carver Unavailable Unavailable [...] Payer name Policy type / Coverage type [place] red democrat ID Loll[employer] OPEN ACCESS Other [id number]
--- OUTSIDE RECORDS SUMMARY | 2024-11-11 01:13 | XMS_ITS | Clinical Summary ---
Author Organization [facility] [address] Address [address] [place] [address] Care Team Providers Care Aerial Gunner Name Role Phone Caleb Craft MD Unavailable Luis Lorenzo MD Unavailable Apolinar Jason MD Unavailable Tommy Rebolledo MD Primary Care Provider [phone] Allergies No known active allergies Medications acyclovir (ZOVIRAX) 400 mg tablet 2 Active atorvastatin (LIPITOR) 20 mg tablet Take 1 tablet (20 mg total) by mouth daily 1 Active aspirin 81 mg enteric coated tablet TAKE 1 TABLET BY MOUTH DAILY 30 tablet 1 2 Active metoprolol XL (TOPROL-XL) 50 mg extended release tablet Take 2 tablets (100 mg total) by mouth daily 3 Active sertraline (ZOLOFT) 50 mg tablet Take 1 tablet (50 mg total) by mouth daily Active warfarin (COUMADIN) 2 mg tablet TAKE 1 TABLET BY MOUTH DAILY OR DIRECTED 30 tablet 4 Active memantine (NAMENDA) 10 mg tablet TAKE 1 TABLET BY MOUTH TWICE DAILY 60 tablet 5 5 Active enoxaparin (Lovenox) 60 mg/0.6 mL syringe Inject 0.6 mL (60 mg total) under the skin every 12 (twelve) hours for 7 days 8.4 mL 5 11/09/19 25 Active Problems Problem Noted Date Diagnosed Date [...] (05/10/2021): Added automatically from request for surgery [id number] Encounters Date Type Department Care Team Description 11/06/2024 Telephone [facility] Cardiology [address] [place] [address] Paige Solorzano MD 11/01/2024 Telephone [facility] Cardiology [address] [place] [address] Paige Solorzano MD 09/17/2024 10:30 AM CDT [facility] [address] [place] [address] Outpatient Health 4th Floor [address] [place] [address] Manuel Vega MD Alzheimer's disease (HCC) (Primary Dx); Cerebral amyloid angiopathy (HCC) from Last 3 Months Surgical History [...] 05/13/2021 How often do you attend chur or episcopal services? Never 05/13/2021 Do you belong to any clubs o r organizations such as episcopal groups, unions, fraternal or athletic groups, or school groups? No 05/13/2021 Attends Club or Organization Meetings Not on elvis e 05/13/2021 Are you , , di vorced, , never , or living with a partner? 05/13/2021 AUDIT-C Answer Date Recorded Q1: How often do you have a drink containing alcohol? Never 09/17/2024 Q2: How many drinks containi ng alcohol do you have on a typical day when you are drinking? Patient does not drink Q3: How often do you have si x or more drinks on one occasion? Never 09/17/2024 Overall Financial Resource Strain (CARDIA) Answe r Date Recorded How hard is it for you to pa y for the very basics like food, housing, medical care, and heating? Somewhat hard 05/13/2021 Hunger Vital Sign Answer Date Recorded Within the past 12 months, y ou worried that your food would run out before you got the money to buy more. Never true 09/18/19 25 Within the past 12 months, t he food you bought just didn't last and you didn't have money to get more. Never true 09/17/2024 PRAPARE - Transportation Answer Date Re corded [...] on file Legal Sex Female 3:09 AM SWATCH FOLDER Gender Identity Not on file Sexual Orientation Not on file Obstetrics History Last Filed Vital Signs Vital Sign Reading Time Taken Comments Blood Pressure 101/73 09/17/2024 10:10 AM CDT Pulse 51 09/17/2024 10:10 AM CDT Temperature 36.7 C (98.1 F) 09/17/2024 10:10 AM CDT Respiratory Rate 16 09/17/2024 10:10 AM CDT Oxygen Saturation 98% 09/17/2024 10:10 AM CDT Inhaled Oxygen Concentration - - Weight 60.1 kg (132 lb 9.6 oz) 09/17/2024 10:10 AM CDT Height 165.1 cm (5' 5) 09/17/2024 10:10 AM CDT Body Mass Index 22.07 09/17/2024 10:10 AM CDT Plan of Treatment Health Maintenance Due Date Last Done Comments Breast Cancer Screening-Mammogram 1962 Colon Cancer Screening-Colonoscopy 1962 Depression Screening 1962 DTaP/Tdap/Td Vaccine (1 - Tdap) 1973 Hepatitis B Screening 1980 Regular Well Visit/Exam 18-64 1980 Zoster Vaccine (1 of 2) 2012 Influenza Vaccine (Season Ended) 2025 Hepatitis C Screening Completed 05/13/2021 Pneumococcal vaccine <65 Aged Out No longer eligible based on patient's age to complete this topic Medical Devices Implanted Type Area Auditing Clerk Device Identifier Shelf Expiration Date Model / Serial / Lot Temporary Pacer Lead Lead Chest Description:Noted in LDAs 2020 On-X Intrnl Onxmc-25-33 25-33mm 17.4mm Mechanical Conform-X Sewing Ring Hassan Valve - [id number] - [id number] Implanted:Qty: 1 on 05/14/2021 by Caleb Craft MD at [facility] N/A: Mitral Valve On-X Intrnl 04/13/2027 [facility]-25-33 / [id number] / Procedures Procedure Name Priority Date/Time Associated Diagnosis Comments HEPATITIS PANEL, ACUTE Routine 05/13/2021 8:38 AM SWATCH FOLDER from Last 3 Months or Most Recently Relevant to Health Maintenance Results * Hepatitis panel, acute (05/13/2021 8:38 AM SWATCH FOLDER) Hep A IgM Nonreactive Nonreactive [facility] Comment: [...] on 19. Hep C Ab Nonreactive Nonreactive [facility] Comment: Interpretive Data Nonreactive: Antibodies to HCV [...] last revised on 2019. HepBsAg Nonreactive Nonreactive [facility] Blood 05/13/2021 8:38 AM SWATCH FOLDER 05/13/2021 10:10 AM SWATCH FOLDER us Freya Zayas MD LAB MICROBIOLOGY - GENERAL ORDERABLES Final Result [facility] [id number] Department [place] [address] from Last 3 Months or Most Recently Relevant to Health [place] [address] [facility] [place] [address] [facility] [place] [address] [facility] Advance Directives For more information, please contact: [phone] * Full Code (Latest Code Status on File) Date Activated Date Inactivated Comments 05/09/2021 3:32 PM 05/20/2021 7:48 PM Care Teams Aerial Gunner Relationship Specialty Start Date End Date Tommy Rebolledo MD [address] [facility] [address] [place] [address] PCP - General Family Medicine 12/28/22 Caleb Craft MD Surgeon Cardiothoracic Surgery 05/20/21 Luis Lorenzo MD [address], [address] [address] Consulting Physician Cardiology 05/20/21 [place] [address] [address] [address] Consulting Physician Internal Medicine 05/20/21
--- OUTSIDE RECORDS SUMMARY | 2024-11-11 01:13 | XMS_ITS | Referral Summary ---
Author Organization [facility] [address] [facility] [address] Address [address] [facility] [address] [place] [address] Care Team Providers Care Seismograph Operator Helper Name Role Phone Caleb Craft MD Unavailable Luis Lorenzo MD Unavailable [phone] Apolinar Jason MD Unavailable Tommy Rebolledo MD Primary Care Provider [phone] Encounters Date Type Department Care Team Description 11/06/2024 Telephone [facility] Cardiology [address] [facility] [address] [place] [address] Paige Solorzano MD 11/01/2024 Telephone [facility] Cardiology [address] [facility] [address] [place] [address] Paige Solorzano MD 09/17/2024 10:30 AM CDT [facility] [address] [place] [address] Health 4th Floor [address] [place] [address] Manuel Vega MD Alzheimer's disease (HCC) (Primary Dx); Cerebral amyloid angiopathy (HCC) from Last 3 Months Allergies No known active allergies Medications acyclovir (ZOVIRAX) 400 mg tablet 2 Active atorvastatin (LIPITOR) 20 mg tablet Take 1 tablet (20 mg total) by mouth daily 11/03/202 1 Active aspirin 81 mg enteric coated [...] without sciatica 09/09/2021 09/09/2021 Acute endocarditis 05/09/2021 2 Pre-operative cardiovascular examination, high risk surgery 05/06/2021 09/09/2021 Overview (05/10/2021): Added automatically from request for surgery [id number] Social History Tobacco Use Types Packs/Day Years [...] often do you attend chur ch or jewish services? Never 05/13/2021 Do you belong to any clubs o r organizations such as jehovah's witness groups, unions, fraternal or athletic groups, or [...] on file Legal Sex Female 3:09 AM BOARD MACHINE SET UP OPERATOR Gender Identity Not on file Sexual Orientation [...] 09/17/2024 10:10 AM CDT Plan of Treatment Not on file Medical Devices Implanted Type Area Clinical Nurse Educator Device Identifier Shelf Expiration Date Model / Serial / Lot Temporary Pacer Lead Lead Chest Description:Noted in LDAs 2020 On-X Intrnl [facility]-25-33 25-33mm 17.4mm Mechanical Conform-X Sewing Ring Hassan Valve - [id number] - [id number] Implanted:Qty: 1 on 05/14/2021 by Caleb Craft MD at [facility] N/A: Mitral Valve On-X Intrnl 04/13/2027 [facility]-25-33 / [id number] / Procedures Procedure Name Priority Date/Time Associated Diagnosis Comments HEPATITIS PANEL, ACUTE Routine 05/13/2021 8:38 AM BOARD MACHINE SET UP OPERATOR from Last 3 Months or Most Recently Relevant to Health Maintenance Results * Hepatitis panel, acute (05/13/2021 8:38 AM BOARD MACHINE SET UP OPERATOR) Hep A IgM Nonreactive Nonreactive [facility] NEGRO [...] last revised on 2019. HepBsAg Nonreactive Nonreactive [facility] Blood 05/13/2021 8:38 AM BOARD MACHINE SET UP OPERATOR 05/13/2021 10:10 AM BOARD MACHINE SET UP OPERATOR Freya Zayas MD LAB MICROBIOLOGY - GENERAL ORDERABLES Final Result [facility] [id number] Department [place] [address] from Last 3 Months or Most Recently Relevant to Health Maintenance [place] [address] [facility] Advance Directives For more information, please contact: [phone] * Full Code (Latest Code Status on File) Date Activated Date Inactivated Comments 05/09/2021 3:32 PM 05/20/2021 7:48 PM Care Teams Seismograph Operator Helper Relationship Specialty Start Date End Date Tommy Rebolledo MD [address] [facility] [address] [address] PCP - General Family Medicine 12/28/22 Caleb Craft MD Surgeon Cardiothoracic Surgery 05/20/21 Luis Lorenzo MD [address] [address] Consulting Physician Cardiology 05/20/21 [place] [address] [address] [address] Consulting Physician Internal Medicine 05/20/21
[2024-11-11 09:10] VITALS: BP 131/86; PULSE 88; RESP 16; TEMP 36.7; O2SAT 100; BMI 20.8
--- NOTE | 2024-11-11 09:17 | WPDANESEPPF ---
Anes - Initial Pre Proc Eval Procedure: Operation Date: 11/11/24 10:30 Proposed Procedures p Screening Colonoscopy - Clinton Mtz MD Date/Time: 11/11/24 09:17 Surgeon: Clinton Mtz MD Pre Op Diagnosis: malignant neoplsm of colon Patient Data Age: 64 Gender: F Height: 1.68 m Weight: 58.6 kg Last Vital Signs Temp 36.7 C 11/11/24 09:10 Pulse 88 11/11/24 09:10 Resp 16 11/11/24 09:10 BP 131/86 11/11/24 09:10 Pulse Ox 100 11/11/24 09:10 O2 Del Method Room Air 11/11/24 09:10 Allergies Allergy/AdvReac Type Severity Reaction Status Date / Time No Known Allergies Allergy Verified 11/11/24 09:08 Home Medications ?Medication ?Instructions ?Recorded ?Confirmed ?Type aspirin 81 mg tablet,delayed 81 mg PO DAILY 10/13/21 11/11/24 History release (Adult Low Dose Aspirin) memantine 10 mg tablet 10 mg PO BID 10/05/23 11/11/24 History atorvastatin 20 mg tablet 20 mg PO DAILY #90 tabs 10/30/23 11/11/24 Rx metoprolol succinate 50 mg 100 mg (2 x 50 mg) PO DAILY #360 06/24/24 11/11/24 Rx tablet,extended release 24 hr tabs alendronate 70 mg tablet See Rx Instructions .Route 07/11/24 10/29/24 Rx .COMPLEX #12 tabs sertraline 50 mg tablet 50 mg PO DAILY #90 tabs 08/08/24 11/11/24 Rx warfarin 2 mg tablet See Rx Instructions .Route 08/30/24 11/11/24 Rx .COMPLEX #90 tabs acyclovir 400 mg tablet See Rx Instructions .Route 10/01/24 11/11/24 Rx .COMPLEX #30 tabs Patient hx anesthesia problems: none Family hx anesthesia problems: none Results Review: All pre-operative results and documents have been reviewed as part of the pre-operative evaluation. [facility] Past Medical History Medical History Septic embolism Other nonrheumatic mitral valve disorders DVT prophylaxis Metabolic acidosis Thrombocytopenia Pneumonia Suspected COVID-19 virus infection Hypokalemia Back pain Septic shock Pulmonary edema Hyponatremia Elevated troponin CHF (congestive heart failure) from endocarditis mitral valve Fever Shock HSV (herpes simplex virus) infection History of vaginal delivery x1 MVP (mitral valve prolapse) Surgical History Surgical History H/O mitral valve replacement (~04/2021) due to endocarditis History of breast augmentation 1990 History of endometrial ablation History of bilateral tubal ligation H/O: hysterectomy H/O tubal ligation History of hysteroscopy Family History Family History Grandparent Family history of glaucoma Family history of cardiovascular disease Carcinoma of colon Mother Family history of cardiovascular disease Acute myocardial infarction Family history of chronic obstructive pulmonary disease Family history of congestive heart failure Sibling Carcinoma of colon Father Family history of Alzheimer's disease Social History Social History Smoking status: Former smoker Smoking end date: 05/29/91 Alcohol intake: current Drinks per week: 1 Substance use: never Lack of Transportation: No Lack of Food: Never True Current Housing: I Have Housing Concerned About Future Housing: No Difficulty Paying Gas/Electric Bills: No Difficulty Paying for Meds: No Currently Unemployed: No Education: Associate Degree Difficulty w/ Childcare or Family Care: No Spiritual care concerns: No Anes - Eval Final PreProcedure Day of Procedure 11/11/24 09:17 Patient weight: normal Heart: regular rate and rhythm Lungs: clear to auscultation Airway: Mallampati scale class II Neurological: other (alert) Last oral intake: >/= 8 hours ASA classification: III Emergent: no Anesthetic plan: proceed Anesthesia type and monitoring: general GIVS and standard monitoring Results Review: All pre-operative results and documents have been reviewed as part of the pre-operative evaluation. Informed Consent: The patient's anesthetic plan and its attendant risks and benefits were discussed with the patient/family/POA. Questions were solicited and answers provided to the satisfaction of the patient/family/POA.
[2024-11-11] MEDS: LACTATED RINGERS 1,000 ML 150 ML IV CONT (09:22)
[2024-11-11] MEDS: GENTAMICIN 80MG/SOD CHL 50 ML 80 MG/50 ML BAG 100 MG IVPB (09:30)
[2024-11-11] MEDS: AMPICILLIN 2 GM/NS 100 ML 2 GM/100 ML BAG IVPB (09:30)
[2024-11-11 09:35] LABS: Prothrombin Time 13.3 Seconds (11.1-14.7)
--- NOTE | 2024-11-11 09:38 | PM.HPGS ---
History of Present Illness History of Present Illness Consent: Risks, benefits, and alternatives have been discussed and questions answered. Patient agrees to proceed with procedure. Chief complaint: malignant neoplsm of colon Narrative: Kristina Baker is a 64 year old female here for colonoscopy, last one 2014, sibling had colon cancer. She is on coumadin but on hold for procedure and currently on lovenox Review of Systems Review of Systems: All systems reviewed & are unremarkable except as noted in HPI and below PMFSH Past Medical History Medical History Septic embolism Other nonrheumatic mitral valve disorders DVT prophylaxis Metabolic acidosis Thrombocytopenia Pneumonia Suspected COVID-19 virus infection Hypokalemia Back pain Septic shock Pulmonary edema Hyponatremia Elevated troponin CHF (congestive heart failure) from endocarditis mitral valve Fever Shock HSV (herpes simplex virus) infection History of vaginal delivery x1 MVP (mitral valve prolapse) Surgical History Surgical History H/O mitral valve replacement (~04/2021) due to endocarditis History of breast augmentation 1990 History of endometrial ablation History of bilateral tubal ligation H/O: hysterectomy H/O tubal ligation History of hysteroscopy Family History Family History Grandparent Family history of glaucoma Family history of cardiovascular disease Carcinoma of colon Mother Family history of cardiovascular disease Acute myocardial infarction Family history of chronic obstructive pulmonary disease Family history of congestive heart failure Sibling Carcinoma of colon Father Family history of Alzheimer's disease Social History Social History Smoking status: Former smoker Smoking end date: 05/29/91 Alcohol intake: current Drinks per week: 1 Substance use: never Lack of Transportation: No Lack of Food: Never True Current Housing: I Have Housing Concerned About Future Housing: No Difficulty Paying Gas/Electric Bills: No Difficulty Paying for Meds: No Currently Unemployed: No Education: Associate Degree Difficulty w/ Childcare or Family Care: No Spiritual care concerns: No Meds Home Medications and Allergies Home Medications ?Medication ?Instructions ?Recorded ?Confirmed ?Type aspirin 81 mg tablet,delayed 81 mg PO DAILY 05/18/22 06/16/25 History release (Adult Low Dose Aspirin) memantine 10 mg tablet 10 mg PO BID 10/05/23 11/11/24 History atorvastatin 20 mg tablet 20 mg PO DAILY #90 tabs 10/30/23 11/11/24 Rx metoprolol succinate 50 mg 100 mg (2 x 50 mg) PO DAILY #360 06/24/24 11/11/24 Rx tablet,extended release 24 hr tabs alendronate 70 mg tablet See Rx Instructions .Route 07/11/24 10/29/24 Rx .COMPLEX #12 tabs sertraline 50 mg tablet 50 mg PO DAILY #90 tabs 08/08/24 11/11/24 Rx warfarin 2 mg tablet See Rx Instructions .Route 08/30/24 11/11/24 Rx .COMPLEX #90 tabs acyclovir 400 mg tablet See Rx Instructions .Route 10/01/24 11/11/24 Rx .COMPLEX #30 tabs Allergies Allergy/AdvReac Type Severity Reaction Status Date / Time No Known Allergies Allergy Verified 11/11/24 09:08 Vital Signs Vital Signs - 24 hr 11/11/24 09:10 Temperature 98.1 F Pulse Rate 88 Respiratory Rate 16 Blood Pressure 131/86 Pulse Oximetry 100 Oxygen Delivery Room Air Exam Const: General: comfortable and no acute distress HENMT: Face/Nose/Sinus: Normal nares present Eyes: General: appearance normal, both eyes and all related structures Neck: Neck: no JVD Resp: Auscultation: clear to auscultation bilaterally Cardio: Rate: regular rate Rhythm: regular rhythm GI: Inspection: non-distended GI Palp: Yes Soft to palpation Skin: General skin exam: normal color Neuro: Speech: normal speech Extrem: General: normal to inspection Psych: Mental Status: mental status grossly normal Assessment and Plan Assessment and plan (1) Family history of colon cancer: Code(s): Z80.0 - Family history of malignant neoplasm of digestive organs Status: Acute Assessment and Plan: colonoscopy
[2024-11-11 09:58] VITALS: BP 102/67; PULSE 66; RESP 15; O2SAT 97
[2024-11-11 10:08] VITALS: BP 101/63; PULSE 62; RESP 18; O2SAT 98
[2024-11-11 10:18] VITALS: BP 101/55; PULSE 62; RESP 20; O2SAT 100
== END 2024-11-11 10:33 | disposition home or self-care (01) ==
PROVIDERS: PCP Family Medicine; Referring Provider Family Medicine; Visit Provider Internal Medicine Gastroenterology
PROC: 0DJD8ZZ Inspection of Lower Intestinal Tract, Via Natural or Artificial Opening Endoscopic (ICD-10-PCS; CPT 45378; principal; 2024-11-11 10:30)
DX: Z12.11 Encounter for screening for malignant neoplasm of colon (principal); K57.30 Diverticulosis of large intestine without perforation or abscess without bleeding; K64.8 Other hemorrhoids; Z80.0 Family history of malignant neoplasm of digestive organs; Z87.891 Personal history of nicotine dependence
CPT/HCPCS: 45378; 36415; 85610; J0290; J1580; J2704; J7120

== ENCOUNTER 2024-11-15 06:43 | Outpatient (CLI) | payer OTHER, SELFPAY ==
[2024-11-15 08:14] LABS: INR 1.4; Prothrombin Time 16.8 Seconds (11.1-14.7)
--- OUTSIDE RECORDS SUMMARY | 2024-11-15 08:14 | XMS_ITS | Clinical Summary ---
Author Organization [facility] [address] Address [address] [place] [address] Care Team Providers Care Glass Etcher Name Role Phone Caleb Craft MD Unavailable [phone] Luis Lorenzo MD Unavailable [phone] Apolinar Jason MD Unavailable Tommy Rebolledo MD Primary Care Provider [phone] Allergies No known active allergies Medications acyclovir [...] DAILY 60 tablet 5 5 Active enoxaparin (LOVENOX) 60 mg/0.6 mL syringe Inject 0.6 mL (60 mg total) under the skin every 12 (twelve) hours for 5 days 6 mL 06/16/202 5 11/17/19 25 Active enoxaparin (Lovenox) 60 mg/0.6 mL syringe [...] (05/10/2021): Added automatically from request for surgery [id number] Encounters Date Type Department Care Team Description 11/12/2024 Telephone [facility] Cardiology [address] [facility] [address] [place] [phone] Paige Solorzano MD 11/06/2024 Telephone [facility] Cardiology [address] [facility] [address] [place] [address] Paige Solorzano MD 11/01/2024 Telephone [facility] Cardiology [address] [facility] [address] [place] [phone] Paige Solorzano MD 09/17/2024 10:30 AM CDT Office [facility] [address] [place] [address] Health 4th Floor [address] [place] [address] Manuel Vega MD Alzheimer's disease [...] often do you attend chur ch or islam services? Never 05/13/2021 Do you belong to any clubs o r organizations such as religion groups, unions, fraternal or athletic groups, or [...] on file Legal Sex Female 3:09 AM ORACLE OBIEE DEVELOPER Gender Identity Not on file Sexual Orientation [...] this topic Medical Devices Implanted Type Area Bone Plant Supervisor Device Identifier Shelf Expiration Date Model / Serial / Lot Temporary Pacer Lead Lead Chest Description:Noted in LDAs fo r [address] [facility]- 25-33mm 17.4mm Mechanical Conform-X Sewing Ring Hassan Valve - [id number] - [id number] Implanted:Qty: 1 on 05/14/2021 by Caleb Craft MD at [facility] N/A: Mitral Valve On-X Intrnl 04/13/2027 [facility] / [id number] / Procedures Procedure Name Priority Date/Time Associated Diagnosis Comments HEPATITIS PANEL, ACUTE Routine 05/13/2021 8:38 AM ORACLE OBIEE DEVELOPER from Last 3 Months or Most Recently Relevant to Health Maintenance Results * Hepatitis panel, acute (05/13/2021 8:38 AM ORACLE OBIEE DEVELOPER) Hep A IgM Nonreactive Nonreactive [facility] Comment: Interpretive Data: If Hep A IgM Ab is reported as Equivocal, a new sample should be drawn in two weeks for testing. Current interpretive data was last revised on 19. Hep B core IgM Nonreactive Nonreactive [facility] Comment: Interpretive Data If HepB Core IgM Ab is reported as Equivocal, a new sample should be drawn in two weeks for testing. Current interpretive data was last revised on 19. Hep C Ab Nonreactive Nonreactive [facility] Comment: Interpretive Data Nonreactive: Antibodies to [...] last revised on 2019. HepBsAg Nonreactive Nonreactive [facility] Blood 05/13/2021 8:38 AM ORACLE OBIEE DEVELOPER 05/13/2021 10:10 AM ORACLE OBIEE DEVELOPER Freya Zayas MD LAB MICROBIOLOGY - GENERAL [place] [id number] [facility] Department [place] [address] from Last 3 Months or Most Recently Relevant to Health Maintenance Insurance [facility] BLUE ACCESS [facility] [place] [address] [facility] Advance Directives For more information, please contact: [phone] * Full Code (Latest Code Status on File) Date Activated Date Inactivated Comments 05/09/2021 3:32 PM 05/20/2021 7:48 PM Care Teams Glass Etcher Relationship Specialty Start Date End Date Tommy Rebolledo MD [facility] [address] [place] [address] PCP - General Family Medicine 12/28/22 Caleb Craft MD Surgeon Cardiothoracic Surgery 05/20/21 Luis Lorenzo MD [address] [place] [address] Consulting Physician Cardiology 05/20/21 [place] [address] [facility] [place] [address] Consulting Physician Internal Medicine 05/20/21
--- OUTSIDE RECORDS SUMMARY | 2024-11-15 08:14 | XMS_ITS | Encounter Summary ---
Author Organization [facility] Address [address] [place] [address] Care Team Providers Care Wax Cutter Name Role Phone Caleb Craft MD Unavailable [phone] Luis Lorenzo MD Unavailable [phone] Apolinar Jason MD Unavailable [phone] Tommy Rebolledo MD Primary Care Provider [phone] Encounter Details Date Type Department Care Team (Late st Contact Info) Description 12/01/2023 Orders Only [facility] Health Information Management [address] [place] [address] Scanning, Provider Social History Tobacco [...] often do you attend chur ch or adventism services? Never 05/13/2021 Do you belong to any clubs o r organizations such as mandaen groups, unions, fraternal or athletic groups, or [...] on file Legal Sex Female 3:09 AM MISSION ANALYST Gender Identity Not on file Sexual [...] on filedocumented in this encounter Care Teams Wax Cutter Relationship Specialty Start Date End Date Tommy Rebolledo MD [address] [place] [place] [address] [address] [place] [address] PCP - General Family Medicine 12/28/22 Caleb Craft MD Surgeon Cardiothoracic Surgery 05/20/21 Luis Lorenzo MD [address] [id number] Consulting Physician Cardiology 05/20/21 [place] [address] [address] [address] Consulting Physician Internal Medicine 05/20/21 documented as of this encounter
--- OUTSIDE RECORDS SUMMARY | 2024-11-15 08:14 | XMS_ITS | Referral Summary ---
Author Organization [facility] [address] [facility] [address] Address [address] [place] [address] Care Team Providers Care Art History Instructor Name Role Phone Caleb Craft MD Unavailable [phone] Luis Lorenzo MD Unavailable [phone] Apolinar Jason MD Unavailable Tommy Rebolledo MD Primary Care Provider [phone] Encounters Date Type Department Care Team Description 11/12/2024 Telephone [facility] Cardiology [address] [facility] [address] [place] [address] Paige Solorzano MD 11/06/2024 Telephone [facility] Cardiology [address] [facility] [address] [place] [address] Paige Solorzano MD 11/01/2024 Telephone [facility] Cardiology [address] [facility] [address] [place] [phone] Paige Solorzano MD 09/17/2024 10:30 AM CDT [facility] [address] [place] [address] Health 4th Floor [address] [place] [address] Manuel Vega MD Alzheimer's disease [...] (twelve) hours for 5 days 6 mL 5 11/17/19 25 Active enoxaparin (Lovenox) 60 [...] (05/10/2021): Added automatically from request for surgery [id number] Social History Tobacco Use Types Packs/Day Years [...] How often do you attend chur or scientology services? Never 05/13/2021 Do you belong to any clubs o r organizations such as sabianism groups, unions, fraternal or athletic groups, or [...] on file Legal Sex Female 3:09 AM DRYLAND FARMER Gender Identity Not on file Sexual Orientation [...] on file Medical Devices Implanted Type Area Ict Development Manager Device Identifier Shelf Expiration Date Model / Serial / Lot Temporary Pacer Lead Lead Chest Description:Noted in LDAs 2020 On-X Intrnl [facility]-25-33 25-33mm 17.4mm Mechanical Conform-X Sewing Ring Hassan Valve - [id number] - [id number] Implanted:Qty: 1 on 05/14/2021 by Caleb Craft MD at [facility] N/A: Mitral Valve On-X Intrnl 04/13/2027 [facility]-25-33 / [id number] / Procedures Procedure Name Priority Date/Time Associated Diagnosis Comments HEPATITIS PANEL, ACUTE Routine 05/13/2021 8:38 AM DRYLAND FARMER from Last 3 Months or Most Recently Relevant to Health Maintenance Results * Hepatitis panel, acute (05/13/2021 8:38 AM DRYLAND FARMER) Hep A IgM Nonreactive Nonreactive [facility] Comment: Interpretive Data: If Hep A IgM Ab is reported as Equivocal, a new sample should be drawn in two weeks for testing. Current interpretive data was last revised on 19. Hep B core IgM Nonreactive Nonreactive [facility] Comment: Interpretive Data If HepB Core IgM Ab is reported as Equivocal, a new sample should be drawn in two weeks for testing. Current interpretive data was last revised on 19. Hep C Ab Nonreactive Nonreactive [facility] Comment: Interpretive Data Nonreactive: Antibodies to HCV [...] last revised on 2019. HepBsAg Nonreactive Nonreactive [facility] Blood 05/13/2021 8:38 AM DRYLAND FARMER 05/13/2021 10:10 AM DRYLAND FARMER Freya Zayas MD LAB MICROBIOLOGY - GENERAL ORDERABLES Final Result [facility] [id number] [address] Department [place] [address] from Last 3 Months or Most Recently Relevant to Health Maintenance [place] [address] [facility] Advance Directives For more information, please contact: [phone] * Full Code (Latest Code Status on File) Date Activated Date Inactivated Comments 05/09/2021 3:32 PM 05/20/2021 7:48 PM Care Teams Art History Instructor Relationship Specialty Start Date End Date Tommy Rebolledo MD [facility] [address] [address] PCP - General Family Medicine 12/28/22 Caleb Craft MD Surgeon Cardiothoracic Surgery 05/20/21 Luis Lorenzo MD [address] [facility] C [facility] 2310 [facility] C, [facility] [address] [address] Consulting Physician Cardiology 05/20/21 [place] [address] [address] [address] Consulting Physician Internal Medicine 05/20/21
== END 2024-11-15 06:44 | disposition home or self-care (01) ==
PROVIDERS: PCP Family Medicine; Visit Provider Internal Medicine Cardiovascular Disease
DX: Z95.2 Presence of prosthetic heart valve (principal)
CPT/HCPCS: 36415; 85610

== ENCOUNTER 2025-02-12 10:51 | Outpatient (RCR) | payer OTHER, SELFPAY ==
[2024-11-26 08:22] LABS: Prothrombin Time 51.3 Seconds (11.1-14.7)
[2024-11-26 08:48] LABS: INR 6.0
[2024-12-02 08:16] LABS: INR 4.3; Prothrombin Time 39.0 Seconds (11.1-14.7)
[2024-12-06 08:46] LABS: INR 3.3; Prothrombin Time 32.3 Seconds (11.1-14.7)
[2024-12-12 07:54] LABS: INR 2.5; Prothrombin Time 26.3 Seconds (11.1-14.7)
[2025-01-13 08:56] LABS: INR 2.5; Prothrombin Time 25.7 Seconds (11.1-14.7)
[2025-02-12 14:55] LABS: INR 3.9; Prothrombin Time 36.6 Seconds (11.1-14.7)
== END 2025-02-24 23:59 | disposition home or self-care (01) ==
LOC: ANHLAB 10:51
PROVIDERS: PCP Family Medicine; Visit Provider Internal Medicine Cardiovascular Disease
DX: Z51.81 Encounter for therapeutic drug level monitoring (principal); I48.0 Paroxysmal atrial fibrillation; Z79.01 Long term (current) use of anticoagulants
CPT/HCPCS: 36415; 85610

== ENCOUNTER 2025-03-19 12:57 | Outpatient (CLI) | payer OTHER, SELFPAY ==
--- NOTE | ~2025-03-19 | US_ITS ---
EXAMINATION: US pelvic complete w TV INDICATION: Postmenopausal bleeding. Status post hysterectomy. Comparison:No prior studies for comparison. TECHNIQUE: Multiple transabdominal and endovaginal sonographic images of the pelvis performed. FINDINGS: The uterus is surgically absent. The ovaries are not identified, possibly surgically absent or atrophic. There is no free fluid in the pelvis. There are no abnormal masses seen on either side. IMPRESSION: 1. Unremarkable pelvic ultrasound status post hysterectomy. Reviewed, dictated and finalized at location O.
--- OUTSIDE RECORDS SUMMARY | 2025-03-19 16:22 | XMS_ITS | Clinical Summary ---
Author Organization [facility] Address [address] [place] [address] Care Team Providers Care Licensed Real Estate Broker Name Role Phone Chris Hilliard MD Primary Care Provider [phone] Allergies No known active allergies Medications metoprolol [...] Comments Blood Pressure 111/88 04/08/2021 8:36 AM MECHANICAL ASSEMBLY TECHNICIAN Pulse 112 04/08/2021 8:36 AM MECHANICAL ASSEMBLY TECHNICIAN Temperature 36.8 C (98.2 F) 04/08/2021 8:36 AM MECHANICAL ASSEMBLY TECHNICIAN Respiratory Rate 12 04/08/2021 8:36 AM MECHANICAL ASSEMBLY TECHNICIAN Oxygen Saturation 97% 04/08/2021 8:36 AM MECHANICAL ASSEMBLY TECHNICIAN Inhaled Oxygen Concentration - - Weight 49.9 [...] COVID-19 Vaccine (1 - 2023-2 5 season) 2025 Influenza Adult (#1) 2025 Colorectal Cancer Screening Colonoscopy (10 Years) 04/08/2031 04/08/2021 RSV Immunization or 60+ Years (1 - 1-dose 75+ series) 2037 Hepatitis A Vaccines Aged Out No long er eligible based on patient's age to complete this topic Meningococcal B Vaccine Aged Out No l [...] Diagnosis Comments COLONOSCOPY Routine 04/08/2021 8:33 AM MECHANICAL ASSEMBLY TECHNICIAN from Last 3 Months or Most Recently Relevant to [place] [address] [facility] Care Teams Licensed Real Estate Broker Relationship Specialty Start Date End Date Chris Hilliard MD [address] [place] [address] PCP - General FAMILY PRACTICE 04/08/21
--- OUTSIDE RECORDS SUMMARY | 2025-03-19 16:22 | XMS_ITS | Encounter Summary ---
Author Organization [facility] Address [address] [place] [address] Care Team Providers Care Cotton Header Name Role Phone Chris Hilliard MD Primary Care Provider [phone] Encounter Details Date Type Department Care Team (Late st Contact Info) Description 03/31/2021 Prep for Procedure [facility] [place], [place] [address] Claudio Rocha MD [address] [id number] Social History Tobacco Use Types Packs/Day Years [...] * CORONAVIRUS (COVID 19) (04/05/2021 9:21 AM MACHINE FILLER) SPEC DESCRIPTION NASAL 04/05/20 9:21 AM MACHINE FILLER [facility] CORONAVIRUS SARS COV 2 PCR (RESP) NEGATIVE NEGATIVE 04/05/2021 7:[address] [facility] Comment: THE SARS-CoV-2 TEST HAS BEEN AUTHORIZED BY THE FDA UNDER AN EUA FOR USE BY AUTHORIZED LABORATORIES. PERFORMED BY NUCLEIC ACID AMPLIFICATION PCR FIRST TEST UNKNOWN 04/05/2021 9:21 AM [facility] EMPLOYED IN HEALTHCARE UNKNOWN 04/05/2021 9:21 AM MACHINE FILLER [facility] SYMPTOMATIC DEFINED BY CDC UNKNOWN 04/05/2021 9:21 AM MACHINE FILLER [facility] HOSPITALIZATION STATUS NO 04/05/2021 9:21 AM MACHINE FILLER [facility] PATIENT IN ICU NO 04/05/2021 9:21 AM MACHINE FILLER [facility] RESIDENT [facility] UNKNOWN 04/05/2021 9:21 AM MACHINE FILLER [facility] NASAL STRUCTURE / Unknown 04/05/2021 9:21 AM MACHINE FILLER Claudio Rocha MD MICROBIOLOGY - GENERAL ELSA MEDINA Final Result [facility] [address] [place] [address], [facility] [address] [place] [address], documented in this encounter Visit Diagnoses Diagnosis Family history of colon cancer- Primary Family history of malignant neoplasm of gastrointestinal tract documented in this encounter Additional Health Concerns Infection Onset Date Last Indicated Resolved Time COVID-19 Rule Out 04/05/2021 04/05/2021 04/05/2021 7:57 PM MACHINE FILLER documented as of this encounter Care Teams Cotton Header Relationship Specialty Start Date End Date Chris Hilliard MD [address] [place] [address] PCP - General FAMILY PRACTICE 04/08/21 documented as of this encounter
== END 2025-03-19 12:58 | disposition home or self-care (01) ==
PROVIDERS: PCP Family Medicine; Visit Provider Family Medicine
DX: N95.0 Postmenopausal bleeding (principal); Z98.890 Other specified postprocedural states
CPT/HCPCS: 76830; 76856

== ENCOUNTER 2025-03-31 13:08 | Outpatient (NON) | payer OTHER, SELFPAY ==
--- OUTSIDE RECORDS SUMMARY | 2025-03-31 14:23 | XMS_ITS | Encounter Summary ---
Author Organization [facility] Address [address] [place] [address] Care Team Providers Care Seismograph Recorder Name Role Phone Chris Hilliard MD Primary Care Provider [phone] Encounter Details Date Type Department Care Team (Late st Contact Info) Description 03/31/2021 Prep for Procedure [facility] One Day Services [facility] [place], [place] [address] Claudio Rocha MD [address] [id number] Social History Tobacco Use Types Packs/Day Years [...] * CORONAVIRUS (COVID 19) (04/05/2021 9:21 AM SALT MINER) SPEC DESCRIPTION NASAL 04/05/20 9:21 AM SALT MINER [facility] CORONAVIRUS SARS COV 2 PCR (RESP) NEGATIVE NEGATIVE 04/05/2021 7:57 PM [facility] Comment: THE SARS-CoV-2 TEST HAS BEEN AUTHORIZED BY THE FDA UNDER AN EUA FOR USE BY AUTHORIZED LABORATORIES. PERFORMED BY NUCLEIC ACID AMPLIFICATION PCR FIRST TEST UNKNOWN 04/05/2021 9:21 AM [facility] EMPLOYED IN HEALTHCARE UNKNOWN 04/05/2021 9:21 AM S[place]ER [facility] SYMPTOMATIC DEFINED BY CDC UNKNOWN 04/05/2021 9:21 AM S[place]ER [facility] HOSPITALIZATION STATUS NO 04/05/2021 9:21 AM S[place]ER [facility] PATIENT IN ICU NO 04/05/2021 9:21 AM SALT MINER [facility] RESIDENT OF [facility] UNKNOWN 04/05/2021 9:21 AM SALT MINER [facility] NASAL STRUCTURE / Unknown 04/05/2021 9:21 AM SALT MINER Claudio Rocha MD MICROBIOLOGY - GENERAL ELSA MEDINA Final Result [facility] [address] [place] [address], [facility] [address] [place] [address], documented in this encounter Visit Diagnoses Diagnosis Family history of colon cancer- Primary Family history of malignant neoplasm of gastrointestinal tract documented in this encounter Additional Health Concerns Infection Onset Date Last Indicated Resolved Time COVID-19 Rule Out 04/05/2021 04/05/2021 04/05/2021 7:57 PM SALT MINER documented as of this encounter Care Teams Seismograph Recorder Relationship Specialty Start Date End Date Chris Hilliard MD [address] [place] [address] PCP - General FAMILY PRACTICE 04/08/21 documented as of this encounter
--- OUTSIDE RECORDS SUMMARY | 2025-03-31 14:23 | XMS_ITS | Encounter Summary ---
Author Organization [facility] Healthcare Address [address] [place] [address] Care Team Providers Care Crop And Soil Technician Name Role Phone Caleb Craft MD Unavailable [phone] Luis Lorenzo MD Unavailable Apolinar Jason MD Unavailable [phone] Tommy Rebolledo MD Primary Care Provider [phone] Encounter Details Date Type Department Care Team (Late st Contact Info) Description 04/03/2024 Orders Only [facility] Health Information Management [address] [place] [address] Scanning, Provider Social History Tobacco Use Types Packs/Day Years Used Date Smoking Tobacco: Former Cigarettes Q uit: 1984 Smokeless Tobacco: Never Social Connection and Isolation Panel Answer Date Recorded In a typical week, how many times do you talk on the phone with family, friends, or neighbors? More than three times a week 05/13/2021 How often do you get togethe r with friends or relatives? More than three times a week 05/13/2021 How often do you attend chur ch or jain services? Never 05/13/2021 Do you belong to any clubs o r organizations such as mosque groups, unions, fraternal or athletic groups, or [...] on file Legal Sex Female 3:09 AM AUTOMATION CONTROLS ENGINEER Gender Identity Not on file Sexual Orientation Not on file documented as of this encounter Plan of Treatment Not on file documented as of this encounter Procedures Procedure Name Priority Date/Time Associated Diagnosis Comments SCAN - LABS 04/03/2024 documented in this encounter Results * SCAN - LABS (04/03/2024) us Provider Scanning Final Result documented in this encounter Visit Diagnoses Not on filedocumented in this encounter Care Teams Crop And Soil Technician Relationship Specialty Start Date End Date Tommy Rebolledo MD [address] [place] [address] [address] [place] [address] PCP - General Family Medicine 12/28/22 Caleb Craft MD Surgeon Cardiothoracic Surgery 05/20/21 Luis Lorenzo MD [address], [address] [phone] Consulting Physician Cardiology 05/20/21 [place] [address] [address] [id number] Consulting Physician Internal Medicine 05/20/21 documented as of this encounter
--- OUTSIDE RECORDS SUMMARY | 2025-03-31 14:23 | XMS_ITS | Encounter Summary ---
Author Organization [facility] Healthcare Address [address] [place] [address] Care Team Providers Care Strategic Manager Name Role Phone Caleb Craft MD Unavailable [phone] Luis Lorenzo MD Unavailable Apolinar Jason MD Unavailable [phone] Tommy Rebolledo MD Primary Care Provider [phone] Reason for Visit * Reason Onset Date Comments INR results 2025 Encounter Details Date Type Department Care Team (Late st Contact Info) Description 2025 Telephone [facility] Medical Group Cardiology [address] [place] [address] [place] [address] [place] [address] INR results Social History Tobacco Use Types Packs/Day Years [...] week 05/13/2021 How often do you attend [facility] or congregational services? Never 05/13/2021 Do you belong to any clubs o r organizations such as christian groups, unions, fraternal or athletic groups, or [...] place to sleep or slept in a fdc (including now)? No 05/13/2021 Comments Unknown Sex and Gender Information Value Date Recorded Sex Assigned at Not on file Legal Sex Female 3:09 AM SSN/SSBN WEAPONS EQUIPMENT OPERATOR Gender Identity Not on file Sexual Orientation Not on file documented as of this encounter Miscellaneous Notes * Telephone Encounter - Jessica Acuña RN - 03/21/2025 5:04 PM CDT See AC note. * Telephone Encounter - Elo Lezama - 03/21/2025 2:59 PM CDT Michaela (pts sister) states that the pt had her INR drawn today at . Requesting a call back to discuss results and dosing changes. Contact [phone] * Telephone Encounter - Jessica Acuña RN - 03/18/2025 4:13 PM CDT Spoke with pts sister, she states that pt was started on another antibiotic today for UTI. The prescriber told her it will not affect pts INR levels. Will still have pt check INR on Monday. Call the office sooner with any questions or concerns. * Telephone Encounter - Elo Lezama - 03/18/2025 3:00 PM CDT Michaela (pts sister) states that the pt was just seen by her PCP today. States that she still has a UTI but they prescribed her different antibiotics that's should not interfere with her INR. Please advise. Thank you. Contact [phone] * Telephone Encounter - Jessica Acuña RN - 2025 1:29 PM CDT Spoke with Michaela, advised to call the office if pt is prescribed any further antibiotics at her appttoday. She verbalizes understanding. * Telephone Encounter - Elo Lezama - 2025 11:41 AM CDT Michaela (pts sister) Ciprofloxacin 500 mg 1 tab every 12 hours. Pt has been on antibiotics for 2 weeks. States that she believes she is done with the round of antibiotics. States that she has an appt with her PCP today and they will check to see if the UTI is still present. Please advise. Thank you. Contact [phone] * Telephone Encounter - Jessica Acuña RN - 2025 11:36 AM CDT See AC note. * Telephone Encounter - Sabrina Bermudez - 2025 10:46 AM CDT Tigist from lab calling to report a critical INR of 5.1. Thank you. Contact : [phone] documented in this encounter Plan of Treatment Not on file documented as of this encounter Visit Diagnoses Not on filedocumented in this encounter Care Teams Strategic Manager Relationship Specialty Start Date End Date Tommy Rebolledo MD [facility] [address] [place] [address] PCP - General Family Medicine 12/28/22 Caleb Craft MD Surgeon Cardiothoracic Surgery 05/20/21 Luis Lorenzo MD [address], [address] [place] [address] Consulting Physician Cardiology 05/20/21 [place] [address] [place] [address] Consulting Physician Internal Medicine 05/20/21 documented as of this encounter
--- OUTSIDE RECORDS SUMMARY | 2025-03-31 14:23 | XMS_ITS | Clinical Summary ---
Author Organization [facility] [address] Address [address] [place] [address] Care Team Providers Care City Driver Name Role Phone Caleb Craft MD Unavailable [phone] Luis Lorenzo MD Unavailable Apolinar Jason MD Unavailable Tommy Rebolledo MD Primary Care Provider [phone] Allergies No known active allergies Medications acyclovir [...] 4 Active memantine (NAMENDA) 10 mg tablet Take 1 tablet (10 mg total) by mouth 2 (two) times a day 60 tablet 5 5 Active memantine (NAMENDA) 10 mg tablet TAKE 1 TABLET BY MOUTH TWICE DAILY 60 tablet 5 5 03/06/20 25 Discontinu ed(Reorder ) Active Problems Problem Noted Date Diagnosed Date [...] (05/10/2021): Added automatically from request for surgery [id number] Encounters Date Type Department Care Team Description 03/26/2025 Anticoagulation Visit [facility] Cardiology [address] [place] [address] [place] [phone] Jessica Acuña, RN S/P MVR (mitral valve replacement) (Primary Dx) 03/21/2025 Anticoagulation Visit [facility] Medical Group Cardiology at [address] [place] [address] Jessica Acuña, RN S/P MVR (mitral valve replacement) (Primary Dx) 2025 Anticoagulation Visit [facility] Cardiology [address] [place] [address] [place] [phone] Jessica Acuña, RN S/P MVR (mitral valve replacement) (Primary Dx) 2025 Telephone [facility] Cardiology [address] [place] [address] [place] [phone] Paige Solorzano MD INR results 03/03/2025 Anticoagulation Visit [facility] Cardiology [address] [place] [address] [place] [phone] Jessica Acuña RN S/P MVR (mitral valve replacement) (Primary Dx) 03/03/2025 Telephone [facility] Cardiology [address] [place] [address] [place] [phone] Paige Solorzano MD 02/13/2025 Anticoagulation Visit [facility] Cardiology [address] [place] [address] [place] [phone] Luanne Verduzco RN S/P MVR (mitral valve replacement) (Primary Dx) 01/20/2025 9:15 AM CDT Office Visit [facility] Cardiology [address] [place] [phone] Paige Solorzano MD S/P MVR (mitral valve replacement) (Primary Dx); Systolic dysfunction; Paroxysmal atrial fibrillation (HCC); History of endocarditis 01/14/2025 Orders Only [facility] [place] Information Management [address] [place] [address] Scanning, Provider 01/14/2025 Anticoagulation Visit [facility] Cardiology [address] [place] [address] [place] [phone] Luanne Verduzco RN S/P MVR (mitral valve replacement) (Primary Dx) from Last 3 Months Surgical History Surgery [...] week 05/13/2021 How often do you attend [facility] or holiness services? Never 05/13/2021 Do you [...] place to sleep or slept in a group home (including now)? No 05/13/2021 Comments Unknown Sex and Gender Information Value Date Recorded Sex Assigned at Not on file Legal Sex Female 3:09 AM MEDICAL CSR Gender Identity Not on file Sexual Orientation Not on file Last Filed Vital Signs Vital Sign Reading Time Taken Comments Blood Pressure 100/62 01/20/2025 9:05 AM CDT Pulse 53 01/20/2025 9:05 AM CDT Temperature 36.7 C (98.1 F) 09/17/2024 10:10 AM CDT Respiratory Rate 16 09/17/2024 10:1 0 AM CDT Oxygen Saturation 97% 01/20/2025 9:05 AM CDT Inhaled Oxygen Concentration - - Weight 59.4 kg (130 lb 14.4 oz) 01/20/2025 9:05 AM CDT Height 165.1 cm (5' 5) 01/20/2025 9:05 AM CDT Body Mass Index 21.78 01/20/2025 9:05 AM CDT Plan of Treatment Health Maintenance Due Date Last Done Comments Breast Cancer Screening-Mammogram 1962 Colon Cancer Screening-Colonoscopy 1962 Depression Screening 1962 Regular Well Visit/Exam 18-64 1980 Zoster Vaccine (1 of 2) 2012 DTaP/Tdap/Td Vaccine (2 - Td or Tdap) 12/25/2021 12/26/2011 Influenza Vaccine (#1) 2025 Hepatitis B Screening Completed 07/05/2012 , 01/27/2012, 12/26/2011 Hepatitis C Screening Completed 05/13/2021 Pneumococcal vaccine <65 Aged Out No longer eligible based on patient's age to complete this topic Medical Devices Implanted Type Area Supervisor Dental Laboratory Device Identifier Shelf Expiration Date Model / Serial / Lot Temporary Pacer Lead Lead Chest Description:Noted in LDAs fo 2020 On-X Intrnl [facility] 25-33mm 17.4mm Mechanical Conform-X Sewing Ring Hassan Valve - [id number] - [id number] Implanted:Qty: 1 on 05/14/2021 by Caleb Craft MD at [facility] N/A: Mitral Valve On-X Intrnl 04/13/2027 [facility] / [id number] / Procedures Procedure Name Priority Date/Time Associated Diagnosis Comments PROTIME-INR Routine 03/26/2025 PROTIME-INR Routine 03/21/2025 PROTIME-INR Routine 2025 PROTIME-INR Routine 02/28/2025 PROTIME-INR Routine 02/12/2025 SCAN - LABS 01/14/2025 PROTIME-INR Routine 01/13/2025 HEPATITIS PANEL, ACUTE Routine 05/13/2021 8:38 AM MEDICAL CSR from Last 3 Months or Most Recently Relevant to Health Maintenance Results * (ABNORMAL) Protime-INR (03/26/2025) INR 4.60(A) 0.90 - 1.10 EXTERNAL LAB Blood Result [facility] Historical Provider MD LAB BLOOD ORDERABLES Cecelia l Result EXTERNAL LAB * (ABNORMAL) Protime-INR (03/21/2025) INR 3.90(A) 0.90 - 1.10 EXTERNAL LAB Blood Result [facility] Provider MD LAB BLOOD ORDERABLES Cecelia l Result EXTERNAL LAB * (ABNORMAL) Protime-INR (2025) INR 5.10(A) 0.90 - 1.10 EXTERNAL LAB Blood Result [facility] Historical Provider MD LAB BLOOD ORDERABLES Cecelia l Result EXTERNAL LAB * (ABNORMAL) Protime-INR (02/28/2025) INR 3.80(A) 0.90 - 1.10 EXTERNAL LAB Blood Historical Provider MD LAB BLOOD ORDERABLES Cecelia l Result EXTERNAL LAB * (ABNORMAL) Protime-INR (02/12/2025) [facility] INR 3.90(A) 0.90 - 1.10 EXTERNAL LAB Blood Result [facility] Provider MD LAB BLOOD ORDERABLES Cecelia l Result Performing Organization Address [facility] Co de Phone Number EXTERNAL LAB * SCAN - LABS (01/14/2025) Result [facility] Provider Scanning Final Result * (ABNORMAL) Protime-INR (01/13/2025) [facility] INR 2.50(A) 0.90 - 1.10 EXTERNAL LAB Blood Result [facility] MD LAB BLOOD ORDERABLES Cecelia l Result Performing Organization Address [facility] de Phone Number EXTERNAL LAB * Hepatitis panel, acute (05/13/2021 8:38 AM MEDICAL CSR) [facility] Hep A IgM Nonreactive Nonreactive [facility] Comment: Interpretive Data: If Hep A IgM Ab is reported as Equivocal, a new sample should be drawn in two weeks for testing. Current interpretive data was last revised on 19. Hep B core IgM Nonreactive Nonreactive [facility] Comment: Interpretive Data If HepB Core IgM Ab is reported as Equivocal, a new sample should be drawn in two weeks for testing. Current interpretive data was last revised on 19. Hep C Ab Nonreactive Nonreactive [facility] Comment: Interpretive Data Nonreactive: Antibodies to HCV [...] Nonreactive [facility] NEGRO Blood 05/13/2021 8:38 AM MEDICAL CSR 05/13/2021 10:10 AM MEDICAL CSR Freya Zayas MD LAB MICROBIOLOGY - GENERAL ORDERABLES Final Result [facility] [address] [facility] [place] [address] from Last 3 Months or Most Recently Relevant to Health Maintenance Insurance [facility] Advance Directives For more information, please contact: [phone] * Full Code (Latest Code Status on File) Date Activated Date Inactivated Comments 05/09/2021 3:32 PM 05/20/2021 7:48 PM Care Teams City Driver Relationship Specialty Start Date End Date Tommy Rebolledo MD [address] [place] [address] [place] [address] PCP - General Family Medicine 12/28/22 Caleb Craft MD Surgeon Cardiothoracic Surgery 05/20/21 Luis Lorenzo MD [address] [place], [address] [address] Consulting Physician Cardiology 05/20/21 [place] [address] [address] Consulting Physician Internal Medicine 05/20/21
--- OUTSIDE RECORDS SUMMARY | 2025-03-31 14:23 | XMS_ITS | Encounter Summary ---
Author Organization [facility] Healthcare Address [address] [place] [address] Care Team Providers Care Social And Human Services Assistant Name Role Phone Caleb Craft MD Unavailable [phone] Luis Lorenzo MD Unavailable Apolinar Jason MD Unavailable [phone] Tommy Rebolledo MD Primary Care Provider [phone] Encounter Details Date Type Department Care Team (Late st Contact Info) Description 07/29/2024 Orders Only [facility] Health Information Management [address] [place] [address] Scanning, Provider Social History Tobacco Use [...] often do you attend chur ch or pentecostal services? 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 Gender Identity Not on file Sexual Orientation Not on file documented as of this encounter Plan of Treatment Not on file documented as of this encounter Procedures Procedure Name Priority Date/Time Associated Diagnosis Comments SCAN - LABS 07/29/2024 documented in this encounter Results * SCAN - LABS (07/29/2024) us Provider Scanning Final Result documented in this encounter Visit Diagnoses Not on filedocumented in this encounter Care Teams Social And Human Services Assistant Relationship Specialty Start Date End Date Tommy Rebolledo MD [address] [place] [address] [address] [place] [address] PCP - General Family Medicine 12/28/22 Caleb Craft MD Surgeon Cardiothoracic Surgery 05/20/21 Luis Lorenzo MD [address], [address] [id number] Consulting Physician Cardiology 05/20/21 [place] [address] [address] [id number] Consulting Physician Internal Medicine 05/20/21 documented as of this encounter
--- OUTSIDE RECORDS SUMMARY | 2025-03-31 14:23 | XMS_ITS | Encounter Summary ---
Author Organization [facility] Healthcare Address [address] [place] [address] Care Team Providers Care Postdoctoral Fellow Name Role Phone Caleb Craft MD Unavailable [phone] Luis Lorenzo MD Unavailable Apolinar Jason MD Unavailable [phone] Tommy Rebolledo MD Primary Care Provider [phone] Encounter Details Date Type Department Care Team (Late st Contact Info) Description 03/03/[address] [facility] Medical Group Cardiology [address] [place] [address] [place] [address] [place] [address] Social History Tobacco Use Types Packs/Day Years [...] How often do you attend chur or zoroastrianism services? 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 * Telephone Encounter - Jessica Acuña RN - 03/03/2025 2:49 PM CDT LM on VM with pts sister requesting return call. * Telephone Encounter - Sabrina Bermudez - 03/03/2025 11:53 AM CDT Michaela called back in about the patients INR. The hospital did state that the patient showed up and will fax over the results. Michaela is still requesting a call back to discuss. Thank you! Contact : [phone] * Telephone Encounter - Sabrina Bermudez - 03/03/2025 11:42 AM CDT Michaela called in to check to see if patient went in to have her INR checked. I let her know that I did not see a result. She is going to call to see if she actually did have the INR drawn. Michaela is requesting a call on how to proceed with the patient medication. Please advise. Thank you. Contact : [phone] documented in this encounter Plan of Treatment Not on file documented as of this encounter Visit Diagnoses Not on filedocumented in this encounter Care Teams Postdoctoral Fellow Relationship Specialty Start Date End Date Tommy Rebolledo MD [facility]NOTE 3] [address] [address] PCP - General Family Medicine 12/28/22 Caleb Craft MD Surgeon Cardiothoracic Surgery 05/20/21 Luis Lorenzo MD [address] [facility] C, [address] [place], [place] [phone] Consulting Physician Cardiology 05/20/21 [place] [address] [facility] [place] [address] Consulting Physician Internal Medicine 05/20/21 documented as of this encounter
--- OUTSIDE RECORDS SUMMARY | 2025-03-31 14:23 | XMS_ITS | Clinical Summary ---
Author Organization [facility] Address [address] [place] [address] Care Team Providers Care Fisher Swordfish Name Role Phone Chris Hilliard MD Primary Care Provider [phone] Allergies No known active allergies Medications metoprolol [...] Comments Blood Pressure 111/88 04/08/2021 8:36 AM AUTOMATIC PILOT MECHANIC Pulse 112 04/08/2021 8:36 AM AUTOMATIC PILOT MECHANIC Temperature 36.8 C (98.2 F) 04/08/2021 8:36 AM AUTOMATIC PILOT MECHANIC Respiratory Rate 12 04/08/2021 8:36 AM AUTOMATIC PILOT MECHANIC Oxygen Saturation 97% 04/08/2021 8:36 AM AUTOMATIC PILOT MECHANIC Inhaled Oxygen Concentration - - Weight 49.9 [...] of 2) 2012 COVID-19 Vaccine (1 - 2024-2 6 season) 2025 Influenza Adult (#1) 2025 Colorectal [...] Diagnosis Comments COLONOSCOPY Routine 04/08/2021 8:33 AM AUTOMATIC PILOT MECHANIC from Last 3 Months or Most Recently Relevant to [place] [address] [place] Care Teams Fisher Swordfish Relationship Specialty Start Date End Date Chris Hilliard MD [address] [place] [address] PCP - General FAMILY PRACTICE 04/08/21
--- OUTSIDE RECORDS SUMMARY | 2025-03-31 14:23 | XMS_ITS | Encounter Summary ---
Author Organization [facility] Healthcare Address [address] [place] [address] Care Team Providers Care Hearing Care Professional Name Role Phone Caleb Craft MD Unavailable [phone] Luis Lorenzo MD Unavailable [phone] Apolinar Jason MD Unavailable [phone] Tommy Rebolledo MD Primary Care Provider [phone] Encounter Details Date Type Department Care Team (Late st Contact Info) Description 07/22/2024 Orders Only [facility] [place] Information Management [address] [place] [address] Scanning, Provider Social History Tobacco Use [...] often do you attend chur ch or denominational services? Never 05/13/2021 Do you belong to any clubs o r organizations such as roman catholic groups, unions, fraternal or athletic groups, or [...] place to sleep or slept in a custodial (including now)? No 05/13/2021 Comments Unknown Sex and Gender Information Value Date Recorded Sex Assigned at Not on file Legal Sex Female 3:09 AM CERTIFIED NURSES' AIDE Gender Identity Not on file Sexual Orientation Not on file documented as of this encounter Plan of Treatment Not on file documented as of this encounter Procedures Procedure Name Priority Date/Time Associated Diagnosis Comments SCAN - LABS 07/22/2024 documented in this encounter Results * SCAN - LABS (07/22/2024) us Provider Scanning Final Result documented in this encounter Visit Diagnoses Not on filedocumented in this encounter Care Teams Hearing Care Professional Relationship Specialty Start Date End Date Tommy Rebolledo MD [address] [place] [address] [address] [place] [address] PCP - General Family Medicine 12/28/22 Caleb Craft MD Surgeon Cardiothoracic Surgery 05/20/21 Luis Lorenzo MD [address], [address] [id number] Consulting Physician Cardiology 05/20/21 [place] [address] [address] [id number] Consulting Physician Internal Medicine 05/20/21 documented as of this encounter
== END 2025-03-31 13:09 | disposition home or self-care (01) ==
LOC: ANHGOSHLAB 13:10
PROVIDERS: PCP Family Medicine; Visit Provider Nurse Practitioner Family
DX: R31.9 Hematuria, unspecified (principal)
CPT/HCPCS: 87086